=== PATIENT | male | born 1950 | race Caucasian/White ===

== ENCOUNTER 2022-12-05 09:43 | Outpatient (OUT) | payer OTHER, SELFPAY ==
--- NOTE | 2022-12-05 10:01 | US_ITS ---
The [address] [address] Patient Name: KELSEY HERNANDEZ MRN: [id number] date: 1950 Sex: M Assigned Patient Location: US Current Patient Location: US Accession/Order Number: [id number] Exam Date: 12/05/2022 10:00 Report Date: 12/06/2022 07:53 At the request of: NON-STAFF PHYSICIAN Procedure: US aorta EXAM: US aorta HISTORY: Abdominal Aortic Aneurysm I71.40. TECHNIQUE: Ultrasound was performed of the abdominal aorta. COMPARISON: CT abdomen pelvis 06/20/2019 FINDINGS: AORTA: Mild fusiform dilation of the distal aorta, 2.8 x 2.5 cm. Marked atherosclerotic plaque throughout the aorta and common iliac arteries. OTHER: Negative. IMPRESSION: 1. Marked atherosclerotic disease. 2. Mild fusiform aneurysmal dilation of distal abdominal aorta; not appreciably changed compared to 06/20/2019. Electronically authenticated by: BRENDA DAMIAN Date: 12/06/2022 07:53
== END 2022-12-05 09:44 ==
LOC: US 09:51
PROVIDERS: PCP Family Medicine
DX: I77.819 Aortic ectasia, unspecified site (principal); I70.90 Unspecified atherosclerosis
CPT/HCPCS: 76706

== ENCOUNTER 2023-04-26 00:35 | Emergency (ER) | payer MEDICARE, SELFPAY ==
[2023-04-26] VITALS (33 sets, daily range): BP systolic 112–141; BP diastolic 69–91; PULSE 74–106; RESP 10–27; TEMP 36.7; O2SAT 91–100; BMI 24.0
--- NOTE | 2023-04-26 00:49 | XR_ITS ---
The [address] [address] Patient Name: KELSEY HERNANDEZ MRN: [id number] date: 1950 Sex: M Assigned Patient Location: ER Current Patient Location: ED.MAIN Accession/Order Number: [id number] Exam Date: 04/26/2023 01:10 Report Date: 04/26/2023 01:26 At the request of: NAYA BAER Procedure: XR chest 1V EXAM: XR chest 1V HISTORY: SOB COMPARISON: Chest radiograph dated 10/11/2022. TECHNIQUE: One view of the chest was obtained. FINDINGS: The cardiac silhouette is stable in size. Aortic atherosclerotic disease is seen. A calcified granuloma is seen in the right upper lung. There are mild bibasilar opacities. There is no significant pneumothorax or left pleural effusion. There is a trace right pleural effusion. No acute osseous abnormality is seen. XR/XR chest 1V IMPRESSION: 1. Trace right pleural effusion with likely bibasilar atelectasis. Electronically authenticated by: Zenon RIZO Date: 04/26/2023 01:26
--- NOTE | 2023-04-26 00:49 | ECG_ITS ---
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
[2023-04-26] MEDS: METHYLPREDNISOLONE SOD SUCC PF 125 MG/2 ML VIAL IVP (01:05)
--- NOTE | 2023-04-26 01:09 | PC.NURSE ---
radiology called for breathing treatment
[2023-04-26] MEDS: IPRATROPIUM/ALBUTEROL SULFATE 3 ML AMPUL.NEB IH (01:13)
--- NOTE | 2023-04-26 04:41 | PC.NURSE ---
patientn 96% on room air while sitting up. when laying flat for sleep he is 92-94% comfortably
== END 2023-04-26 06:53 | disposition home or self-care (01) ==
PROVIDERS: Emergency Provider Emergency Medicine; PCP Family Medicine
DX: J44.1 Chronic obstructive pulmonary disease with (acute) exacerbation (principal); Z79.899 Other long term (current) drug therapy
CPT/HCPCS: 71045; 93005; 94640; 96374; 99284; J2930

== ENCOUNTER 2023-05-02 13:15 | Emergency (ER) | payer OTHER, SELFPAY ==
[2023-05-02] VITALS (12 sets, daily range): BP systolic 132–161; BP diastolic 78–94; PULSE 74–96; RESP 12–25; TEMP 36.8; O2SAT 85–96; BMI 24.0
--- NOTE | 2023-05-02 13:31 | ECG_ITS ---
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
--- NOTE | 2023-05-02 13:31 | XR_ITS ---
The [address] [address] Patient Name: KELSEY HERNANDEZ MRN: [id number] date: 1950 Sex: M Assigned Patient Location: ER Current Patient Location: ED.MAIN Accession/Order Number: [id number] Exam Date: 05/02/2023 13:40 Report Date: 05/02/2023 14:02 At the request of: MAGDI BAR Procedure: XR chest 1V EXAMINATION: XR chest 1V 05/02/2023 11:00 AM PST HISTORY: SOB, history of chronic obstructive pulmonary dise TECHNIQUE: Single frontal view of the chest acquired. COMPARISONS: Chest x-ray 04/26/2023. FINDINGS: Lines/tubes/other: None. Heart and mediastinum: Stable. Bones: No acute osseous abnormality. Lungs: Streaky left basilar opacification is mildly worse. Pleura: There is no significant pleural effusion or pneumothorax. Other: Flattening of the diaphragms in keeping with COPD. XR/XR chest 1V IMPRESSION: Mildly worsening left basilar opacification which could represent superimposed aspiration or pneumonia in an area of scarring. Alternatively, this could represent new mild atelectasis. Electronically authenticated by: KERVIN CHAN Date: 05/02/2023 14:02
--- NOTE | 2023-05-02 13:32 | ED.SOB1 ---
HPI - SOB/Dyspnea General Chief Complaint: Shortness of Breath/Dyspnea Stated Complaint: SHORTNESS OF BREATH Time Seen by Provider: 05/02/23 13:28 Source: patient Mode of arrival: Wheelchair Limitations: no limitations History of Present Illness HPI Narrative: 72-year-old male presents for difficulty breathing. He was at the grocery store and felt short of breath and got dizzy. He didn't pass out. He's had no fever or productive cough. He was in this emergency department for similar issues a week ago. he used his inhaler and it made him feel a little bit better. Related Data Home Medications Medication Instructions Recorded Confirmed albuterol sulfate 90 mcg/actuation inhalation 04/26/23 aerosol inhaler montelukast 10 mg tablet mg 04/26/23 Previous Rx's Medication Instructions Recorded prednisone 10 mg tablet See Rx Instructions .Route 05/02/23 .COMPLEX #30 tabs Allergies Allergy/AdvReac Type Severity Reaction Status Date / Time Penicillins Allergy Unknown Verified 04/26/23 00:46 Exam Narrative Exam Narrative: Nurses note and vital signs reviewed and patient is not hypoxic. General: The patient appears well and in no apparent distress. Patient is resting comfortably on cart. Skin: Warm, dry, no pallor noted. There is no rash noted. Head: Normocephalic, atraumatic Eye: Normal conjunctiva, no drainage Ears, Nose, Mouth, and Throat: oral mucosa is moist. Nares patent. Cardiovascular: Regular Rate and Rhythm Respiratory: bilateral rhonchi with diminished air movement Back: non-tender GI: soft and nontender Musculoskeletal: The patient has no evidence of calf tenderness, no pitting edema, symmetrical pulses noted bilaterally Neurological: A&O, normal speech Psychiatric: Cooperative Constitutional Vital Signs, click to edit/add: Last Vital Signs Temp 98.2 F 05/02/23 13:20 Pulse 78 05/02/23 14:40 Resp 16 05/02/23 14:40 BP 132/79 05/02/23 14:30 Pulse Ox 95 05/02/23 14:40 O2 Del Method Room Air 05/02/23 13:20 Course Vital Signs Vital signs: Vital Signs Temperature 98.2 F 05/02/23 13:20 Pulse Rate 88 05/02/23 13:20 Respiratory Rate 24 05/02/23 13:20 Blood Pressure 147/78 H 05/02/23 13:20 Pulse Oximetry 95 05/02/23 13:20 Oxygen Delivery Method Room Air 05/02/23 13:20 Temperature 98.2 F 05/02/23 13:20 Pulse Rate 78 05/02/23 14:40 Respiratory Rate 16 05/02/23 14:40 Blood Pressure 132/79 05/02/23 14:30 Pulse Oximetry 95 05/02/23 14:40 Oxygen Delivery Method Room Air 05/02/23 13:20 MDM - SOB/Dyspnea MDM Narrative Medical decision making narrative: the patient presents with chronic obstructive pulmonary disease exacerbation. He is feeling improved and air movement is much better now. He was given IV site Medrol and aerosol treatment and is able to be discharged home. I do not clinically suspect pneumonia. Differential Diagnosis Differential diagnosis: Likely acute exacerbation of chronic obstructive airways disease, congestive heart failure and community acquired pneumonia Lab Data Attestation: I reviewed the patient's lab results. Labs: Lab Results 05/02/23 Range/Units 13:35 WBC 8.2 (4.0-11.0) 10^3/uL RBC 4.51 L (4.70-6.10) 10^6/uL Hgb 14.3 (14.0-18.0) g/dL Hct 41.6 L (42.0-54.0) % MCV 92.2 (80.0-94.0) fL MCH 31.7 (25.9-34.0) pg MCHC 34.4 (29.9-35.2) g/dL RDW 12.0 (11.0-15.0) % Plt Count 276 (150-450) 10^3/uL MPV 9.2 L (9.5-13.5) fL Neut % (Auto) 59.1 (43.0-75.0) % Lymph % (Auto) 22.3 (20.5-60.0) % [place] % (Auto) 12.5 H (1.7-12.0) % Eos % (Auto) 5.1 (0.9-7.0) % Baso % (Auto) 0.6 (0.2-2.0) % Neut # (Auto) 4.9 (1.4-6.5) 10^3/uL Lymph # (Auto) 1.8 (1.2-3.8) 10^3/uL [place] # (Auto) 1.0 H (0.3-0.8) 10^3/uL Eos # (Auto) 0.4 (0.0-0.7) 10^3/uL Baso # (Auto) 0.1 (0.0-0.1) 10^3/uL Abs Immat Gran (auto) 0.03 (0.00-0.03) 10^3/uL Imm/Tot Granulo (auto) 0.4 (0.0-0.5) % Sodium 135 L (136-145) mmol/L Potassium 3.4 L (3.5-5.1) mmol/L Chloride 102 (98-107) mmol/L Carbon Dioxide 24.0 (21.0-32.0) mmol/L Anion Gap 12.4 BUN 13.0 (7.0-18.0) mg/dL Creatinine 0.73 (0.70-1.30) mg/dL Est GFR ( Amer) >60 (>=60) Est GFR (Non-Af Amer) >60 (>=60) BUN/Creatinine Ratio 17.8 Glucose 83 (74-106) mg/dL Calcium 9.0 (8.5-10.1) mg/dL Imaging Data Chest x-ray: Radiologist's impression: Procedure: XR chest 1V EXAMINATION: XR chest 1V 05/02/2023 11:00 AM PST HISTORY: SOB, history of chronic obstructive pulmonary dise TECHNIQUE: Single frontal view of the chest acquired. COMPARISONS: Chest x-ray 04/26/2023. FINDINGS: Lines/tubes/other: None. Heart and mediastinum: Stable. Bones: No acute osseous abnormality. Lungs: Streaky left basilar opacification is mildly worse. Pleura: There is no significant pleural effusion or pneumothorax. Other: Flattening of the diaphragms in keeping with COPD. IMPRESSION: Mildly worsening left basilar opacification which could represent superimposed aspiration or pneumonia in an area of scarring. Alternatively, this could represent new mild atelectasis. Electronically authenticated by: KERVIN CHAN Date: 05/02/2023 14:02 Critical Care Time Critical Care Time Critical Care Time: Yes Total Critical Care Time: 35 Attestation: Due to the high probability of sudden and clinically significant deterioration in the patient's condition he/she required the highest level of my preparedness to intervene urgently I provided critical care time including documentation time, medication orders and management, reevaluation, vital sign assessment, ordering and reviewing of lab tests, ordering and reviewing of x-ray studies, and admission orders. Aggregate critical care time is 35 minutes including only time during which I was engaged in work directly related to his/her care and did not include time spent treating other patients simultaneously. Discharge Plan Discharge Chief Complaint: Shortness of Breath/Dyspnea Clinical Impression: COPD exacerbation Patient Disposition: Home, Self-Care Time of Disposition Decision: 14:48 Condition: Good Mode of Transportation: Private Vehicle Prescriptions / Home Meds: New prednisone 10 mg tablet See Rx Instructions .ROUTE .COMPLEX Qty: 30 0RF Rx Instructions: 4 by mouth daily for three days then 3 by mouth daily for three days then 2 by mouth daily for three days then 1 by mouth daily for three days No Action montelukast 10 mg tablet albuterol sulfate 90 mcg/actuation HFA aerosol inhaler INHALATION Instructions: COPD (Chronic Obstructive Pulmonary Disease) (ED), How Your Lungs Work (ED) Stand Alone Forms: Portal Instructions Referrals: PAPO CASTRO [Primary Care Provider] - 1 week
[2023-05-02 13:42] LABS: Basophils Absolute Auto 0.1 10^3/uL (0.0-0.1); Basophils Percent Auto 0.6 % (0.2-2.0); Eosinophils Absolute Auto 0.4 10^3/uL (0.0-0.7); Eosinophils Percent Auto 5.1 % (0.9-7.0); Hematocrit 41.6 % (42.0-54.0); Hemoglobin 14.3 g/dL (14.0-18.0); Immature Granulocytes Abs Auto 0.03 10^3/uL (0.00-0.03); Immature Granulocytes Pct Auto 0.4 % (0.0-0.5); Lymphocytes Absolute Auto 1.8 10^3/uL (1.2-3.8); Lymphocytes Percent Auto 22.3 % (20.5-60.0); Mean Corpuscular HGB Conc 34.4 g/dL (29.9-35.2); Mean Corpuscular Hemoglobin 31.7 pg (25.9-34.0); Mean Corpuscular Volume 92.2 fL (80.0-94.0); Mean Platelet Volume 9.2 fL (9.5-13.5); Monocytes Percent Auto 12.5 % (1.7-12.0); Neutrophils Absolute Auto 4.9 10^3/uL (1.4-6.5); Neutrophils Percent Auto 59.1 % (43.0-75.0); Platelet Count 276 10^3/uL (150-450); Red Blood Count 4.51 10^6/uL (4.70-6.10); White Blood Count 8.2 10^3/uL (4.0-11.0)
[2023-05-02 13:49] LABS: Anion Gap 12.4; BUN Creatinine Ratio 17.8; Chloride 102 mmol/L (98-107); Estimated GFR (African America >60 (>=60); Estimated GFR (Non-African Ame >60 (>=60); Glucose 83 mg/dL (74-106); Potassium 3.4 mmol/L (3.5-5.1); Sodium 135 mmol/L (136-145)
[2023-05-02] MEDS: METHYLPREDNISOLONE SOD SUCC PF 125 MG/2 ML VIAL IVP (13:58)
== END 2023-05-02 15:08 | disposition home or self-care (01) ==
PROVIDERS: Emergency Provider Emergency Medicine; PCP Family Medicine
DX: J44.1 Chronic obstructive pulmonary disease with (acute) exacerbation (principal); Z79.899 Other long term (current) drug therapy
CPT/HCPCS: 36415; 71045; 80048; 85025; 93005; 96374; 99285; J2930

== ENCOUNTER 2023-07-19 19:15 | Observation (INO) | payer OTHER, SELFPAY ==
[2023-07-19] VITALS (25 sets, daily range): BP systolic 129–141; BP diastolic 70–98; PULSE 81–96; RESP 13–24; TEMP 36.9; O2SAT 94–98; BMI 22.5
--- OUTSIDE RECORDS SUMMARY | 2023-07-19 19:23 | XMS_ITS | CCD ---
Author Name Unknown Address [address] [place] [address] Organization [facility] Care Team Providers Care Data Security Analyst Name Role Phone NEGRITA LANDERS Attending Unavail able PAPO CASTRO Primary Care Unavailable CABRERA ., DR ANDREI Cloud Admitting Unavailable CABRERA ., DR ANDREI Cloud Attending Unavailable CABRERA ., DR ANDREI Cloud Consulting Unavailable PAY ., DR GANDARA Consulting Unavailable GRECHNY ., JOSIAH ACEVEDO Consulting Unavaildina e SAM ., SUSHANT Consulting Unavailable KENNY FERRIS Consulting Unavailable MARÍA, DR NARVAEZ Primary Care Unavailable CABRERA ., DR ANDREI Cloud Admitting Unavailable CABRERA ., DR ANDREI Cloud Attending Unavailable CABRERA ., DR ANDREI Cloud Consulting Unavailable GRECHNY ., JOSIAH ACEVEDO Consulting Unavaildina e SAMSA ., SUSHANT Consulting Unavailable THOMAS WILL Consulting Unavailable SISTER, TONI Consulting Unavailable DEGROH, DR BRIE Mitchell Consulting Unavailable MARÍA, DR NARVAEZ Primary Care Unavailable DALEECK, DR CORRINA Holman Consulting Unavaildina THRASHER, DR LISETTE Knight Admitting Unavailable NADERER, DR LISETTE Knight Attending Unavailable NADRAHUL, DR LISETTE Knight Consulting Unavailable STEFFANIE ., JOSIAH ACEVEDO Consulting UnavailBRIE Gomez Consulting Unavailable MARÍA, DR NARVAEZ Primary Care Unavailable CABRERA ., DR ANDREI Cloud Admitting Unavailable CABRERA ., DR ANDREI Cloud Attending Unavailable CABRERA ., DR ANDREI Cloud Consulting Unavailable PAY ., DR GANDARA Consulting Unavailable BHARGAVI ., JUAN Consulting Unavailable IQRA MYERS Consulting Unavailable Papo Castro Primary Care Physician MD Papo Castro Attending Unavailable Yo PONCE Admitting Unavailable Yo PONCE Attending Unavailable Yo PONCE Referring Unavailable MD Papo Castro Admitting Unavailable Lolis Jenkins Attending Unavailable MD Papo Castro Attending Unavailable MD Papo Castro Attending Unavailable MD Papo Castro Attending Unavailable MD Papo Castro Attending Unavailable MD Melody Huertas Emergency Provider [phone] DO Brie Negrete Primary Care Provider MD Christianne Bautista Admit Provider [phone] MD Christianne Bautista Attending Provider [phone] Brie Negrete Primary Care Unavailable Christianne Bautista Admitting Unavailable Amrit Ardon Attending Unavailable Allergies Allergy Classification Reported Allergen(s) Allergy Type Date of Onset Reaction(s) Facility (1 source) Penicillins Drug allergy (disorder) 5 [facility] Repository (2 sources) Penicillin; Translations: [penicillin] Drug Allergy Unknown (qualifier value) [facility] ([facility]) Penicillins Drug allergy (disorder) 3 [facility] Repository Medications Current Medications Medication Drug Class(es) Dates Sig (Normalized) Sig (Original) Albuterol (Eqv-ProAir HFA) 90 mcg/inh inhalation aerosol (1 source) Start: 10-09-2022 take 2 puff(s) by inhalation every four hours as needed for wheezing Albuterol (Eqv-ProAir HFA) 90 mcg/inh inhalation aerosol 2 puff(s), Inhalation, q4hr, Refill(s) 0, as needed for wheezing or shortness of breath Start Date: 10/09/22 Status: Ordered albuterol 0.833 mg/ml / ipratropium bromide 0.167 mg/ml inhalation solution (1 source) Anticholinergic, beta2-Adrenergic Agonist Start: 11-07-2022 take 3 mL by inhalation four times daily albuterol-ipratro pium Inh Ayesha 3 mL UD 3 mL, NEB, QID Shortness of breath or wheezing, Refill(s) 0 Start Date: 11/07/22 Status: Ordered budesonide 0.25 mg/ml inhalation suspension (1 source) Corticosteroid Start: 11-07-2022 budesonide 0.5 mg/2 mL Inh Susp Refills(s) 0, Inflammation Start Date: 11/07/22 Status: Ordered finasteride 5 mg oral tablet (1 source) 5-alpha Reductase Inhibitor Start: 10-09-2022 take 1 tablet by mouth once daily Proscar 5 mg Tab 5 mg = 1 tab(s), Oral, Daily, Refills(s) 0, High cholesterol Start Date: 10/09/22 Status: Ordered montelukast 10 mg oral tablet (1 source) Leukotriene Receptor Antagonist Start: 11-07-2022 take 1 tablet by mouth once daily montelukast 10 mg Tab 10 mg = 1 tab(s), Oral, Daily, Refills(s) 0, Allergy symptoms Start Date: 11/07/22 Status: Ordered nystatin [id number] unt/ml oral suspension (1 source) Polyene Antifungal Start: 11-07-2022 nystatin 100,000 units/mL Oral Susp Refills(s) 0 Start Date: 11/07/22 Status: Ordered simvastatin 5 mg oral tablet (1 source) HMG-CoA Reductase Inhibitor Start: 10-09-2022 take 1 tablet by mouth once daily at bedtime simvastatin 5 mg Tab 5 mg = 1 tab(s), Oral, Once a day (at bedtime), Refills(s) 0, High cholesterol Start Date: 10/09/22 Status: Ordered tamsulosin hydrochloride 0.4 mg oral capsule (1 source) alpha-Adrenergic Neno Start: 10-09-2022 take 2 capsules by mouth once daily tamsulosin 0.4 mg Cap 0.8 mg = 2 cap(s), Oral, Daily, Refills(s) 0, Bladder problems Start Date: 10/09/22 Status: Ordered Problems Active Problems Problem Classification Problem Date Documented Da te Episodic/Chronic Aortic; peripheral; and visceral artery aneurysms (1 source) Abdominal aortic aneurysm 12-06-2022 Chronic Asthma (1 source) Unspecified asthma with status asthmaticus; Translations: [UNS ASTHMA W/STATUS ASTHMATICUS] Onset: 3 Chronic Chronic obstructive pulmonary disease and bronchiectasis (9 sources) Chronic obstructive pulmonary disease with (acute) exacerbation; Translations: [Centrilobular emphysema] Onset: 2 Chronic Coronary atherosclerosis and other heart disease (1 source) Atherosclerotic heart disease of [place] coronary artery without angina pectoris; Translations: [ASHD [place] CA W/O ANGINA PECTORIS] Onset: 2 Chronic Disorders of lipid metabolism (3 sources) Pure hypercholesterolemia, unspecified; Translations: [Hyperlipidemia, unspecified] Onset: 2 10-09-2022 Chronic Gastrointestinal hemorrhage (1 source) Gastrointestinal hemorrhage 11-07-2022 Episodic Genitourinary symptoms and ill-defined conditions (2 sources) Retention of urine, unspecified; Translations: [Obstructive and reflux uropathy, unspecified] Onset: 2 Episodic Hyperplasia of prostate (2 sources) Benign prostatic hyperplasia without lower urinary tract symptoms; Translations: [Benign prostatic hyperplasia] Onset: 3 10-09-2022 Chronic Mycoses (1 source) Other sites of candidiasis; Translations: [OTHER SITES OF CANDIDIASIS] Onset: 3 Episodic Nonspecific chest pain (2 sources) Chest pain; Translations: [Chest pain, unspecified] 06-21-2023 Episodic Other aftercare (1 source) Other mcc (current) drug therapy; Translations: [OTH CUSTODIAL CURRENT DRUG THERAPY] Onset: 3 Episodic Other and unspecified benign neoplasm (1 source) Polyp of colon; Translations: [Polyp of colon] Onset: 3 Episodic Other and unspecified benign neoplasm (1 source) History of polyp of colon 11-07-2022 Episodic Other gastrointestinal disorders (1 source) Dysphagia, unspecified; Translations: [Dysphagia, unspecified] Onset: 3 Episodic Other lower respiratory disease (4 sources) Shortness of breath; Translations: [SHORTNESS OF BREATH] Onset: 3 Episodic Other nutritional; endocrine; and metabolic disorders (1 source) Adult failure to thrive syndrome 10-09-2022 Episodic Other upper respiratory infections (1 source) Acute pharyngitis, unspecified; Translations: [ACUTE PHARYNGITIS UNSPECIFIED] Onset: 3 Episodic Peripheral and visceral atherosclerosis (1 source) Atherosclerosis of aorta 12-06-2022 Chronic Substance-related disorders (1 source) Nicotine dependence, cigarettes, uncomplicated; Translations: [NICOTINE DEPEND CIGARETTES UNCOMP] Onset: 3 Chronic Unclassified (1 source) CONTACT W/AND (SUSP) EXPOS COVID-19; Translations: [CONTACT W/AND (SUSP) EXPOS COVID-19] Onset: 3 Urinary tract infections (3 sources) Acute urinary tract infection; Translations: [Urinary tract infection, site not specified] Onset: 3 06-21-2023 Episodic Past or Other Problems Problem Classification Problem Date Documented Da te Episodic/Chronic Malaise and fatigue (1 source) Other fatigue; Translations: [OTHER FATIGUE] Onset: 06-15-2022 Episodic Nutritional deficiencies (1 source) Cachexia; Translations: [CACHEXIA] Onset: 06-15-2022 Episodic Other lower respiratory disease (1 source) Dyspnea, unspecified; Translations: [DYSPNEA UNSPECIFIED] Onset: 06-15-2022 Episodic Other nutritional; endocrine; and metabolic disorders (1 source) Adult failure to thrive; Translations: [ADULT FAILURE TO THRIVE] Onset: 06-15-2022 Episodic Other nutritional; endocrine; and metabolic disorders (1 source) Body mass index (BMI) 28.0-28.9, adult; Translations: [BODY MASS INDEX BMI 28.0-28.9 ADULT] Onset: 06-12-2022 Episodic Residual codes; unclassified (1 source) Body mass index (BMI) 23.0-23.9, adult; Translations: [BODY MASS INDEX BMI 23.0-23.9 ADULT] Onset: 06-15-2022 Episodic Screening and history of mental health and substance abuse codes (1 source) Personal history of nicotine dependence; Translations: [PERSONAL HISTORY OF NICOTINE DEPEND] Onset: 06-15-2022 Episodic Results Test Name Value Interpretation Reference Range Facility Aerobic Cultureon 06-22-2023 Aerobic Culture Heavy Normal Respira tory Nola 2 Days Gram Stain Result 1+ Epithelial Cells 3+ White Blood Cells 1+ Gram Positive Cocci Rare Gram Positive Bacilli PERFORMED BY: [place] [address] PATHOLOGIST CANVASSING MANAGER ADELINA BRUCE M.D. [facility] Comment on above: Performed By: #### C EPHEID NEG, COVID19 FLU RSV #### [address] Blood Cultureon 06-22-2023 Bacteria identified Cx Nom (Bld) NO GROWTH 5 DAYS PERFORMED BY: [place] [address] PATHOLOGIST CANVASSING MANAGER ADELINA BRUCE M.D. [facility] Comment on above: Performed By: #### C UBLD, LACTIC #### [facility] [address] Gram Stainon 06-22-2023 Microscopic observation Gram stain Nom (Unsp spec) Gram Stain Result 1+ Epithelial Cells 3+ White Blood Cells 1+ Gram Positive Cocci Rare Gram Positive Bacilli PERFORMED BY: [place] [address] PATHOLOGIST CANVASSING MANAGER ADELINA BRUCE M.D. [facility] Comment on above: Performed By: #### C EPHEID NEG, COVID19 FLU RSV #### [address] Lactic Acidon 06-22-2023 Lactate [Moles/Vol] 0.7 mmol/L Normal 0.5-2.2 [facility] Comment on above: Result Comment: PERF ORMED BY: [place] [address] PATHOLOGIST CANVASSING MANAGER ADELINA BRUCE M.D. Performed By: #### C UBLD, LACTIC #### [address] Troponin I High Sensitivityo n 06-22-2023 Troponin I High Sensitivity 9.8 pg/mL Normal 0.0-20.0 [facility] Comment on above: Result Comment: PERF ORMED BY: [place] [address] PATHOLOGIST CANVASSING MANAGER ADELINA BRUCE M.D. Performed By: #### C EPHEID NEG, COVID19 FLU RSV #### [address] Activated partial thrombopla stin time (aPTT) in platelet poor plasma by coagulation aOrdered By: Glendy Mai on 06-21-2023 aPTT Coag (PPP) [Time] 32.9 s 25.1-36.5 [facility] Comment on above: A hematocrit value g reater than 55% may lead to inaccurate results in coagulation testing. Patients having hematocrit values >55% require a special collection tube for coagulation studies. Please contact the laboratory at [phone] for redraw instructions. Automated erythrocytes count in urine sediment (number/area)Ordered By: Melody Huertas on 06-21-2023 RBC Auto (Urine sed) [#/Area] 3-4 [HPF] 0-4 [facility] Automated leukocytes count i n urine sediment (number/area)Ordered By: Melody Huertas on 06-21-2023 WBC Auto (Urine sed) [#/Area] Innumerable [HPF] 0-4 [facility] B-Type Natriuretic Peptideon 06-21-2023 Natriuretic peptide B (Bld) [Mass/Vol] 75.0 pg/mL Normal 5-100 [facility] Comment on above: Result Comment: PERF ORMED BY: [place] [address] PATHOLOGIST CANVASSING MANAGER ADELINA BRUCE M.D. Performed By: #### C EPHEID NEG, COVID19 FLU RSV #### [address] Basic Metabolic Panelon 12-2 Anion gap [Moles/Vol] 12.8 mmol/L Normal 6.0-15.0 [facility] Comment on above: Performed By: #### C EPHEID NEG, COVID19 FLU RSV #### [place] [address] [place] Calcium [Mass/Vol] 9.3 mg/dL Normal 8.6-10.3 [facility] Comment on above: Performed By: #### C EPHEID NEG, COVID19 FLU RSV #### [place] [address] [place] Chloride [Moles/Vol] 104 mmol/L Normal 98-107 [facility] Comment on above: Performed By: #### C EPHEID NEG, COVID19 FLU RSV #### [place] [id number] [place] CO2 [Moles/Vol] 24.1 mmol/L Normal 21.0-31.0 [facility] Comment on above: Performed By: #### C EPHEID NEG, COVID19 FLU RSV #### [facility] [address] [place] [address] [place] Creatinine [Mass/Vol] 0.70 mg/dL Normal 0.70-1.30 [facility] Comment on above: Performed By: #### C EPHEID NEG, COVID19 FLU RSV #### [facility] [address] [place] [address] [place] Creatinine Clr Calc Pharmacy 70.92 [facility] Comment on above: Result Comment: PERF ORMED BY: [place] [address] PATHOLOGIST CANVASSING MANAGER ADELINA BRUCE M.D. Performed By: #### C EPHEID NEG, COVID19 FLU RSV #### [place] [address] [place] GFR/1.73 sq M.predicted MDRD (S/P/Bld) [Vol rate/Area] mL/min/{1.73_m2} [facility] Comment on above: Performed By: #### C EPHEID NEG, COVID19 FLU RSV #### [place] [address] [place] Glucose [Mass/Vol] 100 mg/dL Normal 70-100 [facility] Comment on above: Result Comment: [place] Glucose Reference Range is dependent on time and content of last meal. Glucose of more than 200 mg/dL in a nonstressed, ambulatory subject supports the diagnosis of Diabetes Mellitus. ADA recommended reference range Performed By: #### C EPHEID NEG, COVID19 FLU RSV #### [facility] [address] [place] [address] [place] Potassium [Moles/Vol] 3.9 mmol/L Normal 3.5-5.1 [facility] Comment on above: Performed By: #### C EPHEID NEG, COVID19 FLU RSV #### [facility] [address] [place] [address] [place] Sodium [Moles/Vol] 137 mmol/L Normal 136-145 [facility] Comment on above: Performed By: #### C EPHEID NEG, COVID19 FLU RSV #### [facility] [address] [place] [address] [place] Urea nitrogen [Mass/Vol] 10 mg/dL Normal 7- [facility] Comment on above: Performed By: #### C EPHEID NEG, COVID19 FLU RSV #### [facility] [address] Basophils Auto (Bld) [#/Vol] Ordered By: Glendy Mai on 06-21-2023 Basophils (Bld) [#/Vol] 0.1 10*3/uL 0.0-0.2 [facility] Basophils/100 WBC Auto (Bld) Ordered By: Glendy Mai on 06-21-2023 Basophils/100 WBC (Bld) 0.5 % . [facility] Bilirubin Test strip Ql (U)O rdered By: Melody Huertas on 06-21-2023 Bilirubin Ql (U) Negative Negative [facility] Blood Cultureon 06-21-2023 Bacteria identified Cx Nom (Bld) NO GROWTH 5 DAYS PERFORMED BY: [place] [address] PATHOLOGIST CANVASSING MANAGER ADELINA BRUCE M.D. Normal [facility] Comment on above: Performed By: #### C UBLD, LACTIC #### [facility] [address] [place] [address] COVID CepheidOrdered By: Adrian Mai on 06-21-2023 SARS-CoV-2 (COVID-19) Ab IA Ql Negative Negative [facility] Comment on above: This is a duplicate Cepheid Xpert Xpress CoV-2/Flu/RSV Plus RNA by RT-PCR result to be used for statistical tracking purpose only. SARS-CoV-2 (COVID-19) RNA BENSON+probe Ql (Unsp spec) [facility] COVID-19 / Flu A/B / RSV PCR on 06-21-2023 SARS-CoV-2 (COVID-19) RNA BENSON+probe Ql (Unsp spec) COVID-19 Cepheid Result Negative for SARS-CoV-2 RNA by RT-PCR Flu A Cepheid Result Negative for Flu A RNA by RT-PCR Flu B Cepheid Result Negative for Flu B RNA by RT-PCR RSV Cepheid Result Negative for RSV RNA by RT-PCR COVID19 Blank Space -- Reference: Negative COVID19 Blank Space -- Cepheid Disclaimer The Cepheid Xpert Xpress CoV-2/Flu/RSV Plus has Cepheid Disclaimer not been FDA cleared or approved; this test has Cepheid Disclaimer been authorized by FDA under an EUA for use by Cepheid Disclaimer authorized laboratories; this test has been Cepheid Disclaimer authorized only for the simultaneous qualitative Cepheid Disclaimer detection and differentiation of nucleic acids from Cepheid Disclaimer SARS-CoV-2, influenza A, influenza B, and Cepheid Disclaimer respiratory syncytial virus (RSV), and not for any Cepheid Disclaimer other viruses or pathogens; and this test is only Cepheid Disclaimer authorized for the duration of the declaration that Cepheid Disclaimer circumstances exist justifying the authorization of Cepheid Disclaimer emergency use of in vitro diagnostic tests for Cepheid Disclaimer detection and/or diagnosis of COVID-19 under Cepheid Disclaimer Section 564(b)(1) of the Act, 21 U.S.C. 360bbb- Cepheid Disclaimer 3(b)(1), unless the authorization is terminated or Cepheid Disclaimer revoked sooner. PERFORMED BY: [facility] [address] [place] [address] PATHOLOGIST CANVASSING MANAGER ADELINA BRUCE M.D. Normal [facility] Comment on above: Performed By: #### C EPHEID NEG, COVID19 FLU RSV #### [facility] [address] [place] [id number] [facility] CT angio chest PE protocolon 06-21-2023 CT angio chest PE protocol [facility] [address] [place] [address] [place] [address] CT Scan Report Signed Patient: Kelsey Hernandez MR#: [id number] : 1950 Acct:[id number] Age/Sex: 72 / M ADM Date: 06/21/23 Loc: ER Room: Type: [facility] ER Attending Dr: Copies to: Melody Huertas MD Ordering Provider: Melody Huertas MD Date of Service: 06/21/23 CT/CT angio chest PE protocol: r/o pe, tachy, sob, dimer elevated CT ANGIOGRAM OF THE CHEST, PULMONARY EMBOLISM PROTOCOL: CLINICAL INFORMATION: Shortness of breath and cough for 2 weeks tachycardia elevated d-dimer COMPARISON: Chest performed earlier today. TECHNIQUE: Following intravenous injection of contrast CT scans of the chest were obtained using pulmonary embolism protocol. Coronal and sagittal reconstructed images, as well as volume rendered CT pulmonary angiographic images were also submitted.The CT exam was performed using one or more of the following dose reduction techniques: Automated exposure control, adjustment of the MA and/or Kv according to patient size, or use of the iterative reconstruction technique. FINDINGS: Pulmonary Vasculature: Contrast bolus is adequate for evaluation of pulmonary embolism. Pulmonary trunk appears nondilated. No filling defects are identified to suggest pulmonary embolism. Mediastinum : Thoracic aorta is normal in caliber. No pericardial effusion. No lymphadenopathy. The esophagus is grossly unremarkable. Lungs: No focal consolidation, pneumothorax or pleural effusion. Diffuse bronchial wall thickening. Debris is seen within the trachea extending into the right breast. Upper abdomen: No acute findings Soft tissue/bones: Soft tissues surrounding the chest wall demonstrate no acute findings. Osseous structures demonstrate degenerative change. CT/CT angio chest PE protocol IMPRESSION: NO EVIDENCE OF ACUTE PULMONARY EMBOLISM OR PROCESS. Impression dictated by: Ernesto Beal Jr., D.O.06/21/2023 9:06 PM Dictation Location: [place] [address] Transcribed By: [place] 06/21/232105 Dictated By: Ernesto Beal Jr, DO 06/21/232057 Signed By: 06/21/232105 Normal [facility] Calcium [Mass/volume] in Ser um or PlasmaOrdered By: Glendy Mai on 06-21-2023 Calcium [Mass/Vol] 9.3 mg/dL 8.6-10.3 [facility] Carbon dioxide, total [Moles /volume] in Serum or PlasmaOrdered By: Glendy Mai on 06-21-2023 CO2 [Moles/Vol] 24.1 mmol/L 21.0-31.0 [facility] Cepheid COVID PCR Negativeon 06-21-2023 SARS-CoV-2 (COVID-19) RNA BENSON+probe Ql (Unsp spec) Negative Normal Negative [facility] Comment on above: Result Comment: This is a duplicate Cepheid Xpert Xpress CoV-2/Flu/RSV Plus RNA by RT-PCR result to be used for statistical tracking purpose only. PERFORMED BY: [place] [id number] PATHOLOGIST CANVASSING MANAGER ADELINA BRUCE M.D. Performed By: #### C EPHEID NEG, COVID19 FLU RSV #### [facility] [address] [place] [address] [place] Chloride [Moles/volume] in S eron or PlasmaOrdered By: Glendy Mai on 06-21-2023 Chloride [Moles/Vol] 104 mmol/L 98-107 [facility] Color Auto (U)Ordered By: Heather Huertas on 06-21-2023 Color (U) Yellow Yellow [facility] Complete Blood Count Auto Di ffon 06-21-2023 Basophils (Bld) [#/Vol] 0.1 10*3/uL Normal 0.0-0.2 [facility] Comment on above: Result Comment: PERF ORMED BY: [facility] [address] [place] [id number] PATHOLOGIST CANVASSING MANAGER ADELINA BRUCE M.D. Performed By: #### C EPHEID NEG, COVID19 FLU RSV #### [facility] [address] [place] [address] [place] Basophils/100 WBC (Bld) 0.5 % Normal . [facility] Comment on above: Performed By: #### C EPHEID NEG, COVID19 FLU RSV #### [address] Eosinophils (Bld) [#/Vol] 0.8 10*3/uL High 0.0-0.45 [facility] Comment on above: Performed By: #### C EPHEID NEG, COVID19 FLU RSV #### [address] Eosinophils/100 WBC (Bld) 6.6 % Normal . [facility] Comment on above: Performed By: #### C EPHEID NEG, COVID19 FLU RSV #### [address] Erythrocyte distribution width (RBC) [Ratio] 13.4 % Normal 12.0-14.8 [facility] Comment on above: Performed By: #### C EPHEID NEG, COVID19 FLU RSV #### [address] Hematocrit (Bld) [Volume fraction] 43.0 % Normal 38.8-50.0 [facility] Comment on above: Performed By: #### C EPHEID NEG, COVID19 FLU RSV #### [address] Hemoglobin (Bld) [Mass/Vol] 14.4 g/dL Normal 13.0-17.0 [facility] Comment on above: Performed By: #### C EPHEID NEG, COVID19 FLU RSV #### [address] Lymphocytes (Bld) [#/Vol] 1.8 10*3/uL Normal 1.00-4.8 [facility] Comment on above: Performed By: #### C EPHEID NEG, COVID19 FLU RSV #### [address] Lymphocytes/100 WBC (Bld) 16.0 % Normal . [facility] Comment on above: Performed By: #### C EPHEID NEG, COVID19 FLU RSV #### [address] MCH (RBC) [Entitic mass] 30.9 pg Normal 27.5-35.2 [facility] Comment on above: Performed By: #### C EPHEID NEG, COVID19 FLU RSV #### [address] MCV (RBC) [Entitic vol] 92.6 fL Normal 83.5-101 [facility] Comment on above: Performed By: #### C EPHEID NEG, COVID19 FLU RSV #### [address] Mean Corpuscular HGB Conc 33.4 g/dL Normal 32.5-35.6 [facility] Comment on above: Performed By: #### C EPHEID NEG, COVID19 FLU RSV #### [address] Monocytes (Bld) [#/Vol] 1.0 10*3/uL High 0.0-0.8 [facility] Comment on above: Performed By: #### C EPHEID NEG, COVID19 FLU RSV #### [address] Monocytes/100 WBC (Bld) 19.71 % Normal 0.00-20.00 [facility] Comment on above: Performed By: #### C EPHEID NEG, COVID19 FLU RSV #### [place] [address] [place] Monocytes/100 WBC (Bld) 9.0 % Normal . [facility] Comment on above: Performed By: #### C EPHEID NEG, COVID19 FLU RSV #### [place] [address] [place] Neutrophils (Bld) [#/Vol] 7.8 10*3/uL High 1.8-7.7 [facility] Comment on above: Performed By: #### C EPHEID NEG, COVID19 FLU RSV #### [address] Neutrophils/100 WBC (Bld) 67.9 % Normal . [facility] Comment on above: Performed By: #### C EPHEID NEG, COVID19 FLU RSV #### [facility] [address] NRBC% 0.1 /100{WBC} Normal 0-0.5 [facility] Comment on above: Performed By: #### C EPHEID NEG, COVID19 FLU RSV #### [facility] [address] Platelet mean volume (Bld) [Entitic vol] 6.8 fL Normal 6.6-10.1 [facility] Comment on above: Performed By: #### C EPHEID NEG, COVID19 FLU RSV #### [address] Platelets (Bld) [#/Vol] 372 10*3/uL Normal 150-450 [facility] Comment on above: Performed By: #### C EPHEID NEG, COVID19 FLU RSV #### [address] RBC (Bld) [#/Vol] 4.65 10*6/uL Normal 3.90-5.60 [facility] Comment on above: Performed By: #### C EPHEID NEG, COVID19 FLU RSV #### [address] WBC (Bld) [#/Vol] 11.5 10*3/uL High 4.1-10.5 [facility] Comment on above: Performed By: #### C EPHEID NEG, COVID19 FLU RSV #### [facility] [address] [place] [address] Creatinine [Mass/volume] in Serum or PlasmaOrdered By: Glendy Mai on 06-21-2023 Creatinine [Mass/Vol] 0.70 mg/dL 0.70-1.30 [facility] D-Dimer High Sensitivityon 1 08-22-2022 D-Dimer High Sensitivity 312 ng/mL High 0-243 [facility] Comment on above: Result Comment: The reference range for D-dimer is <243 ng/mL D-dimer units. D-dimer results must be used in conjunction with a clinical pretest probability (PTP) assessment model for deep vein thrombosis (DVT) and pulmonary embolism (PE). Results <230 ng/mL d-dimer units can be used as a negative predictor in patients with low or moderate probability for DVT/PE. Results above the exclusion threshold of 230 ng/ml D-dimer units for DVT/PE may indicate the need for further diagnostic testing. D-Dimer can be increased in hospitalized patients due to co-morbid conditions. A hematocrit value greater than 55% may lead to inaccurate results in coagulation testing. Patients having hematocrit values >55% require a special collection tube for coagulation studies. Please contact the laboratory at [phone] for redraw instructions. PERFORMED BY: [place] [address] PATHOLOGIST CANVASSING MANAGER ADELINA BRUCE M.D. Performed By: #### C EPHEID NEG, COVID19 FLU RSV #### [facility] [address] [place] [address] [place] Dipstick and Microscopicon 1 08-22-2022 Appearance (U) Turbid Critically abnormal Clear [facility] Comment on above: Order Comment: Name Collection Type:: Clean-Voided Midstream Performed By: #### A DDONUAPLUS, CUU #### [place] [address] [place] Bacteria,Urine 4+ High None Seen [facility] Comment on above: Order Comment: Name Collection Type:: Clean-Voided Midstream Performed By: #### A DDONUAPLUS, CUU #### [place] [id number] [place] Bilirubin,Urine Negative Normal Negative [facility] Comment on above: Order Comment: Name Collection Type:: Clean-Voided Midstream Performed By: #### A DDONUAPLUS, CUU #### [place] [id number] [place] Color (U) Yellow Normal Yellow [facility] Comment on above: Order Comment: Name Collection Type:: Clean-Voided Midstream Performed By: #### A DDONUAPLUS, CUU #### [address] Glucose Ql (U) Normal Normal Normal [facility] Comment on above: Order Comment: Name Collection Type:: Clean-Voided Midstream Performed By: #### A DDONUAPLUS, CUU #### [place] [address] [place] Hyaline Casts,Urine None Seen Normal 0-8 [facility] Comment on above: Order Comment: Name Collection Type:: Clean-Voided Midstream Performed By: #### A DDONUAPLUS, CUU #### [address] Ketones Ql (U) 2+ High Negative [facility] Comment on above: Order Comment: Name Collection Type:: Clean-Voided Midstream Performed By: #### A DDONUAPLUS, CUU #### [address] Leukocyte esterase Test strip Ql (U) 3+ High Negative [facility] Comment on above: Order Comment: Name Collection Type:: Clean-Voided Midstream Performed By: #### A DDONUAPLUS, CUU #### [place] [address] [place] Nitrite,Urine Negative Normal Negative [facility] Comment on above: Order Comment: Name Collection Type:: Clean-Voided Midstream Performed By: #### A DDONUAPLUS, CUU #### [place] [address] [place] Occult Blood,Urine Trace High Negative [facility] Comment on above: Order Comment: Name Collection Type:: Clean-Voided Midstream Result Comment: PERF ORMED BY: [place] [address] PATHOLOGIST CANVASSING MANAGER ADELINA BRUCE M.D. Performed By: #### A DDONUAPLUS, CUU #### [place] [address] [place] pH (U) 5.5 [pH] Normal 5.0-9.0 [facility] Comment on above: Order Comment: Name Collection Type:: Clean-Voided Midstream Performed By: #### A DDONUAPLUS, CUU #### [address] Protein,Urine Trace High Negative [facility] Comment on above: Order Comment: Name Collection Type:: Clean-Voided Midstream Performed By: #### A DDONUAPLUS, CUU #### [address] RBC,Urine 3-4 Normal 0-4 [facility] Comment on above: Order Comment: Name Collection Type:: Clean-Voided Midstream Performed By: #### A DDONUAPLUS, CUU #### [address] Specificy [place],Urine 1.022 Normal 1.001-1.030 [facility] Comment on above: Order Comment: Name Collection Type:: Clean-Voided Midstream Performed By: #### A DDONUAPLUS, CUU #### [address] Squamous Epithelial Cell,Urine None Seen Normal 0-2 [facility] Comment on above: Order Comment: Name Collection Type:: Clean-Voided Midstream Performed By: #### A DDONUAPLUS, CUU #### [address] Urobilinogen,Urine Normal Normal Normal [facility] Comment on above: Order Comment: Name Collection Type:: Clean-Voided Midstream Performed By: #### A DDONUAPLUS, CUU #### [facility] [address] [place] [address] [place] WBC,Urine Innumerable High 0-4 [facility] Comment on above: Order Comment: Name Collection Type:: Clean-Voided Midstream Performed By: #### A DDONUAPLUS, CUU #### [address] Yeast,Urine None Seen Normal None Seen [facility] Comment on above: Order Comment: Name Collection Type:: Clean-Voided Midstream Result Comment: PERF ORMED BY: [place] [address] PATHOLOGIST CANVASSING MANAGER ADELINA BRUCE M.D. Performed By: #### A FABIO CUU #### [address] ECG 12 lead ECGon 06-21-2023 ECG 12 lead ECG [facility] [place] [address] [place] [address] Electrocardiograph Report Signed Patient: Kelsey Hernandez MR#: [id number] : 1950 Acct:[id number] Age/Sex: 72 / M ADM Date: 06/21/23 Loc: Room: [address] [place] [address] Type: ADM IN Attending Dr: Christianne Bautista MD Ordering Provider: Glendy Mai APRN Date of Service: 06/21/23 ECG/ECG 12 lead ECG: Shortness of Breath/Dyspnea Copies to: Test Reason : Blood Pressure : 139/077 mmHG Vent. Rate : 094 BPM Atrial Rate : 094 BPM P-R Int : 172 ms QRS Dur : 076 ms QT Int : 370 ms P-R-T Axes : 091 058 084 degrees QTc Int : 462 ms Normal sinus rhythm Nonspecific ST and T wave abnormality Abnormal ECG No previous ECGs available Confirmed by RUPERTO LIU MD ([id number]) on 06/22/2023 6:19:35 AM Referred By: Electronically Signed By:RUPERTO LIU MD Transcribed By: MUS Signed By Ruperto Liu Jr, [place] [id number] Normal [facility] Eosinophils Auto (Bld) [#/Vo l]Ordered By: Glendy Mai on 06-21-2023 Eosinophils (Bld) [#/Vol] 0.8 10*3/uL 0.0-0.45 [facility] Eosinophils/100 WBC Auto (Bl d)Ordered By: Glendy Mai on 06-21-2023 Eosinophils/100 WBC (Bld) 6.6 % . [facility] Erythrocyte distribution wid th Auto (RBC) [Ratio]Ordered By: Glendy Mai on 06-21-2023 Erythrocyte distribution width (RBC) [Ratio] 13.4 % 12.0-14.8 [facility] Fibrin D-dimer [Presence] in Platelet poor plasma by Latex agglutinationOrdered By: Glendy Mai on 06-21-2023 Fibrin D-dimer LA Ql (PPP) 312 ng/mL 0-243 [facility] Comment on above: The reference range for D-dimer is <243 ng/mL D-dimer units.D-dimer results must be used in conjunction with a clinicalpretest probability (PTP) assessment model for deep veinthrombosis (DVT) and pulmonary embolism (PE). Results <230ng/mL d-dimer units can be used as a negative predictor inpatients with low or moderate probability for DVT/PE.Results above the exclusion threshold of 230 ng/ml D-dimerunits for DVT/PE may indicate the need for furtherdiagnostic testing.D-Dimer can be increased in hospitalized patients due toco-morbid conditions.A hematocrit value greater than 55% may lead to inaccurate results in coagulation testing. Patients having hematocrit values >55% require a special collection tube for coagulation studies. Please contact the laboratory at [phone] for redraw instructions. Glucose [Mass/volume] in Ser um or PlasmaOrdered By: Glendy Mai on 06-21-2023 Glucose [Mass/Vol] 100 mg/dL 70-100 [facility] Comment on above: ADA recommended refe rence rangeRandom Glucose Reference Range is dependent on time and content of last meal. Glucose of more than 200 mg/dL in a nonstressed, ambulatory subject supports the diagnosis of Diabetes Mellitus. Hematocrit Auto (Bld) [Volum e fraction]Ordered By: Glendy Mai on 06-21-2023 Hematocrit (Bld) [Volume fraction] 43.0 % 38.8-50.0 [facility] Hemoglobin [Mass/volume] in BloodOrdered By: Glendy Mai on 06-21-2023 Hemoglobin (Bld) [Mass/Vol] 14.4 g/dL 13.0-17.0 [facility] INR in Platelet poor plasma by Coagulation assayOrdered By: Glendy Mai on 06-21-2023 INR Coag (PPP) [Relative time] 1.1 {INR} [facility] Comment on above: INR Therapeutic Rang e A) Pre- and Peroperative OAT started two weeks before surgery. NOT HIP SURGERY: 1.5 - 2.5 HIP SURGERY: 2 - 3B) Primary and secondary prevention of venous THROMBOSIS: 2 - 3C) Active venous thrombosis, pulmonary embolismand prevention of recurrent venous thrombosis: 2 - 3D) Prevention of arterial thromboembolismincluding patients with mechanical heart valves: 3 - 4.5 Ketones Auto test strip (U) [Mass/Vol]Ordered By: Melody Huertas on 06-21-2023 Ketones (U) [Mass/Vol] 2+ Negative [facility] - UrinalysisOrder ed By: Melody Huertas on 06-21-2023 Hyaline casts LM Ql (Urine sed) None seen [LPF] 0-8 [facility] Lactate [Moles/volume] in Se rum or PlasmaOrdered By: Melody Huertas on 06-21-2023 Lactate [Moles/Vol] 0.7 mmol/L 0.5-2.2 [facility] Leukocytes [#/volume] correc patricio for nucleated erythrocytes in Blood by Automated counOrdered By: Glendy Mai on 06-21-2023 WBC corrected for nucl RBC Auto (Bld) [#/Vol] 11.5 10*3/uL 4.1-10.5 [facility] Lymphocytes Auto (Bld) [#/Vo l]Ordered By: Glendy Mai on 06-21-2023 Lymphocytes (Bld) [#/Vol] 1.8 10*3/uL 1.00-4.8 [facility] Lymphocytes/100 WBC Auto (Bl d)Ordered By: Glendy Mai on 06-21-2023 Lymphocytes/100 WBC (Bld) 16.0 % . [facility] MCH Auto (RBC) [Entitic mass ]Ordered By: Glendy Mai on 06-21-2023 MCH (RBC) [Entitic mass] 30.9 pg 27.5-35.2 [facility] MCHC Auto (RBC) [Mass/Vol]Or dered By: Glendy Mai on 06-21-2023 MCHC (RBC) [Mass/Vol] 33.4 g/dL 32.5-35.6 [facility] MCV Auto (RBC) [Entitic vol] Ordered By: Glendy Mai on 06-21-2023 MCV (RBC) [Entitic vol] 92.6 fL 83.5-101 [facility] Monocyte distribution width [Entitic volume] in Blood by AutomatedOrdered By: Glendy Mai on 06-21-2023 Monocyte distribution width Auto (Bld) [Entitic vol] 19.71 % 0.00-20.00 [facility] Monocytes Auto (Bld) [#/Vol] Ordered By: Glendy Mai on 06-21-2023 Monocytes (Bld) [#/Vol] 1.0 10*3/uL 0.0-0.8 [facility] Monocytes/100 WBC Auto (Bld) Ordered By: Glendy Mai on 06-21-2023 Monocytes/100 WBC (Bld) 9.0 % . [facility] Natriuretic peptide B [Mass/ Vol]Ordered By: Glendy Mai on 06-21-2023 Natriuretic peptide B (Bld) [Mass/Vol] 75.0 pg/mL 5-100 [facility] Neutrophils Auto (Bld) [#/Vo l]Ordered By: Glendy Mai on 06-21-2023 Neutrophils (Bld) [#/Vol] 7.8 10*3/uL 1.8-7.7 [facility] Neutrophils/100 WBC Auto (Bl d)Ordered By: Glendy Mai on 06-21-2023 Neutrophils/100 WBC (Bld) 67.9 % . [facility] Nitrite Test strip Ql (U)Ord ered By: Melody Huertas on 06-21-2023 Nitrite Ql (U) Negative Negative [facility] No Panel InformationOrdered By: Glendy Mai on 06-21-2023 Estimated GFR (CKD-EPI) > 60.0 mL/Min [facility] Creatinine Clearance (Chem 70.92 [facility] Nucleated erythrocytes [Pres ence] in Blood by Automated countOrdered By: Glendy Mai on 06-21-2023 Nucleated RBC Auto Ql (Bld) 0.1 /100{WBC} 0-0.5 [facility] Partial Thromboplastin Timeo n 06-21-2023 aPTT Coag (Bld) [Time] 32.9 s Normal 25.1-36.5 [facility] Comment on above: Result Comment: A he matocrit value greater than 55% may lead to inaccurate results in coagulation testing. Patients having hematocrit values >55% require a special collection tube for coagulation studies. Please contact the laboratory at [phone] for redraw instructions. Performed By: #### C EPHEID NEG, COVID19 FLU RSV #### [facility] [address] Platelet mean volume Auto (B ld) [Entitic vol]Ordered By: Glendy Mai on 06-21-2023 Platelet mean volume (Bld) [Entitic vol] 6.8 fL 6.6-10.1 [facility] Platelets Auto (Bld) [#/Vol] Ordered By: Glendy Mai on 06-21-2023 Platelets (Bld) [#/Vol] 372 10*3/uL 150-450 [facility] Potassium [Moles/volume] in Serum or PlasmaOrdered By: Glendy Mai on 06-21-2023 Potassium [Moles/Vol] 3.9 mmol/L 3.5-5.1 [facility] Protein Auto test strip (U) [Mass/Vol]Ordered By: Melody Huertas on 06-21-2023 Protein (U) [Mass/Vol] Trace mg/dL Negative [facility] Prothrombin Time INRon 06-21 INR Coag (PPP) [Relative time] 1.1 {INR} Normal [facility] Comment on above: Result Comment: INR Therapeutic Range A) Pre- and Peroperative OAT started two weeks before surgery. NOT HIP SURGERY: 1.5 - 2.5 HIP SURGERY: 2 - 3 B) Primary and secondary prevention of venous THROMBOSIS: 2 - 3 C) Active venous thrombosis, pulmonary embolism and prevention of recurrent venous thrombosis: 2 - 3 D) Prevention of arterial thromboembolism including patients with mechanical heart valves: 3 - 4.5 Performed By: #### C EPHEID NEG, COVID19 FLU RSV #### [facility] [address] [place] [address] [place] PT Coag (PPP) [Time] 12.0 s Normal 9.0-12.9 [facility] Comment on above: Result Comment: A he matocrit value greater than 55% may lead to inaccurate results in coagulation testing. Patients having hematocrit values >55% require a special collection tube for coagulation studies. Please contact the laboratory at [phone] for redraw instructions. Performed By: #### C EPHEID NEG, COVID19 FLU RSV #### [facility] [address] [place] [address] [facility] Prothrombin time (PT)Ordered By: Glendy Mai on 06-21-2023 PT Coag (PPP) [Time] 12.0 s 9.0-12.9 [facility] Comment on above: A hematocrit value g reater than 55% may lead to inaccurate results in coagulation testing. Patients having hematocrit values >55% require a special collection tube for coagulation studies. Please contact the laboratory at [phone] for redraw instructions. RBC Auto (Bld) [#/Vol]Ordere d By: Glendy Mai on 06-21-2023 RBC (Bld) [#/Vol] 4.65 10*6/uL 3.90-5.60 [facility] Serum or plasma anion gap de terminationOrdered By: Glendy Mai on 06-21-2023 Anion gap [Moles/Vol] 12.8 mmol/L 6.0-15.0 [facility] Sodium [Moles/volume] in Ser um or PlasmaOrdered By: Glendy Mai on 06-21-2023 Sodium [Moles/Vol] 137 mmol/L 136-145 [facility] Specific gravity Auto test s trip (U) [Rel density]Ordered By: Melody Huertas on 06-21-2023 Specific gravity (U) [Rel density] 1.022 1.001-1.030 [facility] Squamous epithelial cells de tection in urine sediment by light microscopyOrdered By: Melody Huertas on 06-21-2023 Epithelial cells.squamous LM Ql (Urine sed) None seen [HPF] 0-2 [facility] Troponin I High Sensitivityo n 06-21-2023 Troponin I High Sensitivity 8.1 pg/mL Normal 0.0-20.0 [facility] Comment on above: Result Comment: PERF ORMED BY: [place] [address] PATHOLOGIST CANVASSING MANAGER ADELINA BRUCE M.D. Performed By: #### C EPHEID NEG, COVID19 FLU RSV #### [facility] [address] [place] [address] Troponin I.cardiac [Mass/vol ume] in Serum or Plasma by Detection limit <= 0.01 ng/Ordered By: Melody Huertas on 06-21-2023 Troponin I.cardiac DL <= 0.01 ng/mL [Mass/Vol] 9.8 pg/mL 0.0-20.0 [facility] Urea nitrogen [Mass/volume] in Serum or PlasmaOrdered By: Glendy Mai on 06-21-2023 Urea nitrogen [Mass/Vol] 10 mg/dL - [facility] Urine Cultureon 06-21-2023 Bacteria identified Cx Nom (U) ORGANISM: Streptococcus mitis/oralis grp (O:STRMITORGR) Mobile Count >100,000 Organism Comments Organism not Routinely Tested for Susceptibilities PERFORMED BY: [place] [address] PATHOLOGIST CANVASSING MANAGER ADELINA BRUCE M.D. Normal [facility] Comment on above: Performed By: #### A DDONUAPLUS, CUU #### [facility] [address] [place] [address] [place] Urine bacteria detection by automated methodOrdered By: Melody Huertas on 06-21-2023 Bacteria Auto Ql (U) 4+ None Seen [facility] Urine clarity by refractomet ry automatedOrdered By: Melody Huertas on 06-21-2023 Clarity Refractometry automated (U) Turbid Clear [facility] Urine glucose measurement by automated test strip (mass/volume)Ordered By: Melody Huertas on 06-21-2023 Glucose Auto test strip (U) [Mass/Vol] Normal mg/dL Normal [facility] Urine hemoglobin detection b y automated test stripOrdered By: Melody Huertas on 06-21-2023 Hemoglobin Auto test strip Ql (U) Trace Negative [facility] Urine leukocyte esterase det ection by automated test stripOrdered By: Melody Huertas on 06-21-2023 Leukocyte esterase Auto test strip Ql (U) 3+ Negative [facility] Urobilinogen Auto test strip (U) [Mass/Vol]Ordered By: Melody Huertas on 06-21-2023 Urobilinogen (U) [Mass/Vol] Normal mg/dL Normal [facility] WBC Auto (Bld) [#/Vol]Ordere d By: Glendy Mai on 06-21-2023 WBC (Bld) [#/Vol] 11.5 10*3/uL 4.1-10.5 [facility] XR chest 2V*on 06-21-2023 XR chest 2V* [facility] [place] [address] XRay Report Signed Patient: Kelsey Hernandez MR#: [id number] : 1950 Acct:[id number] Age/Sex: 72 / M ADM Date: 06/21/23 Loc: ER Room: Type: PRE ER Attending Dr: Copies to: EMILY BANKS Ordering Provider: EMILY BANKS Date of Service: 06/21/23 XR/XR chest 2V*: Shortness of Breath/Dyspnea Chest 2 views CLINICAL HISTORY: Shortness of breath for 2 weeks. COMPARISON: None FINDINGS: Heart normal in size. COPD changes without consolidation pneumothorax pleural effusion or free air. XR/XR chest 2V* IMPRESSION: COPD CHANGES. NO ACUTE PROCESS. Impression dictated by: Ernesto Beal Jr., D.O.06/21/2023 3:42 PM Dictation Location: [place] [address] Transcribed By: [place] 06/21/23 1542 Dictated By: Ernesto Beal Jr, DO 06/21/23 1541 Signed By: 06/21/23 154 [facility] Yeast detection in urine sed iment by light microscopyOrdered By: Melody Huertas on 06-21-2023 Yeast LM Ql (Urine sed) None seen [HPF] None Seen [facility] pH Auto test strip (U)Ordere d By: Melody Huertas on 06-21-2023 pH (U) 5.5 [pH] 5.0-9.0 [facility] Formson 05-25-2023 Forms [id number]#[id number] Normal [facility] ECG 12-Leadon 05-10-2023 ECG 12-Lead [id number]#[id number] Normal [facility] Lab Reportson 05-10-2023 Lab Reports [id number]#[id number] Normal [facility] RAD - MISCon 05-08-2023 RAD - MISC [id number]#[id number] Normal [facility] Ambulatory Visit Summaryon 1 07-07-2022 Ambulatory Visit Summary KELSEY HERNANDEZ :1950 Visit Date:05/07/2023 Ambulatory Visit Instructions Your Diagnosis COPD exacerbation Chronic obstructive pulmonary disease, unspecified COPD type Your Care Team Attending Physician - Papo Castro MD Primary Care Physician - Papo Castro MD This Is Your Medications List Contact prescribing physician if questions or concerns albuterol (Albuterol (Eqv-ProAir HFA) 90 mcg/inh inhalation aerosol) albuterol-ipratropium (albuterol-ipratropium Inh Ayesha 3 mL UD) budesonide (budesonide 0.5 mg/2 mL Inh Susp) finasteride (Proscar 5 mg Tab) montelukast (montelukast 10 mg Tab) predniSONE (predniSONE 10 mg Tab) simvastatin (simvastatin 5 mg Tab) tamsulosin (tamsulosin 0.4 mg Cap) Procedures Performed Colonoscopy (01/08/2023), Colonoscopy (09/10/2018), Surgery. Discharge Vitals Heart Rate (Peripheral) 101 Respiratory Rate 18 Blood Pressure 148/76 Height 162.5 cm Height 64 in Weight 61.5 kg Weight 135.3 lb BMI 23.29 What to do next Scheduled Follow-Up Appointments October. 2023 1:15 PM EDT With: Chester PLATA, Papo Pryor Where: [facility] Normal [address] [id number] \.br \ Medications\ .br\ What How Much When Instructions \.br\ Unchanged albuterol (Albuterol (Eqv-ProAir HFA) 90 mcg/ inh inhalation aerosol) 2 Puffs Inhalation Every 4 hours as needed for wheezing or shortness of breath Contact prescribing physician if questions or concerns \.br\ Unchanged albuterol-ip ratropium (albuterol-i pratropium Inh Ayesha 3 mL UD) 3 Milliliter Nebulized inhalation (aerosol) 4 times a day as needed for Shortness of breath or wheezing Contact prescribing physician if questions or concerns \.br\ Unchanged budesonide (budesonide 0.5 mg/ 2 mL Inh Susp) Contact prescribing physician if questions or concerns \.br\ Unchanged finasteride (Proscar 5 mg Tab) 1 Tablets By Mouth Every day Contact prescribing physician if questions or concerns \.br\ Unchanged montelukast (montelukast 10 mg Tab) 1 Tablets By Mouth Every day Contact prescribing physician if questions or concerns \.br\ Unchanged predniSONE (predniSONE 10 mg Tab) 30 EA, 0 Refill(s), TAKE 4 TABS DAILY X3DAYS,3 TABS DAILY X3DAYS,2 TABS DAILY X3DAYS,1 TAB DAILY X3 DAYS Contact prescribing physician if questions or concerns \.br\ Unchanged simvastatin (simvastatin 5 mg Tab) 1 Tablets By Mouth Once a day (at bedtime) Contact prescribing physician if questions or concerns \.br\ Unchanged tamsulosin (tamsulosin 0.4 mg Cap) 2 Capsules By Mouth Every day Contact prescribing physician if questions or concerns \.br\ Allergies\.b r\ penicillin (Unknown)\.b r\ Problems\.br \ Ongoing - Any problem that you are currently receiving treatment for.\.br\ AAA (abdominal aortic aneurysm)\.b r\ Adult failure to thrive\.br\ Aortic atherosclero sis\.br\ BMI 23.0-23.9, adult\.br\ BPH (benign prostatic hyperplasia) \.br\ BRBPR (bright red blood per rectum)\.br\ Chronic obstructive pulmonary disease\.br\ COPD exacerbation \.br\ Former smoker\.br\ History of colon polyps\.br\ Hypercholest erolemia\.br \ Patient Survey\.br\ You may receive a survey via text or e-mail asking about your office visit. Please share your experience with us by completing your survey. We appreciate your feedback and thank you for choosing us for your care.\.br\ \.br \ Fran [facility] Office/Clini c Noteon 05-07-2023 Family Medicine Office/Clinic Note HPI Staff Pt is here for a recheck on his lungs, last visit 05/03/[address] Castro Onset: 05/02/23 - [facility] [employer] visit. Location: chest Duration: once in awhile, pt said he does not notice difference. Characteristics: Coughing, brings up phlegm - light yellow. Aggravated by: Pt says about the same Relieved by: none. Associated Symptoms: None History of Present Illness - Here for recheck. - States he is almost back to his baseline. - Still gets very SOB with activity - Has not followed up with Pulm. - States he is exercising using COPD work outs. Review of Systems PHQ Score Initial Depression Screen Score: 0 SCORE Physical Exam Vitals & Measurements HR: 101(Peripheral) RR: 18 BP: 148/76 SpO2: 95% HT: 64 in HT: 162.5 cm WT: 61.5 kg WT: 135.3 lb BMI: 23.29 General: alert, no acute distress ENMT: oral mucosa moist, Cardiovascular: regular rate and rhythm, normal peripheral perfusion Respiratory: Lungs CTA, respirations non labored, Very diminished Extremities: no deformity, no trauma Neurological: oriented x 4, LOC appropriate for age, CN II-XII intact, motor strength equal & normal bilaterally, speech normal Abdomen: Soft, Nontender, Non-distended, + BS Assessment/Plan 1. COPD exacerbation (J44.1: Chronic obstructive pulmonary disease with (acute) exacerbation) Improving. - Almost back to baseline. - Pt needs to follow up with pulm. - Precautions discussed in detail. 2. Chronic obstructive pulmonary disease, unspecified COPD type (J44.9: Chronic obstructive pulmonary disease, unspecified) - As above. Follow-up No qualifying data available Problem List/Past Medical History Ongoing AAA (abdominal aortic aneurysm) Adult failure to thrive Aortic atherosclerosis BMI 23.0-23.9, adult BPH (benign prostatic hyperplasia) BRBPR (bright red blood per rectum) Chronic obstructive pulmonary disease COPD exacerbation Former smoker History of colon polyps Hypercholesterolemia Historical No qualifying data Procedure/Surgical History Colonoscopy (01/08/2023), Colonoscopy (09/10/2018), Surgery. Medications Albuterol (Eqv-ProAir HFA) 90 mcg/inh inhalation aerosol, 180 mcg= 2 puff(s), Inhalation, q4hr, 3 refills albuterol-ipratropium Inh Ayesha 3 mL UD, 3 mL, NEB, QID, PRN budesonide 0.5 mg/2 mL Inh Susp montelukast 10 mg Tab, 10 mg= 1 tab(s), Oral, Daily predniSONE 10 mg Tab Proscar 5 mg Tab, 5 mg= 1 tab(s), Oral, Daily simvastatin 5 mg Tab, 5 mg= 1 tab(s), Oral, Once a day (at bedtime) tamsulosin 0.4 mg Cap, 0.8 mg= 2 cap(s), Oral, Daily Allergies penicillin (Unknown) Social History Tobacco Former smoker, quit more than 30 days ago Tobacco Use:. Never Smokeless Tobacco Use:. Cigarettes, 05/07/2023 Family History Dementia: Mother. Primary malignant neoplasm of brain: Father. Primary malignant neoplasm of female genital organ: Mother. Immunizations Vaccine Date Status Comments SARS-CoV-2 mRNA (tothiagon 5y-11y) vac - Not Given Postpone due to refusal pneumococcal 13-valent vaccine 06/02/2022 Recorded influenza virus vaccine, inactivated 06/02/2022 Recorded Normal [facility] Comment on above: Result Comment: Elec tronically Signed By: Chester PLATA, Papo Avila.rah\Date and Time Signed: 05/07/23 14:24 EST Ambulatory Visit Summaryon 1 07-03-2022 Ambulatory Visit Summary KELSEY HERNANDEZ :1950 Visit Date:05/03/2023 Ambulatory Visit Instructions Your Diagnosis COPD (chronic obstructive pulmonary disease) COPD exacerbation BMI 22.0-22.9, adult Former smoker Your Care Team Attending Physician - Papo Castro MD Primary Care Physician - Papo Castro MD This Is Your Medications List albuterol (Albuterol (Eqv-ProAir HFA) 90 mcg/inh inhalation aerosol) albuterol-ipratropium (albuterol-ipratropium Inh Ayesha 3 mL UD) budesonide (budesonide 0.5 mg/2 mL Inh Susp) finasteride (Proscar 5 mg Tab) montelukast (montelukast 10 mg Tab) simvastatin (simvastatin 5 mg Tab) tamsulosin (tamsulosin 0.4 mg Cap) Procedures Performed Colonoscopy (01/08/2023), Colonoscopy (09/10/2018), Surgery. Discharge Vitals Temperature (Temporal Artery) 37.1 ?C Heart Rate (Peripheral) 102 Respiratory Rate 20 Blood Pressure 140/62 Height 162.5 cm Height 64 in Weight 60.3 kg Weight 132.66 lb BMI 22.84 What to do next Scheduled Follow-Up Appointments Sunday 2:00 PM EST With: Papo Castro MD Where: [place] [id number] \.br \ Medications\ .br\ What How Much When Instructions \.br\ Unchanged albuterol (Albuterol (Eqv-ProAir HFA) 90 mcg/ inh inhalation aerosol) 2 Puffs Inhalation Every 4 hours as needed for wheezing or shortness of breath \.br\ Unchanged albuterol-ip ratropium (albuterol-i pratropium Inh Ayesha 3 mL UD) 3 Milliliter Nebulized inhalation (aerosol) 4 times a day as needed for Shortness of breath or wheezing\.br \ Unchanged budesonide (budesonide 0.5 mg/ 2 mL Inh Susp)\.br\ Unchanged finasteride (Proscar 5 mg Tab) 1 Tablets By Mouth Every day\.br\ Unchanged montelukast (montelukast 10 mg Tab) 1 Tablets By Mouth Every day\.br\ Unchanged simvastatin (simvastatin 5 mg Tab) 1 Tablets By Mouth Once a day (at bedtime)\.br \ Unchanged tamsulosin (tamsulosin 0.4 mg Cap) 2 Capsules By Mouth Every day\.br\ Allergies\.b r\ penicillin (Unknown)\.b r\ Problems\.br \ Ongoing - Any problem that you are currently receiving treatment for.\.br\ AAA (abdominal aortic aneurysm)\.b r\ Adult failure to thrive\.br\ Aortic atherosclero sis\.br\ BPH (benign prostatic hyperplasia) \.br\ BRBPR (bright red blood per rectum)\.br\ COPD (chronic obstructive pulmonary disease)\.br \ COPD exacerbation \.br\ History of colon polyps\.br\ Hypercholest erolemia\.br \ Patient Survey\.br\ You may receive a survey via text or e-mail asking about your office visit. Please share your experience with us by completing your survey. We appreciate your feedback and thank you for choosing us for your care.\.br\ \.br \ [facility] ED Note-Physicianon 05-03-20 ED Note-Physician [id number] Normal [facility] Family Medicine Office/Clini c Noteon 05-03-2023 Family Medicine Office/Clinic Note HPI Staff Kelsey is a 72 year old male presenting for hospital follow up copd Hospital: [facility] not an admission in the ER Admission date: 05/02/23 Discharge date: n/a Symptoms the patient presented with: difficulty breathing and got dizzy while at the store Current concerns: just concerned that he's not doing better, does exercises online for COPD Did get steroids at the ER which have helped some History of Present Illness - Pt here for ER follow up. - SOB. - Got steroids and is doing better. - Using albuterol q2 at this time. Physical Exam Vitals & Measurements T: 37.1 ?C(Temporal Artery) HR: 102(Peripheral) RR: 20 BP: 140/62 SpO2: 96% HT: 64 in HT: 162.5 cm WT: 60.3 kg WT: 132.66 lb BMI: 22.84 General: alert, no acute distress ENMT: oral mucosa moist, Cardiovascular: normal peripheral perfusion Respiratory: respirations non labored, Diminished breath sounds. Extremities: no deformity, no trauma Neurological: oriented x 4, LOC appropriate for age, CN II-XII intact, motor strength equal & normal bilaterally, speech normal Abdomen: Soft, Nontender, Non-distended, + BS Assessment/Plan 1. COPD exacerbation (J44.1: Chronic obstructive pulmonary disease with (acute) exacerbation) - Continue on steroids - Use albuterol PRN - Follow up in 3 days 2. 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 - Will try and get him in chad Ordered: Body Mass Index (BMI) documented 3008F Current tobacco non-user 1036F Depression Screening Negative 3352F Influenza immunization status assessed 1030F Most recent diastolic blood pressure <80 mm Hg 3078F Most recent systolic blood pressure >= 140 mm Hg 3077F Patient screen for fall risk: no falls in last year or 1 fall with no injury in last year 1101F 3. BMI 22.0-22.9, adult (Z68.22: Body mass index [BMI] 22.0-22.9, adult) - BMI education given Ordered: Body Mass Index (BMI) documented 3008F Current tobacco non-user 1036F Depression Screening Negative 3352F Influenza immunization status assessed 1030F Most recent diastolic blood pressure <80 mm Hg 3078F Most recent systolic blood pressure >= 140 mm Hg 3077F Patient screen for fall risk: no falls in last year or 1 fall with no injury in last year 1101F 4. Former smoker (Z87.891: Personal history of nicotine dependence) - Please continue not to smoke Ordered: Body Mass Index (BMI) documented 3008F Current tobacco non-user 1036F Depression Screening Negative 3352F Influenza immunization status assessed 1030F Most recent diastolic blood pressure <80 mm Hg 3078F Most recent systolic blood pressure >= 140 mm Hg 3077F Patient screen for fall risk: no falls in last year or 1 fall with no injury in last year 1101F Orders: albuterol-ipratropium, 3 mL, NEB, QID Shortness of breath or wheezing, 180 mL, Refill(s) 0, [id number], 162.5, cm, 05/03/23 15:47:00 EST, Height/Length Dosing, 60.3, kg, 05/03/23 15:47:00 EST, Weight Dosing - Precautions discussed in detail. When to return discussed along with when to go to the ER. Pt verbalized understanding. Follow-up No qualifying data available Problem List/Past Medical History Ongoing AAA (abdominal aortic aneurysm) Adult failure to thrive Aortic atherosclerosis BPH (benign prostatic hyperplasia) BRBPR (bright red blood per rectum) COPD (chronic obstructive pulmonary disease) COPD exacerbation History of colon polyps Hypercholesterolemia Historical No qualifying data Procedure/Surgical History Colonoscopy (01/08/2023), Colonoscopy (09/10/2018), Surgery. Medications Albuterol (Eqv-ProAir HFA) 90 mcg/inh inhalation aerosol, 180 mcg= 2 puff(s), Inhalation, q4hr, 3 refills albuterol-ipratropium Inh Ayesha 3 mL UD, 3 mL, NEB, QID, PRN budesonide 0.5 mg/2 mL Inh Susp montelukast 10 mg Tab, 10 mg= 1 tab(s), Oral, Daily Proscar 5 mg Tab, 5 mg= 1 tab(s), Oral, Daily simvastatin 5 mg Tab, 5 mg= 1 tab(s), Oral, Once a day (at bedtime) tamsulosin 0.4 mg Cap, 0.8 mg= 2 cap(s), Oral, Daily Allergies penicillin (Unknown) Social History Tobacco Former smoker, quit more than 30 days ago Tobacco Use:. Never Smokeless Tobacco Use:. Cigarettes, 05/03/2023 Family History Dementia: Mother. Primary malignant neoplasm of brain: Father. Primary malignant neoplasm of female genital organ: Mother. Immunizations Vaccine Date Status Comments SARS-CoV-2 mRNA (tojmnameran 5y-11y) vac - Not Given Postpone due to refusal pneumococcal 13-valent vaccine 06/02/2022 Recorded influenza virus vaccine, inactivated 06/02/2022 Recorded Normal [facility] Comment on above: Result Comment: Elec tronically Signed By: Chester PLATA, Papo Avila.br\Date and Time Signed: 05/03/23 16:10 EST RAD - MISCon 05-03-2023 RAD - MISC [id number]#1.00TIFF Normal [facility] RAD - MISCon 05-01-2023 RAD - MISC [id number]#1.00TIFF [facility] Provider Letteron 01-29-2023 Provider Letter (Inserted Image. Soila ble to display) January 29, 2023 [place] [address] : 1950 Dear Kelsey, We have been trying to reach you with no success. It is important that you return our call regarding your follow up from your procedure on January [address] Ponce upon receiving this letter. Also, at the time of your call, please provide us with your current information. Thank you for your prompt attention to this matter. Sincerely, [facility] Postoperative Documentson Postoperative Documents [id number]:12 7 [facility] IntraOperative Documentson 0 01-11-2023 IntraOperative Documents [id number]#1.00CD:127 [facility] Consenton 01-10-2023 Consent [id number]#1.00CD:127 [facility] Discharge Instructionson Discharge Instructions [id number]#1.00CD:127 [facility] Main OR Intraoperative Recor don 01-09-2023 Main OR Intraoperative Record IntraOp Document Type FT Summary Primary Physician: Yo PONCE MD Finalized Date/Time: 01/09/23 07:20:56 Pt. Name: KELSEY HERNANDEZ/Sex: 1950 Male Med Rec #: [id number] Physician: Yo PONCE MD Financial #: [id number] Pt. Type: O Room/Bed: [facility] 10/23 Admit/Disch: 01/08/23 12:40:27 - 01/08/23 23:59:59 Institution: Case Times FT Entry 1 Patient Times In Room 01/08/23 14:21:00 Out Room 01/08/23 14:55:00 Procedure Times Start 01/08/23 14:29:00 Stop 01/08/23 14:50:00 Anesthesia Times Start 01/08/23 14:21:00 Stop 01/08/23 14:55:00 Time at [facility] 01/08/23 14:32:00 Last Modified By: Rere VILLEGAS, German Cloud 01/08/23 15:00:30 General Comments: 01/09/23 Chart opened to review and send charges [facility]oth CSFA Case Attendance FT Entry 1 Entry 2 Entry 3 Case Attendee Joanne DNP, ENDOSCOPY SUPPORT SPECIALIST, Queen Rere VILLEGAS, German Baldwin, Ciera Gan Role Performed ENDOSCOPY SUPPORT SPECIALIST Rn Relief Charge - Primary Staff - Other Time In 01/08/23 14:21:00 01/08/23 14:21:00 01/08/23 14:29:00 Time Out 01/08/23 14:55:00 01/08/23 14:55:00 01/08/23 14:55:00 Procedure COLONOSCOPY(.) COLONOSCOPY(.) COLONOSCOPY(.) Comments Dr. Nj supervising case Last Modified By: Rere RN, German Jernigan RN, German Jernigan RN, German Cloud 01/08/23 15:09:59 01/08/23 15:09:59 01/08/23 15:09:59 Entry 4 Entry 5 Case Attendee Selena PARRA, Geovanna PONCE MD, Ram Role Performed Scrub - Primary Surgeon - Primary Time In 01/08/23 14:21:00 01/08/23 14:21:00 Time Out 01/08/23 14:55:00 01/08/23 14:55:00 Procedure COLONOSCOPY(.) COLONOSCOPY(.) Comments Last Modified By: Rere RN, German Jernigan RN, German Cloud 01/08/23 15:09:59 01/08/23 15:09:59 Perioperative Protocols FT Pre-Care Text: Implements protective measures prior to operative or invasive procedure, confirms identity before the operative or invasive procedure, verifies operative procedure, surgical site, and laterality Entry 1 Procedure(s) COLONOSCOPY(.) Patient Identity Birthday, ID Band Verified (select at Check, Patient least 2): Participation Consents / H and P Anesthesia Consent, Operative Site N/A Verified HandP, Surgery/Procedure Marking Verified Consent Surgical Site No Laterality Verified n/a Verified Procedure Verified Yes Correct Patient Yes Position Verified Availability Equipment, Medication Prep Dry n/a Verified (If Applicable) PreOp Antibiotic No Time Out Joanne ROJAS, MAE, Queen Alix Gan, German Jernigan RN, Selena LOUVER MORTISER OPERATOR, ROSARIO Lake MD, Maher Time Out Complete 01/08/23 14:27:00 Outcomes Met? Yes Last Modified By: German Jernigan RN 01/08/23 14:28:25 Post-Care Text: The patient is free from signs and symptoms of injury caused by extraneous objects Allergy Information FT Pre-Care Text: Verifies allergies Entry 1 Allergies Reviewed? Yes Allergies Reviewed Self/Patient With Outcomes Met? Yes Last Modified By: German Jernigan RN 01/08/23 14:24:29 Post-Care Text: The patient received appropriate medication(s) safely administered during the perioperative period Surgical Procedures FT Entry 1 Procedure Description Procedure COLONOSCOPY Modifiers . Surgeon Description Colonoscopy with ascending colon polypectomy, sigmoid colon polypectomy using lifting (everlift) mixed with 1mL (0.1mg/mL) of epinephrine, hemoclip x1 applied to polyp site, polyp was then removed using hot snare and additional hemoclip x1 was applied to Primary Procedure Yes Primary Surgeon ROSARIO PLATA, Yo Start 01/08/23 14:29:00 Stop 01/08/23 14:50:00 Anesthesia Type General Surgical Service Gastroenterology Wound Class 2 - Clean-Contaminated Last Modified By: German Jernigan RN 01/08/23 15:09:54 General Comments: Colonoscopy with ascending colon polypectomy, sigmoid colon polypectomy using lifting (everlift) mixed with 1mL (0.1mg/mL) of epinephrine, hemoclip x1 applied to polyp site, polyp was then removed using hot snare and additional hemoclip x1 was applied to polypectomy site, removal of polypoid in the sigmoid colon using hot snare General Case Data FT Pre-Care Text: Classifies surgical wound, implements aseptic technique, initiates traffic control Entry 1 Case Information OR ENDO 1 FT Case Level Level 2 Wound Class 2 - Clean-Contaminated Specialty Gastroenterology ASA Class 3 Preop Diagnosis History of colon Postop Same As Preop No polyps, Rectal bleeding Postop Diagnosis Ascending colon polyp, Outcomes Met? Yes Sigmoid colon polyp, Polypoid in the sigmoid colon, Diverticulosis, Internal hemorrhoids Last Modified By: Rere VILLEGAS, German Cloud 01/08/23 15:06:27 Post-Care Text: The patient is free from signs and symptoms of infection Skin Assessment (Pre Procedure) FT Pre-Care Text: Implements protective measures to prevent skin/ tissue injury due to thermal or mechanical sources Evaluates for signs and symptoms of physical injury to skin and t (more content not included)... Normal [facility] Consent for Treatmenton 12-23 Consent for Treatment [id number]:127 Normal [facility] Discharge Instructionson Discharge Instructions KELSEY HERNANDEZ :1950 Visit Date:01/08/2023 Inpatient Discharge Instructions Your Care Team Admitting Physician - Yo PONCE MD Referring Physician - Yo PONCE MD Reason for Your Visit HX OF COLON POLYPS, BRBPR Your Diagnosis Colon polyp Tests Performed Pathology Tissue Exam -- Results Pending -- Please visit your patient portal for your results or contact your primary care physician. This Is Your Medications List albuterol (Albuterol (Eqv-ProAir HFA) 90 mcg/inh inhalation aerosol) albuterol-ipratropium (albuterol-ipratropium Inh Ayesha 3 mL UD) budesonide (budesonide 0.5 mg/2 mL Inh Susp) finasteride (Proscar 5 mg Tab) montelukast (montelukast 10 mg Tab) nystatin (nystatin 100,000 units/mL Oral Susp) simvastatin (simvastatin 5 mg Tab) tamsulosin (tamsulosin 0.4 mg Cap) Procedure History Colonoscopy (09/10/2018), Surgery. Discharge Vitals Temperature (Temporal Artery) 36.0 ?C Heart Rate (Monitored) 80 Respiratory Rate 12 Blood Pressure 133/84 Height 162.5 cm Weight 63.2 kg BMI 23.93 What to do next Instructions From Your Doctor Event Name Event Result Discharge Activity Resume normal activities in 24 hours Discharge Restrictions No driving for 24 hrs, Do not operate machinery or tools, Do not make important decisions for 24 hours Discharge Diet(s) Regular Pharmacy Information Other: [place] [facility] Discharge Instructions Discharge Instructions New Follow Up Appointments after Discharge Follow Up with Yo PONCE When: Comments: office will call for follow up Where: [address] [place] [address] Business (1) Medications What How Much When Instructions Next Dose Unchanged albuterol (Albuterol (Eqv-ProAir HFA) 90 mcg/ inh inhalation aerosol) 2 Puffs Inhalation Every 4 hours as needed for wheezing or shortness of breath Unchanged albuterol-ipratropium (albuterol-ipratropium Inh Ayesha 3 mL UD) 3 Milliliter Nebulized inhalation (aerosol) 4 times a day as needed for Shortness of breath or wheezing Unchanged budesonide (budesonide 0.5 mg/ 2 mL Inh Susp) Unchanged finasteride (Proscar 5 mg Tab) 1 Tablets By Mouth Every day Unchanged montelukast (montelukast 10 mg Tab) 1 Tablets By Mouth Every day Unchanged nystatin (nystatin 100,000 units/ mL Oral Susp) Unchanged simvastatin (simvastatin 5 mg Tab) 1 Tablets By Mouth Once a day (at bedtime) Unchanged tamsulosin (tamsulosin 0.4 mg Cap) 2 Capsules By Mouth Every day Test Results No qualifying data available. Allergies penicillin (Unknown) Problems Ongoing - Any problem that you are currently receiving treatment for. AAA (abdominal aortic aneurysm) Adult failure to thrive Aortic atherosclerosis BPH (benign prostatic hyperplasia) BRBPR (bright red blood per rectum) COPD (chronic obstructive pulmonary disease) History of colon polyps Hypercholesterolemia Education Materials Colonoscopy Care After Surgery Please read the instructions outlined below and refer to this sheet in the next few weeks. These discharge instructions provide you with general information on caring for yourself after you leave the hospital. Your doctor may also give you specific instructions. While your treatment has been planned according to the most current medical practices available, unavoidable complications occasionally occur. If you have any problems or questions after discharge, please call your doctor. ACTIVITY You may resume your regular activity, but move at a slower pace for the next 24 hours. Take frequent rest periods for the next 24 hours. Walking will help get rid of the air and reduce the bloated feeling in your abdomen (belly). No driving for 24 hours (because of the anesthesia (medicine) used during the test). You may shower. Do not sign any important legal documents or operate any machinery for 24 hours (because of the anesthesia used during the test). NUTRITION Drink plenty of fluids. You may resume your normal diet as instructed by your doctor. Begin with a light meal and progress to your normal diet. Heavy or fried foods are harder to digest and may make you feel nauseated (sick to your stomach). Avoid alcoholic beverages for 24 hours or as instructed. MEDICATIONS You may resume your normal medications unless your doctor tells you otherwise. WHAT YOU CAN EXPECT TODAY Some feelings of bloating in the abdomen. Passage of more gas than usual. Spotting of blood in your stool or on the toilet paper. FOLLOW-UP Your doctor will discuss the results of your test with you. SEEK IMMEDIATE MEDICAL ATTENTION IF: There is more than a spotting of blood in your stool. There is abdominal distention (your abdomen is swollen). There is vomiting. You have a temperature over 101.5 F. There is abdominal pain or discomfort that is severe or gets worse throughout the day. Colon (more content not included)... Normal [facility] Comment on above: Result Comment: Elec tronically Signed By: Jennifer VILLEGAS, Sharon\.br\Date and Time Signed: 01/08/23 15:05 EDT Endoscopic Procedure Report - Otheron 01-08-2023 Endoscopic Procedure Report - Other Patient: KELSEY HERNANDEZ Age: 72 years Sex: Male : 1950 Associated Diagnoses: None Author: Yo PONCE MD Pre-Procedure Procedure Date 01/08/2023 14:51:00 . Procedure Type: Colonoscopy with removal of tumor(s), polyp(s), or other lesion(s) by cold snare technique. Procedure provider Performed by Yo Ponce MD. Current history and physical Documented on chart. Colorectal neoplasm risk assessment Average risk. Informed Consent After discussing the rationale, risks and benefits, and alternatives to this procedure, the patient provided signed consent for the procedure. Pre-procedure diagnosis: History of colon polyps. ASA Classification: Class III. . Procedure The procedure was performed in the hospital. Rectal exam was performed and was normal with no masses palpated. The patient was positioned in the left lateral decubitus position and a digital rectal exam was performed.. Endoscope type used was an adult-size. The endoscope was lubricated then introduced through the anus. The scope was advanced to the cecum verified by photographing the appendiceal orifice, verified by photographing the ileocecal valve, verified by transillumination, The time to the cecum was 3 minutes, The withdrawal time was 14 minutes. No difficulties encountered during the procedure. The bowel preparation quality was adequate (see polyps greater than or equal to 6 millimeters). The patient tolerated the procedure well. Findings 1. Sessile polyp, 5 mm, in the ascending, removed completely with cold snare 2. Sessile polyp, 10 mm, in the sigmoid, removed completely with hot snare 3. Pedunculated polyp, 20 mm, in the sigmoid, with long stalk, removed completely with hot snare after epinephrine injection and after placement of prophylactic metal scope at the stalk, a second clip was placed at the polypectomy site 4. Moderate diverticulosis in the sigmoid and descending colon 5. Moderate nonbleeding internal hemorrhoids Images Procedure images: [id number] . Post-Procedure Complications: none. Estimated blood loss: none. Specimens: sent to pathology. Devices/ implants: none left in place. Impression and Plan 1. Sessile polyp, 5 mm, in the ascending, removed completely with cold snare 2. Sessile polyp, 10 mm, in the sigmoid, removed completely with hot snare 3. Pedunculated polyp, 20 mm, in the sigmoid, with long stalk, removed completely with hot snare after epinephrine injection and after placement of prophylactic metal scope at the stalk, a second clip was placed at the polypectomy site 4. Moderate diverticulosis in the sigmoid and descending colon 5. Moderate nonbleeding internal hemorrhoids Recommendations: Repeat colonoscopy:: In 3 years, Pending pathology results. Follow-up:: Clinic follow-up in 1-2 weeks. Diet:: Resume previous diet. Medication resumption:: Continue current medications. Return to activities:: After 24 hours. Normal [facility] Comment on above: Result Comment: Elec tronically Signed By: ROSARIO PLATA, Yo\.br\Date and Time Signed: 01/08/23 14:54 EDT Other Comment: Ladi ramirez Attachment - attachment storage system not supported [id number] Can be viewed in source systemMissing Attachment - attachment storage system not supported [id number] Can be viewed in source system Inpatient Patient Summaryon 01-08-2023 Inpatient Patient Summary [address] [address] [facility] Clinical Discharge Instructions PERSON INFORMATION Name: KELSEY HERNANDEZ PHYSICIANS Admitting Physician: Yo PONCE MD Attending Physician: Yo PONCE MD PCP: Papo Castro MD Discharge Diagnosis: Colon polyp Comment: PATIENT EDUCATION INFORMATION Instructions: Colonoscopy, Care After Surgery Rosario (CUSTOM); Colon Polyps; Diverticulosis MAGR (CUSTOM) Medication Leaflets: Follow up: With: Address: When: Yo PONCE [address] [place] [address] [address] [place], [place] [id number] [facility] (1) Comments: office will call for follow up MEDICATION LIST Medications to Continue with No Changes Other Medications albuterol (Albuterol (Eqv-ProAir HFA) 90 mcg/inh inhalation aerosol) 2 Puffs Inhalation every 4 hours. as needed for wheezing or shortness of breath. albuterol-ipratropium (albuterol-ipratropium Inh Ayesha 3 mL UD) 3 Milliliter Nebulized inhalation (aerosol) 4 times a day as needed Shortness of breath or wheezing. budesonide (budesonide 0.5 mg/2 mL Inh Susp) finasteride (Proscar 5 mg Tab) 1 Tablets By Mouth every day. montelukast (montelukast 10 mg Tab) 1 Tablets By Mouth every day. nystatin (nystatin 100,000 units/mL Oral Susp) simvastatin (simvastatin 5 mg Tab) 1 Tablets By Mouth once a day (at bedtime). tamsulosin (tamsulosin 0.4 mg Cap) 2 Capsules By Mouth every day. Comment: Normal [facility] Main OR PACU I Recordon 12-23 Main OR PACU I Record PACU Phase I Docum ent Type FT Summary Primary Physician: Yo PONCE MD Finalized Date/Time: 01/08/23 16:01:54 Pt. Name: KELSEY HERNANDEZ Marlen/Sex: 1950 Male Med Rec #: [id number] Physician: Yo PONCE MD Financial #: [id number] Pt. Type: O Room/Bed: [facility] 10/23 Admit/Disch: 01/08/23 12:40:27 - Institution: Case Times PACU I FT Pre-Care Text: Identifies barriers to communication and implements measures to provide psychological support Develops individualized plan of care, and ensures continuity of care Maintains patient's dignity and privacy, and maintains patient confidentiality Identifies and reports philosophical, cultural, and spiritual beliefs and values Identifies individual values and wishes concerning care Implements aseptic technique, and administers prescribed antibiotic therapy and immunizing agents as ordered Evaluates postoperative tissue perfusion Implements thermoregulation measures, and monitors body temperature Evaluates postoperative respiratory status Evaluates postoperative cardiac status Evaluates postoperative neurological status Assesses pain control, collaborated in initiating patient-controlled analgesia and implements alternative methods of pain control Verifies allergies, administers prescribed medications and solutions, evaluates response to medications Entry 1 In PACU I 01/08/23 14:56:00 Discharge from PACU 01/08/23 15:26:00 I Outcomes Met? Yes Last Modified By: Sharon Rodriguez RN 01/08/23 16:01:34 Post-Care Text: The patient demonstrates knowledge of the expected response to the operative or invasive procedure The patient's care is consistent with the individualized perioperative plan of care The patient's right to privacy is maintained The patient's value system, lifestyle, ethnicity, and culture are considered, respected, and incorporated into the perioperative plan of care The patient participates in decisions affecting his or her perioperative plan of care The patient is free from signs and symptoms of infection The patient has wound/tissue perfusion consistent with or improved from baseline levels established preoperatively The patient is at or returning to normothermia at the conclusion of the immediate postoperative period The patient's respiratory function is consistent with or improved from baseline levels established preoperatively The patient's cardiovascular status is consistent with or improved from baseline levels established preoperatively The patient's cardiovascular status is consistent with or improved from baseline levels established preoperatively The patient demonstrates and/or reports adequate pain control throughout the perioperative period The patient received appropriate medication(s), safely administered during the perioperative period Acuity Level PACU I FT Entry 1 Start Time 01/08/23 14:56:00 Stop Time 01/08/23 15:26:00 Acuity Level Acuity Level I Last Modified By: Sharon Rodriguez RN 01/08/23 16:01:49 Finalized By: Sharon Rodriguez RN Document Signatures Signed By: Sharon Rodriguez RN 01/08/23 16:01 Normal [facility] Main OR Preoperative Recordo n 01-08-2023 Main OR Preoperative Record Holding Area Document Type FT Summary Primary Physician: Yo PONCE MD Finalized Date/Time: 01/08/23 12:49:38 Pt. Name: KELSEY HERNANDEZ/Sex: 1950 Male Med Rec #: [id number] Physician: Yo PONCE MD Financial #: [id number] Pt. Type: O Room/Bed: [facility] 10/23 Admit/Disch: 01/08/23 12:40:27 - Institution: Case Times Holding FT Pre-Care Text: Verifies consent for planned procedure, identifies individual values and wishes concerning care, includes family members in perioperative teaching Secures patient's records' belongings, and valuables, maintains patient's dignity and privacy, and maintains patient confidentiality Entry 1 In Holding 01/08/23 12:47:00 Outcomes Met? Yes Last Modified By: Jerson VILLEGAS, Tomasa Flores 01/08/23 12:47:23 Post-Care Text: The patient participates in decisions affecting his or her perioperative plan of care The patient's right to privacy is maintained Surgery Checklist FT Entry 1 Patient Birthday, ID Band Procedure History and Physical, Identification: Check, Patient Verification: Surgical Consent, With Participation Patient NPO after Midnight: Yes Date/Time: 01/08/23 08:15:00 Personal Items clothes, shoes, left Limitations: n/a Comment: wrist metal implants Complaints of Pain: No Pain Comment: denies Operative Site n/a Marked By: n/a Marking: Availability Equipment Verified: Does Patient Smoke No Patient states Yes Comment - Adult Tej- friend postop adult Supervision supervision available Case Cancelled in No Holding Area see comments below for reason Last Modified By: Tomasa Arthur RN 01/08/23 12:49:36 General Comments: pt finished colon prep at 0815, states stool is clear liquid yellow /,RN Finalized By: Tomasa Arthur RN Document Signatures Signed By: Tomasa Arthur RN 01/08/23 12:49 Normal [facility] Outpatient Surgery Discharge Instructionon 01-08-2023 Outpatient Surgery Discharge Instruction [address] [address] Patient Discharge Instructions PERSON INFORMATION Name: KELSEY HERNANDEZ Date of : 1950 Current Date: 01/08/2023 15:04:32 PHYSICIANS Admitting Physician: Yo PONCE MD Discharge Diagnosis: Colon polyp KELSEY HERNANDEZ has been given the following list of follow-up instructions, prescriptions, and patient education materials: PATIENT FOLLOW-UP INFORMATION Diet: Regular Discharge Activity: Resume normal activities in 24 hours Discharge Restrictions: No driving for 24 hrs, Do not operate machinery or tools, Do not make important decisions for 24 hours IF UNABLE TO CONTACT YOUR PHYSICIAN AND YOU FEEL IT IS AN EMERGENCY, GO TO THE NEAREST EMERGENCY ROOM OR CALL 911 I, KELSEY HERNANDEZ, have received the attached patient education materials/instructions and have verbalized understanding: May we do a follow up call? Yes No I was present when discharge instructions were given ____ Patient Signature _ Date Clinican/Nurse Signature Date Follow up: With: Address: When: Yo PONCE [address] [place] [address] [place] [phone] [facility] (1) Comments: office will call for follow up Pharmacy Information: Other: [place] You may receive a survey from Yvonne Ulloa asking you to rate your care experience. Your feedback is important and will help us understand what we do well and how we can improve the quality of care we provide to you, your loved ones and our community. It?s an honor to serve you. Thank you for choosing [facility] HERE ARE THE MEDICATION CHANGES THAT OCCURRED DURING YOUR HOSPITAL STAY Medications to Continue with No Changes Other Medications albuterol (Albuterol (Eqv-ProAir HFA) 90 mcg/inh inhalation aerosol) 2 Puffs Inhalation every 4 hours. as needed for wheezing or shortness of breath. albuterol-ipratropium (albuterol-ipratropium Inh Ayesha 3 mL UD) 3 Milliliter Nebulized inhalation (aerosol) 4 times a day as needed Shortness of breath or wheezing. budesonide (budesonide 0.5 mg/2 mL Inh Susp) finasteride (Proscar 5 mg Tab) 1 Tablets By Mouth every day. montelukast (montelukast 10 mg Tab) 1 Tablets By Mouth every day. nystatin (nystatin 100,000 units/mL Oral Susp) simvastatin (simvastatin 5 mg Tab) 1 Tablets By Mouth once a day (at bedtime). tamsulosin (tamsulosin 0.4 mg Cap) 2 Capsules By Mouth every day. PATIENT EDUCATION INFORMATION Instructions: Colonoscopy Care After Surgery Please read the instructions outlined below and refer to this sheet in the next few weeks. These discharge instructions provide you with general information on caring for yourself after you leave the hospital. Your doctor may also give you specific instructions. While your treatment has been planned according to the most current medical practices available, unavoidable complications occasionally occur. If you have any problems or questions after discharge, please call your doctor. ACTIVITY You may resume your regular activity, but move at a slower pace for the next 24 hours. Take frequent rest periods for the next 24 hours. Walking will help get rid of the air and reduce the bloated feeling in your abdomen (belly). No driving for 24 hours (because of the anesthesia (medicine) used during the test). You may shower. Do not sign any important legal documents or operate any machinery for 24 hours (because of the anesthesia used during the test). NUTRITION Drink plenty of fluids. You may resume your normal diet as instructed by your doctor. Begin with a light meal and progress to your normal diet. Heavy or fried foods are harder to digest and may make you feel nauseated (sick to your stomach). Avoid alcoholic beverages for 24 hours or as instructed. MEDICATIONS You may resume your normal medications unless your doctor tells you otherwise. WHAT YOU CAN EXPECT TODAY Some feelings of bloating in the abdomen. Passage of more gas than usual. Spotting of blood in your stool or on the toilet paper. FOLLOW-UP Your doctor will discuss the results of your test with you. SEEK IMMEDIATE MEDICAL ATTENTION IF: There is more than a spotting of blood in your stool. There is abdominal distention (your abdomen is swollen). There is vomiting. You have a temperature over 101.5 F. There is abdominal pain or discomfort that is severe or gets worse throughout the day. Colon Polyps Colon polyps are tissue growths inside the colon, which is part of the large intestine. They are one of the types of polyps that can grow in (more content not included)... Normal [facility] Patient Education - Texton 0 01-08-2023 Patient Education - Text Colonoscopy Care After Surgery Please read the instructions outlined below and refer to this sheet in the next few weeks. These discharge instructions provide you with general information on caring for yourself after you leave the hospital. Your doctor may also give you specific instructions. While your treatment has been planned according to the most current medical practices available, unavoidable complications occasionally occur. If you have any problems or questions after discharge, please call your doctor. ACTIVITY You may resume your regular activity, but move at a slower pace for the next 24 hours. Take frequent rest periods for the next 24 hours. Walking will help get rid of the air and reduce the bloated feeling in your abdomen (belly). No driving for 24 hours (because of the anesthesia (medicine) used during the test). You may shower. Do not sign any important legal documents or operate any machinery for 24 hours (because of the anesthesia used during the test). NUTRITION Drink plenty of fluids. You may resume your normal diet as instructed by your doctor. Begin with a light meal and progress to your normal diet. Heavy or fried foods are harder to digest and may make you feel nauseated (sick to your stomach). Avoid alcoholic beverages for 24 hours or as instructed. MEDICATIONS You may resume your normal medications unless your doctor tells you otherwise. WHAT YOU CAN EXPECT TODAY Some feelings of bloating in the abdomen. Passage of more gas than usual. Spotting of blood in your stool or on the toilet paper. FOLLOW-UP Your doctor will discuss the results of your test with you. SEEK IMMEDIATE MEDICAL ATTENTION IF: There is more than a spotting of blood in your stool. There is abdominal distention (your abdomen is swollen). There is vomiting. You have a temperature over 101.5 F. There is abdominal pain or discomfort that is severe or gets worse throughout the day. Diverticulosis Many people have small pouches in their colon called diverticulum. The diverticulum bulge outward through weak spots in the colon. You could have one or more of these pouches in the colon. The condition of having these pouches in the colon is called diverticulosis or diverticular disease. Diverticulosis is usually diagnosed by tests to evaluate something else. For example, you may have had a colonoscopy to screen for colon cancer when the diverticulosis was found. Most people with diverticulosis do not have any discomfort or problems. If symptoms develop, they may include mild cramps, bloating, and constipation. A complication of this condition is called diverticulitis. This is when the diverticulum become inflamed and infected. How to treat diverticulosis: Increasing the amount of fiber in the diet may reduce symptoms of diverticulosis and prevent complications such as diverticulitis (infected diverticuli). Fiber keeps stool soft and lowers pressure inside the colon so that bowel contents can move through easily. You should eat 20 to 35 grams of fiber each day. The table below shows the amount of fiber in some foods that you can easily add to your diet. Adding fiber slowly may decrease the bloating and fullness sometimes felt with an immediate high fiber diet. The doctor may also recommend taking a fiber product such as Citrucel or Metamucil once a day. In the past people with diverticulosis were to avoid nuts, corn, and seeds. This has not been found to be true. If you find that certain foods create cramping or bloating, avoid that food. Foods high in fiber include: Fresh fruits, fresh vegetables, legumes (beans), whole wheat bread, bran muffins or cereal, and nuts. See the table below for examples of high fiber foods. Remember, your goal is 20-35 grams per day. Amount of fiber in different foods Food Serving Grams of fiber Fruits Apple (with skin) 1 medium apple 4.4 Banana 1 medium banana 3.1 Oranges 1 orange 3.1 Prunes 1 cup, pitted 12.4 Juices Apple, unsweetened, w/added ascorbic acid 1 cup 0.5 Grapefruit, white, canned, sweetened 1 cup 0.2 Grape, unsweetened, w/added ascorbic acid 1 cup 0.5 [place] 1 cup 0.7 Vegetables Cooked Green beans 1 cup 4.0 Carrots 1/2 cup sliced 2.3 Peas 1 cup 8.8 Potato (baked, with skin) 1 medium potato 3.8 Raw [place] (with peel) 1 cucumber 1.5 Lettuce 1 cup shredded 0.5 Tomato 1 medium tomato 1.5 Spinach 1 cup 0.7 Legumes Baked beans, canned, no salt added 1 cup 13.9 Kidney beans, canned 1 cup 13.6 [place]oz[place] beans, canned 1 cup 11.6 Lentils, boiled 1 cup 15.6 Breads, pastas, flours Bran muffins 1 medium muffin 5.2 Oatmeal, cooked 1 cup 4.0 White bread 1 slice 0.6 Whole-wheat bread 1 slice 1.9 Pasta and rice, cooked Macaroni 1 cup 2.5 Rice, brown 1 cup 3.5 Rice, white 1 cup 0.6 Spaghetti (regular) 1 cup 2.5 Nuts Almonds 1/2 cup 8.7 Peanuts 1/2 cup 7.9 Chart from UpToDate 2013. SEEK IMMEDIATE MEDIC (more content not included)... Normal [facility] Progress Note-Physicianon Progress Note-Physician Patient: KELSEY HERNANDEZ Age: 72 years Sex: Male : 1950 Associated Diagnoses: None Author: Minor Nj MD Postoperative Information Postoperative disposition: Postoperative disposition: To PACU. Optimetrix number: Optimetrix number [id number]. Anesthetic utilized: General. Physical Examination Vital Signs 01/08/2023 15:25 EDT Heart Rate Monitored 68 bpm Respiratory Rate Monitored 23 br/min Systolic Blood Pressure 144 mmHg HI Diastolic Blood Pressure 76 mmHg SpO2 99 % 01/08/2023 15:10 EDT Heart Rate Monitored 76 bpm Respiratory Rate Monitored 18 br/min Systolic Blood Pressure 148 mmHg HI Diastolic Blood Pressure 65 mmHg SpO2 92 % 01/08/2023 15:05 EDT Heart Rate Monitored 76 bpm Respiratory Rate Monitored 24 br/min Systolic Blood Pressure 147 mmHg HI Diastolic Blood Pressure 72 mmHg SpO2 97 % 01/08/2023 15:00 EDT Heart Rate Monitored 80 bpm Respiratory Rate Monitored 12 br/min Systolic Blood Pressure 133 mmHg Diastolic Blood Pressure 84 mmHg SpO2 97 % 01/08/2023 14:56 EDT Temperature Temporal Artery 36.0 DegC LOW Heart Rate Monitored 84 bpm Respiratory Rate Monitored 16 br/min Systolic Blood Pressure 156 mmHg HI Diastolic Blood Pressure 100 mmHg HI SpO2 98 % Pain Assessment: Pain Assessment 01/08/2023 15:25 EDT Pain Symptoms Self Report No, able to self report . General: Awake, Alert, Appropriate. Respiratory: Adequate air exchange, Equal bilateral chest wall expansion. Cardiovascular: Stable. Neurological: At Baseline. Assessment Anesthetic outcome No anesthetic complications noted. Review / Management Condition: Stable. Plan Transfer/Discharge: Transfer/Discharge Discharge when meets criteria ( To home ). [facility] Comment on above: Result Comment: Elec tronically Signed By: Clem PLATA, Minor Lara\.br\Date and Time Signed: 01/08/23 16:38 EDT Progress Note-Physician Patient: KELSEY HERNANDEZ Age: 72 years Sex: Male : 1950 Associated Diagnoses: None Author: Minor Nj MD Preoperative Information Anesthesia Preop Info: Time patient last ate or drank 01/08/2023 08:15:00. Anesthesia history: Patient history: None. Family history+: None. Informed consent: Signed by patient. Including risks, benefits, and alternatives related to the: Anesthetic plan. Re-evaluation prior to induction: Minor Nj MD. Initial evaluation reviewed: No significant change. Review of Systems Eye: Negative. Ear/Nose/Mouth/Throat: Negative. Respiratory: Negative. Cardiovascular: Negative. Gastrointestinal: Negative. Genitourinary: Negative. Hematology/Lymphatics: Negative. Endocrine: Negative. Musculoskeletal: Negative. Neurologic: Negative. Health Status Allergies: Allergies (1) Active Reaction penicillin Unknown Current medications: Home Medications (8) Active Albuterol (Eqv-ProAir HFA) 90 mcg/inh inhalation aerosol 2 puff(s), Inhalation, q4hr albuterol-ipratropium Inh Ayesha 3 mL UD 3 mL, PRN, NEB, QID budesonide 0.5 mg/2 mL Inh Susp montelukast 10 mg Tab 10 mg = 1 tab(s), Oral, Daily nystatin 100,000 units/mL Oral Susp Proscar 5 mg Tab 5 mg = 1 tab(s), Oral, Daily simvastatin 5 mg Tab 5 mg = 1 tab(s), Oral, Once a day (at bedtime) tamsulosin 0.4 mg Cap 0.8 mg = 2 cap(s), Oral, Daily , Medications (1) Active Scheduled: (0) Continuous: (1) Sodium Chloride 0.9% 1,000 mL 1,000 mL, IV, 20 mL/hr PRN: (0) Problem list: All Problems AAA (abdominal aortic aneurysm) / SNOMED CT 539941231 / Confirmed Adult failure to thrive / SNOMED CT 817285542 / Confirmed Aortic atherosclerosis / SNOMED CT 599532259 / Confirmed BPH (benign prostatic hyperplasia) / SNOMED CT 403406544 / Confirmed BRBPR (bright red blood per rectum) / SNOMED CT 020269012 / Confirmed COPD (chronic obstructive pulmonary disease) / SNOMED CT 84799064 / Confirmed History of colon polyps / SNOMED CT 0691857795 / Confirmed Hypercholesterolemia / SNOMED CT 89005228 / Confirmed, Active Problems (8) AAA (abdominal aortic aneurysm) Adult failure to thrive Aortic atherosclerosis BPH (benign prostatic hyperplasia) BRBPR (bright red blood per rectum) COPD (chronic obstructive pulmonary disease) History of colon polyps Hypercholesterolemia Histories Social History Social & Psychosocial Habits Tobacco 11/07/2022 Tobacco Use: Former smoker, quit more Smokeless tobacco use: Never Type: Cigarettes . Physical Examination Vital Signs 01/08/2023 12:57 EDT Temperature Temporal Artery 36.2 DegC LOW Heart Rate Monitored 81 bpm Respiratory Rate Monitored 16 br/min Systolic Blood Pressure 168 mmHg HI Diastolic Blood Pressure 81 mmHg Blood Pressure Location Left arm SpO2 97 % Measurements from flowsheet : Measurements 01/08/2023 12:49 EDT Height/Length Measured 162.5 cm Height/Length Dosing 162.5 cm Weight Dosing 63.2 kg BSA Measured 1.69 m2 Body Mass Index Measured 23.93 kg/m2 Weight Measured 63.2 kg Airway: Mallampati classification: II (soft palate, fauces, uvula visible). Distance: Thyromental, Adequate. Respiratory: Lungs are clear to auscultation, Symmetrical chest wall expansion. Cardiovascular: Regular rhythm, Good pulses equal in all extremities. Gastrointestinal: Soft, Non-tender. Plan [place] [employer] Anesthesiologists (ASA) physical status classification: Class III. Anesthetic Preoperative Plan: Anesthesia General. [facility] Comment on above: Result Comment: Elec tronically Signed By: Clem PLATA, Minor Lara\.br\Date and Time Signed: 01/08/23 13:37 EDT RAD - Ultrasound Reporton RAD - Ultrasound Report [id number]:127 [facility] Pre-Certification Formon Pre-Certification Form [id number]:127 [facility] Consent for Procedure/Surger yon 11-08-2022 Consent for Procedure/Surgery [id number]#[id number]:127 [facility] Ambulatory Visit Summaryon 0 11-07-2022 Ambulatory Visit Summary KELSEY HERNANDEZ :1950 Visit Date:11/07/2022 Ambulatory Visit Instructions Your Diagnosis History of colon polyps BRBPR (bright red blood per rectum) Your Care Team Attending Physician - Lolis Jenkins CNP Primary Care Physician - Papo Castro MD This Is Your Medications List Contact prescribing physician if questions or concerns albuterol (Albuterol (Eqv-ProAir HFA) 90 mcg/inh inhalation aerosol) albuterol-ipratropium (albuterol-ipratropium Inh Ayesha 3 mL UD) budesonide (budesonide 0.5 mg/2 mL Inh Susp) finasteride (Proscar 5 mg Tab) montelukast (montelukast 10 mg Tab) nystatin (nystatin 100,000 units/mL Oral Susp) simvastatin (simvastatin 5 mg Tab) tamsulosin (tamsulosin 0.4 mg Cap) Procedures Performed Colonoscopy (09/10/2018), Surgery. Discharge Vitals Temperature (Temporal Artery) 36.6 ?C Heart Rate (Peripheral) 100 Blood Pressure 120/72 Height 162.5 cm Height 64 in Weight 63.2 kg Weight 139.04 lb BMI 23.93 What to do next You Need to Schedule the Following Appointments Follow Up with Lolis Jenkins CNP When: Within 1 to 2 weeks Comments: Following colonoscopy. Where: Medications What How Much When Instructions Unchanged albuterol (Albuterol (Eqv-ProAir HFA) 90 mcg/ inh inhalation aerosol) 2 Puffs Inhalation Every 4 hours as needed for wheezing or shortness of breath Contact prescribing physician if questions or concerns Unchanged albuterol-ipratropium (albuterol-ipratropium Inh Ayesha 3 mL UD) Contact prescribing physician if questions or concerns Unchanged budesonide (budesonide 0.5 mg/ 2 mL Inh Susp) Contact prescribing physician if questions or concerns Unchanged finasteride (Proscar 5 mg Tab) 1 Tablets By Mouth Every day Contact prescribing physician if questions or concerns Unchanged montelukast (montelukast 10 mg Tab) Contact prescribing physician if questions or concerns Unchanged nystatin (nystatin 100,000 units/ mL Oral Susp) Contact prescribing physician if questions or concerns Unchanged simvastatin (simvastatin 5 mg Tab) 1 Tablets By Mouth Once a day (at bedtime) Contact prescribing physician if questions or concerns Unchanged tamsulosin (tamsulosin 0.4 mg Cap) 2 Capsules By Mouth Every day Contact prescribing physician if questions or concerns Allergies penicillin (Unknown) Problems Ongoing - Any problem that you are currently receiving treatment for. Adult failure to thrive BPH (benign prostatic hyperplasia) BRBPR (bright red blood per rectum) COPD (chronic obstructive pulmonary disease) History of colon polyps Hypercholesterolemia Education Materials Colonoscopy, Adult A colonoscopy is a procedure to look at the entire large intestine. This procedure is done using a long, thin, flexible tube that has a camera on the end. You may have a colonoscopy: ? As a part of normal colorectal screening. ? If you have certain symptoms, such as: ? A low number of red blood cells in your blood (anemia). ? Diarrhea that does not go away. ? Pain in your abdomen. ? Blood in your stool. A colonoscopy can help screen for and diagnose medical problems, including: ? An abnormal growth of cells or tissue (tumor). ? Abnormal growths within the lining of your intestine (polyps). ? Inflammation. ? Areas of bleeding. Tell your health care provider about: ? Any allergies you have. ? All medicines you are taking, including vitamins, herbs, eye drops, creams, and dmpt-tpt-febhrqs medicines. ? Any problems you or family members have had with anesthetic medicines. ? Any bleeding problems you have. ? Any surgeries you have had. ? Any medical conditions you have. ? Any problems you have had with having bowel movements. ? Whether you are or may be . What are the risks? Generally, this is a safe procedure. However, problems may occur, including: ? Bleeding. ? Damage to your intestine. ? Allergic reactions to medicines given during the procedure. ? Infection. This is rare. What happens before the procedure? Eating and drinking restrictions Follow instructions from your health care provider about eating or drinking restrictions, which may include: ? A few days before the procedure: ? Follow a low-fiber diet. ? Avoid nuts, seeds, dried fruit, raw fruits, and vegetables. ? 1?3 days before the procedure: ? Eat only gelatin dessert or ice pops. ? Drink only clear liquids, such as water, clear juice, clear broth or bouillon, black coffee or tea, or clear soft drinks or sports drinks. ? Avoid liquids that contain red or purple dye. ? The day of the procedure: ? Do not eat solid foods. You may continue to drink clear liquids until up to 2 hours before the procedure. ? Do not eat or drink anything starting 2 hours before the procedure, or within the time period that your health care provider rec (more content not included)... Normal [facility] Gastroenterology Office/Clin ic Noteon 11-07-2022 Gastroenterology Office/Clinic Note Chief Complaint Colonoscopy recheck. HPI Staff This is a 72 year old male who presents today to schedule a colonoscopy. Patient was referred by [facility] for a diagnostic colonoscopy. Per referral patient answered yes to [facility] and last colonoscopy was 09/10/2018 History of Present Illness Patient is a 72-year-old male who presents for colonoscopy. Patient had previous colonoscopy 08/2018 at [facility] that revealed 3 polyps removed from ascending colon, polyp removed from transverse colon, descending colon polyp removed from rectum, diverticulosis, hemorrhoids?patient was recommended to have repeat colonoscopy in 3 years. No pathology results available to review during today's encounter. Family history of colon cancer: Denies. Family history of colon polyps: Denies. Personal history of colon cancer: Denies. Personal history of colon polyps: Yes, see above. Anticoagulation therapy: Denies. Antiplatelet therapy: Denies. During today's visit, patient reports he is doing well. Patient reports having off/on BRBPR for years with wiping on toilet paper, last occurred 2 weeks ago. Is having 1 formed BM daily. Denies abdominal pain, black/bloody stools, rectal pain, fevers/chills, nausea/vomiting, change in bowel habits, and denies unintentional weight loss. Review of Systems PHQ Score Initial Depression Screen Score: 0 ROS - Provider Constitutional: no fever, no chills. Skin: no Jaundice. ENMT: Denies dysphagia and heartburn. Respiratory: no shortness of breath. Cardiovascular: no chest pain. Gastrointestinal: no nausea, no vomiting, no diarrhea, no GI bleeding. Physical Exam Vitals & Measurements T: 36.6 ?C(Temporal Artery) HR: 100(Peripheral) BP: 120/72 HT: 64 in HT: 162.5 cm WT: 63.2 kg WT: 139.04 lb BMI: 23.93 General: Well developed, well nourished, in no acute distress Head: Normocephalic/atraumatic Lungs: Normal respiratory effort and clear to auscultation Cardio: Regular rate and rhythm, normal S1 and S2, no murmur, no rub Abdomen: Soft, non-distended, non-tender. Normoactive bowel sounds present in all 4 abdominal quadrants, bilaterally. Mental Status: Alert and oriented x3. Normal mood and affect Assessment/Plan 1. History of colon polyps (Z86.010: Personal history of colonic polyps) Previous colonoscopy 08/2018 at [facility] revealed 3 polyps removed from ascending colon, polyp removed from transverse colon, descending colon polyp removed from rectum, diverticulosis, hemorrhoids?patient was recommended to have repeat colonoscopy in 3 years- 08/2021- not done. No pathology results available to review during today's encounter. Ordered Colonoscopy. Denies anticoagulation therapy. Ordered: Colonoscopy (Hospital Procedure) 2. BRBPR (bright red blood per rectum) (K62.5: Hemorrhage of anus and rectum) Off/on BRBPR for years with wiping on toilet paper, last occurred 2 weeks ago. Previous colonoscopy 08/2018 at [facility] revealed 3 polyps removed from ascending colon, polyp removed from transverse colon, descending colon polyp removed from rectum, diverticulosis, hemorrhoids?patient was recommended to have repeat colonoscopy in 3 years- 08/2021- not done. No pathology results available to review during today's encounter. Ordered Colonoscopy. Denies anticoagulation therapy. Ordered: Colonoscopy (Hospital Procedure) Has prep from [facility] for colonoscopy. Follow-up With When Contact Information Lolis Jenkins CNP Within 1 to 2 weeks Additional Instructions: Following colonoscopy. Patient Education Colonoscopy, Adult Problem List/Past Medical History Ongoing Adult failure to thrive BPH (benign prostatic hyperplasia) BRBPR (bright red blood per rectum) COPD (chronic obstructive pulmonary disease) History of colon polyps Hypercholesterolemia Historical No qualifying data Procedure/Surgical History Colonoscopy (09/10/2018), Surgery. Medications Albuterol (Eqv-ProAir HFA) 90 mcg/inh inhalation aerosol, 2 puff(s), Inhalation, q4hr albuterol-ipratropium Inh Ayesha 3 mL UD budesonide 0.5 mg/2 mL Inh Susp montelukast 10 mg Tab nystatin 100,000 units/mL Oral Susp Proscar 5 mg Tab, 5 mg= 1 tab(s), Oral, Daily simvastatin 5 mg Tab, 5 mg= 1 tab(s), Oral, Once a day (at bedtime) tamsulosin 0.4 mg Cap, 0.8 mg= 2 cap(s), Oral, Daily Allergies penicillin (Unknown) Social History Tobacco Former smoker, quit more than 30 days ago Tobacco Use:. Never Smokeless Tobacco Use:. Cigarettes, 11/07/2022 Family History Dementia: Mother. Primary malignant neoplasm of brain: Father. Primary malignant neoplasm of female genital organ: Mother. Immunizations Vaccine Date Status Comments SARS-CoV-2 mRNA (tojmnameran 5y-11y) vac - Not Given Postpone due to refusal pneumococcal 13-valent vaccine 06/02/2022 Recorded influenza virus vaccine, inactivated 06/02/2022 Recorded Normal [facility] Comment on above: Result Comment: Elec tronically Signed By: Lolis Jenkins CNP\.br\Date and Time Signed: 11/07/22 14:52 EDT Physician Referralon 023 Physician Referral [id number]:127 Normal [facility] ED Note-Physicianon 10-20-19 23 ED Note-Physician [id number]:127 Normal [facility] CBC W MANUAL DIFFon 10-14-19 23 ATYPICAL LYMPH # Normal [facility] Comment on above: Performed By: #### C BCMAN #### [facility] [address] [place] [address] Dr. Caitlin Sales ATYPICAL LYMPH % Normal [facility] Comment on above: Performed By: #### C BCMAN #### [facility] [address] [address] [address] Caitlin Sales BAND # 0.0 103/ul Normal 0.0-0.3 [facility] Comment on above: Performed By: #### C BCMAN #### [facility] [address] [address] [address] Caitlin Sales BAND % 0 % Normal 0-5 [facility] Comment on above: Performed By: #### C BCMAN #### [facility] [address] [address] [address] Caitlin Sales BASOM # 0.00 103/ul Normal 0.00-0.10 [facility] Comment on above: Performed By: #### C BCMAN #### [facility] [address] [place] [address] Dr. Caitlin Sales BASOM % 0.0 % Critically low 0.2-2.0 [facility] Comment on above: Performed By: #### C BCMAN #### [facility] [address] [place] [address] Dr. Caitlin Sales BLAST # Normal [facility] Comment on above: Performed By: #### C BCKINGSLEY #### [facility] [address] [place] [address] Dr. Caitlin Sales BLAST % Normal [facility] Comment on above: Performed By: #### C LUBNA #### [facility] [address] [place] [address] Dr. Caitlin Sales CORRECTED WBC Normal 4.0-11.0 [facility] Comment on above: Performed By: #### C LUBNA #### [facility] [address] [place] [address] Dr. Caitlin Sales EOS # 0.00 103/ul Normal 0.00-0.70 [facility] Comment on above: Performed By: #### C LUBNA #### [facility] [address] [place] [address] Dr. Caitlin Sales EOS% 0.0 % Critically low 0.9-7.0 [facility] Comment on above: Performed By: #### C BCKINGSLEY #### [facility] [address] [place] [address] Dr. Caitlin Sales HCT 39.8 % Critically low 42.0-54.0 [facility] Comment on above: Performed By: #### C BCKINGSLEY #### [facility] [address] [place] [address] Dr. Caitlin Sales HGB 13.1 g/dl Critically low 14.0-18.0 [facility] Comment on above: Performed By: #### C LUBNA #### [facility] [address] [address] [address] Caitlin Sales LYMPHM # 0.46 103/ul Critically low 1.20-3.80 [facility] Comment on above: Performed By: #### C LUBNA #### [facility] [address] [address] [address] Caitlin Sales LYMPHM% 2.0 % Critically low 20.5-60.0 [facility] Comment on above: Performed By: #### C LUBNA #### [facility] [address] [place] [address] Dr. Caitlin Sales MCH 31.3 pg Normal 25.9-34.0 [facility] Comment on above: Performed By: #### C LUBNA #### [facility] [address] [place] [address] Dr. Caitlin Sales MCHC 32.9 g/dl Normal 29.9-35.2 [facility] Comment on above: Performed By: #### C LUBNA #### [facility] [address] [place] [address] Dr. Caitlin Sales MCV 95.0 fL Critically high 80.0-94.0 [facility] Comment on above: Performed By: #### C LUBNA #### [facility] [address] [place] [address] Dr. Caitlin Sales METAMYELOCYTE # Normal [facility] Comment on above: Performed By: #### Emmy CALVO #### [facility] [address] [place] [address] Dr. Caitlin Sales METAMYELOCYTE % Normal [facility] Comment on above: Performed By: #### Emmy CALVO #### [facility] [address] [place] [address] Dr. Caitlin Sales MONOM# 0.69 103/ul Normal 0.30-0.80 [facility] Comment on above: Performed By: #### C LUBNA #### [facility] [address] [place] [address] Dr. Caitlin Sales MONOM% 3.0 % Normal 1.7-12.0 [facility] Comment on above: Performed By: #### C LUBNA #### [facility] [address] [address] [address] Caitlin Sales MPV 9.9 fL Normal 9.5-13.5 [facility] Comment on above: Performed By: #### C LUBNA #### [facility] [address] [address] [address] Caitlin Sales MYELOCYTE # Normal [facility] Comment on above: Performed By: #### C LUBNA #### [facility] [address] [address] [address] Caitlin Sales MYELOCYTE % Normal [facility] Comment on above: Performed By: #### C LUBNA #### [facility] [address] [place] [address] Dr. Caitlin Sales NRBC Normal [facility] Comment on above: Performed By: #### C LUBNA #### [facility] [address] [place] [address] Dr. Caitlin Sales PLT 327 103/ul Normal 150-450 [facility] Comment on above: Performed By: #### C LUBNA #### [facility] [address] [place] [address] Dr. Caitlin Sales RBC 4.19 106/ul Critically low 4.70-6.10 [facility] Comment on above: Performed By: #### C LUBNA #### [facility] [address] [place] [address] Dr. Caitlin Sales RDW 12.1 % Normal 11.0-15.0 [facility] Comment on above: Performed By: #### C LUBNA #### [facility] [address] [place] [address] Dr. Caitlin Sales SEG # 21.75 103/ul Critically high 1.40-6.50 [facility] Comment on above: Performed By: #### C LUBNA #### [facility] [address] [place] [address] Dr. Caitlin Sales SEG % 95.0 % Critically high 43.0-75.0 [facility] Comment on above: Performed By: #### C LUBNA #### [facility] [address] [address] [address] Caitlin Sales WBC 22.9 103/ul Critically high 4.0-11.0 [facility] Comment on above: Performed By: #### C LUBNA #### [facility] [address] [place] [address] Dr. Caitlin Sales PROF 14(COMP METB)on 023 Albumin [Mass/Vol] 3.1 g/dL Critically low 3.4-5.0 [facility] Comment on above: Performed By: #### L ACT #### [facility] [address] [place] [address] Dr. Caitlin Sales Albumin/Globulin [Mass ratio] 1.2 {ratio} Normal [facility] Comment on above: Performed By: #### L ACT #### [facility] [address] [place] [address] Dr. Caitlin Sales ALP [Catalytic activity/Vol] 45 U/L Critically low 46-116 [facility] Comment on above: Performed By: #### L ACT #### [facility] [address] [place] [address] Dr. Caitlin Sales ALT [Catalytic activity/Vol] 26 U/L Normal 16-63 [facility] Comment on above: Performed By: #### L ACT #### [facility] [address] [place] [address] Dr. Caitlin Sales Anion gap [Moles/Vol] 11.7 mmol/L Normal [facility] Comment on above: Performed By: #### L ACT #### [facility] [address] [place] [address] Dr. Caitlin Sales AST [Catalytic activity/Vol] 11 U/L Critically low 15-37 [facility] Comment on above: Performed By: #### L ACT #### [facility] [address] [place] [address] Dr. Caitlin Sales Bilirubin [Mass/Vol] 0.2 mg/dL Normal 0.2-1.0 [facility] Comment on above: Performed By: #### L ACT #### [facility] [address] [address] [address] Caitlin Sales Calcium [Mass/Vol] 8.7 mg/dL Normal 8.5-10.1 [facility] Comment on above: Performed By: #### L ACT #### [facility] [address] [address] [address] Caitlin Sales Chloride [Moles/Vol] 104 mmol/L Normal 98-107 [facility] Comment on above: Performed By: #### L ACT #### [facility] [address] [address] [address] Caitlin Sales CO2 [Moles/Vol] 29.3 mmol/L Normal 21.0-32.0 [facility] Comment on above: Performed By: #### L ACT #### [facility] [address] [place] [address] Dr. Caitlin Sales Creatinine [Mass/Vol] 0.73 mg/dL Normal 0.70-1.30 [facility] Comment on above: Performed By: #### L ACT #### [facility] [address] [place] [address] Dr. Caitlin Sales EGFR-AF UKRAINIAN >60 Normal >=60 [facility] Comment on above: Performed By: #### L ACT #### [facility] [address] [place] [address] Dr. Caitlin Sales EGFR-NON AF UKRAINIAN >60 Normal >=60 [facility] Comment on above: Performed By: #### L ACT #### [facility] [address] [place] [address] Dr. Caitlin Sales Globulin (S) [Mass/Vol] 2.6 g/dL Normal [facility] Comment on above: Performed By: #### L ACT #### [facility] [address] [place] [address] Dr. Caitlin Sales Glucose [Mass/Vol] 125 mg/dL Critically high 74-106 [facility] Comment on above: Performed By: #### L ACT #### [facility] [address] [place] [address] Dr. Caitlin Sales Potassium [Moles/Vol] 4.0 mmol/L Normal 3.5-5.1 [facility] Comment on above: Performed By: #### L ACT #### [facility] [address] [place] [address] Dr. Caitlin Sales Protein [Mass/Vol] 5.7 g/dL Critically low 6.4-8.2 [facility] Comment on above: Performed By: #### L ACT #### [facility] [address] [address] [address] Caitlin Sales Sodium [Moles/Vol] 141 mmol/L Normal 136-145 [facility] Comment on above: Performed By: #### L ACT #### [facility] [address] [place] [address] Dr. Caitlin Sales Urea nitrogen [Mass/Vol] 20.0 mg/dL Critically high 7.0-18.0 [facility] Comment on above: Performed By: #### L ACT #### [facility] [address] [place] [address] Dr. Caitlin Sales Urea nitrogen/Creatinine [Mass ratio] 27.4 mg/mg Normal [facility] Comment on above: Performed By: #### L ACT #### [facility] [address] [place] [address] Dr. Caitlin Sales CBC AUTO DIFFon 10-12-2022 BASO # 0.0 103/ul Normal 0.0-0.1 [facility] Comment on above: Performed By: #### L ACT #### [facility] [address] [place] [address] Dr. Caitlin Sales Basophils/100 WBC (Bld) 0.1 % Critically low 0.2-2.0 [facility] Comment on above: Performed By: #### L ACT #### [facility] [address] [place] [address] Dr. Caitlin Sales EO # 0.0 103/ul Normal 0.0-0.7 [facility] Comment on above: Performed By: #### L ACT #### [facility] [address] [place] [address] Dr. Caitlin Sales Eosinophils/100 WBC (Bld) 0.0 % Critically low 0.9-7.0 [facility] Comment on above: Performed By: #### L ACT #### [facility] [address] [place] [address] Dr. Caitlin Sales Erythrocyte distribution width (RBC) [Ratio] 12.2 % Normal 11.0-15.0 [facility] Comment on above: Performed By: #### L ACT #### [facility] [address] [place] [address] Dr. Caitlin Sales Hematocrit (Bld) [Volume fraction] 38.5 % Critically low 42.0-54.0 [facility] Comment on above: Performed By: #### L ACT #### [facility] [address] [place] [address] Dr. Caitlin Sales Hemoglobin (Bld) [Mass/Vol] 12.8 g/dL Critically low 14.0-18.0 [facility] Comment on above: Performed By: #### L ACT #### [facility] [address] [place] [address] Dr. Caitlin Sales IG # 0.04 10e3/ul Critically high 0.00-0.03 [facility] Comment on above: Performed By: #### L ACT #### [facility] [address] [place] [address] Dr. Caitlin Sales IG % 0.5 % Normal 0.0-0.5 [facility] Comment on above: Performed By: #### L ACT #### [facility] [address] [place] [address] Dr. Caitlin Sales LYMPH # 0.5 103/ul Critically low 1.2-3.8 [facility] Comment on above: Performed By: #### L ACT #### [facility] [address] [place] [address] Dr. Caitlin Sales Lymphocytes/100 WBC (Bld) 6.1 % Critically low 20.5-60.0 [facility] Comment on above: Performed By: #### L ACT #### [facility] [address] [place] [address] Dr. Caitlin Sales MANUAL DIFF REQ NO Normal [facility] Comment on above: Performed By: #### L ACT #### [facility] [address] [place] [address] Dr. Caitlin Sales MCH (RBC) [Entitic mass] 31.3 pg Normal 25.9-34.0 [facility] Comment on above: Performed By: #### L ACT #### [facility] [address] [place] [address] Dr. Caitlin Sales MCHC (RBC) [Mass/Vol] 33.2 g/dL Normal 29.9-35.2 [facility] Comment on above: Performed By: #### L ACT #### [facility] [address] [place] [address] Dr. Caitlin Sales MCV (RBC) [Entitic vol] 94.1 fL Critically high 80.0-94.0 [facility] Comment on above: Performed By: #### L ACT #### [facility] [address] [place] [address] Dr. Caitlin Sales MONO # 0.2 103/ul Critically low 0.3-0.8 [facility] Comment on above: Performed By: #### L ACT #### [facility] [address] [place] [address] Dr. Caitlin Sales Monocytes/100 WBC (Bld) 2.2 % Normal 1.7-12.0 [facility] Comment on above: Performed By: #### L ACT #### [facility] [address] [place] [address] Dr. Caitlin Sales NEUT # 7.8 103/ul Critically high 1.4-6.5 [facility] Comment on above: Performed By: #### L ACT #### [facility] [address] [place] [address] Dr. Caitlin Sales Neutrophils/100 WBC (Bld) 91.1 % Critically high 43.0-75.0 [facility] Comment on above: Performed By: #### L ACT #### [facility] [address] [place] [address] Dr. Caitlin Sales Platelet mean volume (Bld) [Entitic vol] 9.7 fL Normal 9.5-13.5 [facility] Comment on above: Performed By: #### L ACT #### [facility] [address] [address] [address] Caitlin Sales PLT 287 103/ul Normal 150-450 [facility] Comment on above: Performed By: #### L ACT #### [facility] [address] [address] [address] Caitlin Sales RBC 4.09 106/ul Critically low 4.70-6.10 [facility] Comment on above: Performed By: #### L ACT #### [facility] [address] [address] [address] Caitlin Sales WBC 8.6 103/ul Normal 4.0-11.0 [facility] Comment on above: Performed By: #### L ACT #### [facility] [address] [address] [address] Caitlin Sales Family Medicine Office/Clini c Noteon 10-12-2022 Family Medicine Office/Clinic Note Chief Complaint follow up hospital for copd not doing well with it HPI Staff new patient recent hospital discharge COPD Establish Care: History: copd, prostate Last provider: ELIDIA tran Any recent labs: in hospital recently Patient is here for follow up on COPD: Feeling controlled on medication: no Need medication refilled: no Do you use O2? no Health Maintenance UTD: Colonoscopy: was due may 2022 but was in hospital not rescheduled yet PSA: unsure Acute: Current issues/complaints: COPD is bad yesterday was a bad day. He's feeling dizzy today History of Present Illness Kelsey Hernandez presents today for a hospital discharge follow-up. The patient was admitted to [facility] on 10/05/2022 with dyspnea. He was discharged on 10/06/2022. He was not seen by pulmonology while he was in the hospital. He was prescribed an antibiotic and prednisone in the hospital. The patient states that he feels great today; however, he states that he was not doing well yesterday, 2022. He states that he woke up yesterday, with his chest feeling heavy. He used his nebulizer, but it did not seem to be helping. He thought about returning to the ER, but he cannot drive, and an ambulance is too expensive. He states that he will be sitting and not doing anything, and he suddenly starts to hyperventilate and feel dizzy. He does not want to take the antibiotic that was prescribed in the hospital because he is concerned about the listed side effects. He states that the instructions say not to take the antibiotic with steroids, and he was prescribed prednisone, which he is taking. He explains that the antibiotic pills are so large that he has a hard time swallowing them. The patient is currently following with pulmonology, Dr. Rodríguez. He last saw Dr. Rodríguez about 3 weeks ago. He states that Dr. Rodríguez mentioned trying him on a different medication. The patient lives alone. Review of Systems PHQ Score Initial Depression Screen Score: 1 Physical Exam Vitals & Measurements HR: 90(Peripheral) RR: 24 BP: 170/86 SpO2: 91% HT: 64 in HT: 162.56 cm WT: 63.04 kg WT: 138.688 lb BMI: 23.86 General: alert, no acute distress ENMT: oral mucosa moist, no pharyngeal erythema or exudate Cardiovascular: regular rate and rhythm, normal peripheral perfusion Respiratory: Patient is using accessory muscles to breathe. He has very diminished breath sounds with very little air movement. Extremities: no deformity, no trauma Neurological: oriented x 4, LOC appropriate for age, CN II-XII intact, motor strength equal & normal bilaterally, speech normal Assessment/Plan Spoke with Dr. Rodríguez and with the Er doctor. Given his picture we are concerned that something else maybe going on. With the panting and CP, we will send him in for further evaluation. Total time spent preparing for the encounter, evaluating and assessing the patient, documenting the visit, and ordering appropriate follow-up work was 50 minutes. 1. Hospital discharge follow-up (Z09: Encounter for follow-up examination after completed treatment for conditions other than malignant neoplasm) At this time, the patient will be sent back to the hospital as he is hypoxic here with a respiration rate of 25. 2. Chronic obstructive pulmonary disease with acute exacerbation (J44.1: Chronic obstructive pulmonary disease with (acute) exacerbation) Again, we will send the patient back to the ER for further work-up on this. 3. Elevated BP without diagnosis of hypertension (R03.0: Elevated blood-pressure reading, without diagnosis of hypertension) 4. BMI 23.0-23.9, adult (Z68.23: Body mass index [BMI] 23.0-23.9, adult) Total time spent preparing the chart, conducting of the encounter with the patient and family and time spent documenting, reviewing, and ordering tests was greater than 50 minutes. ATTESTATION: Documentation services were performed after patient or guardian consented to allow [employer] to record this visit. JUAN PABLO teacher selection specialist and provider reviewed before signing. JUAN PABLO: Va Musa. Follow-up No qualifying data available Patient Education BMI for Adults Problem List/Past Medical History Ongoing Adult failure to thrive BPH (benign prostatic hyperplasia) COPD (chronic obstructive pulmonary disease) Hypercholesterolemia Historical No qualifying data Procedure/Surgical History Surgery. Medications Albuterol (Eqv-ProAir HFA) 90 mcg/inh inhalation aerosol, 2 puff(s), Inhalation, q4hr Proscar 5 mg Tab, 5 mg= 1 tab(s), Oral, Daily simvastatin 5 mg Tab, 5 mg= 1 tab(s), Oral, Once a day (at bedtime) tamsulosin 0.4 mg Cap, 0.8 mg= 2 cap(s), Oral, Daily Allergies penicillin (Unknown) Social History Tobacco Former smoker, quit more than 30 days ago Tobacco Use:. Cigarettes, 10/11/2022 Family History Dementia: Mother. Primary malignant neoplasm of brain: Father. Primary malignant neoplasm of female genital organ: Mother. Immun (more content not included)... Normal [facility] Comment on above: Result Comment: Elec tronically Signed By: Papo Castro MD\.br\Date and Time Signed: 10/12/22 07:31 EDT\.br\Electronically Co-Signed By: Va Musa.br\Date and Time Co-Signed: 10/11/22 14:51 EDT PROF 14(COMP METB)on 023 Albumin [Mass/Vol] 3.1 g/dL Critically low 3.4-5.0 Th [facility] Comment on above: Performed By: #### L ACT #### [facility] [address] [place] [address] Dr. Caitlin Sales Albumin/Globulin [Mass ratio] 1.1 {ratio} Normal [facility] Comment on above: Performed By: #### L ACT #### [facility] [address] [place] [address] Dr. Caitlin Sales ALP [Catalytic activity/Vol] 47 U/L Normal 46-116 [facility] Comment on above: Performed By: #### L ACT #### [facility] [address] [address] [address] Caitlin Sales ALT [Catalytic activity/Vol] 25 U/L Normal 16-63 [facility] Comment on above: Performed By: #### L ACT #### [facility] [address] [address] [address] Caitlin Sales Anion gap [Moles/Vol] 12.1 mmol/L Normal [facility] Comment on above: Performed By: #### L ACT #### [facility] [address] [place] [address] Dr. Caitlin Sales AST [Catalytic activity/Vol] 12 U/L Critically low 15-37 [facility] Comment on above: Performed By: #### L ACT #### [facility] [address] [address] [address] Caitlin Sales Bilirubin [Mass/Vol] 0.3 mg/dL Normal 0.2-1.0 [facility] Comment on above: Performed By: #### L ACT #### [facility] [address] [address] [address] Caitlin Sales Calcium [Mass/Vol] 8.6 mg/dL Normal 8.5-10.1 [facility] Comment on above: Performed By: #### L ACT #### [facility] [address] [address] [address] Caitlin Sales Chloride [Moles/Vol] 107 mmol/L Normal 98-107 [facility] Comment on above: Performed By: #### L ACT #### [facility] [address] [address] [address] Caitlin Sales CO2 [Moles/Vol] 27.8 mmol/L Normal 21.0-32.0 [facility] Comment on above: Performed By: #### L ACT #### [facility] [address] [address] [address] Caitlin Sales Creatinine [Mass/Vol] 0.68 mg/dL Critically low 0.70-1.30 [facility] Comment on above: Performed By: #### L ACT #### [facility] [address] [address] [address] Caitlin Sales EGFR-AF UKRAINIAN >60 Normal >=60 [facility] Comment on above: Performed By: #### L ACT #### [facility] [address] [address] [address] Caitlin Sales EGFR-NON AF UKRAINIAN >60 Normal >=60 [facility] Comment on above: Performed By: #### L ACT #### [facility] [address] [place] [address] Dr. Caitlin Sales Globulin (S) [Mass/Vol] 2.8 g/dL Normal [facility] Comment on above: Performed By: #### L ACT #### [facility] [address] [place] [address] Dr. Caitlin Sales Glucose [Mass/Vol] 132 mg/dL Critically high 74-106 [facility] Comment on above: Performed By: #### L ACT #### [facility] [address] [place] [address] Dr. Caitlin Sales Potassium [Moles/Vol] 3.9 mmol/L Normal 3.5-5.1 [facility] Comment on above: Performed By: #### L ACT #### [facility] [address] [place] [address] Dr. Caitlin Sales Protein [Mass/Vol] 5.9 g/dL Critically low 6.4-8.2 Th [facility] Comment on above: Performed By: #### L ACT #### [facility] [address] [place] [address] Dr. Caitlin Sales Sodium [Moles/Vol] 143 mmol/L Normal 136-145 [facility] Comment on above: Performed By: #### L ACT #### [facility] [address] [address] [address] Caitlin Sales Urea nitrogen [Mass/Vol] 17.0 mg/dL Normal 7.0-18.0 [facility] Comment on above: Performed By: #### L ACT #### [facility] [address] [address] [address] Caitlin Sales Urea nitrogen/Creatinine [Mass ratio] 25.0 mg/mg Normal [facility] Comment on above: Performed By: #### L ACT #### [facility] [address] [address] [address] Caitlin Sales Ambulatory Visit Summaryon 0 10-11-2022 Ambulatory Visit Summary KELSEY HERNANDEZ :1950 Visit Date:10/11/2022 Ambulatory Visit Instructions Your Diagnosis Hospital discharge follow-up Chronic obstructive pulmonary disease with acute exacerbation Elevated BP without diagnosis of hypertension BMI 23.0-23.9, adult Your Care Team Attending Physician - Papo Castro MD Primary Care Physician - Papo Castro MD This Is Your Medications List albuterol (Albuterol (Eqv-ProAir HFA) 90 mcg/inh inhalation aerosol) finasteride (Proscar 5 mg Tab) simvastatin (simvastatin 5 mg Tab) tamsulosin (tamsulosin 0.4 mg Cap) Procedures Performed Surgery. Discharge Vitals Heart Rate (Peripheral) 90 Respiratory Rate 24 Blood Pressure 170/86 Height 162.56 cm Height 64 in Weight 63.04 kg Weight 138.688 lb BMI 23.86 Medications What How Much When Instructions Unchanged albuterol (Albuterol (Eqv-ProAir HFA) 90 mcg/ inh inhalation aerosol) 2 Puffs Inhalation Every 4 hours as needed for wheezing or shortness of breath Unchanged finasteride (Proscar 5 mg Tab) 1 Tablets By Mouth Every day Unchanged simvastatin (simvastatin 5 mg Tab) 1 Tablets By Mouth Once a day (at bedtime) Unchanged tamsulosin (tamsulosin 0.4 mg Cap) 2 Capsules By Mouth Every day Medications and Immunizations Administered Not Given SARS-CoV-2 mRNA (tozinameran 5y-11y) vac, Postpone due to refusal Allergies penicillin (Unknown) Problems Ongoing - Any problem that you are currently receiving treatment for. Adult failure to thrive BPH (benign prostatic hyperplasia) COPD (chronic obstructive pulmonary disease) Hypercholesterolemia Education Materials BMI for Adults What is BMI? Body mass index (BMI) is a number that is calculated from a person's weight and height. BMI can help estimate how much of a person's weight is composed of fat. BMI does not measure body fat directly. Rather, it is an alternative to procedures that directly measure body fat, which can be difficult and expensive. BMI can help identify people who may be at higher risk for certain medical problems. What are BMI measurements used for? BMI is used as a screening tool to identify possible weight problems. It helps determine whether a person is obese, overweight, a healthy weight, or underweight. BMI is useful for: ? Identifying a weight problem that may be related to a medical condition or may increase the risk for medical problems. ? Promoting changes, such as changes in diet and exercise, to help reach a healthy weight. BMI screening can be repeated to see if these changes are working. How is BMI calculated? BMI involves measuring your weight in relation to your height. Both height and weight are measured, and the BMI is calculated from those numbers. This can be done either in [place] or metric measurements. Note that charts and online BMI calculators are available to help you find your BMI quickly and easily without having to do these calculations yourself. To calculate your BMI in [place] measurements: 1. Measure your weight in pounds (lb). 2. Multiply the number of pounds by 703. ? For example, for a person who weighs 180 lb, multiply that number by 703, which equals 126,540. 3. Measure your height in inches. Then multiply that number by itself to get a measurement called inches squared. ? For example, for a person who is 70 inches tall, the inches squared measurement is 70 inches x 70 inches, which equals 4,900 inches squared. 4. Divide the total from step 2 (number of lb x 703) by the total from step 3 (inches squared): 126,540 ? 4,900 = 25.8. This is your BMI. To calculate your BMI in metric measurements: 1. Measure your weight in kilograms (kg). 2. Measure your height in meters (m). Then multiply that number by itself to get a measurement called meters squared. ? For example, for a person who is 1.75 m tall, the meters squared measurement is 1.75 m x 1.75 m, which is equal to 3.1 meters squared. 3. Divide the number of kilograms (your weight) by the meters squared number. In this example: 70 ? 3.1 = 22.6. This is your BMI. What do the results mean? BMI charts are used to identify whether you are underweight, normal weight, overweight, or obese. The following guidelines will be used: ? Underweight: BMI less than 18.5. ? Normal weight: BMI between 18.5 and 24.9. ? Overweight: BMI between 25 and 29.9. ? Obese: BMI of 30 or above. Keep these notes in mind: ? Weight includes both fat and muscle, so someone with a muscular build, such as an athlete, may have a BMI that is higher than 24.9. In cases like these, BMI is not an accurate measure of body fat. ? To determine if excess body fat is the cause of a BMI of 25 or higher, further assessments may need to be done by a health care provider. ? BMI is usually interpreted in the same way for men and women. Where to find more in (more content not included)... Normal [facility] BNPon 10-11-2022 Natriuretic peptide B (Bld) [Mass/Vol] 640.0 pg/mL Normal <=900.0 [facility] Comment on above: Performed By: #### L ACT #### [facility] [address] [address] [address] Caitlin Sales CBC AUTO DIFFon 10-11-2022 BASO # 0.0 103/ul Normal 0.0-0.1 [facility] Comment on above: Performed By: #### L ACT #### [facility] [address] [address] [address] Caitlin Sales Basophils/100 WBC (Bld) 0.1 % Critically low 0.2-2.0 [facility] Comment on above: Performed By: #### L ACT #### [facility] [address] [place], [place] [address] Dr. Caitlin Sales EO # 0.0 103/ul Normal 0.0-0.7 [facility] Comment on above: Performed By: #### L ACT #### [facility] [address] [place] [address] Dr. Caitlin Sales Eosinophils/100 WBC (Bld) 0.1 % Critically low 0.9-7.0 [facility] Comment on above: Performed By: #### L ACT #### [facility] [address] [place] [address] Dr. Caitlin Sales Erythrocyte distribution width (RBC) [Ratio] 12.2 % Normal 11.0-15.0 [facility] Comment on above: Performed By: #### L ACT #### [facility] [address] [place] [address] Dr. Caitlin Sales Hematocrit (Bld) [Volume fraction] 42.4 % Normal 42.0-54.0 [facility] Comment on above: Performed By: #### L ACT #### [facility] [address] [place] [address] Dr. Caitlin Sales Hemoglobin (Bld) [Mass/Vol] 14.4 g/dL Normal 14.0-18.0 [facility] Comment on above: Performed By: #### L ACT #### [facility] [address] [place] [address] Dr. Caitlin Sales IG # 0.08 10e3/ul Critically high 0.00-0.03 [facility] Comment on above: Performed By: #### L ACT #### [facility] [address] [place] [address] Dr. Caitlin Sales IG % 0.6 % Critically high 0.0-0.5 [facility] Comment on above: Performed By: #### L ACT #### [facility] [address] [place] [address] Dr. Caitlin Sales LYMPH # 1.2 103/ul Normal 1.2-3.8 [facility] Comment on above: Performed By: #### L ACT #### [facility] [address] [place] [address] Dr. Caitlin Sales Lymphocytes/100 WBC (Bld) 9.1 % Critically low 20.5-60.0 [facility] Comment on above: Performed By: #### L ACT #### [facility] [address] [place] [address] Dr. Caitlin Sales MANUAL DIFF REQ NO Normal [facility] Comment on above: Performed By: #### L ACT #### [facility] [address] [place] [address] Dr. Caitlin Sales MCH (RBC) [Entitic mass] 31.6 pg Normal 25.9-34.0 [facility] Comment on above: Performed By: #### L ACT #### [facility] [address] [place] [address] Dr. Caitlin Sales MCHC (RBC) [Mass/Vol] 34.0 g/dL Normal 29.9-35.2 [facility] Comment on above: Performed By: #### L ACT #### [facility] [address] [place] [address] Dr. Caitlin Sales MCV (RBC) [Entitic vol] 93.2 fL Normal 80.0-94.0 [facility] Comment on above: Performed By: #### L ACT #### [facility] [address] [place] [address] Dr. Caitlin Sales MONO # 1.0 103/ul Critically high 0.3-0.8 [facility] Comment on above: Performed By: #### L ACT #### [facility] [address] [place] [address] Dr. Caitlin Sales Monocytes/100 WBC (Bld) 7.0 % Normal 1.7-12.0 [facility] Comment on above: Performed By: #### L ACT #### [facility] [address] [place] [address] Dr. Caitlin Sales NEUT # 11.3 103/ul Critically high 1.4-6.5 [facility] Comment on above: Performed By: #### L ACT #### [facility] [address] [place] [address] Dr. Caitlin Sales Neutrophils/100 WBC (Bld) 83.1 % Critically high 43.0-75.0 [facility] Comment on above: Performed By: #### L ACT #### [facility] [address] [address] [address] Caitlin Sales Platelet mean volume (Bld) [Entitic vol] 8.9 fL Critically low 9.5-13.5 [facility] Comment on above: Performed By: #### L ACT #### [facility] [address] [address] [address] Caitlin Sales PLT 337 103/ul Normal 150-450 [facility] Comment on above: Performed By: #### L ACT #### [facility] [address] [address] [address] Caitlin Sales RBC 4.55 106/ul Critically low 4.70-6.10 [facility] Comment on above: Performed By: #### L ACT #### [facility] [address] [place] [address] Dr. Caitlin Sales WBC 13.6 103/ul Critically high 4.0-11.0 [facility] Comment on above: Performed By: #### L ACT #### [facility] [address] [address] [address] Caitlin Sales Covid-19 PCR ([facility])on 09-23 SARS-CoV-2 (COVID-19) RNA BENSON+probe Ql (Unsp spec) Not detected Normal NOT DETECTED [facility] Comment on above: Result Comment: When diagnostic testing is negative, the possibility of a false negative should be considered in the context of a patient's recent exposures and the presence of clinical signs and symptoms consistent with SARS-CoV-2. This test is not yet approved or cleared by the [place] FDA. When there are no FDA-approved or cleared tests available, and other criteria are met, FDA can make tests available under an emergency access mechanism called an Emergency Use Authorization (EUA). The EUA for this test is supported by the Judge of Health and Human Service's declaration that circumstances exist to justify the emergency use of in vitro diagnostics for the detection and/or diagnosis of the virus that causes COVID-19. This EUA will remain in effect for the duration of the COVID-19 declaration justifying emergency of IVDs, unless it is terminated or revoked by the FDA (after which the test may no longer be used). Performed By: #### L ACT #### [facility] [address] [place] [address] Dr. Caitlin Sales PH VENOUS BLOODon 10-11-2022 PCO2 VENOUS 37.3 mmHg Critically low 40.0-52.0 [facility] Comment on above: Performed By: #### L ACT #### [facility] [address] [place], [place] [id number] Dr. Caitlin Sales pH VENOUS 7.456 Critically high 7.330-7.430 [facility] Comment on above: Performed By: #### L ACT #### [facility] [address] [place] [address] Dr. Caitlin Sales PROF 14(COMP METB)on 023 Albumin [Mass/Vol] 3.8 g/dL Normal 3.4-5.0 [facility] Comment on above: Performed By: #### L ACT #### [facility] [address] [place] [address] Dr. Caitlin Sales Albumin/Globulin [Mass ratio] 1.2 {ratio} Normal [facility] Comment on above: Performed By: #### L ACT #### [facility] [address] [place] [address] Dr. Caitlin Sales ALP [Catalytic activity/Vol] 55 U/L Normal 46-116 [facility] Comment on above: Performed By: #### L ACT #### [facility] [address] [place] [address] Dr. Caitlin Sales ALT [Catalytic activity/Vol] 32 U/L Normal 16-63 [facility] Comment on above: Performed By: #### L ACT #### [facility] [address] [place], [place] [id number] Dr. Caitlin Sales Anion gap [Moles/Vol] 11.8 mmol/L Normal [facility] Comment on above: Performed By: #### L ACT #### [facility] [address] [place], [place] [id number] Dr. Caitlin Sales AST [Catalytic activity/Vol] 17 U/L Normal 15-37 [facility] Comment on above: Performed By: #### L ACT #### [facility] [address] [address] [address] Caitlin Sales Bilirubin [Mass/Vol] 0.5 mg/dL Normal 0.2-1.0 [facility] Comment on above: Performed By: #### L ACT #### [facility] [address] [address] [address] Caitlin Sales Calcium [Mass/Vol] 8.8 mg/dL Normal 8.5-10.1 [facility] Comment on above: Performed By: #### L ACT #### [facility] [address] [address] [address] Caitlin Sales Chloride [Moles/Vol] 103 mmol/L Normal 98-107 [facility] Comment on above: Performed By: #### L ACT #### [facility] [address] [place] [address] Dr. Caitlin Sales CO2 [Moles/Vol] 26.9 mmol/L Normal 21.0-32.0 [facility] Comment on above: Performed By: #### L ACT #### [facility] [address] [place] [address] Dr. Caitlin Sales Creatinine [Mass/Vol] 0.75 mg/dL Normal 0.70-1.30 [facility] Comment on above: Performed By: #### L ACT #### [facility] [address] [place] [address] Dr. Caitlin Sales EGFR-AF UKRAINIAN >60 Normal >=60 [facility] Comment on above: Performed By: #### L ACT #### [facility] [address] [address] [address] Caitlin Sales EGFR-NON AF UKRAINIAN >60 Normal >=60 [facility] Comment on above: Performed By: #### L ACT #### [facility] [address] [place] [address] Dr. Caitlin Sales Globulin (S) [Mass/Vol] 3.1 g/dL Normal [facility] Comment on above: Performed By: #### L ACT #### [facility] [address] [address] [address] Caitlin Sales Glucose [Mass/Vol] 114 mg/dL Critically high 74-106 [facility] Comment on above: Performed By: #### L ACT #### [facility] [address] [address] [address] Caitlin Sales Potassium [Moles/Vol] 3.7 mmol/L Normal 3.5-5.1 [facility] [facility] Comment on above: Performed By: #### L ACT #### [facility] [address] [address] [address] Caitlin Sales Protein [Mass/Vol] 6.9 g/dL Normal 6.4-8.2 [facility] Comment on above: Performed By: #### L ACT #### [facility] [address] [address] [address] Caitlin Sales Sodium [Moles/Vol] 138 mmol/L Normal 136-145 [facility] Comment on above: Performed By: #### L ACT #### [facility] [address] [address] [address] Caitlin Sales Urea nitrogen [Mass/Vol] 12.0 mg/dL Normal 7.0-18.0 [facility] Comment on above: Performed By: #### L ACT #### [facility] [address] [address] [address] Caitlin Sales Urea nitrogen/Creatinine [Mass ratio] 16.0 mg/mg Normal [facility] Comment on above: Performed By: #### L ACT #### [facility] [address] [address] [address] Caitlin Sales PROTIMEon 10-11-2022 INR Coag (PPP) [Relative time] 0.99 {INR} Normal [facility] Comment on above: Performed By: #### C MP, BNP, CMADM #### [facility] [address] [address] [address] Caitlin Sales INR GUIDELINES SEE BELOW Normal [facility] Comment on above: Result Comment: SERENITY RED INR: 2.0 - 3.0 CONDITIONS NOT LISTED BELOW 2.5 - 3.5 FOR PROSTHETIC HEART VALVE REPLACEMENT 2.5 - 3.5 RECURRENT THROMBOSIS Performed By: #### C MP, BNP, CMADM #### [facility] [address] [place], [place] [address] Dr. Caitlin Sales PT Coag (PPP) [Time] 10.5 s Normal 9.0-11.6 [facility] Comment on above: Performed By: #### C MP, BNP, CMADM #### [facility] [address] [place], [place] [address] Dr. Caitlin Sales PTTon 10-11-2022 aPTT Coag (Bld) [Time] 25.6 s Normal 22.3-36.2 [facility] Comment on above: Performed By: #### C MP, BNP, CMADM #### [facility] [address] [place], [place] [address] Dr. Caitlin Sales Patient Educationon 10-12-19 Patient Education Nutrition BMI for Adults What is BMI? Body mass index (BMI) is a number that is calculated from a person's weight and height. BMI can help estimate how much of a person's weight is composed of fat. BMI does not measure body fat directly. Rather, it is an alternative to procedures that directly measure body fat, which can be difficult and expensive. BMI can help identify people who may be at higher risk for certain medical problems. What are BMI measurements used for? BMI is used as a screening tool to identify possible weight problems. It helps determine whether a person is obese, overweight, a healthy weight, or underweight. BMI is useful for: ? Identifying a weight problem that may be related to a medical condition or may increase the risk for medical problems. ? Promoting changes, such as changes in diet and exercise, to help reach a healthy weight. BMI screening can be repeated to see if these changes are working. How is BMI calculated? BMI involves measuring your weight in relation to your height. Both height and weight are measured, and the BMI is calculated from those numbers. This can be done either in [place] or metric measurements. Note that charts and online BMI calculators are available to help you find your BMI quickly and easily without having to do these calculations yourself. To calculate your BMI in [place] measurements: 1. Measure your weight in pounds (lb). 2. Multiply the number of pounds by 703. ? For example, for a person who weighs 180 lb, multiply that number by 703, which equals 126,540. 3. Measure your height in inches. Then multiply that number by itself to get a measurement called inches squared. ? For example, for a person who is 70 inches tall, the inches squared measurement is 70 inches x 70 inches, which equals 4,900 inches squared. 4. Divide the total from step 2 (number of lb x 703) by the total from step 3 (inches squared): 126,540 ? 4,900 = 25.8. This is your BMI. To calculate your BMI in metric measurements: 1. Measure your weight in kilograms (kg). 2. Measure your height in meters (m). Then multiply that number by itself to get a measurement called meters squared. ? For example, for a person who is 1.75 m tall, the meters squared measurement is 1.75 m x 1.75 m, which is equal to 3.1 meters squared. 3. Divide the number of kilograms (your weight) by the meters squared number. In this example: 70 ? 3.1 = 22.6. This is your BMI. What do the results mean? BMI charts are used to identify whether you are underweight, normal weight, overweight, or obese. The following guidelines will be used: ? Underweight: BMI less than 18.5. ? Normal weight: BMI between 18.5 and 24.9. ? Overweight: BMI between 25 and 29.9. ? Obese: BMI of 30 or above. Keep these notes in mind: ? Weight includes both fat and muscle, so someone with a muscular build, such as an athlete, may have a BMI that is higher than 24.9. In cases like these, BMI is not an accurate measure of body fat. ? To determine if excess body fat is the cause of a BMI of 25 or higher, further assessments may need to be done by a health care provider. ? BMI is usually interpreted in the same way for men and women. Where to find more information For more information about BMI, including tools to quickly calculate your BMI, go to these websites: ? Centers for Disease Control and Prevention: www.cdc.gov ? [place] [employer]: www.heart.org ? National Heart, Lung, and Blood [place]: www.nhlbi.nih.gov Summary ? Body mass index (BMI) is a number that is calculated from a person's weight and height. ? BMI may help estimate how much of a person's weight is composed of fat. BMI can help identify those who may be at higher risk for certain medical problems. ? BMI can be measured using [place] measurements or metric measurements. ? BMI charts are used to identify whether you are underweight, normal weight, overweight, or obese. This information is not intended to replace advice given to you by your health care provider. Make sure you discuss any questions you have with your health care provider. Document Revised: 03/03/2020 Document Reviewed: 01/09/2020 [employer] Patient Education ? 2022 [employer] Normal [facility] TROPONIN, HIGH SENSITIVITYon 10-11-2022 HSTROP 13.6 pg/mL Normal 4.0-76.1 [facility] Comment on above: Result Comment: CUT- OFF POINTS HAVE BEEN ESTABLISHED BASED ON THE FOURTH UNIVERSAL DEFINITIONS OF MYOCARDIAL INFARCTION. THE UPPER REFERENCE LIMIT (URL) OF TROPONIN, DEFINED THE 99TH PERCENTILE OF cTnI DISTRIBUTION IN A REFERENCE POPULATION, HAS BEEN CONFIRMED THE DECISION THRESHOLD FOR CO DIAGNOSIS. Performed By: #### L ACT #### [facility] [address] [address] [address] Caitlin Sales VITAMIN D 25 OHon 10-11-2022 VIT D 25-OH 70.9 ng/mL Normal [facility] Comment on above: Performed By: #### C MP, BNP, CMADM #### [facility] [address] [address] [address] Caitlin Sales VIT D RANGES SEE BELOW Normal [facility] Comment on above: Result Comment: <20 ng/mL Vit D deficient 20 - <30 ng/mL Vit D insufficient 30 - 100 ng/mL Vit D sufficient >100 ng/mL Potential Toxicity Performed By: #### C MP, BNP, CMADM #### [facility] [address] [place] [address] Dr. Caitlin Sales XR CHEST 1 Von 10-11-2022 XR CHEST 1 V EXAM: XR CHEST 1 V HISTORY: Shortness of breath. COMPARISON: 10/05/2022. TECHNIQUE: AP erect portable chest radiograph performed. FINDINGS: The trachea is normal. The heart size is normal. There is stable atheromatous calcification at the aortic arch. The hilar shadows are normal. The lung volumes are normal. The lung lobo are emphysematous. There is no consolidation or infiltrate. There is no pleural effusion or pulmonary vascular congestion. There is a stable small calcified granuloma at the right lung apex. There is no pneumothorax. There is no osseous abnormality. IMPRESSION: There is no acute cardiopulmonary process. Emphysema. Electronically authenticated by: KENNY FERRIS Date: 2022-10-11 15:44 Normal [facility] Correspo ndenceon 10-09-2022 Outside [facility] Correspondence [id number]:127 Normal [facility] Correspondence [id number]:127 Normal [facility] CBC W MANUAL DIFFon 10-07-19 23 ATYPICAL LYMPH # Normal [facility] Comment on above: Performed By: #### P T, PTT #### [facility] [address] [place] [address] Dr. Caitlin Sales ATYPICAL LYMPH % Normal [facility] Comment on above: Performed By: #### P T, PTT #### [facility] [address] [place] [address] Dr. Caitlin Sales BAND # 0.0 103/ul Normal 0.0-0.3 [facility] Comment on above: Performed By: #### P T, PTT #### [facility] [address] [place] [address] Dr. Caitlin Sales BAND % 0 % Normal 0-5 [facility] Comment on above: Performed By: #### P T, PTT #### [facility] [address] [place] [address] Dr. Caitlin Sales BASOM # 0.00 103/ul Normal 0.00-0.10 [facility] Comment on above: Performed By: #### P T, PTT #### [facility] [address] [place] [address] Dr. Caitlin Sales BASOM % 0.0 % Critically low 0.2-2.0 [facility] Comment on above: Performed By: #### P T, PTT #### [facility] [address] [place] [address] Dr. Caitlin Sales BLAST # Normal [facility] Comment on above: Performed By: #### P T, PTT #### [facility] [address] [place] [address] Dr. Caitlin Sales BLAST % Normal [facility] Comment on above: Performed By: #### P T, PTT #### [facility] [address] [place] [address] Dr. Caitlin Sales CORRECTED WBC Normal 4.0-11.0 [facility] Comment on above: Performed By: #### P T, PTT #### [facility] [address] [place] [address] Dr. Caitlin Sales EOS # 0.00 103/ul Normal 0.00-0.70 [facility] Comment on above: Performed By: #### P T, PTT #### [facility] [address] [place] [address] Dr. Caitlin Sales EOS% 0.0 % Critically low 0.9-7.0 [facility] Comment on above: Performed By: #### P T, PTT #### [facility] [address] [place] [address] Dr. Caitlin Sales HCT 39.8 % Critically low 42.0-54.0 [facility] Comment on above: Performed By: #### P T, PTT #### [facility] [address] [place] [address] Dr. Caitlin Sales HGB 13.4 g/dl Critically low 14.0-18.0 [facility] Comment on above: Performed By: #### P T, PTT #### [facility] [address] [place] [address] Dr. Caitlin Sales LYMPHM # 0.26 103/ul Critically low 1.20-3.80 [facility] Comment on above: Performed By: #### P T, PTT #### [facility] [address] [place] [address] Dr. Caitlin Sales LYMPHM% 3.0 % Critically low 20.5-60.0 [facility] Comment on above: Performed By: #### P T, PTT #### [facility] [address] [place] [address] Dr. Caitlin Sales MCH 31.3 pg Normal 25.9-34.0 [facility] Comment on above: Performed By: #### P T, PTT #### [facility] [address] [place] [address] Dr. Caitlin Sales MCHC 33.7 g/dl Normal 29.9-35.2 [facility] Comment on above: Performed By: #### P T, PTT #### [facility] [address] [place] [address] Dr. Caitlin Sales MCV 93.0 fL Normal 80.0-94.0 [facility] Comment on above: Performed By: #### P T, PTT #### [facility] [address] [place] [address] Dr. Caitlin Sales METAMYELOCYTE # Normal [facility] Comment on above: Performed By: #### P T, PTT #### [facility] [address] [place] [address] Dr. Caitlin Sales METAMYELOCYTE % Normal [facility] Comment on above: Performed By: #### P T, PTT #### [facility] [address] [place] [address] Dr. Caitlin Sales MONOM# 0.00 103/ul Critically low 0.30-0.80 [facility] Comment on above: Performed By: #### P T, PTT #### [facility] [address] [place] [address] Dr. Caitlin Sales MONOM% 0.0 % Critically low 1.7-12.0 [facility] Comment on above: Performed By: #### P T, PTT #### [facility] [address] [place] [address] Dr. Caitlin Sales MPV 8.9 fL Critically low 9.5-13.5 [facility] Comment on above: Performed By: #### P T, PTT #### [facility] [address] [place] [address] Dr. Caitlin Sales MYELOCYTE # Normal [facility] Comment on above: Performed By: #### P T, PTT #### [facility] [address] [place] [address] Dr. Caitlin Sales MYELOCYTE % Normal [facility] Comment on above: Performed By: #### P T, PTT #### [facility] [address] [place] [address] Dr. Caitlin Sales NRBC Normal [facility] Comment on above: Performed By: #### P T, PTT #### [facility] [address] [place] [address] Dr. Caitlin Sales PLT 280 103/ul Normal 150-450 [facility] Comment on above: Performed By: #### P T, PTT #### [facility] [address] [place] [address] Dr. Caitlin Sales RBC 4.28 106/ul Critically low 4.70-6.10 [facility] Comment on above: Performed By: #### P T, PTT #### [facility] [address] [place] [address] Dr. Caitlin Sales RDW 12.0 % Normal 11.0-15.0 [facility] Comment on above: Performed By: #### P T, PTT #### [facility] [address] [place] [address] Dr. Caitlin Sales SEG # 8.54 103/ul Critically high 1.40-6.50 [facility] Comment on above: Performed By: #### P T, PTT #### [facility] [address] [place] [address] Dr. Caitlin Sales SEG % 97.0 % Critically high 43.0-75.0 [facility] Comment on above: Performed By: #### P T, PTT #### [facility] [address] [place] [address] Dr. Caitlin Sales WBC 8.8 103/ul Normal 4.0-11.0 [facility] Comment on above: Performed By: #### P T, PTT #### [facility] [address] [address] [address] Caitlin Sales PROF CHEM 8 (BAS METB)on Anion gap [Moles/Vol] 14.0 mmol/L Normal Th e [facility] Comment on above: Performed By: #### C MP, BNP, CMADM #### [facility] [address] [address] [address] Caitlin Sales Calcium [Mass/Vol] 8.7 mg/dL Normal 8.5-10.1 [facility] Comment on above: Performed By: #### C MP, BNP, CMADM #### [facility] [address] [place] [address] Dr. Caitlin Sales Chloride [Moles/Vol] 105 mmol/L Normal 98-107 [facility] Comment on above: Performed By: #### C MP, BNP, CMADM #### [facility] [address] [place] [address] Dr. Caitlin Sales CO2 [Moles/Vol] 25.0 mmol/L Normal 21.0-32.0 [facility] Comment on above: Performed By: #### C MP, BNP, CMADM #### [facility] [address] [place] [address] Dr. Caitlin Sales Creatinine [Mass/Vol] 0.85 mg/dL Normal 0.70-1.30 [facility] Comment on above: Performed By: #### C MP, BNP, CMADM #### [facility] [address] [place] [address] Dr. Caitlin Sales EGFR-AF UKRAINIAN >60 Normal >=60 [facility] Comment on above: Performed By: #### C MP, BNP, CMADM #### [facility] [address] [place] [address] Dr. Caitlin Sales EGFR-NON AF UKRAINIAN >60 Normal >=60 [facility] Comment on above: Performed By: #### C MP, BNP, CMADM #### [facility] [address] [address] [address] Caitlin Sales Glucose [Mass/Vol] 179 mg/dL Critically high 74-106 [facility] Comment on above: Performed By: #### C MP, BNP, CMADM #### [facility] [address] [place] [address] Dr. Caitlin Sales Potassium [Moles/Vol] 4.0 mmol/L Normal 3.5-5.1 [facility] Comment on above: Performed By: #### C MP, BNP, CMADM #### [facility] [address] [place] [address] Dr. Caitlin Sales Sodium [Moles/Vol] 140 mmol/L Normal 136-145 [facility] Comment on above: Performed By: #### C MP, BNP, CMADM #### [facility] [address] [place] [address] Dr. Caitlin Sales Urea nitrogen [Mass/Vol] 12.0 mg/dL Normal 7.0-18.0 [facility] Comment on above: Performed By: #### C MP, BNP, CMADM #### [facility] [address] [place] [address] Dr. Caitlin Sales Urea nitrogen/Creatinine [Mass ratio] 14.1 mg/mg Normal [facility] Comment on above: Performed By: #### C MP, BNP, CMADM #### [facility] [address] [place] [address] Dr. Caitlin Sales ACETONE SERUMon 10-05-2022 ACETONE Negative Normal NEGATIVE [facility] Comment on above: Performed By: #### L ACT #### [facility] [address] [place] [address] Dr. Caitlin Sales BNPon 10-05-2022 Natriuretic peptide B (Bld) [Mass/Vol] 161.0 pg/mL Normal <=900.0 [facility] Comment on above: Performed By: #### L ACT #### [facility] [address] [place] [address] Dr. Caitlin Sales CBC AUTO DIFFon 10-05-2022 BASO # 0.1 103/ul Normal 0.0-0.1 [facility] Comment on above: Performed By: #### P T, PTT #### [facility] [address] [place] [address] Dr. Caitlin Sales Basophils/100 WBC (Bld) 0.5 % Normal 0.2-2.0 [facility] Comment on above: Performed By: #### P T, PTT #### [facility] [address] [place] [address] Dr. Caitlin Sales EO # 0.4 103/ul Normal 0.0-0.7 [facility] Comment on above: Performed By: #### P T, PTT #### [facility] [address] [place] [address] Dr. Caitlin Sales Eosinophils/100 WBC (Bld) 4.0 % Normal 0.9-7.0 [facility] Comment on above: Performed By: #### P T, PTT #### [facility] [address] [place] [address] Dr. Caitlin Sales Erythrocyte distribution width (RBC) [Ratio] 12.1 % Normal 11.0-15.0 [facility] Comment on above: Performed By: #### P T, PTT #### [facility] [address] [place] [address] Dr. Caitlin Sales Hematocrit (Bld) [Volume fraction] 45.3 % Normal 42.0-54.0 [facility] Comment on above: Performed By: #### P T, PTT #### [facility] [address] [place] [address] Dr. Caitlin Sales Hemoglobin (Bld) [Mass/Vol] 15.6 g/dL Normal 14.0-18.0 [facility] Comment on above: Performed By: #### P T, PTT #### [facility] [address] [place] [address] Dr. Caitlin Sales IG # 0.05 10e3/ul Critically high 0.00-0.03 [facility] Comment on above: Performed By: #### P T, PTT #### [facility] [address] [place] [address] Dr. Caitlin Sales IG % 0.5 % Normal 0.0-0.5 [facility] Comment on above: Performed By: #### P T, PTT #### [facility] [address] [place] [address] Dr. Caitlin Sales LYMPH # 2.0 103/ul Normal 1.2-3.8 [facility] Comment on above: Performed By: #### P T, PTT #### [facility] [address] [place] [address] Dr. Caitlin Sales Lymphocytes/100 WBC (Bld) 21.0 % Normal 20.5-60.0 [facility] Comment on above: Performed By: #### P T, PTT #### [facility] [address] [place] [address] Dr. Caitlin Sales MANUAL DIFF REQ NO Normal [facility] Comment on above: Performed By: #### P T, PTT #### [facility] [address] [place] [address] Dr. Caitlin Sales MCH (RBC) [Entitic mass] 31.6 pg Normal 25.9-34.0 [facility] Comment on above: Performed By: #### P T, PTT #### [facility] [address] [place] [address] Dr. Caitlin Sales MCHC (RBC) [Mass/Vol] 34.4 g/dL Normal 29.9-35.2 [facility] Comment on above: Performed By: #### P T, PTT #### [facility] [address] [place] [address] Dr. Caitlin Sales MCV (RBC) [Entitic vol] 91.7 fL Normal 80.0-94.0 [facility] Comment on above: Performed By: #### P T, PTT #### [facility] [address] [place] [address] Dr. Caitlin Sales MONO # 0.8 103/ul Normal 0.3-0.8 [facility] Comment on above: Performed By: #### P T, PTT #### [facility] [address] [place] [address] Dr. Caitlin Sales Monocytes/100 WBC (Bld) 8.3 % Normal 1.7-12.0 [facility] Comment on above: Performed By: #### P T, PTT #### [facility] [address] [place] [address] Dr. Caitlin Sales NEUT # 6.3 103/ul Normal 1.4-6.5 [facility] Comment on above: Performed By: #### P T, PTT #### [facility] [address] [place] [address] Dr. Caitlin Sales Neutrophils/100 WBC (Bld) 65.7 % Normal 43.0-75.0 [facility] Comment on above: Performed By: #### P T, PTT #### [facility] [address] [place] [address] Dr. Caitlin Sales Platelet mean volume (Bld) [Entitic vol] 8.7 fL Critically low 9.5-13.5 [facility] Comment on above: Performed By: #### P T, PTT #### [facility] [address] [place] [address] Dr. Caitlin Sales PLT 340 103/ul Normal 150-450 [facility] Comment on above: Performed By: #### P T, PTT #### [facility] [address] [place] [address] Dr. Caitlin Sales RBC 4.94 106/ul Normal 4.70-6.10 [facility] Comment on above: Performed By: #### P T, PTT #### [facility] [address] [place] [address] Dr. Caitlin Sales WBC 9.5 103/ul Normal 4.0-11.0 [facility] Comment on above: Performed By: #### P T, PTT #### [facility] [address] [place] [address] Dr. Caitlin Sales CULTURE BLOODon 10-05-2022 Microscopic examination of blood, culture Culture Observations: NO GROWTH AT 5 DAYS. Normal [facility] Comment on above: Performed By: #### C MP, BNP, CMADM #### [facility] [address] [place] [address] Dr. Caitlin Sales Microscopic examination of blood, culture Culture Observations: NO GROWTH AT 5 DAYS. Normal [facility] Comment on above: Performed By: #### C MP, BNP, CMADM #### [facility] [address] [address] [address] Caitlin Sales [facility] SARS-CoV-2 (COVID-19) RNA BENSON+probe Ql (Unsp spec) Not detected Normal NOT DETECTED [facility] Comment on above: Result Comment: When diagnostic testing is negative, the possibility of a false negative should be considered in the context of a patient's recent exposures and the presence of clinical signs and symptoms consistent with SARS-CoV-2. This test is not yet approved or cleared by the [place] FDA. When there are no FDA-approved or cleared tests available, and other criteria are met, FDA can make tests available under an emergency access mechanism called an Emergency Use Authorization (EUA). The EUA for this test is supported by the Judge of Health and Human Service's declaration that circumstances exist to justify the emergency use of in vitro diagnostics for the detection and/or diagnosis of the virus that causes COVID-19. This EUA will remain in effect for the duration of the COVID-19 declaration justifying emergency of IVDs, unless it is terminated or revoked by the FDA (after which the test may no longer be used). Performed By: #### L ACT #### [facility] [address] [place] [address] Dr. Caitlin Sales LACTATE/LACTIC ACIDon 2022 Lactate [Moles/Vol] 1.9 mmol/L Normal 0.4-2.0 [facility] Comment on above: Performed By: #### L ACT #### [facility] [address] [address] [address] Caitlin Sales Lactate [Moles/Vol] 2.0 mmol/L Normal 0.4-2.0 [facility] Comment on above: Performed By: #### L ACT #### [facility] [address] [place] [address] Dr. Caitlin Sales PH VENOUS BLOODon 04-13-2023 PCO2 VENOUS 46.9 mmHg Normal 40.0-52.0 [facility] Comment on above: Performed By: #### L ACT #### [facility] [address] [place] [address] Dr. Caitlin Sales pH VENOUS 7.355 Normal 7.330-7.430 [facility] Comment on above: Performed By: #### L ACT #### [facility] [address] [place] [address] Dr. Caitlin Sales PROF 14(COMP METB)on 023 Albumin [Mass/Vol] 4.4 g/dL Normal 3.4-5.0 [facility] Comment on above: Performed By: #### L ACT #### [facility] [address] [place] [address] Dr. Caitlin Sales Albumin/Globulin [Mass ratio] 1.2 {ratio} Normal [facility] Comment on above: Performed By: #### L ACT #### [facility] [address] [place] [address] Dr. Caitlin Sales ALP [Catalytic activity/Vol] 72 U/L Normal 46-116 [facility] Comment on above: Performed By: #### L ACT #### [facility] [address] [place] [address] Dr. Caitlin Sales ALT [Catalytic activity/Vol] 25 U/L Normal 16-63 [facility] Comment on above: Performed By: #### L ACT #### [facility] [address] [place] [address] Dr. Caitlin Sales Anion gap [Moles/Vol] 12.8 mmol/L Normal [facility] Comment on above: Performed By: #### L ACT #### [facility] [address] [place] [address] Dr. Caitlin Sales AST [Catalytic activity/Vol] 18 U/L Normal 15-37 [facility] Comment on above: Performed By: #### L ACT #### [facility] [address] [place] [address] Dr. Caitlin Sales Bilirubin [Mass/Vol] 0.5 mg/dL Normal 0.2-1.0 [facility] Comment on above: Performed By: #### L ACT #### [facility] [address] [address] [address] Caitlin Sales Calcium [Mass/Vol] 9.5 mg/dL Normal 8.5-10.1 [facility] Comment on above: Performed By: #### L ACT #### [facility] [address] [address] [address] Caitlin Sales Chloride [Moles/Vol] 103 mmol/L Normal 98-107 [facility] Comment on above: Performed By: #### L ACT #### [facility] [address] [address] [address] Caitlin Sales CO2 [Moles/Vol] 27.2 mmol/L Normal 21.0-32.0 [facility] Comment on above: Performed By: #### L ACT #### [facility] [address] [place] [address] Dr. Caitlin Sales Creatinine [Mass/Vol] 0.78 mg/dL Normal 0.70-1.30 [facility] Comment on above: Performed By: #### L ACT #### [facility] [address] [address] [address] Caitlin Sales EGFR-AF UKRAINIAN >60 Normal >=60 [facility] Comment on above: Performed By: #### L ACT #### [facility] [address] [place] [address] Dr. Caitlin Sales EGFR-NON AF UKRAINIAN >60 Normal >=60 [facility] Comment on above: Performed By: #### L ACT #### [facility] [address] [address] [address] Caitlin Sales Globulin (S) [Mass/Vol] 3.8 g/dL Normal [facility] Comment on above: Performed By: #### L ACT #### [facility] [address] [place] [address] Dr. Caitlin Sales Glucose [Mass/Vol] 102 mg/dL Normal 74-106 [facility] Comment on above: Performed By: #### L ACT #### [facility] [address] [address] [address] Caitlin Sales Potassium [Moles/Vol] 4.0 mmol/L Normal 3.5-5.1 [facility] Comment on above: Performed By: #### L ACT #### [facility] [address] [address] [address] Caitlin Sales Protein [Mass/Vol] 8.2 g/dL Normal 6.4-8.2 [facility] Comment on above: Performed By: #### L ACT #### [facility] [address] [address] [address] Caitlin Sales Sodium [Moles/Vol] 139 mmol/L Normal 136-145 [facility] Comment on above: Performed By: #### L ACT #### [facility] [address] [address] [address] Caitlin Sales Urea nitrogen [Mass/Vol] 8.0 mg/dL Normal 7.0-18.0 [facility] Comment on above: Performed By: #### L ACT #### [facility] [address] [place] [address] Dr. Caitlin Sales Urea nitrogen/Creatinine [Mass ratio] 10.3 mg/mg Normal [facility] Comment on above: Performed By: #### L ACT #### [facility] [address] [address] [address] Caitlin Sales PROTIMEon 10-05-2022 INR Coag (PPP) [Relative time] 0.98 {INR} Normal [facility] Comment on above: Performed By: #### C MP, BNP, CMADM #### [facility] [address] [place] [address] Dr. Caitlin Sales INR GUIDELINES SEE BELOW Normal [facility] Comment on above: Result Comment: SERENITY RED INR: 2.0 - 3.0 CONDITIONS NOT LISTED BELOW 2.5 - 3.5 FOR PROSTHETIC HEART VALVE REPLACEMENT 2.5 - 3.5 RECURRENT THROMBOSIS Performed By: #### C MP, BNP, CMADM #### [facility] [address] [place] [address] Dr. Caitlin Sales PT Coag (PPP) [Time] 10.4 s Normal 9.0-11.6 [facility] Comment on above: Performed By: #### C MP, BNP, CMADM #### [facility] [address] [place] [address] Dr. Caitlin Sales PTTon 10-05-2022 aPTT Coag (Bld) [Time] 31.0 s Normal 22.3-36.2 [facility] Comment on above: Performed By: #### C MP, BNP, CMADM #### [facility] [address] [address] [address] Caitlin Sales TROPONIN, HIGH SENSITIVITYon 10-05-2022 HSTROP 9.6 pg/mL Normal 4.0-76.1 [facility] Comment on above: Result Comment: CUT- OFF POINTS HAVE BEEN ESTABLISHED BASED ON THE FOURTH UNIVERSAL DEFINITIONS OF MYOCARDIAL INFARCTION. THE UPPER REFERENCE LIMIT (URL) OF TROPONIN, DEFINED THE 99TH PERCENTILE OF cTnI DISTRIBUTION IN A REFERENCE POPULATION, HAS BEEN CONFIRMED THE DECISION THRESHOLD FOR CO DIAGNOSIS. Performed By: #### L ACT #### [facility] [address] [place] [address] Dr. Caitlin Sales XR CHEST 1 Von 10-05-2022 XR CHEST 1 V EXAM: XR CHEST 1 V HISTORY: . SHORTNESS OF BREATH . COMPARISON: 06/02/2022 TECHNIQUE: Single view of the chest FINDINGS: Heart is normal in size. There is hyperexpansion of lungs and flattening of the hemidiaphragms indicating COPD. Early atherosclerotic changes of the thoracic aorta are noted. IMPRESSION: 1. Findings suggestive of COPD. 2. No acute heart or lung disease identified. Electronically authenticated by: BRIE PHAN Date: 2022-10-05 14:34 Normal [facility] CBC AUTO DIFFon 06-08-2022 BASO # 0.0 103/ul Normal 0.0-0.1 [facility] Comment on above: Performed By: #### P T, PTT #### [facility] [address] [place] [address] Dr. Caitlin Sales Basophils/100 WBC (Bld) 0.1 % Critically low 0.2-2.0 [facility] Comment on above: Performed By: #### P T, PTT #### [facility] [address] [place] [address] Dr. Caitlin Sales EO # 0.0 103/ul Normal 0.0-0.7 [facility] Comment on above: Performed By: #### P T, PTT #### [facility] [address] [place] [address] Dr. Caitlin Sales Eosinophils/100 WBC (Bld) 0.3 % Critically low 0.9-7.0 [facility] Comment on above: Performed By: #### P T, PTT #### [facility] [address] [place] [address] Dr. Caitlin Sales Erythrocyte distribution width (RBC) [Ratio] 11.9 % Normal 11.0-15.0 [facility] Comment on above: Performed By: #### P T, PTT #### [facility] [address] [place] [address] Dr. Caitlin Sales Hematocrit (Bld) [Volume fraction] 39.7 % Critically low 42.0-54.0 [facility] Comment on above: Performed By: #### P T, PTT #### [facility] [address] [place] [address] Dr. Caitlin Sales Hemoglobin (Bld) [Mass/Vol] 13.4 g/dL Critically low 14.0-18.0 [facility] Comment on above: Performed By: #### P T, PTT #### [facility] [address] [place] [address] Dr. Caitlin Sales IG # 0.07 10e3/ul Critically high 0.00-0.03 [facility] Comment on above: Performed By: #### P T, PTT #### [facility] [address] [place] [address] Dr. Caitlin Sales IG % 0.8 % Critically high 0.0-0.5 [facility] Comment on above: Performed By: #### P T, PTT #### [facility] [address] [place] [address] Dr. Caitlin Sales LYMPH # 1.7 103/ul Normal 1.2-3.8 [facility] Comment on above: Performed By: #### P T, PTT #### [facility] [address] [place] [address] Dr. Caitlin Sales Lymphocytes/100 WBC (Bld) 18.2 % Critically low 20.5-60.0 [facility] Comment on above: Performed By: #### P T, PTT #### [facility] [address] [place] [address] Dr. Caitlin Sales MANUAL DIFF REQ NO Normal [facility] Comment on above: Performed By: #### P T, PTT #### [facility] [address] [place] [address] Dr. Caitlin Sales MCH (RBC) [Entitic mass] 31.4 pg Normal 25.9-34.0 [facility] Comment on above: Performed By: #### P T, PTT #### [facility] [address] [place] [address] Dr. Caitlin Sales MCHC (RBC) [Mass/Vol] 33.8 g/dL Normal 29.9-35.2 [facility] Comment on above: Performed By: #### P T, PTT #### [facility] [address] [place] [address] Dr. Caitlin Sales MCV (RBC) [Entitic vol] 93.0 fL Normal 80.0-94.0 [facility] Comment on above: Performed By: #### P T, PTT #### [facility] [address] [place] [address] Dr. Caitlin Sales MONO # 0.8 103/ul Normal 0.3-0.8 [facility] Comment on above: Performed By: #### P T, PTT #### [facility] [address] [place] [address] Dr. Caitlin Sales Monocytes/100 WBC (Bld) 9.1 % Normal 1.7-12.0 [facility] Comment on above: Performed By: #### P T, PTT #### [facility] [address] [place] [address] Dr. Caitlin Sales NEUT # 6.6 103/ul Critically high 1.4-6.5 [facility] Comment on above: Performed By: #### P T, PTT #### [facility] [address] [address] [address] Caitlin Sales Neutrophils/100 WBC (Bld) 71.5 % Normal 43.0-75.0 [facility] Comment on above: Performed By: #### P T, PTT #### [facility] [address] [place] [address] Dr. Caitlin Sales Platelet mean volume (Bld) [Entitic vol] 9.4 fL Critically low 9.5-13.5 [facility] Comment on above: Performed By: #### P T, PTT #### [facility] [address] [place] [address] Dr. Caitlin Sales PLT 257 103/ul Normal 150-450 [facility] Comment on above: Performed By: #### P T, PTT #### [facility] [address] [place] [address] Dr. Caitlin Sales RBC 4.27 106/ul Critically low 4.70-6.10 [facility] Comment on above: Performed By: #### P T, PTT #### [facility] [address] [place] [address] Dr. Caitlin Sales WBC 9.2 103/ul Normal 4.0-11.0 [facility] Comment on above: Performed By: #### P T, PTT #### [facility] [address] [place] [address] Dr. Caitlin Sales PROF CHEM 8 (BAS METB)on Anion gap [Moles/Vol] 10.5 mmol/L Normal [facility] Comment on above: Performed By: #### P T, PTT #### [facility] [address] [place] [address] Dr. Caitlin Sales Calcium [Mass/Vol] 8.6 mg/dL Normal 8.5-10.1 [facility] Comment on above: Performed By: #### P T, PTT #### [facility] [address] [place] [address] Dr. Caitlin Sales Chloride [Moles/Vol] 105 mmol/L Normal 98-107 [facility] Comment on above: Performed By: #### P T, PTT #### [facility] [address] [place] [address] Dr. Caitlin Sales CO2 [Moles/Vol] 25.6 mmol/L Normal 21.0-32.0 [facility] Comment on above: Performed By: #### P T, PTT #### [facility] [address] [place] [address] Dr. Caitlin Sales Creatinine [Mass/Vol] 0.60 mg/dL Critically low 0.70-1.30 [facility] Comment on above: Performed By: #### P T, PTT #### [facility] [address] [place] [address] Dr. Caitlin Sales EGFR-AF UKRAINIAN >60 Normal >=60 [facility] Comment on above: Performed By: #### P T, PTT #### [facility] [address] [place] [address] Dr. Caitlin Sales EGFR-NON AF UKRAINIAN >60 Normal >=60 [facility] Comment on above: Performed By: #### P T, PTT #### [facility] [address] [place] [address] Dr. Caitlin Sales Glucose [Mass/Vol] 99 mg/dL Normal 74-106 [facility] Comment on above: Performed By: #### P T, PTT #### [facility] [address] [place] [address] Dr. Caitlin Sales Potassium [Moles/Vol] 3.1 mmol/L Critically low 3.5-5.1 [facility] Comment on above: Performed By: #### P T, PTT #### [facility] [address] [address] [address] Caitlin Sales Sodium [Moles/Vol] 138 mmol/L Normal 136-145 [facility] Comment on above: Performed By: #### P T, PTT #### [facility] [address] [place] [address] Dr. Caitlin Sales Urea nitrogen [Mass/Vol] 18.0 mg/dL Normal 7.0-18.0 [facility] Comment on above: Performed By: #### P T, PTT #### [facility] [address] [place] [address] Dr. Caitlin Sales Urea nitrogen/Creatinine [Mass ratio] 30.0 mg/mg Normal [facility] Comment on above: Performed By: #### P T, PTT #### [facility] [address] [place] [address] Dr. Caitlin Sales CBC AUTO DIFFon 06-07-2022 BASO # 0.0 103/ul Normal 0.0-0.1 [facility] Comment on above: Performed By: #### C MP, BNP, CMADM #### [facility] [address] [place] [address] Dr. Caitlin Sales Basophils/100 WBC (Bld) 0.1 % Critically low 0.2-2.0 [facility] Comment on above: Performed By: #### C MP, BNP, CMADM #### [facility] [address] [place] [address] Dr. Caitlin Sales EO # 0.0 103/ul Normal 0.0-0.7 [facility] Comment on above: Performed By: #### C MP, BNP, CMADM #### [facility] [address] [place] [address] Dr. Caitlin Sales Eosinophils/100 WBC (Bld) 0.0 % Critically low 0.9-7.0 [facility] Comment on above: Performed By: #### C MP, BNP, CMADM #### [facility] [address] [place] [address] Dr. Caitlin Sales Erythrocyte distribution width (RBC) [Ratio] 12.1 % Normal 11.0-15.0 [facility] Comment on above: Performed By: #### C MP, BNP, CMADM #### [facility] [address] [place] [address] Dr. Caitlin Sales Hematocrit (Bld) [Volume fraction] 38.8 % Critically low 42.0-54.0 [facility] Comment on above: Performed By: #### C MP, BNP, CMADM #### [facility] [address] [address] [address] Caitlin Sales Hemoglobin (Bld) [Mass/Vol] 13.5 g/dL Critically low 14.0-18.0 [facility] Comment on above: Performed By: #### C MP, BNP, CMADM #### [facility] [address] [place] [address] Dr. Caitlin Sales IG # 0.07 10e3/ul Critically high 0.00-0.03 [facility] Comment on above: Performed By: #### C MP, BNP, CMADM #### [facility] [address] [place] [address] Dr. Caitlin Sales IG % 0.5 % Normal 0.0-0.5 [facility] Comment on above: Performed By: #### C MP, BNP, CMADM #### [facility] [address] [place] [address] Dr. Caitlin Sales LYMPH # 1.2 103/ul Normal 1.2-3.8 [facility] Comment on above: Performed By: #### C MP, BNP, CMADM #### [facility] [address] [place] [address] Dr. Caitlin Sales Lymphocytes/100 WBC (Bld) 9.0 % Critically low 20.5-60.0 [facility] Comment on above: Performed By: #### C MP, BNP, CMADM #### [facility] [address] [address] [address] Caitlin Sales MANUAL DIFF REQ NO Normal [facility] Comment on above: Performed By: #### C MP, BNP, CMADM #### [facility] [address] [address] [address] Caitlin Sales MCH (RBC) [Entitic mass] 31.8 pg Normal 25.9-34.0 [facility] Comment on above: Performed By: #### C MP, BNP, CMADM #### [facility] [address] [place] [address] Dr. Caitlin Sales MCHC (RBC) [Mass/Vol] 34.8 g/dL Normal 29.9-35.2 [facility] Comment on above: Performed By: #### C MP, BNP, CMADM #### [facility] [address] [place] [address] Dr. Caitlin Sales MCV (RBC) [Entitic vol] 91.5 fL Normal 80.0-94.0 [facility] Comment on above: Performed By: #### C MP, BNP, CMADM #### [facility] [address] [place] [address] Dr. Caitlin Sales MONO # 1.1 103/ul Critically high 0.3-0.8 [facility] Comment on above: Performed By: #### C MP, BNP, CMADM #### [facility] [address] [place] [address] Dr. Caitlin Sales Monocytes/100 WBC (Bld) 8.5 % Normal 1.7-12.0 [facility] Comment on above: Performed By: #### C MP, BNP, CMADM #### [facility] [address] [place] [address] Dr. Caitlin Sales NEUT # 10.5 103/ul Critically high 1.4-6.5 [facility] Comment on above: Performed By: #### C MP, BNP, CMADM #### [facility] [address] [place] [address] Dr. Caitlin Sales Neutrophils/100 WBC (Bld) 81.9 % Critically high 43.0-75.0 [facility] Comment on above: Performed By: #### C MP, BNP, CMADM #### [facility] [address] [place] [address] Dr. Caitlin Sales Platelet mean volume (Bld) [Entitic vol] 9.9 fL Normal 9.5-13.5 [facility] Comment on above: Performed By: #### C MP, BNP, CMADM #### [facility] [address] [place] [address] Dr. Caitlin Sales PLT 268 103/ul Normal 150-450 [facility] Comment on above: Performed By: #### C MP, BNP, CMADM #### [facility] [address] [place], [place] [address] Dr. Caitlin Sales RBC 4.24 106/ul Critically low 4.70-6.10 [facility] Comment on above: Performed By: #### C MP, BNP, CMADM #### [facility] [address] [place], [place] [address] Dr. Caitlin Sales WBC 12.9 103/ul Critically high 4.0-11.0 [facility] Comment on above: Performed By: #### C MP, BNP, CMADM #### [facility] [address] [place], [place] [address] Dr. Caitlin Sales ECHOCARDIO M/2D COMPLETEon 1 08-08-2021 ECHOCARDIO M/2D COMPLETE Patient: KELSEY HERNANDEZ Exam Date: 06/07/2022 : 1950 Gender:M Ordering : DR ANDREI CABRERA . Admission #: [id number] Family : Order #: [id number] CLICK HERE TO VIEW EXAM ECHOCARDIOGRAM REPORT PROCEDURE: CARDIO PULMONARY ECHOCARDIO M/2D COMP INDICATIONS: Shortness of breath COMPARISON: None. DESCRIPTION: COMPLETE ECHOCARDIOGRAM Real-time transthoracic echocardiography with 2D, M-mode, spectral and color flow Doppler performed. QUALITY: Technical quality was good. LEFT VENTRICLE: Normal chamber size. Normal left ventricular wall thickness. LV EF: Global left ventricular systolic function is normal. Visual estimation of left ventricular ejection fraction is 55% DIASTOLIC: Normal diastolic function. ATRIAL SEPTUM: Inadequately seen. LEFT ATRIUM: Normal chamber size. RIGHT ATRIUM: Normal chamber size. RIGHT VENTRICLE: Normal chamber size. Normal right ventricular systolic function. TRICUSPID VALVE: Normal mobility and thickness. No stenosis with trivial regurgitation. No evidence of pulmonary hypertension. RVSP 32mmHg MITRAL VALVE: Normal mobility and thickness. No mitral valve prolapse. No evidence of mitral valve stenosis. Mild mitral annular calcification. Trivial mitral regurgitation. AORTIC VALVE: Normal trileaflet appearance. No visible sclerosis. Normal leaflet mobility. No evidence of aortic valve stenosis. DVI 0.9No aortic regurgitation. AORTIC ROOT: Normal diameter and appearance. PULMONIC VALVE: Normal thickness and mobility. No stenosis. No regurgitation. PERICARDIUM: No evidence of pericardial effusion. IVC: Collapses with inspirations. Normal size. CONCLUSION: Global left ventricular systolic function is normal; visually estimated ejection fraction is 55 to 60%. No significant wall motion abnormalities. Normal diastolic function. The right ventricle is normal in size and systolic function. No significant valvular abnormalities. Adult Echocardiography Procedure Report Left Ventricle Left Atrium Mitral Valve Right Ventricle Aorta Aortic Valve Tricuspid Valve Pulmonic Valve Right Atrium Dictated by: Katty Sampson M.D. on 06/08/2022 at 11:18 Approved by: Katty Sampson M.D. on 06/08/2022 at 11:23 Normal [facility] PROF CHEM 8 (BAS METB)on Anion gap [Moles/Vol] 10.8 mmol/L Normal e [facility] Comment on above: Performed By: #### P T, PTT #### [facility] [address] [place] [address] Dr. Caitlin Sales Calcium [Mass/Vol] 8.8 mg/dL Normal 8.5-10.1 [facility] Comment on above: Performed By: #### P T, PTT #### [facility] [address] [place] [address] Dr. Caitlin Sales Chloride [Moles/Vol] 104 mmol/L Normal 98-107 [facility] Comment on above: Performed By: #### P T, PTT #### [facility] [address] [place] [address] Dr. Caitlin Sales CO2 [Moles/Vol] 26.3 mmol/L Normal 21.0-32.0 [facility] Comment on above: Performed By: #### P T, PTT #### [facility] [address] [place] [address] Dr. Caitlin Sales Creatinine [Mass/Vol] 0.64 mg/dL Critically low 0.70-1.30 [facility] Comment on above: Performed By: #### P T, PTT #### [facility] [address] [place] [address] Dr. Caitlin Sales EGFR-AF UKRAINIAN >60 Normal >=60 [facility] Comment on above: Performed By: #### P T, PTT #### [facility] [address] [place] [address] Dr. Caitlin Sales EGFR-NON AF UKRAINIAN >60 Normal >=60 [facility] Comment on above: Performed By: #### P T, PTT #### [facility] [address] [place] [address] Dr. Caitlin Sales Glucose [Mass/Vol] 112 mg/dL Critically high 74-106 [facility] Comment on above: Performed By: #### P T, PTT #### [facility] [address] [place] [address] Dr. Caitlin Sales Potassium [Moles/Vol] 3.1 mmol/L Critically low 3.5-5.1 [facility] Comment on above: Performed By: #### P T, PTT #### [facility] [address] [place] [address] Dr. Caitlin Sales Sodium [Moles/Vol] 138 mmol/L Normal 136-145 [facility] Comment on above: Performed By: #### P T, PTT #### [facility] [address] [place] [address] Dr. Caitlin Sales Urea nitrogen [Mass/Vol] 22.0 mg/dL Critically high 7.0-18.0 [facility] Comment on above: Performed By: #### P T, PTT #### [facility] [address] [place] [address] Dr. Caitlin Sales Urea nitrogen/Creatinine [Mass ratio] 34.4 mg/mg Normal [facility] Comment on above: Performed By: #### P T, PTT #### [facility] [address] [place] [address] Dr. Caitlin Sales CBC AUTO DIFFon 06-06-2022 BASO # 0.0 103/ul Normal 0.0-0.1 [facility] Comment on above: Performed By: #### C MP, BNP, CMADM #### [facility] [address] [place] [address] Dr. Caitlin Sales Basophils/100 WBC (Bld) 0.0 % Critically low 0.2-2.0 [facility] Comment on above: Performed By: #### C MP, BNP, CMADM #### [facility] [address] [place] [address] Dr. Caitlin Sales EO # 0.0 103/ul Normal 0.0-0.7 [facility] Comment on above: Performed By: #### C MP, BNP, CMADM #### [facility] [address] [place] [address] Dr. Caitlin Slaes Eosinophils/100 WBC (Bld) 0.0 % Critically low 0.9-7.0 [facility] Comment on above: Performed By: #### C MP, BNP, CMADM #### [facility] [address] [place] [address] Dr. Caitlin Sales Erythrocyte distribution width (RBC) [Ratio] 12.0 % Normal 11.0-15.0 [facility] Comment on above: Performed By: #### C MP, BNP, CMADM #### [facility] [address] [place] [address] Dr. Caitlin Sales Hematocrit (Bld) [Volume fraction] 42.3 % Normal 42.0-54.0 [facility] Comment on above: Performed By: #### C MP, BNP, CMADM #### [facility] [address] [place] [address] Dr. Caitlin Sales Hemoglobin (Bld) [Mass/Vol] 14.5 g/dL Normal 14.0-18.0 [facility] Comment on above: Performed By: #### C MP, BNP, CMADM #### [facility] [address] [place] [address] Dr. Caitlin Sales IG # 0.03 10e3/ul Normal 0.00-0.03 [facility] Comment on above: Performed By: #### C MP, BNP, CMADM #### [facility] [address] [place] [address] Dr. Caitlni Sales IG % 0.4 % Normal 0.0-0.5 [facility] Comment on above: Performed By: #### C MP, BNP, CMADM #### [facility] [address] [place] [address] Dr. Caitlin Sales LYMPH # 0.7 103/ul Critically low 1.2-3.8 [facility] Comment on above: Performed By: #### C MP, BNP, CMADM #### [facility] [address] [place] [address] Dr. Caitlin Sales Lymphocytes/100 WBC (Bld) 8.6 % Critically low 20.5-60.0 [facility] Comment on above: Performed By: #### C MP, BNP, CMADM #### [facility] [address] [place] [address] Dr. Caitlin Sales MANUAL DIFF REQ NO Normal [facility] Comment on above: Performed By: #### C MP, BNP, CMADM #### [facility] [address] [place] [address] Dr. Caitlin Sales MCH (RBC) [Entitic mass] 31.8 pg Normal 25.9-34.0 [facility] Comment on above: Performed By: #### C MP, BNP, CMADM #### [facility] [address] [place] [address] Dr. Caitlin Sales MCHC (RBC) [Mass/Vol] 34.3 g/dL Normal 29.9-35.2 [facility] Comment on above: Performed By: #### C MP, BNP, CMADM #### [facility] [address] [place] [address] Dr. Caitlin Sales MCV (RBC) [Entitic vol] 92.8 fL Normal 80.0-94.0 [facility] Comment on above: Performed By: #### C MP, BNP, CMADM #### [facility] [address] [place] [address] Dr. Caitlin Sales MONO # 0.2 103/ul Critically low 0.3-0.8 [facility] Comment on above: Performed By: #### C MP, BNP, CMADM #### [facility] [address] [place] [address] Dr. Caitlin Sales Monocytes/100 WBC (Bld) 3.1 % Normal 1.7-12.0 [facility] Comment on above: Performed By: #### C MP, BNP, CMADM #### [facility] [address] [address] [address] Caitlin Sales NEUT # 6.9 103/ul Critically high 1.4-6.5 [facility] Comment on above: Performed By: #### C MP, BNP, CMADM #### [facility] [address] [address] [address] Caitlin Sales Neutrophils/100 WBC (Bld) 87.9 % Critically high 43.0-75.0 [facility] Comment on above: Performed By: #### C MP, BNP, CMADM #### [facility] [address] [address] [address] Caitlin Sales Platelet mean volume (Bld) [Entitic vol] 9.7 fL Normal 9.5-13.5 [facility] Comment on above: Performed By: #### C MP, BNP, CMADM #### [facility] [address] [address] [address] Caitlin Sales PLT 288 103/ul Normal 150-450 [facility] Comment on above: Performed By: #### C MP, BNP, CMADM #### [facility] [address] [address] [address] Caitlin Sales RBC 4.56 106/ul Critically low 4.70-6.10 [facility] Comment on above: Performed By: #### C MP, BNP, CMADM #### [facility] [address] [address] [address] Caitlin Sales WBC 7.8 103/ul Normal 4.0-11.0 [facility] Comment on above: Performed By: #### C MP, BNP, CMADM #### [facility] [address] [address] [address] Caitlin Sales PROF CHEM 8 (BAS METB)on Anion gap [Moles/Vol] 12.8 mmol/L Normal Th [facility] Comment on above: Performed By: #### L ACT #### [facility] [address] [address] [address] Caitlin Sales Calcium [Mass/Vol] 8.9 mg/dL Normal 8.5-10.1 [facility] Comment on above: Performed By: #### L ACT #### [facility] [address] [place] [address] Dr. Caitlin Sales Chloride [Moles/Vol] 102 mmol/L Normal 98-107 [facility] Comment on above: Performed By: #### L ACT #### [facility] [address] [address] [address] Caitlin Sales CO2 [Moles/Vol] 28.2 mmol/L Normal 21.0-32.0 [facility] Comment on above: Performed By: #### L ACT #### [facility] [address] [place] [address] Dr. Caitlin Sales Creatinine [Mass/Vol] 0.65 mg/dL Critically low 0.70-1.30 [facility] Comment on above: Performed By: #### L ACT #### [facility] [address] [place] [address] Dr. Caitlin Sales EGFR-AF UKRAINIAN >60 Normal >=60 [facility] Comment on above: Performed By: #### L ACT #### [facility] [address] [place] [address] Dr. Caitlin Sales EGFR-NON AF UKRAINIAN >60 Normal >=60 [facility] Comment on above: Performed By: #### L ACT #### [facility] [address] [place] [address] Dr. Caitlin Sales Glucose [Mass/Vol] 165 mg/dL Critically high 74-106 [facility] Comment on above: Performed By: #### L ACT #### [facility] [address] [place] [address] Dr. Caitlin Sales Potassium [Moles/Vol] 4.0 mmol/L Normal 3.5-5.1 [facility] Comment on above: Performed By: #### L ACT #### [facility] [address] [address] [address] Caitlin Sales Sodium [Moles/Vol] 139 mmol/L Normal 136-145 [facility] Comment on above: Performed By: #### L ACT #### [facility] [address] [place] [address] Dr. Caitlin Sales Urea nitrogen [Mass/Vol] 11.0 mg/dL Normal 7.0-18.0 [facility] Comment on above: Performed By: #### L ACT #### [facility] [address] [place] [address] Dr. Caitlin Sales Urea nitrogen/Creatinine [Mass ratio] 16.9 mg/mg Normal [facility] Comment on above: Performed By: #### L ACT #### [facility] [address] [place] [address] Dr. Caitlin Sales BNPon 06-05-2022 Natriuretic peptide B (Bld) [Mass/Vol] 639.0 pg/mL Normal <=900.0 [facility] Comment on above: Performed By: #### C MP, BNP, CMADM #### [facility] [address] [place] [address] Dr. Caitlin Sales CBC AUTO DIFFon 06-05-2022 BASO # 0.0 103/ul Normal 0.0-0.1 [facility] Comment on above: Performed By: #### C BC #### [facility] [address] [place] [address] Dr. Caitlin Sales Basophils/100 WBC (Bld) 0.2 % Normal 0.2-2.0 [facility] Comment on above: Performed By: #### C BC #### [facility] [address] [place] [address] Dr. Caitlin Sales EO # 0.1 103/ul Normal 0.0-0.7 [facility] Comment on above: Performed By: #### C BC #### [facility] [address] [place] [address] Dr. Caitlin Sales Eosinophils/100 WBC (Bld) 0.9 % Normal 0.9-7.0 [facility] Comment on above: Performed By: #### C BC #### [facility] [address] [place] [address] Dr. Caitlin Sales Erythrocyte distribution width (RBC) [Ratio] 12.1 % Normal 11.0-15.0 [facility] Comment on above: Performed By: #### C BC #### [facility] [address] [place] [address] Dr. Caitlin Sales Hematocrit (Bld) [Volume fraction] 41.5 % Critically low 42.0-54.0 [facility] Comment on above: Performed By: #### C BC #### [facility] [address] [place] [address] Dr. Caitlin Sales Hemoglobin (Bld) [Mass/Vol] 14.1 g/dL Normal 14.0-18.0 [facility] Comment on above: Performed By: #### C BC #### [facility] [address] [place] [address] Dr. Caitlin Sales IG # 0.03 10e3/ul Normal 0.00-0.03 [facility] Comment on above: Performed By: #### C BC #### [facility] [address] [place] [address] Dr. Caitlin Sales IG % 0.3 % Normal 0.0-0.5 [facility] Comment on above: Performed By: #### C BC #### [facility] [address] [place] [address] Dr. Caitlin Sales LYMPH # 2.2 103/ul Normal 1.2-3.8 [facility] Comment on above: Performed By: #### C BC #### [facility] [address] [place] [address] Dr. Caitlin Sales Lymphocytes/100 WBC (Bld) 20.6 % Normal 20.5-60.0 [facility] Comment on above: Performed By: #### C BC #### [facility] [address] [place] [address] Dr. Caitlin Sales MANUAL DIFF REQ NO Normal [facility] Comment on above: Performed By: #### C BC #### [facility] [address] [place] [address] Dr. Caitlin Saels MCH (RBC) [Entitic mass] 31.4 pg Normal 25.9-34.0 [facility] Comment on above: Performed By: #### C BC #### [facility] [address] [address] [address] Caitlin Sales MCHC (RBC) [Mass/Vol] 34.0 g/dL Normal 29.9-35.2 [facility] Comment on above: Performed By: #### C BC #### [facility] [address] [place] [address] Dr. Caitlin Sales MCV (RBC) [Entitic vol] 92.4 fL Normal 80.0-94.0 [facility] Comment on above: Performed By: #### C BC #### [facility] [address] [place] [address] Dr. Caitlin Sales MONO # 1.2 103/ul Critically high 0.3-0.8 [facility] Comment on above: Performed By: #### C BC #### [facility] [address] [place] [address] Dr. Caitlin Sales Monocytes/100 WBC (Bld) 11.0 % Normal 1.7-12.0 [facility] Comment on above: Performed By: #### C BC #### [facility] [address] [place] [address] Dr. Caitlin Sales NEUT # 7.3 103/ul Critically high 1.4-6.5 [facility] Comment on above: Performed By: #### C BC #### [facility] [address] [place] [address] Dr. Caitlin Sales Neutrophils/100 WBC (Bld) 67.0 % Normal 43.0-75.0 [facility] Comment on above: Performed By: #### C BC #### [facility] [address] [place] [address] Dr. Caitlin Sales Platelet mean volume (Bld) [Entitic vol] 9.7 fL Normal 9.5-13.5 [facility] Comment on above: Performed By: #### C BC #### [facility] [address] [place] [address] Dr. Caitlin Sales PLT 308 103/ul Normal 150-450 [facility] Comment on above: Performed By: #### C BC #### [facility] [address] [place], [place] [address] Dr. Caitlin Sales RBC 4.49 106/ul Critically low 4.70-6.10 [facility] Comment on above: Performed By: #### C BC #### [facility] [address] [place], [place] [address] Dr. Caitlin Sales WBC 10.9 103/ul Normal 4.0-11.0 [facility] Comment on above: Performed By: #### C BC #### [facility] [address] [place], [place] [address] Dr. Caitlin Sales CTA CHEST WO W CONon 022 CTA CHEST WO W CON EXAMINATION: CTA ASHLEE ST WO W CON HISTORY: Pulmonary embolism COMPARISON: CT from 09/05/2021 TECHNIQUE: CT angiography of the pulmonary arteries following the administration of intravenous contrast. Coronal and sagittal MIP (maximum intensity projection) images were performed. Dose reduction techniques were achieved by using automated exposure control and/or adjustment of mA and/or kV according to patient size and/or use of iterative reconstruction technique. FINDINGS: OVERALL DIAGNOSTIC QUALITY: Full diagnostic quality LOWER NECK: No abnormality. CHEST: PULMONARY ARTERIES: Negative for pulmonary embolus LUNGS / AIRWAYS / PLEURA: Centrilobular emphysema. No suspicious pulmonary nodule or mass. Minimal lower lobe predominant peribronchial thickening. HEART / OTHER VESSELS: Severe coronary artery disease. Moderate atherosclerotic disease of the aortic arch, aortic arch vessel origins, and descending thoracic aorta. Specifically, there is mild atherosclerotic narrowing of the left common carotid artery. MEDIASTINUM / ESOPHAGUS: Normal. LYMPH NODES: None enlarged. CHEST WALL: No significant abnormality. UPPER ABDOMEN: Dilated upper renal calyces bilaterally, only partially visualized but new from the prior exam. MUSCULOSKELETAL: No acute abnormality. Multifocal dental periapical disease. IMPRESSION: 1. No pulmonary embolus. 2. Minimal lower lobe predominant peribronchial thickening, which can be seen with bronchiolitis. 3. Partially visualized dilated upper renal calyces, new from the prior exam. Consider correlation with urinalysis and symptomatology to assess for urinary tract infection/obstruction. This impression was placed in the stat call folder. 4. Severe atherosclerotic disease. Electronically authenticated by: THOMAS WILL Date: 2022-06-05 19:48 Normal [facility] CULTURE BLOODon 06-05-2022 Microscopic examination of blood, culture Culture Observations: NO GROWTH AT [address] [facility] Comment on above: Performed By: #### C MP, BNP, CMADM #### [facility] [address] [address] [address] Caitlin Sales Microscopic examination of blood, culture Culture Observations: NO GROWTH AT [address] [facility] Comment on above: Performed By: #### C MP, BNP, CMADM #### [facility] [address] [address] [address] Caitlin Sales [facility] SARS-CoV-2 (COVID-19) RNA BENSON+probe Ql (Unsp spec) Not detected Normal NOT DETECTED [facility] Comment on above: Result Comment: When diagnostic testing is negative, the possibility of a false negative should be considered in the context of a patient's recent exposures and the presence of clinical signs and symptoms consistent with SARS-CoV-2. This test is not yet approved or cleared by the [place] FDA. When there are no FDA-approved or cleared tests available, and other criteria are met, FDA can make tests available under an emergency access mechanism called an Emergency Use Authorization (EUA). The EUA for this test is supported by the Judge of Health and Human Service's declaration that circumstances exist to justify the emergency use of in vitro diagnostics for the detection and/or diagnosis of the virus that causes COVID-19. This EUA will remain in effect for the duration of the COVID-19 declaration justifying emergency of IVDs, unless it is terminated or revoked by the FDA (after which the test may no longer be used). Performed By: #### P T, PTT #### [facility] [address] [place] [address] Dr. Caitlin Sales D-DIMERon 06-05-2022 D-DIMER 0.91 mg/L FEU Critically high <=0.59 [facility] Comment on above: Performed By: #### L ACT #### [facility] [address] [address] [address] Caitlin Sales D-DIMER COMMENTS SEE BELOW Normal [facility] Comment on above: Result Comment: Incr eases in D-Dimer concentration observed with thromboembolic events can be variable due to localization, size, and age of the thrombus. Therefore, a thromboembolic event cannot be diagnosed with certainty on the basis of the reference range. D-Dimers may also be elevated for a variety of disorders including: advanced age, , coronary disease, cancer, liver disease, infection, inflammation, hematoma, DIC, trauma, post-surgery, diabetes, thrombolytic or anticoagulant therapy, stress, and generalized hospitalization. Performed By: #### L ACT #### [facility] [address] [place] [address] Dr. Caitlin Sales LACTATE/LACTIC ACIDon 2021 Lactate [Moles/Vol] 1.7 mmol/L Normal 0.4-1.9 [facility] Comment on above: Performed By: #### P T, PTT #### [facility] [address] [place] [address] Dr. Caitlin Sales PH VENOUS BLOODon 06-05-2022 PCO2 VENOUS 42.0 mmHg Normal 40.0-52.0 [facility] Comment on above: Performed By: #### C MP, BNP, CMADM #### [facility] [address] [place] [address] Dr. Caitlin Sales pH VENOUS 7.451 Critically high 7.330-7.430 [facility] Comment on above: Performed By: #### C MP, BNP, CMADM #### [facility] [address] [place] [address] Dr. Caitlin Sales PROF 14(COMP METB)on 022 Albumin [Mass/Vol] 3.6 g/dL Normal 3.4-5.0 [facility] Comment on above: Performed By: #### C MP, BNP, CMADM #### [facility] [address] [place] [address] Dr. Caitlni Sales Albumin/Globulin [Mass ratio] 1.2 {ratio} Normal [facility] Comment on above: Performed By: #### C MP, BNP, CMADM #### [facility] [address] [place] [address] Dr. Caitlin Sales ALP [Catalytic activity/Vol] 47 U/L Normal 46-116 [facility] Comment on above: Performed By: #### C MP, BNP, CMADM #### [facility] [address] [place] [address] Dr. Caitlin Sales ALT [Catalytic activity/Vol] 25 U/L Normal 16-63 [facility] Comment on above: Performed By: #### C MP, BNP, CMADM #### [facility] [address] [place] [address] Dr. Caitlin Sales Anion gap [Moles/Vol] 13.3 mmol/L Normal [facility] Comment on above: Performed By: #### C MP, BNP, CMADM #### [facility] [address] [place] [address] Dr. Caitlin Sales AST [Catalytic activity/Vol] 21 U/L Normal 15-37 [facility] Comment on above: Performed By: #### C MP, BNP, CMADM #### [facility] [address] [place] [address] Dr. Caitlin Sales Bilirubin [Mass/Vol] 0.2 mg/dL Normal 0.2-1.0 [facility] Comment on above: Performed By: #### C MP, BNP, CMADM #### [facility] [address] [place] [address] Dr. Caitlin Sales Calcium [Mass/Vol] 9.0 mg/dL Normal 8.5-10.1 [facility] Comment on above: Performed By: #### C MP, BNP, CMADM #### [facility] [address] [place] [address] Dr. Caitlin Sales Chloride [Moles/Vol] 104 mmol/L Normal 98-107 [facility] Comment on above: Performed By: #### C MP, BNP, CMADM #### [facility] [address] [place] [address] Dr. Caitlin Sales CO2 [Moles/Vol] 27.2 mmol/L Normal 21.0-32.0 [facility] Comment on above: Performed By: #### C MP, BNP, CMADM #### [facility] [address] [address] [address] Caitlin Sales Creatinine [Mass/Vol] 0.62 mg/dL Critically low 0.70-1.30 [facility] Comment on above: Performed By: #### C MP, BNP, CMADM #### [facility] [address] [address] [address] Caitlin Sales EGFR-AF UKRAINIAN >60 Normal >=60 [facility] Comment on above: Performed By: #### C MP, BNP, CMADM #### [facility] [address] [address] [address] Caitlin Sales EGFR-NON AF UKRAINIAN >60 Normal >=60 [facility] Comment on above: Performed By: #### C MP, BNP, CMADM #### [facility] [address] [address] [address] Caitlin Sales Globulin (S) [Mass/Vol] 3.1 g/dL Normal [facility] Comment on above: Performed By: #### C MP, BNP, CMADM #### [facility] [address] [address] [address] Caitlin Sales Glucose [Mass/Vol] 93 mg/dL Normal 74-106 [facility] Comment on above: Performed By: #### C MP, BNP, CMADM #### [facility] [address] [address] [address] Caitlin Sales Potassium [Moles/Vol] 3.5 mmol/L Normal 3.5-5.1 [facility] Comment on above: Performed By: #### C MP, BNP, CMADM #### [facility] [address] [address] [address] Caitlin Sales Protein [Mass/Vol] 6.7 g/dL Normal 6.4-8.2 [facility] Comment on above: Performed By: #### C MP, BNP, CMADM #### [facility] [address] [address] [address] Caitlin Sales Sodium [Moles/Vol] 141 mmol/L Normal 136-145 [facility] Comment on above: Performed By: #### C MP, BNP, CMADM #### [facility] [address] [place] [address] Dr. Caitlin Sales Urea nitrogen [Mass/Vol] 14.0 mg/dL Normal 7.0-18.0 [facility] Comment on above: Performed By: #### C MP, BNP, CMADM #### [facility] [address] [place] [address] Dr. Caitlin Sales Urea nitrogen/Creatinine [Mass ratio] 22.6 mg/mg Normal [facility] Comment on above: Performed By: #### C MP, BNP, CMADM #### [facility] [address] [place] [address] Dr. Caitlin Sales PROTIMEon 06-05-2022 INR Coag (PPP) [Relative time] 1.01 {INR} Normal [facility] Comment on above: Performed By: #### P T, PTT #### [facility] [address] [place] [address] Dr. Caitlin Sales INR GUIDELINES SEE BELOW Normal [facility] Comment on above: Result Comment: SERENITY RED INR: 2.0 - 3.0 CONDITIONS NOT LISTED BELOW 2.5 - 3.5 FOR PROSTHETIC HEART VALVE REPLACEMENT 2.5 - 3.5 RECURRENT THROMBOSIS Performed By: #### P T, PTT #### [facility] [address] [place] [address] Dr. Caitlin Sales PT Coag (PPP) [Time] 10.9 s Normal 9.0-11.6 [facility] Comment on above: Performed By: #### P T, PTT #### [facility] [address] [place] [address] Dr. Caitlin Sales PTTon 06-05-2022 aPTT Coag (Bld) [Time] 27.2 s Normal 22.3-36.2 Th [facility] Comment on above: Performed By: #### P T, PTT #### [facility] [address] [place] [address] Dr. Caitlin Sales TROPONIN, HIGH SENSITIVITYon 06-05-2022 HSTROP 14.9 pg/mL Normal 4.0-76.1 [facility] Comment on above: Result Comment: CUT- OFF POINTS HAVE BEEN ESTABLISHED BASED ON THE FOURTH UNIVERSAL DEFINITIONS OF MYOCARDIAL INFARCTION. THE UPPER REFERENCE LIMIT (URL) OF TROPONIN, DEFINED THE 99TH PERCENTILE OF cTnI DISTRIBUTION IN A REFERENCE POPULATION, HAS BEEN CONFIRMED THE DECISION THRESHOLD FOR CO DIAGNOSIS. Performed By: #### C MP, BNP, CMADM #### [facility] [address] [place] [address] Dr. Caitlin Sales TSHon 06-05-2022 TSH 4.578 uIU/mL Critically high 0.358-3.740 [facility] Comment on above: Performed By: #### C MP, BNP, CMADM #### [facility] [address] [place] [address] Dr. Caitlin Sales CBC AUTO DIFFon 06-03-2022 BASO # 0.0 103/ul Normal 0.0-0.1 [facility] Comment on above: Performed By: #### P T, PTT #### [facility] [address] [place] [address] Dr. Caitlin Sales Basophils/100 WBC (Bld) 0.0 % Critically low 0.2-2.0 [facility] Comment on above: Performed By: #### P T, PTT #### [facility] [address] [place] [address] Dr. Caitlin Sales EO # 0.0 103/ul Normal 0.0-0.7 [facility] Comment on above: Performed By: #### P T, PTT #### [facility] [address] [place] [address] Dr. Caitlin Sales Eosinophils/100 WBC (Bld) 0.0 % Critically low 0.9-7.0 [facility] Comment on above: Performed By: #### P T, PTT #### [facility] [address] [place] [address] Dr. Caitlin Sales Erythrocyte distribution width (RBC) [Ratio] 11.9 % Normal 11.0-15.0 [facility] Comment on above: Performed By: #### P T, PTT #### [facility] [address] [place] [address] Dr. Caitlin Sales Hematocrit (Bld) [Volume fraction] 41.9 % Critically low 42.0-54.0 [facility] Comment on above: Performed By: #### P T, PTT #### [facility] [address] [place] [address] Dr. Caitlin Sales Hemoglobin (Bld) [Mass/Vol] 14.2 g/dL Normal 14.0-18.0 [facility] Comment on above: Performed By: #### P T, PTT #### [facility] [address] [place] [address] Dr. Caitlin Sales IG # 0.03 10e3/ul Normal 0.00-0.03 [facility] Comment on above: Performed By: #### P T, PTT #### [facility] [address] [place] [address] Dr. Caitlin Sales IG % 0.4 % Normal 0.0-0.5 [facility] Comment on above: Performed By: #### P T, PTT #### [facility] [address] [place] [address] Dr. Caitlin Sales LYMPH # 0.5 103/ul Critically low 1.2-3.8 [facility] Comment on above: Performed By: #### P T, PTT #### [facility] [address] [place] [address] Dr. Caitlin Sales Lymphocytes/100 WBC (Bld) 6.9 % Critically low 20.5-60.0 [facility] Comment on above: Performed By: #### P T, PTT #### [facility] [address] [place] [address] Dr. Caitlin Sales MANUAL DIFF REQ NO Normal [facility] Comment on above: Performed By: #### P T, PTT #### [facility] [address] [place] [address] Dr. Caitlin Sales MCH (RBC) [Entitic mass] 31.5 pg Normal 25.9-34.0 [facility] Comment on above: Performed By: #### P T, PTT #### [facility] [address] [place] [address] Dr. Caitlin Sales MCHC (RBC) [Mass/Vol] 33.9 g/dL Normal 29.9-35.2 [facility] Comment on above: Performed By: #### P T, PTT #### [facility] [address] [place] [address] Dr. Caitlin Sales MCV (RBC) [Entitic vol] 92.9 fL Normal 80.0-94.0 [facility] Comment on above: Performed By: #### P T, PTT #### [facility] [address] [place] [address] Dr. Caitlin Sales MONO # 0.1 103/ul Critically low 0.3-0.8 [facility] Comment on above: Performed By: #### P T, PTT #### [facility] [address] [place] [address] Dr. Caitlin Sales Monocytes/100 WBC (Bld) 1.8 % Normal 1.7-12.0 [facility] Comment on above: Performed By: #### P T, PTT #### [facility] [address] [place] [address] Dr. Caitlin Sales NEUT # 6.2 103/ul Normal 1.4-6.5 [facility] Comment on above: Performed By: #### P T, PTT #### [facility] [address] [place] [address] Dr. Caitlin Sales Neutrophils/100 WBC (Bld) 90.9 % Critically high 43.0-75.0 [facility] Comment on above: Performed By: #### P T, PTT #### [facility] [address] [place] [address] Dr. Caitlin Sales Platelet mean volume (Bld) [Entitic vol] 9.4 fL Critically low 9.5-13.5 [facility] Comment on above: Performed By: #### P T, PTT #### [facility] [address] [place] [address] Dr. Caitlin Sales PLT 300 103/ul Normal 150-450 [facility] Comment on above: Performed By: #### P T, PTT #### [facility] [address] [place] [address] Dr. Caitlin Sales RBC 4.51 106/ul Critically low 4.70-6.10 [facility] Comment on above: Performed By: #### P T, PTT #### [facility] [address] [place] [address] Dr. Caitlin Sales WBC 6.8 103/ul Normal 4.0-11.0 [facility] Comment on above: Performed By: #### P T, PTT #### [facility] [address] [place] [address] Dr. Caitlin Sales PROF CHEM 8 (BAS METB)on Anion gap [Moles/Vol] 15.3 mmol/L Normal Th [facility] Comment on above: Performed By: #### P T, PTT #### [facility] [address] [place] [address] Dr. Caitlin Sales Calcium [Mass/Vol] 8.7 mg/dL Normal 8.5-10.1 [facility] Comment on above: Performed By: #### P T, PTT #### [facility] [address] [place] [address] Dr. Caitlin Sales Chloride [Moles/Vol] 104 mmol/L Normal 98-107 [facility] Comment on above: Performed By: #### P T, PTT #### [facility] [address] [place] [address] Dr. Caitlin Sales CO2 [Moles/Vol] 24.3 mmol/L Normal 21.0-32.0 [facility] Comment on above: Performed By: #### P T, PTT #### [facility] [address] [place] [address] Dr. Caitlin Sales Creatinine [Mass/Vol] 0.88 mg/dL Normal 0.70-1.30 [facility] Comment on above: Performed By: #### P T, PTT #### [facility] [address] [place] [address] Dr. Caitlin Sales EGFR-AF UKRAINIAN >60 Normal >=60 [facility] Comment on above: Performed By: #### P T, PTT #### [facility] [address] [address] [address] Caitlin Sales EGFR-NON AF UKRAINIAN >60 Normal >=60 [facility] Comment on above: Performed By: #### P T, PTT #### [facility] [address] [address] [address] Caitlin Sales Glucose [Mass/Vol] 166 mg/dL Critically high 74-106 [facility] Comment on above: Performed By: #### P T, PTT #### [facility] [address] [address] [address] Caitlin Sales Potassium [Moles/Vol] 3.6 mmol/L Normal 3.5-5.1 [facility] Comment on above: Performed By: #### P T, PTT #### [facility] [address] [address] [address] Caitlin Sales Sodium [Moles/Vol] 140 mmol/L Normal 136-145 [facility] Comment on above: Performed By: #### P T, PTT #### [facility] [address] [address] [address] Caitlin Sales Urea nitrogen [Mass/Vol] 9.0 mg/dL Normal 7.0-18.0 [facility] Comment on above: Performed By: #### P T, PTT #### [facility] [address] [place] [address] Dr. Caitlin Sales Urea nitrogen/Creatinine [Mass ratio] 10.2 mg/mg Normal [facility] Comment on above: Performed By: #### P T, PTT #### [facility] [address] [address] [address] Caitlin Sales BLOOD GASES BTYon 06-02-2022 02 MODE ROOM AIR Normal [facility] Comment on above: Result Comment: Prev iously reported as: NASAL CANNULA On 06/02/2022 17:30 By LM4 Performed By: #### C MP, BNP, CMADM #### [facility] [address] [place] [address] Dr. Caitlin Sales ALLENS TEST Positive Normal [facility] Comment on above: Performed By: #### C MP, BNP, CMADM #### [facility] [address] [place] [address] Dr. Caitlin Sales Base excess Calc (Bld) [Moles/Vol] -1.4000 mmol/L Normal -2.0-2.0 [facility] Comment on above: Performed By: #### C MP, BNP, CMADM #### [facility] [address] [place] [address] Dr. Caitlin Sales BIPAP PRESSURE [facility] Comment on above: Performed By: #### C MP, BNP, CMADM #### [facility] [address] [place] [address] Dr. Caitlin Sales CPAP [facility] Comment on above: Performed By: #### C MP, BNP, CMADM #### [facility] [address] [place] [address] Dr. Caitlin Sales FIO2 [facility] Comment on above: Performed By: #### C MP, BNP, CMADM #### [facility] [address] [place] [address] Dr. Caitlin Sales HCO3 (Bld) [Moles/Vol] 22.9 mmol/L Normal 22.0-26.0 [facility] Comment on above: Performed By: #### C MP, BNP, CMADM #### [facility] [address] [place] [address] Dr. Caitlin Sales LPM [facility] Comment on above: Performed By: #### C MP, BNP, CMADM #### [facility] [address] [place] [address] Dr. Caitlin Sales MINUTE VOLUME [facility] Comment on above: Performed By: #### C MP, BNP, CMADM #### [facility] [address] [place] [address] Dr. Caitlin Sales Oxygen (Bld) [Partial pressure] 83.0 mm[Hg] Normal 80.0-100.0 [facility] Comment on above: Performed By: #### C MP, BNP, CMADM #### [facility] [address] [address] [address] Caitlin Sales Oxygen saturation in Blood 97.3 % Normal 95.0-100.0 [facility] Comment on above: Performed By: #### C MP, BNP, CMADM #### [facility] [address] [place] [address] Dr. Caitlin Sales PCO2 34.9 mmHg Critically low 35.0-45.0 [facility] Comment on above: Performed By: #### C MP, BNP, CMADM #### [facility] [address] [place] [address] Dr. Caitlin Sales [facility] Comment on above: Performed By: #### C MP, BNP, CMADM #### [facility] [address] [place] [address] Dr. Caitlin Sales pH (Bld) 7.426 [pH] Normal 7.350-7.450 [facility] Comment on above: Performed By: #### C MP, BNP, CMADM #### [facility] [address] [place] [address] Dr. Caitlin Sales [facility] Comment on above: Performed By: #### C MP, BNP, CMADM #### [facility] [address] [place] [address] Dr. Caitlin Sales [facility] Comment on above: Performed By: #### C MP, BNP, CMADM #### [facility] [address] [place] [address] Dr. Caitlin Sales PUNCTURE SITE RR [facility] Comment on above: Performed By: #### C MP, BNP, CMADM #### [facility] [address] [place] [address] Dr. Caitlin Sales RATE [facility] Comment on above: Performed By: #### C MP, BNP, CMADM #### [facility] [address] [place] [address] Dr. Caitlin Sales VENT [facility] Comment on above: Performed By: #### C MP, BNP, CMADM #### [facility] [address] [place] [address] Dr. Caitlin Sales [place] Normal [facility] Comment on above: Performed By: #### C MP, BNP, CMADM #### [facility] [address] [place] [address] Dr. Caitlin Sales BNPon 06-02-2022 Natriuretic peptide B (Bld) [Mass/Vol] 236.0 pg/mL Normal <=900.0 [facility] Comment on above: Performed By: #### C MP, BNP, CMADM #### [facility] [address] [place] [address] Dr. Caitlin Sales CARDIAC ABBY ADMITon 022 CK [Catalytic activity/Vol] 109 U/L Normal 39-308 [facility] Comment on above: Performed By: #### C MP, BNP, CMADM #### [facility] [address] [place] [address] Dr. Caitlin Sales CK.MB [Mass/Vol] 3.67 ng/mL Critically high <=3.60 [facility] Comment on above: Performed By: #### C MP, BNP, CMADM #### [facility] [address] [place] [address] Dr. Caitlin Sales HSTROP 10.2 pg/mL Normal 4.0-76.1 [facility] Comment on above: Result Comment: CUT- OFF POINTS HAVE BEEN ESTABLISHED BASED ON THE FOURTH UNIVERSAL DEFINITIONS OF MYOCARDIAL INFARCTION. THE UPPER REFERENCE LIMIT (URL) OF TROPONIN, DEFINED THE 99TH PERCENTILE OF cTnI DISTRIBUTION IN A REFERENCE POPULATION, HAS BEEN CONFIRMED THE DECISION THRESHOLD FOR CO DIAGNOSIS. Performed By: #### C MP, BNP, CMADM #### [facility] [address] [place] [address] Dr. Caitlin Sales REJI 61 ng/mL Normal 16-96 [facility] Comment on above: Performed By: #### C MP, BNP, CMADM #### [facility] [address] [place] [address] Dr. Caitlin Sales CBC AUTO DIFFon 06-02-2022 BASO # 0.0 103/ul Normal 0.0-0.1 [facility] Comment on above: Performed By: #### L ACT #### [facility] [address] [place] [address] Dr. Caitlin Sales Basophils/100 WBC (Bld) 0.4 % Normal 0.2-2.0 [facility] Comment on above: Performed By: #### L ACT #### [facility] [address] [place] [address] Dr. Caitlin Sales EO # 0.4 103/ul Normal 0.0-0.7 [facility] Comment on above: Performed By: #### L ACT #### [facility] [address] [place] [address] Dr. Caitlin Sales Eosinophils/100 WBC (Bld) 4.3 % Normal 0.9-7.0 [facility] Comment on above: Performed By: #### L ACT #### [facility] [address] [place] [address] Dr. Caitlin Sales Erythrocyte distribution width (RBC) [Ratio] 11.9 % Normal 11.0-15.0 [facility] Comment on above: Performed By: #### L ACT #### [facility] [address] [place] [address] Dr. Caitlin Sales Hematocrit (Bld) [Volume fraction] 43.5 % Normal 42.0-54.0 [facility] Comment on above: Performed By: #### L ACT #### [facility] [address] [place] [address] Dr. Caitlin Sales Hemoglobin (Bld) [Mass/Vol] 14.8 g/dL Normal 14.0-18.0 [facility] Comment on above: Performed By: #### L ACT #### [facility] [address] [place] [address] Dr. Caitlin Sales IG # 0.03 10e3/ul Normal 0.00-0.03 [facility] Comment on above: Performed By: #### L ACT #### [facility] [address] [place] [address] Dr. Caitlin Sales IG % 0.3 % Normal 0.0-0.5 [facility] Comment on above: Performed By: #### L ACT #### [facility] [address] [address] [address] Caitlin Sales LYMPH # 2.9 103/ul Normal 1.2-3.8 [facility] Comment on above: Performed By: #### L ACT #### [facility] [address] [place] [address] Dr. Caitlin Sales Lymphocytes/100 WBC (Bld) 28.9 % Normal 20.5-60.0 [facility] Comment on above: Performed By: #### L ACT #### [facility] [address] [place] [address] Dr. Caitlin Sales MANUAL DIFF REQ NO Normal [facility] Comment on above: Performed By: #### L ACT #### [facility] [address] [place] [address] Dr. Caitlin Sales MCH (RBC) [Entitic mass] 31.3 pg Normal 25.9-34.0 [facility] Comment on above: Performed By: #### L ACT #### [facility] [address] [place] [address] Dr. Caitlin Sales MCHC (RBC) [Mass/Vol] 34.0 g/dL Normal 29.9-35.2 [facility] Comment on above: Performed By: #### L ACT #### [facility] [address] [place] [address] Dr. Caitlin Sales MCV (RBC) [Entitic vol] 92.0 fL Normal 80.0-94.0 [facility] Comment on above: Performed By: #### L ACT #### [facility] [address] [place] [address] Dr. Caitlin Sales MONO # 0.9 103/ul Critically high 0.3-0.8 [facility] Comment on above: Performed By: #### L ACT #### [facility] [address] [place] [address] Dr. Caitlin Sales Monocytes/100 WBC (Bld) 9.2 % Normal 1.7-12.0 [facility] Comment on above: Performed By: #### L ACT #### [facility] [address] [place] [address] Dr. Caitlin Sales NEUT # 5.7 103/ul Normal 1.4-6.5 [facility] Comment on above: Performed By: #### L ACT #### [facility] [address] [place] [address] Dr. Caitlin Sales Neutrophils/100 WBC (Bld) 56.9 % Normal 43.0-75.0 [facility] Comment on above: Performed By: #### L ACT #### [facility] [address] [place] [address] Dr. Caitlin Sales Platelet mean volume (Bld) [Entitic vol] 9.5 fL Normal 9.5-13.5 [facility] Comment on above: Performed By: #### L ACT #### [facility] [address] [place] [address] Dr. Caitlin Sales PLT 337 103/ul Normal 150-450 [facility] Comment on above: Performed By: #### L ACT #### [facility] [address] [place] [address] Dr. Caitlin Sales RBC 4.73 106/ul Normal 4.70-6.10 [facility] Comment on above: Performed By: #### L ACT #### [facility] [address] [place] [address] Dr. Caitlin Sales WBC 9.9 103/ul Normal 4.0-11.0 [facility] Comment on above: Performed By: #### L ACT #### [facility] [address] [place] [address] Dr. Caitlin Sales Covid-19 PCR ([facility])on SARS-CoV-2 (COVID-19) RNA BENSON+probe Ql (Unsp spec) Not detected Normal NOT DETECTED [facility] Comment on above: Result Comment: When diagnostic testing is negative, the possibility of a false negative should be considered in the context of a patient's recent exposures and the presence of clinical signs and symptoms consistent with SARS-CoV-2. This test is not yet approved or cleared by the [place] FDA. When there are no FDA-approved or cleared tests available, and other criteria are met, FDA can make tests available under an emergency access mechanism called an Emergency Use Authorization (EUA). The EUA for this test is supported by the Judge of Health and Human Service's declaration that circumstances exist to justify the emergency use of in vitro diagnostics for the detection and/or diagnosis of the virus that causes COVID-19. This EUA will remain in effect for the duration of the COVID-19 declaration justifying emergency of IVDs, unless it is terminated or revoked by the FDA (after which the test may no longer be used). Performed By: #### L ACT #### [facility] [address] [place] [address] Dr. Caitlin Sales INFLUENZA A AND B AGon 06-02 [facility] SEE BELOW Normal [facility] Comment on above: Result Comment: Nega tive for Flu A protein angiten. Infection due to Flu A cannot be ruled out. Flu A angiten in the sample may be below the detection limit of the test. Performed By: #### C MP, BNP, CMADM #### [facility] [address] [place] [address] Dr. Caitlin Sales INFLUBNEGH SEE BELOW Normal [facility] Comment on above: Result Comment: Nega tive for Flu B protein antigen. Infection due to Flu B cannot be ruled out. Flu B antigen in the sample may be below the detection limit of the test. Performed By: #### C MP, BNP, CMADM #### [facility] [address] [place] [address] Dr. Caitlin Sales INFLUENZA A AG Negative Normal NEGATIVE SEE COMMENT [facility] Comment on above: Performed By: #### C MP, BNP, CMADM #### [facility] [address] [place], [place] [address] Dr. Caitlin Sales INFLUENZA B AG Negative Normal NEGATIVE SEE COMMENT [facility] Comment on above: Performed By: #### C MP, BNP, CMADM #### [facility] [address] [place] [address] Dr. Caitlin Sales INTERNAL CONTROLS Within Normal Limits Normal Wi thin Normal Limits [facility] Comment on above: Performed By: #### C MP, BNP, CMADM #### [facility] [address] [place] [address] Dr. Caitlin Sales LACTATE/LACTIC ACIDon 2021 Lactate [Moles/Vol] 0.8 mmol/L Normal 0.4-1.9 [facility] Comment on above: Performed By: #### L ACT #### [facility] [address] [place] [address] Dr. Caitlin Sales Lactate [Moles/Vol] 2.5 mmol/L Critically high 0.4-1.9 [facility] Comment on above: Performed By: #### L ACT #### [facility] [address] [place] [address] Dr. Caitlin Sales PROF 14(COMP METB)on 022 Albumin [Mass/Vol] 4.0 g/dL Normal 3.4-5.0 [facility] Comment on above: Performed By: #### C MP, BNP, CMADM #### [facility] [address] [place] [address] Dr. Caitlin Sales Albumin/Globulin [Mass ratio] 1.2 {ratio} Normal [facility] Comment on above: Performed By: #### C MP, BNP, CMADM #### [facility] [address] [place] [address] Dr. Caitlin Sales ALP [Catalytic activity/Vol] 65 U/L Normal 46-116 [facility] Comment on above: Performed By: #### C MP, BNP, CMADM #### [facility] [address] [place] [address] Dr. Caitlin Sales ALT [Catalytic activity/Vol] 17 U/L Normal 16-63 [facility] Comment on above: Performed By: #### C MP, BNP, CMADM #### [facility] [address] [place] [address] Dr. Caitlin Sales Anion gap [Moles/Vol] 11.6 mmol/L Normal [facility] Comment on above: Performed By: #### C MP, BNP, CMADM #### [facility] [address] [place] [address] Dr. Caitlin Sales AST [Catalytic activity/Vol] 17 U/L Normal 15-37 [facility] Comment on above: Performed By: #### C MP, BNP, CMADM #### [facility] [address] [place] [address] Dr. Caitlin Sales Bilirubin [Mass/Vol] 0.3 mg/dL Normal 0.2-1.0 [facility] Comment on above: Performed By: #### C MP, BNP, CMADM #### [facility] [address] [place] [address] Dr. Caitlin Sales Calcium [Mass/Vol] 9.0 mg/dL Normal 8.5-10.1 [facility] Comment on above: Performed By: #### C MP, BNP, CMADM #### [facility] [address] [place] [address] Dr. Caitlin Sales Chloride [Moles/Vol] 102 mmol/L Normal 98-107 [facility] Comment on above: Performed By: #### C MP, BNP, CMADM #### [facility] [address] [place] [address] Dr. Caitlin Sales CO2 [Moles/Vol] 27.9 mmol/L Normal 21.0-32.0 [facility] Comment on above: Performed By: #### C MP, BNP, CMADM #### [facility] [address] [place] [address] Dr. Caitlin Sales Creatinine [Mass/Vol] 0.90 mg/dL Normal 0.70-1.30 [facility] Comment on above: Performed By: #### C MP, BNP, CMADM #### [facility] [address] [place] [address] Dr. Caitlin Sales EGFR-AF UKRAINIAN >60 Normal >=60 [facility] Comment on above: Performed By: #### C MP, BNP, CMADM #### [facility] [address] [place] [address] Dr. Caitlin Sales EGFR-NON AF UKRAINIAN >60 Normal >=60 [facility] Comment on above: Performed By: #### C MP, BNP, CMADM #### [facility] [address] [place], [place] [id number] Dr. Caitlin Sales Globulin (S) [Mass/Vol] 3.4 g/dL Normal [facility] Comment on above: Performed By: #### C MP, BNP, CMADM #### [facility] [address] [place] [address] Dr. Caitlin Sales Glucose [Mass/Vol] 89 mg/dL Normal 74-106 [facility] Comment on above: Performed By: #### C MP, BNP, CMADM #### [facility] [address] [place] [address] Dr. Caitlin Sales Potassium [Moles/Vol] 3.5 mmol/L Normal 3.5-5.1 [facility] Comment on above: Performed By: #### C MP, BNP, CMADM #### [facility] [address] [place] [address] Dr. Caitlin Sales Protein [Mass/Vol] 7.4 g/dL Normal 6.4-8.2 [facility] Comment on above: Performed By: #### C MP, BNP, CMADM #### [facility] [address] [place] [address] Dr. Caitlin Sales Sodium [Moles/Vol] 138 mmol/L Normal 136-145 [facility] Comment on above: Performed By: #### C MP, BNP, CMADM #### [facility] [address] [place] [address] Dr. Caitlin Sales Urea nitrogen [Mass/Vol] 10.0 mg/dL Normal 7.0-18.0 [facility] Comment on above: Performed By: #### C MP, BNP, CMADM #### [facility] [address] [place] [address] Dr. Caitlin Sales Urea nitrogen/Creatinine [Mass ratio] 11.1 mg/mg Normal [facility] Comment on above: Performed By: #### C MP, BNP, CMADM #### [facility] [address] [place] [address] Dr. Caitlin Sales XR CHEST 1 Von 06-02-2022 XR CHEST 1 V EXAM: XR CHEST 1 V 06/02/2022 4:49 PM EST CLINICAL STATEMENT: Shortness of breath and cough. COPD COMPARISON: 11/09/2020 TECHNIQUE: PA and lateral radiograph of the chest are submitted.Single AP radiograph of the chest is submitted. FINDINGS: There is mild left basilar atelectasis, which was seen on prior. No new focal process. The lungs appear hyperinflated. The cardiac silhouette is normal. The costophrenic recesses are sharp. No pneumothorax. No acute bony abnormality IMPRESSION: No acute cardiopulmonary findings or significant change. Electronically authenticated by: IQRA MYERS Date: 2022-06-02 17:[address] [facility] Vital Signs Date Time Vital Sign Value Performing Clinician Facility 06-22-2023 00:30-0500 Diastolic blood pressure 75 mm[Hg] MD Melody Huertas Work Phone: [facility] 06-22-2023 00:30-0500 Heart rate 103 /min MD Melody Huertas Work Phone: [facility] 06-22-2023 00:30-0500 SaO2% (BldA) [Mass fraction] 95 % MD Melody Huertas Work Phone: [facility] 06-22-2023 00:30-0500 Systolic blood pressure 137 mm[Hg] MD Melody Huertas Work Phone: [facility] 06-21-2023 23:24-0500 Respiratory rate 20 /min MD Melody Huertas Work Phone: [facility] 06-21-2023 14:49-0500 Body height 162.56 cm MD Melody Huertas Work Phone: [facility] 06-21-2023 14:49-0500 Body temperature 98 [degF] MD Melody Huertas Work Phone: [facility] 06-21-2023 14:49-0500 Body weight 59.42 kg MD Melody Huertas Work Phone: [facility] 01-08-2023 15:25-0400 Diastolic blood pressure 76 mm[Hg] Yo PONCE [facility] 01-08-2023 15:25-0400 Heart rate 68 /min Ram SALAM [facility] 01-08-2023 15:25-0400 Respiratory rate 23 /min Ram SALAM [facility] 01-08-2023 15:25-0400 SaO2% (BldA) [Mass fraction] 99 % Ram SALAM [facility] 01-08-2023 15:25-0400 Systolic blood pressure 144 mm[Hg] Ram SALAM [facility] 01-08-2023 15:10-0400 Diastolic blood pressure 65 mm[Hg] Ram SALAM [facility] 01-08-2023 15:10-0400 Heart rate 76 /min Ram SALAM [facility] 01-08-2023 15:10-0400 Respiratory rate 18 /min Ram SALAM [facility] 01-08-2023 15:10-0400 SaO2% (BldA) [Mass fraction] 92 % Ram SALAM [facility] 01-08-2023 15:10-0400 Systolic blood pressure 148 mm[Hg] Ram SALAM [facility] 01-08-2023 15:05-0400 Diastolic blood pressure 72 mm[Hg] Ram SALAM [facility] 01-08-2023 15:05-0400 Heart rate 76 /min Ram SALAM [facility] 01-08-2023 15:05-0400 Respiratory rate 24 /min Ram SALAM [facility] 07-17-2023 15:05-0400 SaO2% (BldA) [Mass fraction] 97 % Ram SALAM [facility] 01-08-2023 15:05-0400 Systolic blood pressure 147 mm[Hg] Ram SALAM [facility] 01-08-2023 14:56-0400 Body temperature 96.8 [degF] Ram SALAM [facility] 01-08-2023 14:49-0400 Respiratory rate 12 /min Ram SALAM [facility] 01-08-2023 14:45-0400 Respiratory rate 12 /min Ram SALAM [facility] 01-08-2023 14:40-0400 Respiratory rate 12 /min Ram SALAM [facility] 01-08-2023 12:57-0400 Blood Pressure Location Ram SALAM [facility] 01-08-2023 12:57-0400 [facility] temperature 97.16 [facility]degF[facility] Encounters Encounter Date Encounter Type Care Provider Facility Start: 11-05-2023 ambulatory MD Papo Castro Facil ity:[facility] Start: 11-01-2023 ambulatory MD Papo Castro Facil ity:[facility] Start: 06-21-2023 End: 06-22-2023 ambulatory Brie Negrete Facility:[facility] Start: 06-21-2023 Evaluation and management of inpatient MD Melody Huertas Work Phone: [facility] Work Phone: Start: 05-07-2023 End: 05-08-2023 ambulatory MD Papo Castro Facility:[facility] Start: 05-03-2023 End: 05-04-2023 ambulatory MD Papo Castro Facility:[facility] Start: 01-08-2023 End: 01-09-2023 [facility] Start: 01-08-2023 End: 01-08-2023 Patient encounter procedure Ram ROSARIO [facility] Start: 11-07-2022 End: 11-08-2022 ambulatory Lolis Jenkins Facility:[facility] Start: 10-31-2022 [facility] Start: 10-11-2022 End: 10-13-2022 ambulatory PAPO CASTRO Facility: Start: 10-11-2022 End: 10-12-2022 ambulatory MD [facility] Start: 10-09-2022 End: 11-13-2022 ambulatory MD Papo Castro Facility:[id number] Start: 10-06-2022 ambulatory MD Papo Castro [facility] Start: 10-05-2022 End: 10-06-[address] DOCTOR DANIEL Facility:[facility] Start: 06-05-2022 End: 06-08-[address] DOCTOR DANIEL Facility:[facility] Start: 06-02-2022 End: 06-03-[address] DOCTOR DANIEL Facility:[facility] Start: 10-12-2021 ambulatory [facility] Ambulatory Procedures Date Procedure Procedure Detail Performing Clinician Start: 06-21-2023 CT angiography of thorax MD Melody Huertas Work Phone: Start: 06-21-2023 Plain chest X-ray MD Heather Huertas Work Phone: Start: 06-21-2023 SARS-CoV-2, Influenz a & RSV (PCR) MD Melody Huertas Work Phone: Start: 01-08-2023 Colonoscopy Yo Busch Comment on above: colon polyps x3 one with 2 clips, diverticulosis, Ih Start: 09-10-2018 Colonoscopy Yo Busch Surgery (qualifier value) Pam PONCE Comment on above: left wrist Plan of Treatment Date Care Activity Detail Author Start: 06-21-2023 Microbial culture of sputum [facility] Start: 06-21-2023 Hospital admission [facility] Start: 06-21-2023 [facility] Start: 06-21-2023 Bacteria identified in Blood by Culture [facility] Start: 06-21-2023 Bacteria identified in Urine by Culture [facility] Immunizations Immunization Date Immunization Notes Care Provider Fa cility 06-02-2022 influenza virus vaccine, unspecified formulation Ram [facility] 06-02-2022 pneumococcal conjuga te vaccine, 13 valent [facility] NEGATED: Highlighted row has not occurred!10-11-2022 SARS-CoV-2 mRNA (tozinameran 5y-11y) vaccine Ram [facility] Payers Date Payer Category Payer Self-pay 2022 Unknown [id number] 2022 Private Health Insurance [id number] 2019 Unknown [id number] 1958 Medicare [id number] 1950 Unknown [id number] 1950 Unknown [id number] .593 1950 Unknown [id number] .593 1950 Unknown [id number] .593 1950 Unknown [id number] .727 1950 Unknown [id number] [id number] .727 1950 Unknown [id number] [id number] .727 1950 Unknown [id number] [id number] .727 1950 Unknown [id number] [id number] .72 1950 Unknown [id number] [id number] .72 1950 Unknown [id number] [id number] .727 Unknown [facility] [id number] Unknown [id number] .531 Social History Date Type Detail Facility Start: 11-07-2022 End: 06-21-2023 Tobacco smoking status Ex-smoker (finding) [facility] Tobacco smoking status Never [facility] Sex Assigned At Male [facility] Start: 1950 Sex Assigned At Male [facility] Medical Equipment Procedure Code Equipment Code Equipment Origin al Text Equipment Identifier Dates Unknown Unknown 01/08/23 Non Biological Unknown FDA Start: 01-08-2023 FDA Start: 01-08-2023 Functional Status Date Assessment Result Facility 01-08-2023 Functional Status N/A [facility] History and physical note 01-10-2023 Note Date & Type Note Facility 01-10-2023 Note [id number] #[id number] [facility] Discharge instructions 01-08-2023 Note Date & Type Note Facility 01-08-2023 Hospital Discharg e instructions Patient Education 01/08/2023 15:04:31 Colonoscopy, Care After Surgery Salam (CUSTOM) Colonoscopy Care After Surgery Please read the instructions outlined below and refer to this sheet in the next few weeks. These discharge instructions provide you with general information on caring for yourself after you leave the hospital. Your doctor may also give you specific instructions. While your treatment has been planned according to the most current medical practices available, unavoidable complications occasionally occur. If you have any problems or questions after discharge, please call your doctor. ACTIVITY You may resume your regular activity, but move at a slower pace for the next 24 hours. Take frequent rest periods for the next 24 hours. Walking will help get rid of the air and reduce the bloated feeling in your abdomen (belly). No driving for 24 hours (because of the anesthesia (medicine) used during the test). You may shower. Do not sign any important legal documents or operate any machinery for 24 hours (because of the anesthesia used during the test). NUTRITION Drink plenty of fluids. You may resume your normal diet as instructed by your doctor. Begin with a light meal and progress to your normal diet. Heavy or fried foods are harder to digest and may make you feel nauseated (sick to your stomach). Avoid alcoholic beverages for 24 hours or as instructed. MEDICATIONS You may resume your normal medications unless your doctor tells you otherwise. WHAT YOU CAN EXPECT TODAY Some feelings of bloating in the abdomen. Passage of more gas than usual. Spotting of blood in your stool or on the toilet paper. FOLLOW-UP Your doctor will discuss the results of your test with you. SEEK IMMEDIATE MEDICAL ATTENTION IF: There is more than a spotting of blood in your stool. There is abdominal distention (your abdomen is swollen). There is vomiting. You have a temperature over 101.5 F. There is abdominal pain or discomfort that is severe or gets worse throughout the day. 01/08/2023 15:04:31 Colon Polyps Colon Polyps Colon polyps are tissue growths inside the colon, which is part of the large intestine. They are one of the types of polyps that can grow in the body. A polyp may be a round bump or a mushroom-shaped growth. You could have one polyp or more than one. Most colon polyps are noncancerous (benign). However, some colon polyps can become cancerous over time. Finding and removing the polyps early can help prevent this. What are the causes? The exact cause of colon polyps is not known. What increases the risk? The following factors may make you more likely to develop this condition: Having a family history of colorectal cancer or colon polyps. Being older than 45 years of age. Being younger than 45 years of age and having a significant family history of colorectal cancer or colon polyps or a genetic condition that puts you at higher risk of getting colon polyps. Having inflammatory bowel disease, such as ulcerative colitis or Crohn's disease. Having certain conditions passed from parent to child (hereditary conditions), such as: ?Familial adenomatous polyposis (FAP). ?Villa syndrome. ?Turcot syndrome. ?Peutz Jeghers syndrome. ?MUTYH-associated polyposis (MAP). Being overweight. Certain lifestyle factors. These include smoking cigarettes, drinking too much alcohol, not getting enough exercise, and eating a diet that is high in fat and red meat and low in fiber. Having had childhood cancer that was treated with radiation of the abdomen. What are the signs or symptoms? Many times, there are no symptoms. If you have symptoms, they may include: Blood coming from the rectum during a bowel movement. Blood in the stool (feces). The blood may be bright red or very dark in color. Pain in the abdomen. A change in bowel habits, such as constipation or diarrhea. How is this diagnosed? This condition is diagnosed with a colonoscopy. This is a procedure in which a lighted, flexible scope is inserted into the opening between the buttocks (anus) and then passed into the colon to examine the area. Polyps are sometimes found when a colonoscopy is done as part of routine cancer screening tests. How is this treated? This condition is treated by removing any polyps that are found. Most polyps can be removed during a colonoscopy. Those polyps will then be tested for cancer. Additional treatment may be needed depending on the results of testing. Follow these instructions at home: Eating and drinking Eat foods that are high in fiber, such as fruits, vegetables, and whole grains. Eat foods that are high in calcium and vitamin D, such as milk, cheese, yogurt, eggs, liver, fish, and broccoli. Limit foods that are high in fat, such as fried foods and desserts. Limit the amount of red meat, precooked or cured meat, or other processed meat that you eat, such as hot dogs, sausages, neri, or meat loaves. Limit sugary drinks. Lifestyle Maintain a healthy weight, or lose weight if recommended by your health care provider. Exercise every day or as told by your health care provider. Do not use any products that contain nicotine or tobacco, such as cigarettes, e-cigarettes, and chewing tobacco. If you need help quitting, ask your health care provider. Do not drink alcohol if: ?Your health care provider tells you not to drink. ?You are , may be , or are planning to become . If you drink alcohol: ?Limit how much you use to: ?0 1 drink a day for women. ?0 2 drinks a day for men. ?Know how much alcohol is in your drink. In the [place] one drink equals one 12 oz bottle of beer (355 mL), one 5 oz glass of wine (148 mL), or one 1 oz glass of hard liquor (44 mL). General instructions Take [id number] and prescription medicines only as told by your health care provider. Keep all follow-up visits. This is important. This includes having regularly scheduled colonoscopies. Talk to your health care provider about when you need a colonoscopy. Contact a health care provider if: You have new or worsening bleeding during a bowel movement. You have new or increased blood in your stool. You have a change in bowel habits. You lose weight for no known reason. Summary Colon polyps are tissue growths inside the colon, which is part of the large intestine. They are one type of polyp that can grow in the body. Most colon polyps are noncancerous (benign), but some can become cancerous over time. This condition is diagnosed with a colonoscopy. This condition is treated by removing any polyps that are found. Most polyps can be removed during a colonoscopy. This information is not intended to replace advice given to you by your health care provider. Make sure you discuss any questions you have with your health care provider. Document Revised: 09/29/2020 Document Reviewed: 09/29/2020 [employer] Patient Education 2022 [employer]. 01/08/2023 15:04:31 Diverticulosis MAGR (CUSTOM) Diverticulosis Many people have small pouches in their colon called diverticulum. The diverticulum bulge outward through weak spots in the colon. You could have one or more of these pouches in the colon. The condition of having these pouches in the colon is called diverticulosis or diverticular disease. Diverticulosis is usually diagnosed by tests to evaluate something else. For example, you may have had a colonoscopy to screen for colon cancer when the diverticulosis was found. Most people with diverticulosis do not have any discomfort or problems. If symptoms develop, they may include mild cramps, bloating, and constipation. A complication of this condition is called diverticulitis. This is when the diverticulum become inflamed and infected. How to treat diverticulosis: Increasing the amount of fiber in the diet may reduce symptoms of diverticulosis and prevent complications such as diverticulitis (infected diverticuli). Fiber keeps stool soft and lowers pressure inside the colon so that bowel contents can move through easily. You should eat 20 to 35 grams of fiber each day. The table below shows the amount of fiber in some foods that you can easily add to your diet. Adding fiber slowly may decrease the bloating and fullness sometimes felt with an immediate high fiber diet. The doctor may also recommend taking a fiber product such as Citrucel or Metamucil once a day. In the past people with diverticulosis were to avoid nuts, corn, and seeds. This has not been found to be true. If you find that certain foods create cramping or bloating, avoid that food. Foods high in fiber include: Fresh fruits, fresh vegetables, legumes (beans), whole wheat bread, bran muffins or cereal, and nuts. See the table below for examples of high fiber foods. Remember, your goal is 20-35 grams per day. Amount of fiber in different foods Food Serving Grams of fiber Fruits Apple (with skin) 1 medium apple 4.4 Banana 1 medium banana 3.1 Oranges 1 orange 3.1 Prunes 1 cup, pitted 12.4 Juices Apple, unsweetened, w/added ascorbic acid 1 cup 0.5 Grapefruit, white, canned, sweetened 1 cup 0.2 Grape, unsweetened, w/added ascorbic acid 1 cup 0.5 [place] 1 cup 0.7 Vegetables Cooked Green beans 1 cup 4.0 Carrots 1/2 cup sliced 2.3 Peas 1 cup 8.8 Potato (baked, with skin) 1 medium potato 3.8 Raw [place] (with peel) 1 cucumber 1.5 Lettuce 1 cup shredded 0.5 Tomato 1 medium tomato 1.5 Spinach 1 cup 0.7 Legumes Baked beans, canned, no salt added 1 cup 13.9 Kidney beans, canned 1 cup 13.6 [place] beans, canned 1 cup 11.6 Lentils, boiled 1 cup 15.6 Breads, pastas, flours Bran muffins 1 medium muffin 5.2 Oatmeal, cooked 1 cup 4.0 White bread 1 slice 0.6 Whole-wheat bread 1 slice 1.9 Pasta and rice, cooked Macaroni 1 cup 2.5 Rice, brown 1 cup 3.5 Rice, white 1 cup 0.6 Spaghetti (regular) 1 cup 2.5 Nuts Almonds 1/2 cup 8.7 Peanuts 1/2 cup 7.9 Chart from [facility] 2013. SEEK IMMEDIATE MEDICAL CARE IF: You develop abdominal (belly) pain. An oral temperature above _ 101 F__develops. Repeated vomiting occurs. Blood is being passed in stools (bright red or black tarry stools). You develop any bowel problems or changes which you have not had before. Extra Information: To learn how much fiber and other nutrients are in different foods, visit the [place] Department of Agriculture (USDA) National Nutrient Database at: http://www.nal.usda.gov/fnic/fo odcomp/search/ Created using data from the USDA National Nutrient Database for Standard Reference. Available at http://www.nal.usda.gov/fnic/fo odcomp/search/. Information adapted from: [facility] Patient Information 2009 [place]. [facility] 2012 http://www.Optify/content s/xkzgdyfnuhjh-dthjkbp-hmvgzg-t he-basics Follow Up Care 11/07/2022 15:31:21 With:Yo PONCE Address: [address] [place] [address]. [address] [place] [id number] Business (1) When: Unknown Comments:office will call for follow up [facility] Evaluation + Plan note 01-08-2023 Note Date & Type Note Facility 01-08-2023 Evaluation + Plan note Extrac patricio from: Title:CSB post op Author:Clem PLATA, Minor Lara Date:01/08/23 Plan Transfer/Discharge: Transfer/Discharge Discharge when meets criteria ( To home ). Extracted from: Title:[facility] Preop Author:Clem PLATA, Minor Lara Date:01/08/23 Plan [place] [employer]esthesiologists (ASA) physical status classification: Class III. Anesthetic Preoperative Plan: Anesthesia General. [facility] Clinical Note 11-07-2022 Note Date & Type Note Facility 11-07-2022 Note Radiology Colonoscopy, Adult A colonoscopy is a procedure to look at the entire large intestine. This procedure is done using a long, thin, flexible tube that has a camera on the end. You may have a colonoscopy: ? As a part of normal colorectal screening. ? If you have certain symptoms, such as: ? A low number of red blood cells in your blood (anemia). ? Diarrhea that does not go away. ? Pain in your abdomen. ? Blood in your stool. A colonoscopy can help screen for and diagnose medical problems, including: ? An abnormal growth of cells or tissue (tumor). ? Abnormal growths within the lining of your intestine (polyps). ? Inflammation. ? Areas of bleeding. Tell your health care provider about: ? Any allergies you have. ? All medicines you are taking, including vitamins, herbs, eye drops, creams, and ijgd-rai-wyzrzmq medicines. ? Any problems you or family members have had with anesthetic medicines. ? Any bleeding problems you have. ? Any surgeries you have had. ? Any medical conditions you have. ? Any problems you have had with having bowel movements. ? Whether you are or may be . What are the risks? Generally, this is a safe procedure. However, problems may occur, including: ? Bleeding. ? Damage to your intestine. ? Allergic reactions to medicines given during the procedure. ? Infection. This is rare. What happens before the procedure? Eating and drinking restrictions Follow instructions from your health care provider about eating or drinking restrictions, which may include: ? A few days before the procedure: ? Follow a low-fiber diet. ? Avoid nuts, seeds, dried fruit, raw fruits, and vegetables. ? 1?3 days before the procedure: ? Eat only gelatin dessert or ice pops. ? Drink only clear liquids, such as water, clear juice, clear broth or bouillon, black coffee or tea, or clear soft drinks or sports drinks. ? Avoid liquids that contain red or purple dye. ? The day of the procedure: ? Do not eat solid foods. You may continue to drink clear liquids until up to 2 hours before the procedure. ? Do not eat or drink anything starting 2 hours before the procedure, or within the time period that your health care provider recommends. Bowel prep If you were prescribed a bowel prep to take by mouth (orally) to clean out your colon: ? Take it as told by your health care provider. Starting the day before your procedure, you will need to drink a large amount of liquid medicine. The liquid will cause you to have many bowel movements of loose stool until your stool becomes almost clear or light green. ? If your skin or the opening between the buttocks (anus) gets irritated from diarrhea, you may relieve the irritation using: ? Wipes with medicine in them, such as adult wet wipes with aloe and vitamin E. ? A product to soothe skin, such as petroleum jelly. ? If you vomit while drinking the bowel prep: ? Take a break for up to 60 minutes. ? Begin the bowel prep again. ? Call your health care provider if you keep vomiting or you cannot take the bowel prep without vomiting. ? To clean out your colon, you may also be given: ? Laxative medicines. These help you have a bowel movement. ? Instructions for enema use. An enema is liquid medicine injected into your rectum. Medicines Ask your health care provider about: ? Changing or stopping your regular medicines or supplements. This is especially important if you are taking iron supplements, diabetes medicines, or blood thinners. ? Taking medicines such as aspirin and ibuprofen. These medicines can thin your blood. Do not take these medicines unless your health care provider tells you to take them. ? Taking kcio-hsz-jkiomeo medicines, vitamins, herbs, and supplements. General instructions ? Ask your health care provider what steps will be taken to help prevent infection. These may include washing skin with a germ-killing soap. ? If you will be going home right after the procedure, plan to have a responsible adult: ? Take you home from the hospital or clinic. You will not be allowed to drive. ? Care for you for the time you are told. What happens during the procedure? ? An IV will be inserted into one of your veins. ? You will be given a medicine to make you fall asleep (general anesthetic). ? You will lie on your side with your knees bent. ? A lubricant will be put on the tube. Then the tube will be: ? Inserted into your anus. ? Gently eased through all parts of your large intestine. ? Air will be sent into your colon to keep it open. This may cause some pressure or cramping. ? Images will be taken with the camera and will appear on a screen. ? A small tissue sample may be removed to be looked at under a microscope (biopsy). The tissue may be sent to a lab for testing if any signs of problems are found. ? If small polyps are found, they may be removed and checked for cancer cells. (more content not included)... [facility] Evaluation note Note Date & Type Note Facility Evaluation note Diagnosis Onset Date Acute UTI acute Chest pain acute COPD exacerbation [facility] Work Phone: Hospital course Narrative Note Date & Type Note Facility Hospital course Narrative No data available for this section [facility] Progress note Note Date & Type Note Facility Progress note No data available for this section [facility] Summary Purpose Family History No Family History Records FoundNo Family History Records FoundNo Family History Records FoundNo Family History Records Found Advance Directives No Advanced Directives Records Found Advance Directive Response Recorded Date/ Time Advance Directives No May 7:17pm Chief Complaint and Reason for Visit Chief Complaint trouble breathing Reason for Visit Acute UTI Chest pain COPD exacerbation Additional Source Comments (unrecognized sect ion and content) No Status Records FoundNo Status Records FoundNo Status Records FoundNo Status Records Found INFORMATION SOURCE (unrecogn ized section and content) DATE CREATED AUTHOR 10/14/2021 [facility] DATE CREATED AUTHOR AUTHOR'S ORGANIZ ATION 10/19/2022 [facility] DATE CREATED AUTHOR AUTHOR'S ORGANIZ ATION 05/27/2023 [facility] DATE CREATED AUTHOR AUTHOR'S ORGANIZ ATION 07/04/2023 [facility] Patient Care team informatio n (unrecognized section and content) Team Status: Active Member Role Status Dates Brie Negrete DO Primary Care Provider Active Team Status: Active Member Role Status Dates Melody Huertas MD Emergency Provider Active Brie Negrete DO Primary Care Provider Active Marwan Wassouf , MD Admit Provider, Attending Provider Active Goals (unrecognized section and content) Goals may be documented in a n alternate section FOR RECORDS PERTAINING TO PATIENTS WHO ARE OR HAVE BEEN ENROLLED IN A CHEMICAL DEPENDENCY/SUBSTANCEABUSE PROGRAM, SOME INFORMATION MAY BE OMITTED. This clinical summary was aggregated from multiple sources. Caution should be exercised in using it in the provision of clinical care. This summary normalizes information from multiple sources, and as a consequence, information in this document may materially change the coding, format and clinical context of patient data. In addition, data may be omitted in some cases. CLINICAL DECISIONS SHOULD BE BASED ON THE PRIMARY CLINICAL RECORDS. [employer] [facility]. provides no warranty or guarantee of the accuracy or completeness of information in this document.
--- NOTE | 2023-07-19 19:30 | XR_ITS ---
The [address] [address] Patient Name: KELSEY HERNANDEZ MRN: [id number] date: 1950 Sex: M Assigned Patient Location: ER Current Patient Location: ER Accession/Order Number: [id number] Exam Date: 07/19/2023 20:20 Report Date: 07/19/2023 21:17 At the request of: ROSA ZAIDI Procedure: XR chest 2V CXR HISTORY: Shortness of breath. COMPARISON: None. TECHNIQUE: 2 views submitted for review. FINDINGS: The lungs are adequately expanded.. There is prominence of interstitial and bronchial markings. The cardiac silhouette measures within normal. Pulmonary vascularity is prominent. Osseous structures are within normal limits for age. XR/XR chest 2V IMPRESSION: There is prominence of interstitial and bronchial markings. Please correlate for viral etiologies vs pulmonary edema. Electronically authenticated by: MARY ALICE HENAO Date: 07/19/2023 21:17
--- NOTE | 2023-07-19 19:30 | ECG_ITS ---
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
--- NOTE | 2023-07-19 19:31 | ED_ITS ---
HPI - SOB/Dyspnea General Chief Complaint: Shortness of Breath/Dyspnea Stated Complaint: Shortness of breath Time Seen by Provider: 07/19/23 19:26 Source: patient Mode of arrival: Wheelchair History of Present Illness HPI Narrative: 72-year-old male to the emergency department with chief complaint of shortness of breath. Patient reports a history of chronic obstructive pulmonary disease. Has not been seen for several months for this reports he has been doing well. He uses breathing treatments at home. He reports a nonproductive cough, shortness of breath it's been increasing over the last several days. Denies any chest pain, leg swelling. No history of deep vein thrombosis or PE. No history of congestive heart failure. Reports this is similar to past chronic obstructive pulmonary disease exacerbations. He is not on any home oxygen. Related Data Home Medications Medication Instructions Recorded Confirmed albuterol sulfate 90 mcg/actuation 2 inh inhalation 04/26/23 aerosol inhaler montelukast 10 mg tablet 10 mg 04/26/23 tamsulosin 0.4 mg capsule (Flomax) 0.4 mg PO DAILY 07/19/23 07/19/23 Previous Rx's Medication Instructions Recorded prednisone 10 mg tablet See Rx Instructions .Route 05/02/23 .COMPLEX #30 tabs Allergies Allergy/AdvReac Type Severity Reaction Status Date / Time Penicillins Allergy Unknown Verified 07/19/23 19:25 Review of Systems ROS Status of ROS 10 or more systems reviewed and unremark able except as noted in history and below [facility] Social History Smoking status: Former smoker Exam Narrative Exam Narrative: VITALS: I have reviewed the triage vital signs. GENERAL: Well developed, well appearing adult in no acute distress. NEURO: Alert and oriented. Moves all extremities. Face is symmetric and expressive. EYES: PERRL. No scleral icterus or conjunctival injection. No discharge. HENT: Normocephalic, atraumatic. Hearing is grossly intact. Nares grossly patent and without discharge. Mucous membranes moist. NECK: No JVD. Patient moves neck without restriction. CARDIO: Rhythm regular. Normal rate. No murmur, rub, or gallop. Pulses equal bilaterally in the upper and lower extremity. No lower extremity edema. PULM: Lungs clear to auscultation in all lobo. No wheezes, rales, or rhonchi. Mild conversational dyspnea. Mild increased work of breathing. GI/: Abdomen is soft and non-tender. Normoactive bowel sounds. EXTREMITIES: Symmetric muscle bulk. No joint swelling. No clubbing, cyanosis, or deformity. SKIN: Warm and dry. Normal turgor. No rash or lesions appreciated. PSYCH: Mood, affect, and interaction is appropriate to the setting. Constitutional Vital Signs, click to edit/add: Last Vital Signs Temp 98.4 F 07/19/23 19:25 Pulse 96 H 07/19/23 22:00 Resp 15 07/19/23 22:00 BP 148/75 H 07/20/23 00:40 Pulse Ox 96 07/20/23 00:40 O2 Del Method Room Air 07/19/23 21:42 O2 Flow Rate 2 07/19/23 19:46 Course Vital Signs Vital signs: Vital Signs Temperature 98.4 F 07/19/23 19:25 Pulse Rate 92 H 07/19/23 19:25 Respiratory Rate 20 07/19/23 19:25 Blood Pressure 138/98 H 07/19/23 19:25 Pulse Oximetry 95 07/19/23 19:25 Oxygen Delivery Method Room Air 07/19/23 19:25 Temperature 98.4 F 07/19/23 19:25 Pulse Rate 96 H 07/19/23 22:00 Respiratory Rate 15 07/19/23 22:00 Blood Pressure 148/75 H 07/20/23 00:40 Pulse Oximetry 96 07/20/23 00:40 Oxygen Delivery Method Room Air 07/19/23 21:42 Oxygen Delivery Flow Rate 2 07/19/23 19:46 MDM - SOB/Dyspnea MDM Narrative Medical decision making narrative: 72-year-old male with history of chronic obstructive pulmonary disease to the emergency department to complain of shortness of breath. Clinical picture is that of chronic obstructive pulmonary disease exacerbation. We'll send basic labs, troponin, EKG, chest x-ray to evaluate for other potential causes. Breathing treatment and steroids ordered for the patient based on the most likely clinical diagnosis. Patient agrees with this plan. Laboratory data noted. Troponin negative. Chest x-ray with questionable vascular congestion versus interstitial markings. EKG normal sinus rhythm, no ischemia, normal QTC. Patient responded modestly to therapy. We got him up and ambulated him and he felt significantly short of breath with ambulation. That he lives alone I believe he is best served by admission for continued breathing treatments and steroids kick in. He required 2 L of oxygen. Case discussed with the hospitalist who agreed with this patient to her service. Lab Data Labs: Lab Results 07/19/23 07/19/23 Range/Units 19:30 19:35 WBC 8.8 (4.0-11.0) 10^3/uL RBC 4.20 L (4.70-6.10) 10^6/uL Hgb 12.9 L (14.0-18.0) g/dL Hct 39.4 L (42.0-54.0) % MCV 93.8 (80.0-94.0) fL MCH 30.7 (25.9-34.0) pg MCHC 32.7 (29.9-35.2) g/dL RDW 12.2 (11.0-15.0) % Plt Count 330 (150-450) 10^3/uL MPV 9.2 L (9.5-13.5) fL Neut % (Auto) 58.4 (43.0-75.0) % Lymph % (Auto) 24.0 (20.5-60.0) % [place] % (Auto) 9.4 (1.7-12.0) % Eos % (Auto) 7.4 H (0.9-7.0) % Baso % (Auto) 0.7 (0.2-2.0) % Neut # (Auto) 5.2 (1.4-6.5) 10^3/uL Lymph # (Auto) 2.1 (1.2-3.8) 10^3/uL [place] # (Auto) 0.8 (0.3-0.8) 10^3/uL Eos # (Auto) 0.7 (0.0-0.7) 10^3/uL Baso # (Auto) 0.1 (0.0-0.1) 10^3/uL Abs Immat Gran (auto) 0.01 (0.00-0.03) 10^3/uL Imm/Tot Granulo (auto) 0.1 (0.0-0.5) % Sodium 132 L (136-145) mmol/L Potassium 3.3 L (3.5-5.1) mmol/L Chloride 102 (98-107) mmol/L Carbon Dioxide 26.0 (21.0-32.0) mmol/L Anion Gap 7.3 BUN 11.0 (7.0-18.0) mg/dL Creatinine 0.66 L (0.70-1.30) mg/dL Est GFR ( Amer) >60 (>=60) Est GFR (Non-Af Amer) >60 (>=60) BUN/Creatinine Ratio 16.7 Glucose 96 (74-106) mg/dL Calcium 9.0 (8.5-10.1) mg/dL Troponin I High Sens 11.2 (4.0-76.1) pg/mL NT-Pro-B Natriuret Pep 273.0 (<=900.0) pg/mL Adenovirus (PCR) Not detected (NOT DETECTE) C. pneumoniae DNA (PCR) Not detected (NOT DETECTE) Coronavirus Type OC43 Not detected (NOT DETECTE) Coronavirus Type HKU1 Not detected (NOT DETECTE) Coronavirus Type 229E Not detected (NOT DETECTE) Coronavirus Type NL63 Not detected (NOT DETECTE) Human Metapneumovir PCR Not detected (NOT DETECTE) M. pneumoniae (PCR) Not detected (NOT DETECTE) Parainfluenza PCR Not detected (NOT DETECTE) Parainfluenza 2 (PCR) Not detected (NOT DETECTE) Parainfluenza 3 (PCR) Not detected (NOT DETECTE) Parainfluenza 4 (PCR) Not detected (NOT DETECTE) RSV (RT-PCR) Not detected (NOT DETECTE) Entero/Rhino (PCR) Not detected (NOT DETECTE) SARS-CoV-2 (PCR) Not detected (NOT DETECTE) Bordetella pertussis (PCR) Not detected (NOT DETECTE) B parapertussis DNA PCR Not detected (NOT DETECTE) Influenza Type A (PCR) Not detected (NOT DETECTE) Influenza Type B (PCR) Not detected (NOT DETECTE) Discharge Plan Discharge Chief Complaint: Shortness of Breath/Dyspnea Clinical Impression: COPD exacerbation Patient Disposition: Admitted as Observation Time of Disposition Decision: 01:08 Condition: Fair Prescriptions / Home Meds: No Action prednisone 10 mg tablet See Rx Instructions .ROUTE .COMPLEX Qty: 30 0RF Rx Instructions: 4 by mouth daily for three days then 3 by mouth daily for three days then 2 by mouth daily for three days then 1 by mouth daily for three days montelukast 10 mg tablet 10 mg albuterol sulfate 90 mcg/actuation HFA aerosol inhaler 2 inh INHALATION tamsulosin [Flomax] 0.4 mg capsule 0.4 mg PO DAILY Referrals: PAPO CASTRO [Primary Care Provider] - 1 week
[2023-07-19 19:40] LABS: Adenovirus NOT DETECTED (NOT DETECTE); Bordetella parapertussis NOT DETECTED (NOT DETECTE); Coronavirus 229E NOT DETECTED (NOT DETECTE); Coronavirus HKU1 NOT DETECTED (NOT DETECTE); Coronavirus NL63 NOT DETECTED (NOT DETECTE); Coronavirus OC43 NOT DETECTED (NOT DETECTE); Human Metapneumovirus NOT DETECTED (NOT DETECTE); Human Rhinovirus/Enterovirus NOT DETECTED (NOT DETECTE); Influenza A NOT DETECTED (NOT DETECTE); Influenza B NOT DETECTED (NOT DETECTE); Mycoplasma pneumoniae NOT DETECTED (NOT DETECTE); Parainfluenza Virus 1 NOT DETECTED (NOT DETECTE); Parainfluenza Virus 2 NOT DETECTED (NOT DETECTE); Parainfluenza Virus 3 NOT DETECTED (NOT DETECTE); Parainfluenza Virus 4 NOT DETECTED (NOT DETECTE); Respiratory Syncytial Virus NOT DETECTED (NOT DETECTE); SARS-CoV-2 NOT DETECTED (NOT DETECTE)
[2023-07-19 19:42] LABS: Basophils Absolute Auto 0.1 10^3/uL (0.0-0.1); Basophils Percent Auto 0.7 % (0.2-2.0); Eosinophils Absolute Auto 0.7 10^3/uL (0.0-0.7); Eosinophils Percent Auto 7.4 % (0.9-7.0); Hematocrit 39.4 % (42.0-54.0); Hemoglobin 12.9 g/dL (14.0-18.0); Immature Granulocytes Abs Auto 0.01 10^3/uL (0.00-0.03); Immature Granulocytes Pct Auto 0.1 % (0.0-0.5); Lymphocytes Absolute Auto 2.1 10^3/uL (1.2-3.8); Mean Corpuscular HGB Conc 32.7 g/dL (29.9-35.2); Mean Corpuscular Hemoglobin 30.7 pg (25.9-34.0); Mean Corpuscular Volume 93.8 fL (80.0-94.0); Mean Platelet Volume 9.2 fL (9.5-13.5); Monocytes Absolute Auto 0.8 10^3/uL (0.3-0.8); Monocytes Percent Auto 9.4 % (1.7-12.0); Neutrophils Absolute Auto 5.2 10^3/uL (1.4-6.5); Neutrophils Percent Auto 58.4 % (43.0-75.0); Platelet Count 330 10^3/uL (150-450); Red Cell Distribution Width 12.2 % (11.0-15.0); White Blood Count 8.8 10^3/uL (4.0-11.0)
[2023-07-19] MEDS: IPRATROPIUM/ALBUTEROL SULFATE 3 ML AMPUL.NEB IH (19:45)
--- NOTE | 2023-07-19 19:50 | PC.NURSE ---
Placed on 2 liters N/C for comfort
[2023-07-19] MEDS: METHYLPREDNISOLONE SOD SUCC PF 125 MG/2 ML VIAL IVP (19:59)
[2023-07-19 20:06] LABS: Anion Gap 7.3; BUN Creatinine Ratio 16.7; Chloride 102 mmol/L (98-107); Estimated GFR (African America >60 (>=60); Estimated GFR (Non-African Ame >60 (>=60); Glucose 96 mg/dL (74-106); Potassium 3.3 mmol/L (3.5-5.1); Sodium 132 mmol/L (136-145); Troponin I High Sensitivity 11.2 pg/mL (4.0-76.1)
--- NOTE | 2023-07-19 22:07 | PC.NURSE ---
Patient ambulated in avelar. Increased SOB noted. Saturation went from 94 to 92 HR 110. Had to sit at bedside to recover
[2023-07-20] VITALS (16 sets, daily range): BP systolic 131–148; BP diastolic 75–81; PULSE 92–122; RESP 16–18; TEMP 36.4–36.7; O2SAT 92–96; BMI 21.5
--- OUTSIDE RECORDS SUMMARY | 2023-07-20 01:54 | XMS_ITS | CCD ---
Author Name Unknown Address [address] [place] [address] Organization [facility] Care Team Providers [employer] Rep Name Role Phone NEGRITA LANDERS Attending Unavail able PAPO CASTRO Primary Care Unavailable CABRERA ., DR ANDREI Cloud Admitting Unavailable CABRERA ., DR ANDREI Cloud Attending Unavailable CABRERA ., DR ANDREI Cloud Consulting Unavailable PAY ., DR GANDARA Consulting Unavailable GRECHNY ., JOSIAH ACEVEDO Consulting Unavaildina e SAMSA ., SUSHANT Consulting Unavailable KENNY FERRIS Consulting [...] JUAN Consulting Unavailable IQRA MYERS Consulting Unavailable Ppao Castro Primary Care Physician MD Papo Castro Attending Unavailable Yo PONCE Admitting Unavailable Yo PONCE Attending Unavailable Yo PONCE Referring Unavailable MD Papo Castro Admitting Unavailable Lolis Jenkins Attending Unavailable MD Papo Castro Attending Unavailable MD Papo Castro Attending Unavailable MD Papo Castro Attending Unavailable MD Papo Castro Attending Unavailable MD Melody Huertas Emergency Provider [phone] DO Brie Negrete Primary Care Provider MD Christianne Bautista Admit Provider MD Christianne Bautista Attending Provider [phone] Brie Negrete Primary Care Unavailable Christianne Bautista Admitting Unavailable Amrit Ardon Attending Unavailable Allergies Allergy Classification Reported Allergen(s) Allergy Type Date of Onset Reaction(s) Facility (1 source) Penicillins Drug allergy (disorder) 5 [facility] Repository (2 sources) Penicillin; Translations: [penicillin] Drug Allergy Unknown (qualifier [facility] Penicillins Drug allergy (disorder) 3 [facility] Repository Medications Current Medications Medication Drug [...] symptoms Start Date: 11/07/22 Status: Ordered nystatin [id number] unt/ml oral suspension (1 source) Polyene Antifungal [...] disease (1 source) 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 [facility] Comment on above: Performed By: #### C EPHEID NEG, COVID19 FLU RSV #### [address] Blood Cultureon 06-22-2023 Bacteria identified Cx Nom (Bld) NO GROWTH 5 DAYS PERFORMED BY: [place] [address] PATHOLOGIST DOLPHIN RESEARCHER ADELINA BRUCE M.D. [facility] Comment on above: Performed By: #### C UBLD, LACTIC #### [facility] [address] Gram Stainon 06-22-2023 Microscopic observation Gram stain Nom (Unsp spec) Gram Stain Result 1+ Epithelial Cells 3+ White Blood Cells 1+ Gram Positive Cocci Rare Gram Positive Bacilli PERFORMED BY: [place] [address] PATHOLOGIST DOLPHIN RESEARCHER ADELINA BRUCE M.D. [facility] Comment on above: Performed By: #### C EPHEID NEG, COVID19 FLU RSV #### [address] Lactic Acidon 06-22-2023 Lactate [Moles/Vol] 0.7 mmol/L Normal 0.5-2.2 [facility] Comment on above: Result Comment: PERF ORMED BY: [place] [address] PATHOLOGIST DOLPHIN RESEARCHER ADELINA BRUCE M.D. Performed By: #### C UBLD, LACTIC #### [address] Troponin I High Sensitivityo n 06-22-2023 Troponin I High Sensitivity 9.8 pg/mL Normal 0.0-20.0 [facility] Comment on above: Result Comment: PERF ORMED BY: [place] [address] PATHOLOGIST DOLPHIN RESEARCHER ADELINA BRUCE M.D. Performed By: #### C EPHEID NEG, COVID19 FLU RSV #### [address] Activated partial thrombopla stin time (aPTT) in platelet poor plasma by coagulation aOrdered By: Glendy Mai on 06-21-2023 aPTT Coag (PPP) [Time] 32.9 s 25.1-36.5 [facility] Comment on above: A hematocrit value g reater than 55% may lead to inaccurate results in coagulation testing. Patients having hematocrit values >55% require a special collection tube for coagulation studies. Please contact the laboratory at [phone] for redraw instructions. Automated erythrocytes count in urine sediment (number/area)Ordered By: Melody Huertas on 06-21-2023 RBC Auto (Urine sed) [#/Area] 3-4 [HPF] 0-4 [facility] Automated leukocytes count i n urine sediment (number/area)Ordered By: Melody Huertas on 06-21-2023 WBC Auto (Urine sed) [#/Area] Innumerable [HPF] 0-4 [facility] B-Type Natriuretic Peptideon 06-21-2023 Natriuretic peptide B (Bld) [Mass/Vol] 75.0 pg/mL Normal 5-100 [facility] Comment on above: Result Comment: PERF ORMED BY: [place] [address] PATHOLOGIST DOLPHIN RESEARCHER ADELINA BRUCE M.D. Performed By: #### C EPHEID NEG, COVID19 FLU RSV #### [address] Basic Metabolic Panelon 12-2 Anion gap [Moles/Vol] 12.8 mmol/L Normal 6.0-15.0 [facility] Comment on above: Performed By: #### C EPHEID NEG, COVID19 FLU RSV #### [place] [address] [place] Calcium [Mass/Vol] 9.3 mg/dL Normal 8.6-10.3 [facility] Comment on above: Performed By: #### C EPHEID NEG, COVID19 FLU RSV #### [place] [address] [place] Chloride [Moles/Vol] 104 mmol/L Normal 98-107 [facility] Comment on above: Performed By: #### C EPHEID NEG, COVID19 FLU RSV #### [place] [id number] [place] CO2 [Moles/Vol] 24.1 mmol/L Normal 21.0-31.0 [facility] Comment on above: Performed By: #### C EPHEID NEG, COVID19 FLU RSV #### [facility] [address] [place] [address] [place] Creatinine [Mass/Vol] 0.70 mg/dL Normal 0.70-1.30 [facility] Comment on above: Performed By: #### C EPHEID NEG, COVID19 FLU RSV #### [facility] [address] [place] [address] [place] Creatinine Clr Calc Pharmacy 70.92 [facility] Comment on above: Result Comment: PERF ORMED BY: [place] [address] PATHOLOGIST DOLPHIN RESEARCHER ADELINA BRUCE M.D. Performed By: #### C EPHEID NEG, COVID19 FLU RSV #### [place] [address] [place] GFR/1.73 sq M.predicted MDRD (S/P/Bld) [Vol rate/Area] mL/min/{1.73_m2} [facility] Comment on above: Performed By: #### C EPHEID NEG, COVID19 FLU RSV #### [place] [address] [place] Glucose [Mass/Vol] 100 mg/dL Normal 70-100 [facility] Comment on above: Result Comment: [employer] Glucose Reference Range is dependent on time and content of last meal. Glucose of more than 200 mg/dL in a nonstressed, ambulatory subject supports the diagnosis of Diabetes Mellitus. ADA recommended reference range Performed By: #### C EPHEID NEG, COVID19 FLU RSV #### [facility] [address] [place] [address] [place] Potassium [Moles/Vol] 3.9 mmol/L Normal 3.5-5.1 [facility] Comment on above: Performed By: #### C EPHEID NEG, COVID19 FLU RSV #### [facility] [address] [place] [address] [place] Sodium [Moles/Vol] 137 mmol/L Normal 136-145 [facility] Comment on above: Performed By: #### C EPHEID NEG, COVID19 FLU RSV #### [facility] [address] [place] [address] [place] Urea nitrogen [Mass/Vol] 10 mg/dL Normal 7- [facility] Comment on above: Performed By: #### C EPHEID NEG, COVID19 FLU RSV #### [facility] [address] Basophils Auto (Bld) [#/Vol] Ordered By: Glendy Mai on 06-21-2023 Basophils (Bld) [#/Vol] 0.1 10*3/uL 0.0-0.2 [facility] Basophils/100 WBC Auto (Bld) Ordered By: Glendy Mai on 06-21-2023 Basophils/100 WBC (Bld) 0.5 % . [facility] Bilirubin Test strip Ql (U)O rdered By: Melody Huertas on 06-21-2023 Bilirubin Ql (U) Negative Negative [facility] Blood Cultureon 06-21-2023 Bacteria identified Cx Nom (Bld) NO GROWTH 5 DAYS PERFORMED BY: [place] [address] PATHOLOGIST DOLPHIN RESEARCHER ADELINA BRUCE M.D. Normal [facility] Comment on above: Performed By: #### C UBLD, LACTIC #### [facility] [address] [place] [address] COVID CepheidOrdered By: Adrian Mai on 06-21-2023 SARS-CoV-2 (COVID-19) Ab IA Ql Negative Negative [facility] Comment on above: This is a duplicate Cepheid Xpert Xpress CoV-2/Flu/RSV Plus RNA by RT-PCR result to be used for statistical tracking purpose only. SARS-CoV-2 (COVID-19) RNA BENSON+probe Ql (Unsp spec) [facility] COVID-19 / Flu A/B / RSV [...] or Cepheid Disclaimer revoked sooner. PERFORMED BY: [facility] [address] [place] [address] PATHOLOGIST DOLPHIN RESEARCHER ADELINA BRUCE M.D. Normal [facility] Comment on above: Performed By: #### C EPHEID NEG, COVID19 FLU RSV #### [facility] [address] [place] [id number] [facility] CT angio chest PE protocolon 06-21-2023 CT angio chest PE protocol [facility] [place] [address] [place] [address] CT Scan Report Signed Patient: Kelsey Hernandez MR#: [id number] 803 : 1950 Acct:[id number] Age/Sex: 72 / M ADM Date: 06/21/23 Loc: ER Room: Type: [facility] ER Attending Dr: Copies to: Melody Huertas [...] Beal Jr., D.O.06/21/2023 9:06 PM Dictation Location: [place] [address] Transcribed By: [facility] 06/21/232105 Dictated By: Ernesto Beal Jr, DO 06/21/232057 Signed By: 06/21/232105 Normal [facility] Calcium [Mass/volume] in Ser um or PlasmaOrdered By: Glendy Mai on 06-21-2023 Calcium [Mass/Vol] 9.3 mg/dL 8.6-10.3 [facility] Carbon dioxide, total [Moles /volume] in Serum or PlasmaOrdered By: Glendy Mai on 06-21-2023 CO2 [Moles/Vol] 24.1 mmol/L 21.0-31.0 [facility] Cepheid COVID PCR Negativeon 06-21-2023 SARS-CoV-2 (COVID-19) RNA BENSON+probe Ql (Unsp spec) Negative Normal Negative [facility] Comment on above: Result Comment: This is a duplicate Cepheid Xpert Xpress CoV-2/Flu/RSV Plus RNA by RT-PCR result to be used for statistical tracking purpose only. PERFORMED BY: [place] [id number] PATHOLOGIST DOLPHIN RESEARCHER ADELINA BRUCE M.D. Performed By: #### C EPHEID NEG, COVID19 FLU RSV #### [facility] [address] [place] [address] [place] Chloride [Moles/volume] in S eron or PlasmaOrdered By: Glendy Mai on 06-21-2023 Chloride [Moles/Vol] 104 mmol/L 98-107 [facility] Color Auto (U)Ordered By: Heather Huertas on 06-21-2023 Color (U) Yellow Yellow [facility] Complete Blood Count Auto Di ffon 06-21-2023 Basophils (Bld) [#/Vol] 0.1 10*3/uL Normal 0.0-0.2 [facility] Comment on above: Result Comment: PERF ORMED BY: [facility] [address] [place] [id number] PATHOLOGIST DOLPHIN RESEARCHER ADELINA BRUCE M.D. Performed By: #### C EPHEID NEG, COVID19 FLU RSV #### [facility] [address] [place] [address] [place] Basophils/100 WBC (Bld) 0.5 % Normal . [facility] Comment on above: Performed By: #### C EPHEID NEG, COVID19 FLU RSV #### [address] Eosinophils (Bld) [#/Vol] 0.8 10*3/uL High 0.0-0.45 [facility] Comment on above: Performed By: #### C EPHEID NEG, COVID19 FLU RSV #### [address] Eosinophils/100 WBC (Bld) 6.6 % Normal . [facility] Comment on above: Performed By: #### C EPHEID NEG, COVID19 FLU RSV #### [address] Erythrocyte distribution width (RBC) [Ratio] 13.4 % Normal 12.0-14.8 [facility] Comment on above: Performed By: #### C EPHEID NEG, COVID19 FLU RSV #### [address] Hematocrit (Bld) [Volume fraction] 43.0 % Normal 38.8-50.0 [facility] Comment on above: Performed By: #### C EPHEID NEG, COVID19 FLU RSV #### [address] Hemoglobin (Bld) [Mass/Vol] 14.4 g/dL Normal 13.0-17.0 [facility] Comment on above: Performed By: #### C EPHEID NEG, COVID19 FLU RSV #### [address] Lymphocytes (Bld) [#/Vol] 1.8 10*3/uL Normal 1.00-4.8 [facility] Comment on above: Performed By: #### C EPHEID NEG, COVID19 FLU RSV #### [address] Lymphocytes/100 WBC (Bld) 16.0 % Normal . [facility] Comment on above: Performed By: #### C EPHEID NEG, COVID19 FLU RSV #### [address] MCH (RBC) [Entitic mass] 30.9 pg Normal 27.5-35.2 [facility] Comment on above: Performed By: #### C EPHEID NEG, COVID19 FLU RSV #### [address] MCV (RBC) [Entitic vol] 92.6 fL Normal 83.5-101 [facility] Comment on above: Performed By: #### C EPHEID NEG, COVID19 FLU RSV #### [address] Mean Corpuscular HGB Conc 33.4 g/dL Normal 32.5-35.6 [facility] Comment on above: Performed By: #### C EPHEID NEG, COVID19 FLU RSV #### [address] Monocytes (Bld) [#/Vol] 1.0 10*3/uL High 0.0-0.8 [facility] Comment on above: Performed By: #### C EPHEID NEG, COVID19 FLU RSV #### [address] Monocytes/100 WBC (Bld) 19.71 % Normal 0.00-20.00 [facility] Comment on above: Performed By: #### C EPHEID NEG, COVID19 FLU RSV #### [place] [address] [place] Monocytes/100 WBC (Bld) 9.0 % Normal . [facility] Comment on above: Performed By: #### C EPHEID NEG, COVID19 FLU RSV #### [place] [address] [place] Neutrophils (Bld) [#/Vol] 7.8 10*3/uL High 1.8-7.7 [facility] Comment on above: Performed By: #### C EPHEID NEG, COVID19 FLU RSV #### [address] Neutrophils/100 WBC (Bld) 67.9 % Normal . [facility] Comment on above: Performed By: #### C EPHEID NEG, COVID19 FLU RSV #### [facility] [address] NRBC% 0.1 /100{WBC} Normal 0-0.5 [facility] Comment on above: Performed By: #### C EPHEID NEG, COVID19 FLU RSV #### [facility] [address] Platelet mean volume (Bld) [Entitic vol] 6.8 fL Normal 6.6-10.1 [facility] Comment on above: Performed By: #### C EPHEID NEG, COVID19 FLU RSV #### [address] Platelets (Bld) [#/Vol] 372 10*3/uL Normal 150-450 [facility] Comment on above: Performed By: #### C EPHEID NEG, COVID19 FLU RSV #### [address] RBC (Bld) [#/Vol] 4.65 10*6/uL Normal 3.90-5.60 [facility] Comment on above: Performed By: #### C EPHEID NEG, COVID19 FLU RSV #### [address] WBC (Bld) [#/Vol] 11.5 10*3/uL High 4.1-10.5 [facility] Comment on above: Performed By: #### C EPHEID NEG, COVID19 FLU RSV #### [facility] [address] [place] [address] Creatinine [Mass/volume] in Serum or PlasmaOrdered By: Glendy Mai on 06-21-2023 Creatinine [Mass/Vol] 0.70 mg/dL 0.70-1.30 [facility] D-Dimer High Sensitivityon 1 08-22-2022 D-Dimer High Sensitivity 312 ng/mL High 0-243 [facility] Comment on above: Result Comment: The [...] coagulation studies. Please contact the laboratory at [phone] for redraw instructions. PERFORMED BY: [place] [address] PATHOLOGIST DOLPHIN RESEARCHER ADELINA BRUCE M.D. Performed By: #### C EPHEID NEG, COVID19 FLU RSV #### [facility] [address] [place] [address] [place] Dipstick and Microscopicon 1 08-22-2022 Appearance (U) Turbid Critically abnormal Clear [facility] Comment on above: Order Comment: Name Collection Type:: Clean-Voided Midstream Performed By: #### A DDONUAPLUS, CUU #### [place] [address] [place] Bacteria,Urine 4+ High None Seen [facility] Comment on above: Order Comment: Name Collection Type:: Clean-Voided Midstream Performed By: #### A DDONUAPLUS, CUU #### [place] [id number] [place] Bilirubin,Urine Negative Normal Negative [facility] Comment on above: Order Comment: Name Collection Type:: Clean-Voided Midstream Performed By: #### A DDONUAPLUS, CUU #### [place] [id number] [place] Color (U) Yellow Normal Yellow [facility] Comment on above: Order Comment: Name Collection Type:: Clean-Voided Midstream Performed By: #### A DDONUAPLUS, CUU #### [address] Glucose Ql (U) Normal Normal Normal [facility] Comment on above: Order Comment: Name Collection Type:: Clean-Voided Midstream Performed By: #### A DDONUAPLUS, CUU #### [place] [address] [place] Hyaline Casts,Urine None Seen Normal 0-8 [facility] Comment on above: Order Comment: Name Collection Type:: Clean-Voided Midstream Performed By: #### A DDONUAPLUS, CUU #### [address] Ketones Ql (U) 2+ High Negative [facility] Comment on above: Order Comment: Name Collection Type:: Clean-Voided Midstream Performed By: #### A DDONUAPLUS, CUU #### [address] Leukocyte esterase Test strip Ql (U) 3+ High Negative [facility] Comment on above: Order Comment: Name Collection Type:: Clean-Voided Midstream Performed By: #### A DDONUAPLUS, CUU #### [place] [address] [place] Nitrite,Urine Negative Normal Negative [facility] Comment on above: Order Comment: Name Collection Type:: Clean-Voided Midstream Performed By: #### A DDONUAPLUS, CUU #### [place] [address] [place] Occult Blood,Urine Trace High Negative [facility] Comment on above: Order Comment: Name Collection Type:: Clean-Voided Midstream Result Comment: PERF ORMED BY: [place] [address] PATHOLOGIST DOLPHIN RESEARCHER ADELINA BRUCE M.D. Performed By: #### A DDONUAPLUS, CUU #### [place] [address] [place] pH (U) 5.5 [pH] Normal 5.0-9.0 [facility] Comment on above: Order Comment: Name Collection Type:: Clean-Voided Midstream Performed By: #### A DDONUAPLUS, CUU #### [address] Protein,Urine Trace High Negative [facility] Comment on above: Order Comment: Name Collection Type:: Clean-Voided Midstream Performed By: #### A DDONUAPLUS, CUU #### [address] RBC,Urine 3-4 Normal 0-4 [facility] Comment on above: Order Comment: Name Collection Type:: Clean-Voided Midstream Performed By: #### A DDONUAPLUS, CUU #### [address] Specificy [place],Urine 1.022 Normal 1.001-1.030 [facility] Comment on above: Order Comment: Name Collection Type:: Clean-Voided Midstream Performed By: #### A DDONUAPLUS, CUU #### [address] Squamous Epithelial Cell,Urine None Seen Normal 0-2 [facility] Comment on above: Order Comment: Name Collection Type:: Clean-Voided Midstream Performed By: #### A DDONUAPLUS, CUU #### [address] Urobilinogen,Urine Normal Normal Normal [facility] Comment on above: Order Comment: Name Collection Type:: Clean-Voided Midstream Performed By: #### A DDONUAPLUS, CUU #### [facility] [address] [place] [address] [place] WBC,Urine Innumerable High 0-4 [facility] Comment on above: Order Comment: Name Collection Type:: Clean-Voided Midstream Performed By: #### A DDONUAPLUS, CUU #### [address] Yeast,Urine None Seen Normal None Seen [facility] Comment on above: Order Comment: Name Collection Type:: Clean-Voided Midstream Result Comment: PERF ORMED BY: [place] [address] PATHOLOGIST DOLPHIN RESEARCHER ADELINA BRUCE M.D. Performed By: #### A FABIO CUU #### [address] ECG 12 lead ECGon 06-21-2023 ECG 12 lead ECG [facility] [place] [address] [place] [address] Electrocardiograph Report Signed Patient: Kelsey Hernandez MR#: [id number] 803 : 1950 Acct:[id number] Age/Sex: 72 / M ADM Date: 06/21/23 Loc: Room: [address] [place] [address] Type: ADM IN Attending Dr: Christianne Bautista [...] ECGs available Confirmed by RUPERTO LIU MD ([id number]) on 06/22/2023 6:19:35 AM Referred By: Electronically Signed By:RUPERTO LIU MD Transcribed By: MUS Signed By Ruperto Liu Jr, MD [id number] Normal [facility] Eosinophils Auto (Bld) [#/Vo l]Ordered By: Glendy Mai on 06-21-2023 Eosinophils (Bld) [#/Vol] 0.8 10*3/uL 0.0-0.45 [facility] Eosinophils/100 WBC Auto (Bl d)Ordered By: Glendy Mai on 06-21-2023 Eosinophils/100 WBC (Bld) 6.6 % . [facility] Erythrocyte distribution wid th Auto (RBC) [Ratio]Ordered By: Glendy Mai on 06-21-2023 Erythrocyte distribution width (RBC) [Ratio] 13.4 % 12.0-14.8 [facility] Fibrin D-dimer [Presence] in Platelet poor plasma by Latex agglutinationOrdered By: Glendy Mai on 06-21-2023 Fibrin D-dimer LA Ql (PPP) 312 ng/mL 0-243 [facility] Comment on above: The reference range [...] coagulation studies. Please contact the laboratory at [phone] for redraw instructions. Glucose [Mass/volume] in Ser um or PlasmaOrdered By: Glendy Mai on 06-21-2023 Glucose [Mass/Vol] 100 mg/dL 70-100 [facility] Comment on above: ADA recommended refe rence rangeRandom Glucose Reference Range is dependent on time and content of last meal. Glucose of more than 200 mg/dL in a nonstressed, ambulatory subject supports the diagnosis of Diabetes Mellitus. Hematocrit Auto (Bld) [Volum e fraction]Ordered By: Glendy Mai on 06-21-2023 Hematocrit (Bld) [Volume fraction] 43.0 % 38.8-50.0 [facility] Hemoglobin [Mass/volume] in BloodOrdered By: Glendy Mai on 06-21-2023 Hemoglobin (Bld) [Mass/Vol] 14.4 g/dL 13.0-17.0 [facility] INR in Platelet poor plasma by Coagulation assayOrdered By: Glendy Mai on 06-21-2023 INR Coag (PPP) [Relative time] 1.1 {INR} [facility] Comment on above: INR Therapeutic Rang [...] on 06-21-2023 Ketones (U) [Mass/Vol] 2+ Negative [facility] Laboratory - UrinalysisOrder ed By: Melody Huertas on 06-21-2023 Hyaline casts LM Ql (Urine sed) None seen [LPF] 0-8 [facility] Lactate [Moles/volume] in Se rum or PlasmaOrdered By: Melody Huertas on 06-21-2023 Lactate [Moles/Vol] 0.7 mmol/L 0.5-2.2 [facility] Leukocytes [#/volume] correc patricio for nucleated erythrocytes in Blood by Automated counOrdered By: Glendy Mai on 06-21-2023 WBC corrected for nucl RBC Auto (Bld) [#/Vol] 11.5 10*3/uL 4.1-10.5 [facility] Lymphocytes Auto (Bld) [#/Vo l]Ordered By: Glendy Mai on 06-21-2023 Lymphocytes (Bld) [#/Vol] 1.8 10*3/uL 1.00-4.8 [facility] Lymphocytes/100 WBC Auto (Bl d)Ordered By: Glendy Mai on 06-21-2023 Lymphocytes/100 WBC (Bld) 16.0 % . [facility] MCH Auto (RBC) [Entitic mass ]Ordered By: Glendy Mai on 06-21-2023 MCH (RBC) [Entitic mass] 30.9 pg 27.5-35.2 [facility] MCHC Auto (RBC) [Mass/Vol]Or dered By: Glendy Mai on 06-21-2023 MCHC (RBC) [Mass/Vol] 33.4 g/dL 32.5-35.6 [facility] MCV Auto (RBC) [Entitic vol] Ordered By: Glendy Mai on 06-21-2023 MCV (RBC) [Entitic vol] 92.6 fL 83.5-101 [facility] Monocyte distribution width [Entitic volume] in Blood by AutomatedOrdered By: Glendy Mai on 06-21-2023 Monocyte distribution width Auto (Bld) [Entitic vol] 19.71 % 0.00-20.00 [facility] Monocytes Auto (Bld) [#/Vol] Ordered By: Glendy Mai on 06-21-2023 Monocytes (Bld) [#/Vol] 1.0 10*3/uL 0.0-0.8 [facility] Monocytes/100 WBC Auto (Bld) Ordered By: Glendy Mai on 06-21-2023 Monocytes/100 WBC (Bld) 9.0 % . [facility] Natriuretic peptide B [Mass/ Vol]Ordered By: Glendy Mai on 06-21-2023 Natriuretic peptide B (Bld) [Mass/Vol] 75.0 pg/mL 5-100 [facility] Neutrophils Auto (Bld) [#/Vo l]Ordered By: Glendy Mai on 06-21-2023 Neutrophils (Bld) [#/Vol] 7.8 10*3/uL 1.8-7.7 [facility] Neutrophils/100 WBC Auto (Bl d)Ordered By: Glendy Mai on 06-21-2023 Neutrophils/100 WBC (Bld) 67.9 % . [facility] Nitrite Test strip Ql (U)Ord ered By: Melody Huertas on 06-21-2023 Nitrite Ql (U) Negative Negative [facility] No Panel InformationOrdered By: Glendy Mai on 06-21-2023 Estimated GFR (CKD-EPI) > 60.0 mL/Min [facility] Creatinine Clearance (Chem 70.92 [facility] Nucleated erythrocytes [Pres ence] in Blood by Automated countOrdered By: Glendy Mai on 06-21-2023 Nucleated RBC Auto Ql (Bld) 0.1 /100{WBC} 0-0.5 [facility] Partial Thromboplastin Timeo n 06-21-2023 aPTT Coag (Bld) [Time] 32.9 s Normal 25.1-36.5 [facility] Comment on above: Result Comment: A he matocrit value greater than 55% may lead to inaccurate results in coagulation testing. Patients having hematocrit values >55% require a special collection tube for coagulation studies. Please contact the laboratory at [phone] for redraw instructions. Performed By: #### C EPHEID NEG, COVID19 FLU RSV #### [facility] [address] Platelet mean volume Auto (B ld) [Entitic vol]Ordered By: Glendy Mai on 06-21-2023 Platelet mean volume (Bld) [Entitic vol] 6.8 fL 6.6-10.1 [facility] Platelets Auto (Bld) [#/Vol] Ordered By: Glendy Mai on 06-21-2023 Platelets (Bld) [#/Vol] 372 10*3/uL 150-450 [facility] Potassium [Moles/volume] in Serum or PlasmaOrdered By: Glendy Mai on 06-21-2023 Potassium [Moles/Vol] 3.9 mmol/L 3.5-5.1 [facility] Protein Auto test strip (U) [Mass/Vol]Ordered By: Melody Huertas on 06-21-2023 Protein (U) [Mass/Vol] Trace mg/dL Negative [facility] Prothrombin Time INRon 06-21 INR Coag (PPP) [Relative time] 1.1 {INR} Normal [facility] Comment on above: Result Comment: INR [...] C EPHEID NEG, COVID19 FLU RSV #### [facility] [address] [place] [address] [place] PT Coag (PPP) [Time] 12.0 s Normal 9.0-12.9 [facility] Comment on above: Result Comment: A he matocrit value greater than 55% may lead to inaccurate results in coagulation testing. Patients having hematocrit values >55% require a special collection tube for coagulation studies. Please contact the laboratory at [phone] for redraw instructions. Performed By: #### C EPHEID NEG, COVID19 FLU RSV #### [facility] [address] [place] [address] [facility] Prothrombin time (PT)Ordered By: Glendy Mai on 06-21-2023 PT Coag (PPP) [Time] 12.0 s 9.0-12.9 [facility] Comment on above: A hematocrit value g reater than 55% may lead to inaccurate results in coagulation testing. Patients having hematocrit values >55% require a special collection tube for coagulation studies. Please contact the laboratory at [phone] for redraw instructions. RBC Auto (Bld) [#/Vol]Ordere d By: Glendy Mai on 06-21-2023 RBC (Bld) [#/Vol] 4.65 10*6/uL 3.90-5.60 [facility] Serum or plasma anion gap de terminationOrdered By: Glendy Mai on 06-21-2023 Anion gap [Moles/Vol] 12.8 mmol/L 6.0-15.0 [facility] Sodium [Moles/volume] in Ser um or PlasmaOrdered By: Glendy Mai on 06-21-2023 Sodium [Moles/Vol] 137 mmol/L 136-145 [facility] Specific gravity Auto test s trip (U) [Rel density]Ordered By: Melody Huertas on 06-21-2023 Specific gravity (U) [Rel density] 1.022 1.001-1.030 [facility] Squamous epithelial cells de tection in urine sediment by light microscopyOrdered By: Melody Huertas on 06-21-2023 Epithelial cells.squamous LM Ql (Urine sed) None seen [HPF] 0-2 [facility] Troponin I High Sensitivityo n 06-21-2023 Troponin I High Sensitivity 8.1 pg/mL Normal 0.0-20.0 [facility] Comment on above: Result Comment: PERF ORMED BY: [place] [address] PATHOLOGIST DOLPHIN RESEARCHER ADELINA BRUCE M.D. Performed By: #### C EPHEID NEG, COVID19 FLU RSV #### [facility] [address] [place] [address] Troponin I.cardiac [Mass/vol ume] in Serum or Plasma by Detection limit <= 0.01 ng/Ordered By: Melody Huertas on 06-21-2023 Troponin I.cardiac DL <= 0.01 ng/mL [Mass/Vol] 9.8 pg/mL 0.0-20.0 [facility] Urea nitrogen [Mass/volume] in Serum or PlasmaOrdered By: Glendy Mai on 06-21-2023 Urea nitrogen [Mass/Vol] 10 mg/dL - [facility] Urine Cultureon 06-21-2023 Bacteria identified Cx Nom (U) ORGANISM: Streptococcus mitis/oralis grp (O:STRMITORGR) [place] Count >100,000 Organism Comments Organism not Routinely Tested for Susceptibilities PERFORMED BY: [place] [address] PATHOLOGIST DOLPHIN RESEARCHER ADELINA BRUCE M.D. Normal [facility] Comment on above: Performed By: #### A DDONUAPLUS, CUU #### [facility] [address] [place] [address] [place] Urine bacteria detection by automated methodOrdered By: Melody Huertas on 06-21-2023 Bacteria Auto Ql (U) 4+ None Seen [facility] Urine clarity by refractomet ry automatedOrdered By: Melody Huertas on 06-21-2023 Clarity Refractometry automated (U) Turbid Clear [facility] Urine glucose measurement by automated test strip (mass/volume)Ordered By: Melody Huertas on 06-21-2023 Glucose Auto test strip (U) [Mass/Vol] Normal mg/dL Normal [facility] Urine hemoglobin detection b y automated test stripOrdered By: Melody Huertas on 06-21-2023 Hemoglobin Auto test strip Ql (U) Trace Negative [facility] Urine leukocyte esterase det ection by automated test stripOrdered By: Melody Huertas on 06-21-2023 Leukocyte esterase Auto test strip Ql (U) 3+ Negative [facility] Urobilinogen Auto test strip (U) [Mass/Vol]Ordered By: Melody Huertas on 06-21-2023 Urobilinogen (U) [Mass/Vol] Normal mg/dL Normal [facility] WBC Auto (Bld) [#/Vol]Ordere d By: Glendy Mai on 06-21-2023 WBC (Bld) [#/Vol] 11.5 10*3/uL 4.1-10.5 [facility] XR chest 2V*on 06-21-2023 XR chest 2V* [facility] [place] [address] XRay Report Signed Patient: Kelsey Hernandez MR#: [id number] : 1950 Acct:[id number] Age/Sex: 72 / M ADM Date: 06/21/23 [...] Beal Jr., D.O.06/21/2023 3:42 PM Dictation Location: [place] [address] Transcribed By: [facility] 06/21/23 1542 Dictated By: Ernesto Beal Jr, DO 06/21/23 1541 Signed By: 06/21/23 154 [facility] Yeast detection in urine sed iment by light microscopyOrdered By: Melody Huertas on 06-21-2023 Yeast LM Ql (Urine sed) None seen [HPF] None Seen [facility] pH Auto test strip (U)Ordere d By: Melody Huertas on 06-21-2023 pH (U) 5.5 [pH] 5.0-9.0 [facility] Formson 05-25-2023 Forms [id number]#1.00TIFF Normal [facility] ECG 12-Leadon 05-10-2023 ECG 12-Lead [id number]#1.00TIFF Normal [facility] Lab Reportson 05-10-2023 Lab Reports [id number]#1.00TIFF Normal [facility] RAD - MISCon 05-08-2023 RAD - MISC [id number]#1.00TIFF Normal [facility] Ambulatory Visit Summaryon 1 07-07-2022 Ambulatory Visit [...] EDT With: Chester PLATA, Papo Pryor Where: [facility] Normal [address] [id number]- \.br \ Medications\ .br\ What How Much [...] us for your care.\.br\ \.br \ [facility] Family Medicine Office/Clini c Noteon 05-07-2023 Family Medicine Office/Clinic Note HPI Staff Pt is here for a recheck on his lungs, last visit 05/03/[address] Castro Onset: 05/02/23 - [facility] visit. Location: chest Duration: once in awhile, [...] virus vaccine, inactivated 06/02/2022 Recorded Normal [facility] Comment on above: Result Comment: Elec tronically [...] PM EST With: Papo Castro MD Where: [place] [id number]- \.br \ Medications\ .br\ What How Much [...] choosing us for your care.\.br\ \.br \ [facility] ED Note-Physicianon 05-03-20 ED Note-Physician [id number]#1.00TIFF Normal [facility] Family Medicine Office/Clini c Noteon 05-03-2023 Family Medicine Office/Clinic Note HPI Staff Kelsey is a 72 year old male presenting for hospital follow up copd Hospital: [place] not an admission in the ER Admission [...] pulmonary disease, unspecified) - 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 - Will try and get him in [...] influenza virus vaccine, inactivated 06/02/2022 Recorded Normal [facility] Comment on above: Result Comment: Elec tronically Signed By: Chester PLATA, Papo Avila.br\Date and Time Signed: 05/03/23 16:10 EST RAD - MISCon 05-03-2023 RAD - MISC [id number]#1.00TIFF Normal [facility] RAD - MISCon 05-01-2023 RAD - MISC [id number]#1.00TIFF [facility] Provider Letteron 01-29-2023 Provider Letter (Inserted Image. Soila ble to display) January 29, 2023 [place] [address] : 1950 Dear Kelsey, We have been trying to reach you with no success. It is important that you return our call regarding your follow up from your procedure on January [address] Ponce upon receiving this letter. Also, at the time of your call, please provide us with your current information. Thank you for your prompt attention to this matter. Sincerely, [facility] Postoperative Documentson Postoperative Documents [id number]#1.00CD:12 7 [facility] IntraOperative Documentson 0 01-11-2023 IntraOperative Documents [id number]#1.00CD:127 [facility] Consenton 01-10-2023 Consent [id number]#1.00CD:127 [facility] Discharge Instructionson Discharge Instructions [id number]#1.00CD:127 [facility] Main OR Intraoperative Recor don 01-09-2023 Main OR Intraoperative Record IntraOp Document Type FT Summary Primary Physician: Yo PONCE MD Finalized Date/Time: 01/09/23 07:20:56 Pt. Name: KELSEY HERNANDEZ/Sex: 1950 Male Med Rec #: [id number] Physician: Yo PONCE MD Financial #: [id number] Pt. Type: O Room/Bed: [facility] 10/23 Admit/Disch: 01/08/23 12:40:27 - 01/08/23 23:59:59 [...] 2 Entry 3 Case Attendee Joanne DNP, B AND B GANG WORKER, Queen Rere VILLEGAS, German Baldwin, Ciera Gan Role Performed B AND B GANG WORKER Insulating Machine Operator - Primary Staff - Other Time In [...] Queen Alix Gan, German Jernigan RN, Selena EMPLOYMENT PROGRAMS ANALYST, ROSARIO Lake MD, Maher Time Out Complete [...] and t (more content not included)... Normal [facility] Consent for Treatmenton 12-23 Consent for Treatment [id number]#1.00CD:127 Normal [facility] Discharge Instructionson Discharge Instructions KELSEY HERNANDEZ :1950 [...] hours Discharge Diet(s) Regular Pharmacy Information Other: [place] pharmacy Discharge Instructions Discharge Instructions New Follow Up Appointments after Discharge Follow Up with Yo PONCE When: Comments: office will call for follow up Where: [address] [place] [address] Business (1) Medications What How [...] day. Colon (more content not included)... Normal [facility] Comment on above: Result Comment: Elec tronically [...] Return to activities:: After 24 hours. Normal [facility] Comment on above: Result Comment: Elec tronically Signed By: ROSARIO PLATA, Yo\.br\Date and Time Signed: 01/08/23 14:54 EDT Other Comment: Ladi ramirez Attachment - attachment storage system not supported [id number] Can be viewed in source systemMissing Attachment - attachment storage system not supported [id number] Can be viewed in source system Inpatient Patient Summaryon 01-08-2023 Inpatient Patient Summary [address] [address] [facility] Clinical Discharge Instructions PERSON INFORMATION Name: KELSEY HERNANDEZ PHYSICIANS Admitting Physician: Yo PONCE MD Attending Physician: Yo PONCE MD PCP: Papo Castro MD Discharge Diagnosis: Colon polyp Comment: PATIENT EDUCATION INFORMATION Instructions: Colonoscopy, Care After Surgery Rosario (CUSTOM); Colon Polyps; Diverticulosis MAGR (CUSTOM) Medication Leaflets: Follow up: With: Address: When: Yo PONCE [address] [place] [address] [address] [place], [place] [id number] [employer] (1) Comments: office will call for follow [...] Capsules By Mouth every day. Comment: Normal [facility] Main OR PACU I Recordon 12-23 Main OR PACU I Record PACU Phase I Docum ent Type FT Summary Primary Physician: Yo PONCE MD Finalized Date/Time: 01/08/23 16:01:54 Pt. Name: KELSEY HERNANDEZ Marlen/Sex: 1950 Male Med Rec #: [id number] Physician: Yo PONCE MD Financial #: [id number] Pt. Type: O Room/Bed: [facility] 10/23 Admit/Disch: 01/08/23 12:40:27 - Institution: Case [...] By: Sharon Rodriguez RN 01/08/23 16:01 Normal [facility] Main OR Preoperative Recordo n 01-08-2023 Main OR Preoperative Record Holding Area Document Type FT Summary Primary Physician: Yo PONCE MD Finalized Date/Time: 01/08/23 12:49:38 Pt. Name: KELSEY HERNANDEZ/Sex: 1950 Male Med Rec #: [id number] Physician: Yo PONCE MD Financial #: [id number] Pt. Type: O Room/Bed: [facility] 10/23 Admit/Disch: 01/08/23 12:40:27 - Institution: Case [...] By: Tomasa Arthur RN 01/08/23 12:49 Normal [facility] Outpatient Surgery Discharge Instructionon 01-08-2023 Outpatient Surgery Discharge Instruction [address] [address] Patient Discharge Instructions PERSON INFORMATION Name: KELSEY [...] Follow up: With: Address: When: Yo PONCE [address] [place] [address] [place] [phone] [facility] (1) Comments: office will call for follow up Pharmacy Information: Other: [place] pharmacy You may receive a survey from Yvonne Ulloa asking you to rate your care experience. Your feedback is important and will help us understand what we do well and how we can improve the quality of care we provide to you, your loved ones and our community. It?s an honor to serve you. Thank you for choosing [facility] HERE ARE THE MEDICATION CHANGES THAT OCCURRED [...] grow in (more content not included)... Normal [facility] Patient Education - Texton 0 01-08-2023 Patient [...] unsweetened, w/added ascorbic acid 1 cup 0.5 [place] 1 cup 0.7 Vegetables Cooked Green beans 1 cup 4.0 Carrots 1/2 cup sliced 2.3 Peas 1 cup 8.8 Potato (baked, with skin) 1 medium potato 3.8 Raw [place] (with peel) 1 cucumber 1.5 Lettuce 1 [...] IMMEDIATE MEDIC (more content not included)... Normal [facility] Progress Note-Physicianon Progress Note-Physician Patient: KELSEY HERNANDEZ Age: 72 years Sex: Male : 1950 Associated Diagnoses: None Author: Minor Nj MD Postoperative Information Postoperative disposition: Postoperative disposition: To PACU. Optimetrix number: Optimetrix number [id number]. Anesthetic utilized: General. Physical Examination Vital Signs [...] when meets criteria ( To home ). [facility] Comment on above: Result Comment: Elec tronically [...] AAA (abdominal aortic aneurysm) / SNOMED CT 946759559 / Confirmed Adult failure to thrive / SNOMED CT 995090945 / Confirmed Aortic atherosclerosis / SNOMED CT 892893926 / Confirmed BPH (benign prostatic hyperplasia) / SNOMED CT 764188437 / Confirmed BRBPR (bright red blood per rectum) / SNOMED CT 739856596 / Confirmed COPD (chronic obstructive pulmonary disease) / SNOMED CT 50606711 / Confirmed History of colon polyps / SNOMED CT 3256576125 / Confirmed Hypercholesterolemia / SNOMED CT 38973072 / Confirmed, Active Problems (8) AAA (abdominal [...] in all extremities. Gastrointestinal: Soft, Non-tender. Plan Stateless Society of Anesthesiologists (ASA) physical status classification: Class III. Anesthetic Preoperative Plan: Anesthesia General. [facility] Comment on above: Result Comment: Elec tronically Signed By: Clem PLATA, Minor Lara\.br\Date and Time Signed: 01/08/23 13:37 EDT RAD - Ultrasound Reporton RAD - Ultrasound Report [id number]#1.00CD:127 [facility] Pre-Certification Formon Pre-Certification Form [id number]#1.00CD:127 [facility] Consent for Procedure/Surger yon 11-08-2022 Consent for Procedure/Surgery [id number]#1.00CD:127 [facility] Ambulatory Visit Summaryon 0 11-07-2022 Ambulatory Visit Summary KELSEY HERNANDEZ :1950 Visit Date:11/07/2022 Ambulatory Visit Instructions Your Diagnosis History of colon polyps BRBPR (bright red blood per rectum) Your Care Team Attending Physician - Lolis Jenikns CNP Primary Care Physician - Papo Castro [...] including vitamins, herbs, eye drops, creams, and oqfe-qhy-icmdoxf medicines. ? Any problems you or family [...] provider rec (more content not included)... Normal [facility] Gastroenterology Office/Clin ic Noteon 11-07-2022 Gastroenterology Office/Clinic Note Chief Complaint Colonoscopy recheck. HPI Staff This is a 72 year old male who presents today to schedule a colonoscopy. Patient was referred by [place] for a diagnostic colonoscopy. Per referral patient answered yes to [facility] and last colonoscopy was 09/10/2018 History of Present Illness Patient is a 72-year-old male who presents for colonoscopy. Patient had previous colonoscopy 08/2018 at [place] that revealed 3 polyps removed from ascending [...] of colonic polyps) Previous colonoscopy 08/2018 at [place] revealed 3 polyps removed from ascending colon, [...] 2 weeks ago. Previous colonoscopy 08/2018 at [place] revealed 3 polyps removed from ascending colon, polyp removed from transverse colon, descending colon polyp removed from rectum, diverticulosis, hemorrhoids?patient was recommended to have repeat colonoscopy in 3 years- 08/2021- not done. No pathology results available to review during today's encounter. Ordered Colonoscopy. Denies anticoagulation therapy. Ordered: Colonoscopy (Hospital Procedure) Has prep from [place] for colonoscopy. Follow-up With When Contact Information [...] influenza virus vaccine, inactivated 06/02/2022 Recorded Normal [facility] Comment on above: Result Comment: Elec tronically Signed By: Lolis Jenkins CNP\.br\Date and Time Signed: 11/07/22 14:52 EDT Physician Referralon 023 Physician Referral [id number]#1.00CD:127 Normal [facility] ED Note-Physicianon 10-20-19 23 ED Note-Physician [id number]#1.00CD:127 Normal [facility] CBC W MANUAL DIFFon 10-14-19 23 ATYPICAL LYMPH # Normal [facility] Comment on above: Performed By: #### C BCMAN #### [facility] [address] [place] [address] Dr. Caitlin Saels ATYPICAL LYMPH % Normal [facility] Comment on above: Performed By: #### C BCMAN #### [facility] [address] [address] [address] Caitlin Sales BAND # 0.0 103/ul Normal 0.0-0.3 [facility] Comment on above: Performed By: #### C BCMAN #### [facility] [address] [address] [address] Caitlin Sales BAND % 0 % Normal 0-5 [facility] Comment on above: Performed By: #### C BCMAN #### [facility] [address] [address] [address] Caitlin Sales BASOM # 0.00 103/ul Normal 0.00-0.10 [facility] Comment on above: Performed By: #### C BCMAN #### [facility] [address] [place] [address] Dr. Caitlin Sales BASOM % 0.0 % Critically low 0.2-2.0 [facility] Comment on above: Performed By: #### C BCMAN #### [facility] [address] [place] [address] Dr. Caitlin Sales BLAST # Normal [facility] Comment on above: Performed By: #### C BCKINGSLEY #### [facility] [address] [place] [address] Dr. Caitlin Sales BLAST % Normal [facility] Comment on above: Performed By: #### C LUBNA #### [facility] [address] [place] [address] Dr. Caitlin Sales CORRECTED WBC Normal 4.0-11.0 [facility] Comment on above: Performed By: #### C LUBNA #### [facility] [address] [place] [address] Dr. Caitlin Sales EOS # 0.00 103/ul Normal 0.00-0.70 [facility] Comment on above: Performed By: #### C LUBNA #### [facility] [address] [place] [address] Dr. Caitlin Sales EOS% 0.0 % Critically low 0.9-7.0 [facility] Comment on above: Performed By: #### C BCKINGSLEY #### [facility] [address] [place] [address] Dr. Caitlin Sales HCT 39.8 % Critically low 42.0-54.0 [facility] Comment on above: Performed By: #### C BCKINGSLEY #### [facility] [address] [place] [address] Dr. Caitlin Sales HGB 13.1 g/dl Critically low 14.0-18.0 [facility] Comment on above: Performed By: #### C LUBNA #### [facility] [address] [address] [address] Caitlin Sales LYMPHM # 0.46 103/ul Critically low 1.20-3.80 [facility] Comment on above: Performed By: #### C LUBNA #### [facility] [address] [address] [address] Caitlin Sales LYMPHM% 2.0 % Critically low 20.5-60.0 [facility] Comment on above: Performed By: #### C LUBNA #### [facility] [address] [place] [address] Dr. Caitlin Sales MCH 31.3 pg Normal 25.9-34.0 [facility] Comment on above: Performed By: #### C LUBNA #### [facility] [address] [place] [address] Dr. Caitlin Sales MCHC 32.9 g/dl Normal 29.9-35.2 [facility] Comment on above: Performed By: #### C LUBNA #### [facility] [address] [place] [address] Dr. Caitlin Sales MCV 95.0 fL Critically high 80.0-94.0 [facility] Comment on above: Performed By: #### C LUBNA #### [facility] [address] [place] [address] Dr. Caitlin Sales METAMYELOCYTE # Normal [facility] Comment on above: Performed By: #### Emmy CALVO #### [facility] [address] [place] [address] Dr. Caitlin Sales METAMYELOCYTE % Normal [facility] Comment on above: Performed By: #### Emmy CALVO #### [facility] [address] [place] [address] Dr. Caitlin Sales MONOM# 0.69 103/ul Normal 0.30-0.80 [facility] Comment on above: Performed By: #### C LUBNA #### [facility] [address] [place] [address] Dr. Caitlin Sales MONOM% 3.0 % Normal 1.7-12.0 [facility] Comment on above: Performed By: #### C LUBNA #### [facility] [address] [address] [address] Caitlin Sales MPV 9.9 fL Normal 9.5-13.5 [facility] Comment on above: Performed By: #### C LUBNA #### [facility] [address] [address] [address] Caitlin Sales MYELOCYTE # Normal [facility] Comment on above: Performed By: #### C LUBNA #### [facility] [address] [address] [address] Caitlin Sales MYELOCYTE % Normal [facility] Comment on above: Performed By: #### C LUBNA #### [facility] [address] [place] [address] Dr. Caitlin Sales NRBC Normal [facility] Comment on above: Performed By: #### C LUBNA #### [facility] [address] [place] [address] Dr. Caitlin Sales PLT 327 103/ul Normal 150-450 [facility] Comment on above: Performed By: #### C LUBNA #### [facility] [address] [place] [address] Dr. Caitlin Sales RBC 4.19 106/ul Critically low 4.70-6.10 [facility] Comment on above: Performed By: #### C LUBNA #### [facility] [address] [place] [address] Dr. Caitlin Sales RDW 12.1 % Normal 11.0-15.0 [facility] Comment on above: Performed By: #### C LUBNA #### [facility] [address] [place] [address] Dr. Caitlin Sales SEG # 21.75 103/ul Critically high 1.40-6.50 [facility] Comment on above: Performed By: #### C LUBNA #### [facility] [address] [place] [address] Dr. Caitlin Sales SEG % 95.0 % Critically high 43.0-75.0 [facility] Comment on above: Performed By: #### C LUBNA #### [facility] [address] [address] [address] Caitlin Sales WBC 22.9 103/ul Critically high 4.0-11.0 [facility] Comment on above: Performed By: #### C LUBNA #### [facility] [address] [place] [address] Dr. Caitlin Sales PROF 14(COMP METB)on 023 Albumin [Mass/Vol] 3.1 g/dL Critically low 3.4-5.0 [facility] Comment on above: Performed By: #### L ACT #### [facility] [address] [place] [address] Dr. Caitlin Sales Albumin/Globulin [Mass ratio] 1.2 {ratio} Normal [facility] Comment on above: Performed By: #### L ACT #### [facility] [address] [place] [address] Dr. Caitlin Sales ALP [Catalytic activity/Vol] 45 U/L Critically low 46-116 [facility] Comment on above: Performed By: #### L ACT #### [facility] [address] [place] [address] Dr. Caitlin Sales ALT [Catalytic activity/Vol] 26 U/L Normal 16-63 [facility] Comment on above: Performed By: #### L ACT #### [facility] [address] [place] [address] Dr. Caitlin Sales Anion gap [Moles/Vol] 11.7 mmol/L Normal [facility] Comment on above: Performed By: #### L ACT #### [facility] [address] [place] [address] Dr. Caitlin Sales AST [Catalytic activity/Vol] 11 U/L Critically low 15-37 [facility] Comment on above: Performed By: #### L ACT #### [facility] [address] [place] [address] Dr. Caitlin Sales Bilirubin [Mass/Vol] 0.2 mg/dL Normal 0.2-1.0 [facility] Comment on above: Performed By: #### L ACT #### [facility] [address] [address] [address] Caitlin Sales Calcium [Mass/Vol] 8.7 mg/dL Normal 8.5-10.1 [facility] Comment on above: Performed By: #### L ACT #### [facility] [address] [address] [address] Caitlin Sales Chloride [Moles/Vol] 104 mmol/L Normal 98-107 [facility] Comment on above: Performed By: #### L ACT #### [facility] [address] [address] [address] Caitlin Sales CO2 [Moles/Vol] 29.3 mmol/L Normal 21.0-32.0 [facility] Comment on above: Performed By: #### L ACT #### [facility] [address] [place] [address] Dr. Caitlin Sales Creatinine [Mass/Vol] 0.73 mg/dL Normal 0.70-1.30 [facility] Comment on above: Performed By: #### L ACT #### [facility] [address] [place] [address] Dr. Caitlin Sales EGFR-AF SIERRA LEONEAN >60 Normal >=60 [facility] Comment on above: Performed By: #### L ACT #### [facility] [address] [place] [address] Dr. Caitlin Sales EGFR-NON AF SIERRA LEONEAN >60 Normal >=60 [facility] Comment on above: Performed By: #### L ACT #### [facility] [address] [place] [address] Dr. Caitlin Sales Globulin (S) [Mass/Vol] 2.6 g/dL Normal [facility] Comment on above: Performed By: #### L ACT #### [facility] [address] [place] [address] Dr. Caitlin Sales Glucose [Mass/Vol] 125 mg/dL Critically high 74-106 T [facility] Comment on above: Performed By: #### L ACT #### [facility] [address] [place] [address] Dr. Caitlin Sales Potassium [Moles/Vol] 4.0 mmol/L Normal 3.5-5.1 [facility] Comment on above: Performed By: #### L ACT #### [facility] [address] [place] [address] Dr. Caitlin Sales Protein [Mass/Vol] 5.7 g/dL Critically low 6.4-8.2 [facility] Comment on above: Performed By: #### L ACT #### [facility] [address] [address] [address] Caitlin Sales Sodium [Moles/Vol] 141 mmol/L Normal 136-145 [facility] Comment on above: Performed By: #### L ACT #### [facility] [address] [place] [address] Dr. Caitlin Sales Urea nitrogen [Mass/Vol] 20.0 mg/dL Critically high 7.0-18.0 [facility] Comment on above: Performed By: #### L ACT #### [facility] [address] [place] [address] Dr. Caitlin Sales Urea nitrogen/Creatinine [Mass ratio] 27.4 mg/mg Normal [facility] Comment on above: Performed By: #### L ACT #### [facility] [address] [place] [address] Dr. Caitlin Sales CBC AUTO DIFFon 10-12-2022 BASO # 0.0 103/ul Normal 0.0-0.1 [facility] Comment on above: Performed By: #### L ACT #### [facility] [address] [place] [address] Dr. Caitlin Sales Basophils/100 WBC (Bld) 0.1 % Critically low 0.2-2.0 [facility] Comment on above: Performed By: #### L ACT #### [facility] [address] [place] [address] Dr. Caitlin Sales EO # 0.0 103/ul Normal 0.0-0.7 [facility] Comment on above: Performed By: #### L ACT #### [facility] [address] [place] [address] Dr. Caitlin Sales Eosinophils/100 WBC (Bld) 0.0 % Critically low 0.9-7.0 [facility] Comment on above: Performed By: #### L ACT #### [facility] [address] [place] [address] Dr. Caitlin Sales Erythrocyte distribution width (RBC) [Ratio] 12.2 % Normal 11.0-15.0 [facility] Comment on above: Performed By: #### L ACT #### [facility] [address] [place] [address] Dr. Caitlin Sales Hematocrit (Bld) [Volume fraction] 38.5 % Critically low 42.0-54.0 [facility] Comment on above: Performed By: #### L ACT #### [facility] [address] [place] [address] Dr. Caitlin Sales Hemoglobin (Bld) [Mass/Vol] 12.8 g/dL Critically low 14.0-18.0 [facility] Comment on above: Performed By: #### L ACT #### [facility] [address] [place] [address] Dr. Caitlin Sales IG # 0.04 10e3/ul Critically high 0.00-0.03 [facility] Comment on above: Performed By: #### L ACT #### [facility] [address] [place] [address] Dr. Caitlin Sales IG % 0.5 % Normal 0.0-0.5 [facility] Comment on above: Performed By: #### L ACT #### [facility] [address] [place] [address] Dr. Caitlin Sales LYMPH # 0.5 103/ul Critically low 1.2-3.8 [facility] Comment on above: Performed By: #### L ACT #### [facility] [address] [place] [address] Dr. Caitlin Sales Lymphocytes/100 WBC (Bld) 6.1 % Critically low 20.5-60.0 [facility] Comment on above: Performed By: #### L ACT #### [facility] [address] [place] [address] Dr. Caitlin Sales MANUAL DIFF REQ NO Normal [facility] Comment on above: Performed By: #### L ACT #### [facility] [address] [place] [address] Dr. Caitlin aSles MCH (RBC) [Entitic mass] 31.3 pg Normal 25.9-34.0 [facility] Comment on above: Performed By: #### L ACT #### [facility] [address] [place] [address] Dr. Caitlin Sales MCHC (RBC) [Mass/Vol] 33.2 g/dL Normal 29.9-35.2 [facility] Comment on above: Performed By: #### L ACT #### [facility] [address] [place] [address] Dr. Caitlin Sales MCV (RBC) [Entitic vol] 94.1 fL Critically high 80.0-94.0 [facility] Comment on above: Performed By: #### L ACT #### [facility] [address] [place] [address] Dr. Caitlin Sales MONO # 0.2 103/ul Critically low 0.3-0.8 [facility] Comment on above: Performed By: #### L ACT #### [facility] [address] [place] [address] Dr. Caitlin Sales Monocytes/100 WBC (Bld) 2.2 % Normal 1.7-12.0 [facility] Comment on above: Performed By: #### L ACT #### [facility] [address] [place] [address] Dr. Caitlin Sales NEUT # 7.8 103/ul Critically high 1.4-6.5 [facility] Comment on above: Performed By: #### L ACT #### [facility] [address] [place] [address] Dr. Caitlin Sales Neutrophils/100 WBC (Bld) 91.1 % Critically high 43.0-75.0 [facility] Comment on above: Performed By: #### L ACT #### [facility] [address] [place] [address] Dr. Caitlin Sales Platelet mean volume (Bld) [Entitic vol] 9.7 fL Normal 9.5-13.5 [facility] Comment on above: Performed By: #### L ACT #### [facility] [address] [address] [address] Caitlin Sales PLT 287 103/ul Normal 150-450 [facility] Comment on above: Performed By: #### L ACT #### [facility] [address] [address] [address] Caitlin Sales RBC 4.09 106/ul Critically low 4.70-6.10 [facility] Comment on above: Performed By: #### L ACT #### [facility] [address] [address] [address] Caitlin Sales WBC 8.6 103/ul Normal 4.0-11.0 [facility] Comment on above: Performed By: #### L ACT #### [facility] [address] [address] [address] Caitlin Sales Family Medicine Office/Clini c [...] discharge follow-up. The patient was admitted to [facility] on 10/05/2022 with dyspnea. He was [...] patient or guardian consented to allow [employer] to record this visit. JUAN PABLO lead sustainability specialist and provider reviewed before signing. JUAN [...] Mother. Immun (more content not included)... Normal [facility] Comment on above: Result Comment: Elec tronically Signed By: Papo Castro MD\.br\Date and Time Signed: 10/12/22 07:31 EDT\.br\Electronically Co-Signed By: Va Musa.br\Date and Time Co-Signed: 10/11/22 14:51 EDT PROF 14(COMP METB)on 023 Albumin [Mass/Vol] 3.1 g/dL Critically low 3.4-5.0 [facility] Comment on above: Performed By: #### L ACT #### [facility] [address] [place] [address] Dr. Caitlin Sales Albumin/Globulin [Mass ratio] 1.1 {ratio} Normal [facility] Comment on above: Performed By: #### L ACT #### [facility] [address] [place] [address] Dr. Caitlin Sales ALP [Catalytic activity/Vol] 47 U/L Normal 46-116 [facility] Comment on above: Performed By: #### L ACT #### [facility] [address] [address] [address] Caitlin Sales ALT [Catalytic activity/Vol] 25 U/L Normal 16-63 [facility] Comment on above: Performed By: #### L ACT #### [facility] [address] [address] [address] Caitlin Sales Anion gap [Moles/Vol] 12.1 mmol/L Normal [facility] Comment on above: Performed By: #### L ACT #### [facility] [address] [place] [address] Dr. Caitlin Sales AST [Catalytic activity/Vol] 12 U/L Critically low 15-37 [facility] Comment on above: Performed By: #### L ACT #### [facility] [address] [address] [address] Caitlin Sales Bilirubin [Mass/Vol] 0.3 mg/dL Normal 0.2-1.0 [facility] Comment on above: Performed By: #### L ACT #### [facility] [address] [address] [address] Caitlin Sales Calcium [Mass/Vol] 8.6 mg/dL Normal 8.5-10.1 [facility] Comment on above: Performed By: #### L ACT #### [facility] [address] [address] [address] Caitlin Sales Chloride [Moles/Vol] 107 mmol/L Normal 98-107 [facility] Comment on above: Performed By: #### L ACT #### [facility] [address] [address] [address] Caitlin Sales CO2 [Moles/Vol] 27.8 mmol/L Normal 21.0-32.0 [facility] Comment on above: Performed By: #### L ACT #### [facility] [address] [address] [address] Caitlin Sales Creatinine [Mass/Vol] 0.68 mg/dL Critically low 0.70-1.30 [facility] Comment on above: Performed By: #### L ACT #### [facility] [address] [address] [address] Caitlin Sales EGFR-AF SIERRA LEONEAN >60 Normal >=60 [facility] Comment on above: Performed By: #### L ACT #### [facility] [address] [address] [address] Caitlin Sales EGFR-NON AF SIERRA LEONEAN >60 Normal >=60 [facility] Comment on above: Performed By: #### L ACT #### [facility] [address] [place] [address] Dr. Caitlin Sales Globulin (S) [Mass/Vol] 2.8 g/dL Normal [facility] Comment on above: Performed By: #### L ACT #### [facility] [address] [place] [address] Dr. Caitlin Sales Glucose [Mass/Vol] 132 mg/dL Critically high 74-106 [facility] Comment on above: Performed By: #### L ACT #### [facility] [address] [place] [address] Dr. Caitlin Sales Potassium [Moles/Vol] 3.9 mmol/L Normal 3.5-5.1 [facility] Comment on above: Performed By: #### L ACT #### [facility] [address] [place] [address] Dr. Caitlin Sales Protein [Mass/Vol] 5.9 g/dL Critically low 6.4-8.2 Th [facility] Comment on above: Performed By: #### L ACT #### [facility] [address] [place] [address] Dr. Caitlin Sales Sodium [Moles/Vol] 143 mmol/L Normal 136-145 [facility] Comment on above: Performed By: #### L ACT #### [facility] [address] [address] [address] Caitlin Sales Urea nitrogen [Mass/Vol] 17.0 mg/dL Normal 7.0-18.0 [facility] Comment on above: Performed By: #### L ACT #### [facility] [address] [address] [address] Caitlin Sales Urea nitrogen/Creatinine [Mass ratio] 25.0 mg/mg Normal [facility] Comment on above: Performed By: #### L ACT #### [facility] [address] [address] [address] Caitlin Sales Ambulatory Visit Summaryon 0 [...] numbers. This can be done either in Micronesian ([place] or metric measurements. Note that charts and online BMI calculators are available to help you find your BMI quickly and easily without having to do these calculations yourself. To calculate your BMI in Micronesian ([place] measurements: 1. Measure your weight in [...] more in (more content not included)... Normal [facility] BNPon 10-11-2022 Natriuretic peptide B (Bld) [Mass/Vol] 640.0 pg/mL Normal <=900.0 [facility] Comment on above: Performed By: #### L ACT #### [facility] [address] [address] [address] Caitlin Sales CBC AUTO DIFFon 10-11-2022 BASO # 0.0 103/ul Normal 0.0-0.1 [facility] Comment on above: Performed By: #### L ACT #### [facility] [address] [address] [address] Caitlin Sales Basophils/100 WBC (Bld) 0.1 % Critically low 0.2-2.0 [facility] Comment on above: Performed By: #### L ACT #### [facility] [address] [place], [place] [address] Dr. Caitlin Sales EO # 0.0 103/ul Normal 0.0-0.7 [facility] Comment on above: Performed By: #### L ACT #### [facility] [address] [place] [address] Dr. Caitlin Sales Eosinophils/100 WBC (Bld) 0.1 % Critically low 0.9-7.0 [facility] Comment on above: Performed By: #### L ACT #### [facility] [address] [place] [address] Dr. Caitlin Sales Erythrocyte distribution width (RBC) [Ratio] 12.2 % Normal 11.0-15.0 [facility] Comment on above: Performed By: #### L ACT #### [facility] [address] [place] [address] Dr. Caitlin Sales Hematocrit (Bld) [Volume fraction] 42.4 % Normal 42.0-54.0 [facility] Comment on above: Performed By: #### L ACT #### [facility] [address] [place] [address] Dr. Caitlin Sales Hemoglobin (Bld) [Mass/Vol] 14.4 g/dL Normal 14.0-18.0 [facility] Comment on above: Performed By: #### L ACT #### [facility] [address] [place] [address] Dr. Caitlin Sales IG # 0.08 10e3/ul Critically high 0.00-0.03 [facility] Comment on above: Performed By: #### L ACT #### [facility] [address] [place] [address] Dr. Caitlin Sales IG % 0.6 % Critically high 0.0-0.5 [facility] Comment on above: Performed By: #### L ACT #### [facility] [address] [place] [address] Dr. Caitiln Sales LYMPH # 1.2 103/ul Normal 1.2-3.8 [facility] Comment on above: Performed By: #### L ACT #### [facility] [address] [place] [address] Dr. Caitlin Sales Lymphocytes/100 WBC (Bld) 9.1 % Critically low 20.5-60.0 [facility] Comment on above: Performed By: #### L ACT #### [facility] [address] [place] [address] Dr. Caitlin Sales MANUAL DIFF REQ NO Normal [facility] Comment on above: Performed By: #### L ACT #### [facility] [address] [place] [address] Dr. Caitlin Sales MCH (RBC) [Entitic mass] 31.6 pg Normal 25.9-34.0 [facility] Comment on above: Performed By: #### L ACT #### [facility] [address] [place] [address] Dr. Caitlin Sales MCHC (RBC) [Mass/Vol] 34.0 g/dL Normal 29.9-35.2 [facility] Comment on above: Performed By: #### L ACT #### [facility] [address] [place] [address] Dr. Caitlin Sales MCV (RBC) [Entitic vol] 93.2 fL Normal 80.0-94.0 [facility] Comment on above: Performed By: #### L ACT #### [facility] [address] [place] [address] Dr. Caitlin Sales MONO # 1.0 103/ul Critically high 0.3-0.8 [facility] Comment on above: Performed By: #### L ACT #### [facility] [address] [place] [address] Dr. Caitlin Sales Monocytes/100 WBC (Bld) 7.0 % Normal 1.7-12.0 [facility] Comment on above: Performed By: #### L ACT #### [facility] [address] [place] [address] Dr. Caitlin Sales NEUT # 11.3 103/ul Critically high 1.4-6.5 [facility] Comment on above: Performed By: #### L ACT #### [facility] [address] [place] [address] Dr. Caitlin Sales Neutrophils/100 WBC (Bld) 83.1 % Critically high 43.0-75.0 [facility] Comment on above: Performed By: #### L ACT #### [facility] [address] [address] [address] Caitlin Sales Platelet mean volume (Bld) [Entitic vol] 8.9 fL Critically low 9.5-13.5 [facility] Comment on above: Performed By: #### L ACT #### [facility] [address] [address] [address] Caitlin Sales PLT 337 103/ul Normal 150-450 [facility] Comment on above: Performed By: #### L ACT #### [facility] [address] [address] [address] Caitlin Sales RBC 4.55 106/ul Critically low 4.70-6.10 [facility] Comment on above: Performed By: #### L ACT #### [facility] [address] [place] [address] Dr. Caitlin Sales WBC 13.6 103/ul Critically high 4.0-11.0 [facility] Comment on above: Performed By: #### L ACT #### [facility] [address] [address] [address] Caitlin Sales Covid-19 PCR ([facility]on 09-23 SARS-CoV-2 (COVID-19) RNA BENSON+probe Ql (Unsp spec) Not detected Normal NOT DETECTED [facility] Comment on above: Result Comment: When [...] for this test is supported by the Systems [employer] Specialist of Health and Human Service's declaration that [...] used). Performed By: #### L ACT #### [facility] [address] [place] [address] Dr. Caitlin Sales PH VENOUS BLOODon 10-11-2022 PCO2 VENOUS 37.3 mmHg Critically low 40.0-52.0 [facility] Comment on above: Performed By: #### L ACT #### [facility] [address] [place], [place] [id number] Dr. Caitlin Sales pH VENOUS 7.456 Critically high 7.330-7.430 [facility] Comment on above: Performed By: #### L ACT #### [facility] [address] [place] [address] Dr. Caitlin Sales PROF 14(COMP METB)on 023 Albumin [Mass/Vol] 3.8 g/dL Normal 3.4-5.0 [facility] Comment on above: Performed By: #### L ACT #### [facility] [address] [place] [address] Dr. Caitlin Sales Albumin/Globulin [Mass ratio] 1.2 {ratio} Normal [facility] Comment on above: Performed By: #### L ACT #### [facility] [address] [place] [address] Dr. Caitlin Sales ALP [Catalytic activity/Vol] 55 U/L Normal 46-116 [facility] Comment on above: Performed By: #### L ACT #### [facility] [address] [place] [address] Dr. Caitlin Sales ALT [Catalytic activity/Vol] 32 U/L Normal 16-63 [facility] [place] [facility] Comment on above: Performed By: #### L ACT #### [facility] [address] [place], [place] [address] Dr. Caitlin Sales Anion gap [Moles/Vol] 11.8 mmol/L Normal [facility] Comment on above: Performed By: #### L ACT #### [facility] [address] [place], [place] [address] Dr. Caitlin Sales AST [Catalytic activity/Vol] 17 U/L Normal 15-37 [facility] Comment on above: Performed By: #### L ACT #### [facility] [address] [address] [address] Caitlin Sales Bilirubin [Mass/Vol] 0.5 mg/dL Normal 0.2-1.0 [facility] Comment on above: Performed By: #### L ACT #### [facility] [address] [address] [address] Caitlin Sales Calcium [Mass/Vol] 8.8 mg/dL Normal 8.5-10.1 [facility] Comment on above: Performed By: #### L ACT #### [facility] [address] [address] [address] Caitlin Sales Chloride [Moles/Vol] 103 mmol/L Normal 98-107 [facility] Comment on above: Performed By: #### L ACT #### [facility] [address] [place] [address] Dr. Caitlin Sales CO2 [Moles/Vol] 26.9 mmol/L Normal 21.0-32.0 [facility] Comment on above: Performed By: #### L ACT #### [facility] [address] [place] [address] Dr. Caitlin Sales Creatinine [Mass/Vol] 0.75 mg/dL Normal 0.70-1.30 [facility] Comment on above: Performed By: #### L ACT #### [facility] [address] [place] [address] Dr. Caitlin Sales EGFR-AF SIERRA LEONEAN >60 Normal >=60 [facility] [place] [facility] Comment on above: Performed By: #### L ACT #### [facility] [address] [address] [address] Caitlin Sales EGFR-NON AF SIERRA LEONEAN >60 Normal >=60 [facility] Comment on above: Performed By: #### L ACT #### [facility] [address] [place] [address] Dr. Caitlin Sales Globulin (S) [Mass/Vol] 3.1 g/dL Normal [facility] Comment on above: Performed By: #### L ACT #### [facility] [address] [address] [address] Caitlin Sales Glucose [Mass/Vol] 114 mg/dL Critically high 74-106 [facility] Comment on above: Performed By: #### L ACT #### [facility] [address] [address] [address] Caitlin Sales Potassium [Moles/Vol] 3.7 mmol/L Normal 3.5-5.1 [facility] Comment on above: Performed By: #### L ACT #### [facility] [address] [address] [address] Caitlin Sales Protein [Mass/Vol] 6.9 g/dL Normal 6.4-8.2 [facility] Comment on above: Performed By: #### L ACT #### [facility] [address] [address] [address] Caitlin Sales Sodium [Moles/Vol] 138 mmol/L Normal 136-145 [facility] Comment on above: Performed By: #### L ACT #### [facility] [address] [address] [address] Caitlin Sales Urea nitrogen [Mass/Vol] 12.0 mg/dL Normal 7.0-18.0 [facility] Comment on above: Performed By: #### L ACT #### [facility] [address] [address] [address] Caitlin Sales Urea nitrogen/Creatinine [Mass ratio] 16.0 mg/mg Normal [facility] Comment on above: Performed By: #### L ACT #### [facility] [address] [address] [address] Caitlin Sales PROTIMEon 10-11-2022 INR Coag (PPP) [Relative time] 0.99 {INR} Normal [facility] Comment on above: Performed By: #### C MP, BNP, CMADM #### [facility] [address] [address] [address] Caitlin Sales INR GUIDELINES SEE BELOW Normal [facility] Comment on above: Result Comment: SERENITY RED INR: 2.0 - 3.0 CONDITIONS NOT LISTED BELOW 2.5 - 3.5 FOR PROSTHETIC HEART VALVE REPLACEMENT 2.5 - 3.5 RECURRENT THROMBOSIS Performed By: #### C MP, BNP, CMADM #### [facility] [address] [place], [place] [address] Dr. Caitlin Sales PT Coag (PPP) [Time] 10.5 s Normal 9.0-11.6 [facility] Comment on above: Performed By: #### C MP, BNP, CMADM #### [facility] [address] [place], [place] [address] Dr. Caitlin Sales PTTon 10-11-2022 aPTT Coag (Bld) [Time] 25.6 s Normal 22.3-36.2 [facility] Comment on above: Performed By: #### C MP, BNP, CMADM #### [facility] [address] [place], [place] [address] Dr. Caitlin Sales Patient Educationon 10-12-19 Patient [...] numbers. This can be done either in Micronesian ([place] or metric measurements. Note that charts and online BMI calculators are available to help you find your BMI quickly and easily without having to do these calculations yourself. To calculate your BMI in Micronesian ([place] measurements: 1. Measure your weight in [...] for Disease Control and Prevention: www.cdc.gov ? [employer]: www.heart.org ? National Heart, Lung, and Blood [place]: www.nhlbi.nih.gov Summary ? Body mass index (BMI) is a number that is calculated from a person's weight and height. ? BMI may help estimate how much of a person's weight is composed of fat. BMI can help identify those who may be at higher risk for certain medical problems. ? BMI can be measured using Micronesian measurements or metric measurements. ? BMI charts are used to identify whether you are underweight, normal weight, overweight, or obese. This information is not intended to replace advice given to you by your health care provider. Make sure you discuss any questions you have with your health care provider. Document Revised: 03/03/2020 Document Reviewed: 01/09/2020 [employer] Patient Education ? 2022 [employer] Normal [facility] TROPONIN, HIGH SENSITIVITYon 10-11-2022 HSTROP 13.6 pg/mL Normal 4.0-76.1 [facility] Comment on above: Result Comment: CUT- OFF POINTS HAVE BEEN ESTABLISHED BASED ON THE FOURTH UNIVERSAL DEFINITIONS OF MYOCARDIAL INFARCTION. THE UPPER REFERENCE LIMIT (URL) OF TROPONIN, DEFINED THE 99TH PERCENTILE OF cTnI DISTRIBUTION IN A REFERENCE POPULATION, HAS BEEN CONFIRMED THE DECISION THRESHOLD FOR AK DIAGNOSIS. Performed By: #### L ACT #### [facility] [address] [address] [address] Caitlin Sales VITAMIN D 25 OHon 10-11-2022 VIT D 25-OH 70.9 ng/mL Normal [facility] Comment on above: Performed By: #### C MP, BNP, CMADM #### [facility] [address] [address] [address] Caitlin Sales VIT D RANGES SEE BELOW Normal [facility] Comment on above: Result Comment: <20 ng/mL Vit D deficient 20 - <30 ng/mL Vit D insufficient 30 - 100 ng/mL Vit D sufficient >100 ng/mL Potential Toxicity Performed By: #### C MP, BNP, CMADM #### [facility] [address] [place] [address] Dr. Caitlin Sales XR CHEST 1 Von [...] KENNY FERRIS Date: 2022-10-11 15:44 Normal [facility] Outside [facility] Correspo ndenceon 10-09-2022 Outside [facility] Correspondence [id number]:127 Normal [facility] Outside [facility] Correspondence [id number]:127 Normal [facility] CBC W MANUAL DIFFon 10-07-19 23 ATYPICAL LYMPH # Normal [facility] Comment on above: Performed By: #### P T, PTT #### [facility] [address] [place] [address] Dr. Caitlin Sales ATYPICAL LYMPH % Normal [facility] Comment on above: Performed By: #### P T, PTT #### [facility] [address] [place] [address] Dr. Caitlin Sales BAND # 0.0 103/ul Normal 0.0-0.3 [facility] [place] [facility] Comment on above: Performed By: #### P T, PTT #### [facility] [address] [place] [address] Dr. Caitlin Sales BAND % 0 % Normal 0-5 [facility] Comment on above: Performed By: #### P T, PTT #### [facility] [address] [place] [address] Dr. Caitlin Sales BASOM # 0.00 103/ul Normal 0.00-0.10 [facility] Comment on above: Performed By: #### P T, PTT #### [facility] [address] [place] [address] Dr. Caitlin Sales BASOM % 0.0 % Critically low 0.2-2.0 [facility] Comment on above: Performed By: #### P T, PTT #### [facility] [address] [place] [address] Dr. Caitlin Sales BLAST # Normal [facility] Comment on above: Performed By: #### P T, PTT #### [facility] [address] [place] [address] Dr. Caitlin Sales BLAST % Normal [facility] Comment on above: Performed By: #### P T, PTT #### [facility] [address] [place] [address] Dr. Caitlin Sales CORRECTED WBC Normal 4.0-11.0 [facility] Comment on above: Performed By: #### P T, PTT #### [facility] [address] [place] [address] Dr. Caitlin Sales EOS # 0.00 103/ul Normal 0.00-0.70 [facility] Comment on above: Performed By: #### P T, PTT #### [facility] [address] [place] [address] Dr. Caitlin Sales EOS% 0.0 % Critically low 0.9-7.0 [facility] Comment on above: Performed By: #### P T, PTT #### [facility] [address] [place] [address] Dr. Caitlin Sales HCT 39.8 % Critically low 42.0-54.0 [facility] Comment on above: Performed By: #### P T, PTT #### [facility] [address] [place] [address] Dr. Caitlin Sales HGB 13.4 g/dl Critically low 14.0-18.0 [facility] Comment on above: Performed By: #### P T, PTT #### [facility] [address] [place] [address] Dr. Caitlin Sales LYMPHM # 0.26 103/ul Critically low 1.20-3.80 [facility] Comment on above: Performed By: #### P T, PTT #### [facility] [address] [place] [address] Dr. Caitlin Sales LYMPHM% 3.0 % Critically low 20.5-60.0 [facility] Comment on above: Performed By: #### P T, PTT #### [facility] [address] [place] [address] Dr. Caitlin Sales MCH 31.3 pg Normal 25.9-34.0 [facility] Comment on above: Performed By: #### P T, PTT #### [facility] [address] [place] [address] Dr. Caitlin Sales MCHC 33.7 g/dl Normal 29.9-35.2 [facility] Comment on above: Performed By: #### P T, PTT #### [facility] [address] [place] [address] Dr. Caitlin Sales MCV 93.0 fL Normal 80.0-94.0 [facility] Comment on above: Performed By: #### P T, PTT #### [facility] [address] [place] [address] Dr. Caitlin Sales METAMYELOCYTE # Normal [facility] Comment on above: Performed By: #### P T, PTT #### [facility] [address] [place] [address] Dr. Caitlin Sales METAMYELOCYTE % Normal [facility] Comment on above: Performed By: #### P T, PTT #### [facility] [address] [place] [address] Dr. Caitlin Sales MONOM# 0.00 103/ul Critically low 0.30-0.80 [facility] Comment on above: Performed By: #### P T, PTT #### [facility] [address] [place] [address] Dr. Caitlin Sales MONOM% 0.0 % Critically low 1.7-12.0 [facility] Comment on above: Performed By: #### P T, PTT #### [facility] [address] [place] [address] Dr. Caitlin Sales MPV 8.9 fL Critically low 9.5-13.5 [facility] Comment on above: Performed By: #### P T, PTT #### [facility] [address] [place] [address] Dr. Caitlin Sales MYELOCYTE # Normal [facility] Comment on above: Performed By: #### P T, PTT #### [facility] [address] [place] [address] Dr. Caitlni Sales MYELOCYTE % Normal [facility] Comment on above: Performed By: #### P T, PTT #### [facility] [address] [place] [address] Dr. Caitlin Sales NRBC Normal [facility] Comment on above: Performed By: #### P T, PTT #### [facility] [address] [place] [address] Dr. Caitlin Sales PLT 280 103/ul Normal 150-450 [facility] Comment on above: Performed By: #### P T, PTT #### [facility] [address] [place] [address] Dr. Caitlin Sales RBC 4.28 106/ul Critically low 4.70-6.10 [facility] Comment on above: Performed By: #### P T, PTT #### [facility] [address] [place] [address] Dr. Caitlin Sales RDW 12.0 % Normal 11.0-15.0 [facility] Comment on above: Performed By: #### P T, PTT #### [facility] [address] [place] [address] Dr. Caitlin Sales SEG # 8.54 103/ul Critically high 1.40-6.50 [facility] Comment on above: Performed By: #### P T, PTT #### [facility] [address] [place] [address] Dr. Caitlin Sales SEG % 97.0 % Critically high 43.0-75.0 [facility] Comment on above: Performed By: #### P T, PTT #### [facility] [address] [place] [address] Dr. Caitlin Sales WBC 8.8 103/ul Normal 4.0-11.0 [facility] Comment on above: Performed By: #### P T, PTT #### [facility] [address] [address] [address] Caitlin Sales PROF CHEM 8 (BAS METB)on Anion gap [Moles/Vol] 14.0 mmol/L Normal [facility] Comment on above: Performed By: #### C MP, BNP, CMADM #### [facility] [address] [address] [address] Caitlin Sales Calcium [Mass/Vol] 8.7 mg/dL Normal 8.5-10.1 [facility] Comment on above: Performed By: #### C MP, BNP, CMADM #### [facility] [address] [place] [address] Dr. Caitlin Sales Chloride [Moles/Vol] 105 mmol/L Normal 98-107 [facility] Comment on above: Performed By: #### C MP, BNP, CMADM #### [facility] [address] [place] [address] Dr. Caitlin Sales CO2 [Moles/Vol] 25.0 mmol/L Normal 21.0-32.0 [facility] Comment on above: Performed By: #### C MP, BNP, CMADM #### [facility] [address] [place] [address] Dr. Caitlin Sales Creatinine [Mass/Vol] 0.85 mg/dL Normal 0.70-1.30 [facility] Comment on above: Performed By: #### C MP, BNP, CMADM #### [facility] [address] [place] [address] Dr. Caitlin Sales EGFR-AF SIERRA LEONEAN >60 Normal >=60 [facility] Comment on above: Performed By: #### C MP, BNP, CMADM #### [facility] [address] [place] [address] Dr. Caitlin Sales EGFR-NON AF SIERRA LEONEAN >60 Normal >=60 [facility] Comment on above: Performed By: #### C MP, BNP, CMADM #### [facility] [address] [address] [address] Caitlin Sales Glucose [Mass/Vol] 179 mg/dL Critically high 74-106 [facility] Comment on above: Performed By: #### C MP, BNP, CMADM #### [facility] [address] [place] [address] Dr. Caitlin Sales Potassium [Moles/Vol] 4.0 mmol/L Normal 3.5-5.1 [facility] Comment on above: Performed By: #### C MP, BNP, CMADM #### [facility] [address] [place] [address] Dr. Caitlin Sales Sodium [Moles/Vol] 140 mmol/L Normal 136-145 [facility] Comment on above: Performed By: #### C MP, BNP, CMADM #### [facility] [address] [place] [address] Dr. Caitlin Sales Urea nitrogen [Mass/Vol] 12.0 mg/dL Normal 7.0-18.0 [facility] Comment on above: Performed By: #### C MP, BNP, CMADM #### [facility] [address] [place] [address] Dr. Caitlin Sales Urea nitrogen/Creatinine [Mass ratio] 14.1 mg/mg Normal [facility] Comment on above: Performed By: #### C MP, BNP, CMADM #### [facility] [address] [place] [address] Dr. Caitlin Sales ACETONE SERUMon 10-05-2022 ACETONE Negative Normal NEGATIVE [facility] Comment on above: Performed By: #### L ACT #### [facility] [address] [place] [address] Dr. Caitlin Sales BNPon 10-05-2022 Natriuretic peptide B (Bld) [Mass/Vol] 161.0 pg/mL Normal <=900.0 [facility] Comment on above: Performed By: #### L ACT #### [facility] [address] [place] [address] Dr. Caitlin Sales CBC AUTO DIFFon 10-05-2022 BASO # 0.1 103/ul Normal 0.0-0.1 [facility] Comment on above: Performed By: #### P T, PTT #### [facility] [address] [place] [address] Dr. Caitlin Sales Basophils/100 WBC (Bld) 0.5 % Normal 0.2-2.0 [facility] Comment on above: Performed By: #### P T, PTT #### [facility] [address] [place] [address] Dr. Caitlin Sales EO # 0.4 103/ul Normal 0.0-0.7 [facility] Comment on above: Performed By: #### P T, PTT #### [facility] [address] [place] [address] Dr. Caitlin Sales Eosinophils/100 WBC (Bld) 4.0 % Normal 0.9-7.0 [facility] Comment on above: Performed By: #### P T, PTT #### [facility] [address] [place] [address] Dr. Caitlin Sales Erythrocyte distribution width (RBC) [Ratio] 12.1 % Normal 11.0-15.0 [facility] Comment on above: Performed By: #### P T, PTT #### [facility] [address] [place] [address] Dr. Caitlin Sales Hematocrit (Bld) [Volume fraction] 45.3 % Normal 42.0-54.0 [facility] Comment on above: Performed By: #### P T, PTT #### [facility] [address] [place] [address] Dr. Caitlin Sales Hemoglobin (Bld) [Mass/Vol] 15.6 g/dL Normal 14.0-18.0 [facility] Comment on above: Performed By: #### P T, PTT #### [facility] [address] [place] [address] Dr. Caitlin Sales IG # 0.05 10e3/ul Critically high 0.00-0.03 [facility] Comment on above: Performed By: #### P T, PTT #### [facility] [address] [place] [address] Dr. Caitlin Sales IG % 0.5 % Normal 0.0-0.5 [facility] Comment on above: Performed By: #### P T, PTT #### [facility] [address] [place] [address] Dr. Caitlin Sales LYMPH # 2.0 103/ul Normal 1.2-3.8 [facility] Comment on above: Performed By: #### P T, PTT #### [facility] [address] [place] [address] Dr. Caitlin Sales Lymphocytes/100 WBC (Bld) 21.0 % Normal 20.5-60.0 [facility] Comment on above: Performed By: #### P T, PTT #### [facility] [address] [place] [address] Dr. Caitlin Sales MANUAL DIFF REQ NO Normal [facility] Comment on above: Performed By: #### P T, PTT #### [facility] [address] [place] [address] Dr. Caitlin Sales MCH (RBC) [Entitic mass] 31.6 pg Normal 25.9-34.0 [facility] Comment on above: Performed By: #### P T, PTT #### [facility] [address] [place] [address] Dr. Caitlin Sales MCHC (RBC) [Mass/Vol] 34.4 g/dL Normal 29.9-35.2 [facility] Comment on above: Performed By: #### P T, PTT #### [facility] [address] [place] [address] Dr. Caitlin Sales MCV (RBC) [Entitic vol] 91.7 fL Normal 80.0-94.0 [facility] Comment on above: Performed By: #### P T, PTT #### [facility] [address] [place] [address] Dr. Caitlin Sales MONO # 0.8 103/ul Normal 0.3-0.8 [facility] Comment on above: Performed By: #### P T, PTT #### [facility] [address] [place] [address] Dr. Caitlin Sales Monocytes/100 WBC (Bld) 8.3 % Normal 1.7-12.0 [facility] Comment on above: Performed By: #### P T, PTT #### [facility] [address] [place] [address] Dr. Caitlin Sales NEUT # 6.3 103/ul Normal 1.4-6.5 [facility] Comment on above: Performed By: #### P T, PTT #### [facility] [address] [place] [address] Dr. Caitlin Sales Neutrophils/100 WBC (Bld) 65.7 % Normal 43.0-75.0 [facility] Comment on above: Performed By: #### P T, PTT #### [facility] [address] [place] [address] Dr. Caitlin Sales Platelet mean volume (Bld) [Entitic vol] 8.7 fL Critically low 9.5-13.5 [facility] Comment on above: Performed By: #### P T, PTT #### [facility] [address] [place] [address] Dr. Caitlin Sales PLT 340 103/ul Normal 150-450 [facility] Comment on above: Performed By: #### P T, PTT #### [facility] [address] [place] [address] Dr. Caitlin Sales RBC 4.94 106/ul Normal 4.70-6.10 [facility] Comment on above: Performed By: #### P T, PTT #### [facility] [address] [place] [address] Dr. Caitlin Sales WBC 9.5 103/ul Normal 4.0-11.0 [facility] Comment on above: Performed By: #### P T, PTT #### [facility] [address] [place] [address] Dr. Caitlin Sales CULTURE BLOODon 10-05-2022 Microscopic examination of blood, culture Culture Observations: NO GROWTH AT 5 DAYS. Normal [facility] Comment on above: Performed By: #### C MP, BNP, CMADM #### [facility] [address] [place] [address] Dr. Caitlin Sales Microscopic examination of blood, culture Culture Observations: NO GROWTH AT 5 DAYS. Normal [facility] Comment on above: Performed By: #### C MP, BNP, CMADM #### [facility] [address] [address] [address] Caitlin Sales [facility]23 SARS-CoV-2 (COVID-19) RNA BENSON+probe Ql (Unsp spec) Not detected Normal NOT DETECTED [facility] Comment on above: Result Comment: When [...] for this test is supported by the Systems Software Specialist of Health and Human Service's declaration that [...] used). Performed By: #### L ACT #### [facility] [address] [place] [address] Dr. Caitlin Sales LACTATE/LACTIC ACIDon 2022 Lactate [Moles/Vol] 1.9 mmol/L Normal 0.4-2.0 [facility] Comment on above: Performed By: #### L ACT #### [facility] [address] [address] [address] Caitlin Sales Lactate [Moles/Vol] 2.0 mmol/L Normal 0.4-2.0 [facility] Comment on above: Performed By: #### L ACT #### [facility] [address] [place] [address] Dr. Caitlin Sales PH VENOUS BLOODon 04-13-2023 PCO2 VENOUS 46.9 mmHg Normal 40.0-52.0 [facility] Comment on above: Performed By: #### L ACT #### [facility] [address] [place] [address] Dr. Caitlin Sales pH VENOUS 7.355 Normal 7.330-7.430 [facility] Comment on above: Performed By: #### L ACT #### [facility] [address] [place] [address] Dr. Caitlin Sales PROF 14(COMP METB)on 023 Albumin [Mass/Vol] 4.4 g/dL Normal 3.4-5.0 [facility] Comment on above: Performed By: #### L ACT #### [facility] [address] [place] [address] Dr. Caitlin Sales Albumin/Globulin [Mass ratio] 1.2 {ratio} Normal [facility] Comment on above: Performed By: #### L ACT #### [facility] [address] [place] [address] Dr. Caitlin Sales ALP [Catalytic activity/Vol] 72 U/L Normal 46-116 [facility] Comment on above: Performed By: #### L ACT #### [facility] [address] [place] [address] Dr. Caitlin Sales ALT [Catalytic activity/Vol] 25 U/L Normal 16-63 [facility] Comment on above: Performed By: #### L ACT #### [facility] [address] [place] [address] Dr. Caitlin Sales Anion gap [Moles/Vol] 12.8 mmol/L Normal [facility] Comment on above: Performed By: #### L ACT #### [facility] [address] [place] [address] Dr. Caitlin Sales AST [Catalytic activity/Vol] 18 U/L Normal 15-37 [facility] Comment on above: Performed By: #### L ACT #### [facility] [address] [place] [address] Dr. Caitlin Sales Bilirubin [Mass/Vol] 0.5 mg/dL Normal 0.2-1.0 [facility] Comment on above: Performed By: #### L ACT #### [facility] [address] [address] [address] Caitlin Sales Calcium [Mass/Vol] 9.5 mg/dL Normal 8.5-10.1 [facility] Comment on above: Performed By: #### L ACT #### [facility] [address] [address] [address] Caitlin Sales Chloride [Moles/Vol] 103 mmol/L Normal 98-107 [facility] Comment on above: Performed By: #### L ACT #### [facility] [address] [address] [address] Caitlin Sales CO2 [Moles/Vol] 27.2 mmol/L Normal 21.0-32.0 [facility] Comment on above: Performed By: #### L ACT #### [facility] [address] [place] [address] Dr. Caitlin Sales Creatinine [Mass/Vol] 0.78 mg/dL Normal 0.70-1.30 [facility] Comment on above: Performed By: #### L ACT #### [facility] [address] [address] [address] Caitlin Sales EGFR-AF SIERRA LEONEAN >60 Normal >=60 [facility] Comment on above: Performed By: #### L ACT #### [facility] [address] [place] [address] Dr. Caitlin Sales EGFR-NON AF SIERRA LEONEAN >60 Normal >=60 [facility] Comment on above: Performed By: #### L ACT #### [facility] [address] [address] [address] Caitlin Sales Globulin (S) [Mass/Vol] 3.8 g/dL Normal [facility] Comment on above: Performed By: #### L ACT #### [facility] [address] [place] [address] Dr. Caitlin Sales Glucose [Mass/Vol] 102 mg/dL Normal 74-106 [facility] Comment on above: Performed By: #### L ACT #### [facility] [address] [address] [address] Caitlin Sales Potassium [Moles/Vol] 4.0 mmol/L Normal 3.5-5.1 [facility] Comment on above: Performed By: #### L ACT #### [facility] [address] [address] [address] Caitlin Sales Protein [Mass/Vol] 8.2 g/dL Normal 6.4-8.2 [facility] Comment on above: Performed By: #### L ACT #### [facility] [address] [address] [address] Caitlin Sales Sodium [Moles/Vol] 139 mmol/L Normal 136-145 [facility] Comment on above: Performed By: #### L ACT #### [facility] [address] [address] [address] Caitlin Sales Urea nitrogen [Mass/Vol] 8.0 mg/dL Normal 7.0-18.0 [facility] Comment on above: Performed By: #### L ACT #### [facility] [address] [place] [address] Dr. Caitlin Sales Urea nitrogen/Creatinine [Mass ratio] 10.3 mg/mg Normal [facility] Comment on above: Performed By: #### L ACT #### [facility] [address] [address] [address] Caitlin Sales PROTIMEon 10-05-2022 INR Coag (PPP) [Relative time] 0.98 {INR} Normal [facility] Comment on above: Performed By: #### C MP, BNP, CMADM #### [facility] [address] [place] [address] Dr. Caitlin Sales INR GUIDELINES SEE BELOW Normal [facility] Comment on above: Result Comment: SERENITY RED INR: 2.0 - 3.0 CONDITIONS NOT LISTED BELOW 2.5 - 3.5 FOR PROSTHETIC HEART VALVE REPLACEMENT 2.5 - 3.5 RECURRENT THROMBOSIS Performed By: #### C MP, BNP, CMADM #### [facility] [address] [place] [address] Dr. Caitlin Sales PT Coag (PPP) [Time] 10.4 s Normal 9.0-11.6 [facility] Comment on above: Performed By: #### C MP, BNP, CMADM #### [facility] [address] [place] [address] Dr. Caitlin Sales PTTon 10-05-2022 aPTT Coag (Bld) [Time] 31.0 s Normal 22.3-36.2 [facility] Comment on above: Performed By: #### C MP, BNP, CMADM #### [facility] [address] [address] [address] Caitlin Sales TROPONIN, HIGH SENSITIVITYon 10-05-2022 HSTROP 9.6 pg/mL Normal 4.0-76.1 [facility] Comment on above: Result Comment: CUT- OFF POINTS HAVE BEEN ESTABLISHED BASED ON THE FOURTH UNIVERSAL DEFINITIONS OF MYOCARDIAL INFARCTION. THE UPPER REFERENCE LIMIT (URL) OF TROPONIN, DEFINED THE 99TH PERCENTILE OF cTnI DISTRIBUTION IN A REFERENCE POPULATION, HAS BEEN CONFIRMED THE DECISION THRESHOLD FOR AK DIAGNOSIS. Performed By: #### L ACT #### [facility] [address] [place] [address] Dr. Caitlin Sales XR CHEST 1 Von [...] BRIE PHAN Date: 2022-10-05 14:34 Normal [facility] CBC AUTO DIFFon 06-08-2022 BASO # 0.0 103/ul Normal 0.0-0.1 [facility] Comment on above: Performed By: #### P T, PTT #### [facility] [address] [place] [address] Dr. Caitlin Sales Basophils/100 WBC (Bld) 0.1 % Critically low 0.2-2.0 [facility] Comment on above: Performed By: #### P T, PTT #### [facility] [address] [place] [address] Dr. Caitlin Sales EO # 0.0 103/ul Normal 0.0-0.7 [facility] Comment on above: Performed By: #### P T, PTT #### [facility] [address] [place] [address] Dr. Caitlin Sales Eosinophils/100 WBC (Bld) 0.3 % Critically low 0.9-7.0 [facility] Comment on above: Performed By: #### P T, PTT #### [facility] [address] [place] [address] Dr. Caitlin Sales Erythrocyte distribution width (RBC) [Ratio] 11.9 % Normal 11.0-15.0 [facility] Comment on above: Performed By: #### P T, PTT #### [facility] [address] [place] [address] Dr. Caitlin Sales Hematocrit (Bld) [Volume fraction] 39.7 % Critically low 42.0-54.0 [facility] Comment on above: Performed By: #### P T, PTT #### [facility] [address] [place] [address] Dr. Caitlin Sales Hemoglobin (Bld) [Mass/Vol] 13.4 g/dL Critically low 14.0-18.0 [facility] Comment on above: Performed By: #### P T, PTT #### [facility] [address] [place] [address] Dr. Caitlin Sales IG # 0.07 10e3/ul Critically high 0.00-0.03 [facility] Comment on above: Performed By: #### P T, PTT #### [facility] [address] [place] [address] Dr. Caitlin Sales IG % 0.8 % Critically high 0.0-0.5 [facility] Comment on above: Performed By: #### P T, PTT #### [facility] [address] [place] [address] Dr. Caitlin Sales LYMPH # 1.7 103/ul Normal 1.2-3.8 [facility] Comment on above: Performed By: #### P T, PTT #### [facility] [address] [place] [address] Dr. Caitlin Sales Lymphocytes/100 WBC (Bld) 18.2 % Critically low 20.5-60.0 [facility] Comment on above: Performed By: #### P T, PTT #### [facility] [address] [place] [address] Dr. Caitlin Sales MANUAL DIFF REQ NO Normal [facility] Comment on above: Performed By: #### P T, PTT #### [facility] [address] [place] [address] Dr. Caitlin Sales MCH (RBC) [Entitic mass] 31.4 pg Normal 25.9-34.0 [facility] Comment on above: Performed By: #### P T, PTT #### [facility] [address] [place] [address] Dr. Caitlin Sales MCHC (RBC) [Mass/Vol] 33.8 g/dL Normal 29.9-35.2 [facility] Comment on above: Performed By: #### P T, PTT #### [facility] [address] [place] [address] Dr. Caitlin Sales MCV (RBC) [Entitic vol] 93.0 fL Normal 80.0-94.0 [facility] Comment on above: Performed By: #### P T, PTT #### [facility] [address] [place] [address] Dr. Caitlin Sales MONO # 0.8 103/ul Normal 0.3-0.8 [facility] Comment on above: Performed By: #### P T, PTT #### [facility] [address] [place] [address] Dr. Caitlin Sales Monocytes/100 WBC (Bld) 9.1 % Normal 1.7-12.0 [facility] Comment on above: Performed By: #### P T, PTT #### [facility] [address] [place] [address] Dr. Caitlin Sales NEUT # 6.6 103/ul Critically high 1.4-6.5 [facility] Comment on above: Performed By: #### P T, PTT #### [facility] [address] [address] [address] Caitlin Sales Neutrophils/100 WBC (Bld) 71.5 % Normal 43.0-75.0 [facility] Comment on above: Performed By: #### P T, PTT #### [facility] [address] [place] [address] Dr. Caitlin Sales Platelet mean volume (Bld) [Entitic vol] 9.4 fL Critically low 9.5-13.5 [facility] Comment on above: Performed By: #### P T, PTT #### [facility] [address] [place] [address] Dr. Caitlin Sales PLT 257 103/ul Normal 150-450 [facility] Comment on above: Performed By: #### P T, PTT #### [facility] [address] [place] [address] Dr. Caitlin Sales RBC 4.27 106/ul Critically low 4.70-6.10 [facility] Comment on above: Performed By: #### P T, PTT #### [facility] [address] [place] [address] Dr. Caitlin Sales WBC 9.2 103/ul Normal 4.0-11.0 [facility] Comment on above: Performed By: #### P T, PTT #### [facility] [address] [place] [address] Dr. Caitlin Sales PROF CHEM 8 (BAS METB)on Anion gap [Moles/Vol] 10.5 mmol/L Normal [facility] Comment on above: Performed By: #### P T, PTT #### [facility] [address] [place] [address] Dr. Caitlin Sales Calcium [Mass/Vol] 8.6 mg/dL Normal 8.5-10.1 [facility] Comment on above: Performed By: #### P T, PTT #### [facility] [address] [place] [address] Dr. Caitlin Sales Chloride [Moles/Vol] 105 mmol/L Normal 98-107 [facility] Comment on above: Performed By: #### P T, PTT #### [facility] [address] [place] [address] Dr. Caitlin Sales CO2 [Moles/Vol] 25.6 mmol/L Normal 21.0-32.0 [facility] Comment on above: Performed By: #### P T, PTT #### [facility] [address] [place] [address] Dr. Caitlin Sales Creatinine [Mass/Vol] 0.60 mg/dL Critically low 0.70-1.30 [facility] Comment on above: Performed By: #### P T, PTT #### [facility] [address] [place] [address] Dr. Caitlin Sales EGFR-AF SIERRA LEONEAN >60 Normal >=60 [facility] Comment on above: Performed By: #### P T, PTT #### [facility] [address] [place] [address] Dr. Caitlin Sales EGFR-NON AF SIERRA LEONEAN >60 Normal >=60 [facility] Comment on above: Performed By: #### P T, PTT #### [facility] [address] [place] [address] Dr. Caitlin Sales Glucose [Mass/Vol] 99 mg/dL Normal 74-106 [facility] Comment on above: Performed By: #### P T, PTT #### [facility] [address] [place] [address] Dr. Caitlin Sales Potassium [Moles/Vol] 3.1 mmol/L Critically low 3.5-5.1 [facility] Comment on above: Performed By: #### P T, PTT #### [facility] [address] [address] [address] Caitlin Sales Sodium [Moles/Vol] 138 mmol/L Normal 136-145 [facility] Comment on above: Performed By: #### P T, PTT #### [facility] [address] [place] [address] Dr. Caitlin Sales Urea nitrogen [Mass/Vol] 18.0 mg/dL Normal 7.0-18.0 [facility] Comment on above: Performed By: #### P T, PTT #### [facility] [address] [place] [address] Dr. Caitlin Sales Urea nitrogen/Creatinine [Mass ratio] 30.0 mg/mg Normal [facility] Comment on above: Performed By: #### P T, PTT #### [facility] [address] [place] [address] Dr. Caitlin Sales CBC AUTO DIFFon 06-07-2022 BASO # 0.0 103/ul Normal 0.0-0.1 [facility] Comment on above: Performed By: #### C MP, BNP, CMADM #### [facility] [address] [place] [address] Dr. Caitlin Sales Basophils/100 WBC (Bld) 0.1 % Critically low 0.2-2.0 [facility] Comment on above: Performed By: #### C MP, BNP, CMADM #### [facility] [address] [place] [address] Dr. Caitlin Sales EO # 0.0 103/ul Normal 0.0-0.7 [facility] Comment on above: Performed By: #### C MP, BNP, CMADM #### [facility] [address] [place] [address] Dr. Caitlin Sales Eosinophils/100 WBC (Bld) 0.0 % Critically low 0.9-7.0 [facility] Comment on above: Performed By: #### C MP, BNP, CMADM #### [facility] [address] [place] [address] Dr. Caitlin Sales Erythrocyte distribution width (RBC) [Ratio] 12.1 % Normal 11.0-15.0 [facility] Comment on above: Performed By: #### C MP, BNP, CMADM #### [facility] [address] [place] [address] Dr. Caitlin Sales Hematocrit (Bld) [Volume fraction] 38.8 % Critically low 42.0-54.0 [facility] Comment on above: Performed By: #### C MP, BNP, CMADM #### [facility] [address] [address] [address] Caitlin Sales Hemoglobin (Bld) [Mass/Vol] 13.5 g/dL Critically low 14.0-18.0 [facility] Comment on above: Performed By: #### C MP, BNP, CMADM #### [facility] [address] [place] [address] Dr. Caitlin Sales IG # 0.07 10e3/ul Critically high 0.00-0.03 [facility] Comment on above: Performed By: #### C MP, BNP, CMADM #### [facility] [address] [place] [address] Dr. Caitlin Sales IG % 0.5 % Normal 0.0-0.5 [facility] Comment on above: Performed By: #### C MP, BNP, CMADM #### [facility] [address] [place] [address] Dr. Caitlin Sales LYMPH # 1.2 103/ul Normal 1.2-3.8 [facility] Comment on above: Performed By: #### C MP, BNP, CMADM #### [facility] [address] [place] [address] Dr. Caitlin Sales Lymphocytes/100 WBC (Bld) 9.0 % Critically low 20.5-60.0 [facility] Comment on above: Performed By: #### C MP, BNP, CMADM #### [facility] [address] [address] [address] Caitlin Sales MANUAL DIFF REQ NO Normal [facility] Comment on above: Performed By: #### C MP, BNP, CMADM #### [facility] [address] [address] [address] Caitlin Sales MCH (RBC) [Entitic mass] 31.8 pg Normal 25.9-34.0 [facility] Comment on above: Performed By: #### C MP, BNP, CMADM #### [facility] [address] [place] [address] Dr. Caitlin Sales MCHC (RBC) [Mass/Vol] 34.8 g/dL Normal 29.9-35.2 [facility] Comment on above: Performed By: #### C MP, BNP, CMADM #### [facility] [address] [place] [address] Dr. Caitlin Sales MCV (RBC) [Entitic vol] 91.5 fL Normal 80.0-94.0 [facility] Comment on above: Performed By: #### C MP, BNP, CMADM #### [facility] [address] [place] [address] Dr. Caitlin Sales MONO # 1.1 103/ul Critically high 0.3-0.8 [facility] Comment on above: Performed By: #### C MP, BNP, CMADM #### [facility] [address] [place] [address] Dr. Caitlin Sales Monocytes/100 WBC (Bld) 8.5 % Normal 1.7-12.0 [facility] Comment on above: Performed By: #### C MP, BNP, CMADM #### [facility] [address] [place] [address] Dr. Caitlin Sales NEUT # 10.5 103/ul Critically high 1.4-6.5 [facility] Comment on above: Performed By: #### C MP, BNP, CMADM #### [facility] [address] [place] [address] Dr. Caitlin Sales Neutrophils/100 WBC (Bld) 81.9 % Critically high 43.0-75.0 [facility] Comment on above: Performed By: #### C MP, BNP, CMADM #### [facility] [address] [place] [address] Dr. Caitlin Sales Platelet mean volume (Bld) [Entitic vol] 9.9 fL Normal 9.5-13.5 [facility] Comment on above: Performed By: #### C MP, BNP, CMADM #### [facility] [address] [place] [address] Dr. Caitlin Sales PLT 268 103/ul Normal 150-450 [facility] Comment on above: Performed By: #### C MP, BNP, CMADM #### [facility] [address] [place], [place] [address] Dr. Caitlin Sales RBC 4.24 106/ul Critically low 4.70-6.10 [facility] Comment on above: Performed By: #### C MP, BNP, CMADM #### [facility] [address] [place], [place] [address] Dr. Caitlin Sales WBC 12.9 103/ul Critically high 4.0-11.0 [facility] Comment on above: Performed By: #### C MP, BNP, CMADM #### [facility] [address] [place], [place] [address] Dr. Caitlin Sales ECHOCARDIO M/2D COMPLETEon 1 08-08-2021 ECHOCARDIO M/2D COMPLETE Patient: KELSEY HERNANDEZ Exam Date: 06/07/2022 : 1950 Gender:M Ordering : DR ANDREI CABRERA . Admission #: [id number] Family : Order #: [id number] CLICK HERE TO VIEW EXAM ECHOCARDIOGRAM REPORT [...] M.D. on 06/08/2022 at 11:23 Normal [facility] PROF CHEM 8 (BAS METB)on Anion gap [Moles/Vol] 10.8 mmol/L Normal e [facility] Comment on above: Performed By: #### P T, PTT #### [facility] [address] [place] [address] Dr. Caitlin Sales Calcium [Mass/Vol] 8.8 mg/dL Normal 8.5-10.1 [facility] Comment on above: Performed By: #### P T, PTT #### [facility] [address] [place] [address] Dr. Caitlin Sales Chloride [Moles/Vol] 104 mmol/L Normal 98-107 [facility] Comment on above: Performed By: #### P T, PTT #### [facility] [address] [place] [address] Dr. Caitlin Sales CO2 [Moles/Vol] 26.3 mmol/L Normal 21.0-32.0 [facility] Comment on above: Performed By: #### P T, PTT #### [facility] [address] [place] [address] Dr. Caitlin Sales Creatinine [Mass/Vol] 0.64 mg/dL Critically low 0.70-1.30 [facility] Comment on above: Performed By: #### P T, PTT #### [facility] [address] [place] [address] Dr. Caitlin Sales EGFR-AF SIERRA LEONEAN >60 Normal >=60 [facility] Comment on above: Performed By: #### P T, PTT #### [facility] [address] [place] [address] Dr. Caitlin Sales EGFR-NON AF SIERRA LEONEAN >60 Normal >=60 [facility] Comment on above: Performed By: #### P T, PTT #### [facility] [address] [place] [address] Dr. Caitlin Sales Glucose [Mass/Vol] 112 mg/dL Critically high 74-106 [facility] Comment on above: Performed By: #### P T, PTT #### [facility] [address] [place] [address] Dr. Caitlin Sales Potassium [Moles/Vol] 3.1 mmol/L Critically low 3.5-5.1 [facility] Comment on above: Performed By: #### P T, PTT #### [facility] [address] [place] [address] Dr. Caitlin Sales Sodium [Moles/Vol] 138 mmol/L Normal 136-145 [facility] Comment on above: Performed By: #### P T, PTT #### [facility] [address] [place] [address] Dr. Caitlin Sales Urea nitrogen [Mass/Vol] 22.0 mg/dL Critically high 7.0-18.0 [facility] Comment on above: Performed By: #### P T, PTT #### [facility] [address] [place] [address] Dr. Caitlin Sales Urea nitrogen/Creatinine [Mass ratio] 34.4 mg/mg Normal [facility] Comment on above: Performed By: #### P T, PTT #### [facility] [address] [place] [address] Dr. Caitlin Sales CBC AUTO DIFFon 06-06-2022 BASO # 0.0 103/ul Normal 0.0-0.1 [facility] Comment on above: Performed By: #### C MP, BNP, CMADM #### [facility] [address] [place] [address] Dr. Caitlin Sales Basophils/100 WBC (Bld) 0.0 % Critically low 0.2-2.0 [facility] Comment on above: Performed By: #### C MP, BNP, CMADM #### [facility] [address] [place] [address] Dr. Caitlin Sales EO # 0.0 103/ul Normal 0.0-0.7 [facility] [place] [facility] Comment on above: Performed By: #### C MP, BNP, CMADM #### [facility] [address] [place] [address] Dr. Caitlin Sales Eosinophils/100 WBC (Bld) 0.0 % Critically low 0.9-7.0 [facility] Comment on above: Performed By: #### C MP, BNP, CMADM #### [facility] [address] [place] [address] Dr. Caitlin Sales Erythrocyte distribution width (RBC) [Ratio] 12.0 % Normal 11.0-15.0 [facility] Comment on above: Performed By: #### C MP, BNP, CMADM #### [facility] [address] [place] [address] Dr. Caitlin Sales Hematocrit (Bld) [Volume fraction] 42.3 % Normal 42.0-54.0 [facility] Comment on above: Performed By: #### C MP, BNP, CMADM #### [facility] [address] [place] [address] Dr. Caitlin Sales Hemoglobin (Bld) [Mass/Vol] 14.5 g/dL Normal 14.0-18.0 [facility] Comment on above: Performed By: #### C MP, BNP, CMADM #### [facility] [address] [place] [address] Dr. Caitlin Sales IG # 0.03 10e3/ul Normal 0.00-0.03 [facility] Comment on above: Performed By: #### C MP, BNP, CMADM #### [facility] [address] [place] [address] Dr. Caitlin Sales IG % 0.4 % Normal 0.0-0.5 [facility] Comment on above: Performed By: #### C MP, BNP, CMADM #### [facility] [address] [place] [address] Dr. Caitlin Sales LYMPH # 0.7 103/ul Critically low 1.2-3.8 [facility] [place] [facility] Comment on above: Performed By: #### C MP, BNP, CMADM #### [facility] [address] [place] [address] Dr. Caitlin Sales Lymphocytes/100 WBC (Bld) 8.6 % Critically low 20.5-60.0 [facility] Comment on above: Performed By: #### C MP, BNP, CMADM #### [facility] [address] [place] [address] Dr. Caitlin Sales MANUAL DIFF REQ NO Normal [facility] Comment on above: Performed By: #### C MP, BNP, CMADM #### [facility] [address] [place] [address] Dr. Caitlin Sales MCH (RBC) [Entitic mass] 31.8 pg Normal 25.9-34.0 [facility] Comment on above: Performed By: #### C MP, BNP, CMADM #### [facility] [address] [place] [address] Dr. Caitlin Sales MCHC (RBC) [Mass/Vol] 34.3 g/dL Normal 29.9-35.2 [facility] [place] [facility] Comment on above: Performed By: #### C MP, BNP, CMADM #### [facility] [address] [place] [address] Dr. Caitlin Sales MCV (RBC) [Entitic vol] 92.8 fL Normal 80.0-94.0 [facility] Comment on above: Performed By: #### C MP, BNP, CMADM #### [facility] [address] [place] [address] Dr. Caitlin Sales MONO # 0.2 103/ul Critically low 0.3-0.8 [facility] Comment on above: Performed By: #### C MP, BNP, CMADM #### [facility] [address] [place] [address] Dr. Caitlin Sales Monocytes/100 WBC (Bld) 3.1 % Normal 1.7-12.0 [facility] Comment on above: Performed By: #### C MP, BNP, CMADM #### [facility] [address] [address] [address] Caitlin Sales NEUT # 6.9 103/ul Critically high 1.4-6.5 [facility] Comment on above: Performed By: #### C MP, BNP, CMADM #### [facility] [address] [address] [address] Caitlin Sales Neutrophils/100 WBC (Bld) 87.9 % Critically high 43.0-75.0 [facility] Comment on above: Performed By: #### C MP, BNP, CMADM #### [facility] [address] [address] [address] Caitlin Sales Platelet mean volume (Bld) [Entitic vol] 9.7 fL Normal 9.5-13.5 [facility] Comment on above: Performed By: #### C MP, BNP, CMADM #### [facility] [address] [address] [address] Caitlin Sales PLT 288 103/ul Normal 150-450 [facility] Comment on above: Performed By: #### C MP, BNP, CMADM #### [facility] [address] [address] [address] Caitlin Sales RBC 4.56 106/ul Critically low 4.70-6.10 [facility] [place] [facility] Comment on above: Performed By: #### C MP, BNP, CMADM #### [facility] [address] [address] [address] Caitlin Sales WBC 7.8 103/ul Normal 4.0-11.0 [facility] [place] [facility] Comment on above: Performed By: #### C MP, BNP, CMADM #### [facility] [address] [address] [address] Caitlin Sales PROF CHEM 8 (BAS METB)on Anion gap [Moles/Vol] 12.8 mmol/L Normal [facility] Comment on above: Performed By: #### L ACT #### [facility] [address] [address] [address] Caitlin Sales Calcium [Mass/Vol] 8.9 mg/dL Normal 8.5-10.1 [facility] Comment on above: Performed By: #### L ACT #### [facility] [address] [place] [address] Dr. Caitlin Sales Chloride [Moles/Vol] 102 mmol/L Normal 98-107 [facility] Comment on above: Performed By: #### L ACT #### [facility] [address] [address] [address] Caitlin Sales CO2 [Moles/Vol] 28.2 mmol/L Normal 21.0-32.0 [facility] Comment on above: Performed By: #### L ACT #### [facility] [address] [place] [address] Dr. Caitlin Sales Creatinine [Mass/Vol] 0.65 mg/dL Critically low 0.70-1.30 [facility] Comment on above: Performed By: #### L ACT #### [facility] [address] [place] [address] Dr. Caitlin Sales EGFR-AF SIERRA LEONEAN >60 Normal >=60 [facility] Comment on above: Performed By: #### L ACT #### [facility] [address] [place] [address] Dr. Caitlin Sales EGFR-NON AF SIERRA LEONEAN >60 Normal >=60 [facility] Comment on above: Performed By: #### L ACT #### [facility] [address] [place] [address] Dr. Caitlin Sales Glucose [Mass/Vol] 165 mg/dL Critically high 74-106 [facility] Comment on above: Performed By: #### L ACT #### [facility] [address] [place] [address] Dr. Caitlin Sales Potassium [Moles/Vol] 4.0 mmol/L Normal 3.5-5.1 [facility] Comment on above: Performed By: #### L ACT #### [facility] [address] [address] [address] Caitlin Sales Sodium [Moles/Vol] 139 mmol/L Normal 136-145 [facility] [place] [facility] Comment on above: Performed By: #### L ACT #### [facility] [address] [place] [address] Dr. Caitlin Sales Urea nitrogen [Mass/Vol] 11.0 mg/dL Normal 7.0-18.0 [facility] Comment on above: Performed By: #### L ACT #### [facility] [address] [place] [address] Dr. Caitlin Sales Urea nitrogen/Creatinine [Mass ratio] 16.9 mg/mg Normal [facility] Comment on above: Performed By: #### L ACT #### [facility] [address] [place] [address] Dr. Caitlin Sales BNPon 06-05-2022 Natriuretic peptide B (Bld) [Mass/Vol] 639.0 pg/mL Normal <=900.0 [facility] Comment on above: Performed By: #### C MP, BNP, CMADM #### [facility] [address] [place] [address] Dr. Caitlin Sales CBC AUTO DIFFon 06-05-2022 BASO # 0.0 103/ul Normal 0.0-0.1 [facility] Comment on above: Performed By: #### C BC #### [facility] [address] [place] [address] Dr. Caitlin Sales Basophils/100 WBC (Bld) 0.2 % Normal 0.2-2.0 [facility] Comment on above: Performed By: #### C BC #### [facility] [address] [place] [address] Dr. Caitlin Sales EO # 0.1 103/ul Normal 0.0-0.7 [facility] Comment on above: Performed By: #### C BC #### [facility] [address] [place] [address] Dr. Caitlin Sales Eosinophils/100 WBC (Bld) 0.9 % Normal 0.9-7.0 [facility] Comment on above: Performed By: #### C BC #### [facility] [address] [place] [address] Dr. Caitlin Sales Erythrocyte distribution width (RBC) [Ratio] 12.1 % Normal 11.0-15.0 [facility] Comment on above: Performed By: #### C BC #### [facility] [address] [place] [address] Dr. Caitlin Sales Hematocrit (Bld) [Volume fraction] 41.5 % Critically low 42.0-54.0 [facility] Comment on above: Performed By: #### C BC #### [facility] [address] [place] [address] Dr. Caitlin Sales Hemoglobin (Bld) [Mass/Vol] 14.1 g/dL Normal 14.0-18.0 [facility] Comment on above: Performed By: #### C BC #### [facility] [address] [place] [address] Dr. Caitlin Sales IG # 0.03 10e3/ul Normal 0.00-0.03 [facility] Comment on above: Performed By: #### C BC #### [facility] [address] [place] [address] Dr. Caitlin Sales IG % 0.3 % Normal 0.0-0.5 [facility] Comment on above: Performed By: #### C BC #### [facility] [address] [place] [address] Dr. Caitlin Sales LYMPH # 2.2 103/ul Normal 1.2-3.8 [facility] Comment on above: Performed By: #### C BC #### [facility] [address] [place] [address] Dr. Caitlin Sales Lymphocytes/100 WBC (Bld) 20.6 % Normal 20.5-60.0 [facility] Comment on above: Performed By: #### C BC #### [facility] [address] [place] [address] Dr. Caitlin Sales MANUAL DIFF REQ NO Normal [facility] Comment on above: Performed By: #### C BC #### [facility] [address] [place] [address] Dr. Caitlin Sales MCH (RBC) [Entitic mass] 31.4 pg Normal 25.9-34.0 [facility] Comment on above: Performed By: #### C BC #### [facility] [address] [address] [address] Caitlin Sales MCHC (RBC) [Mass/Vol] 34.0 g/dL Normal 29.9-35.2 [facility] Comment on above: Performed By: #### C BC #### [facility] [address] [place] [address] Dr. Caitlin Sales MCV (RBC) [Entitic vol] 92.4 fL Normal 80.0-94.0 [facility] Comment on above: Performed By: #### C BC #### [facility] [address] [place] [address] Dr. Caitlin Sales MONO # 1.2 103/ul Critically high 0.3-0.8 [facility] Comment on above: Performed By: #### C BC #### [facility] [address] [place] [address] Dr. Caitlin Sales Monocytes/100 WBC (Bld) 11.0 % Normal 1.7-12.0 [facility] Comment on above: Performed By: #### C BC #### [facility] [address] [place] [address] Dr. Caitlin Sales NEUT # 7.3 103/ul Critically high 1.4-6.5 [facility] Comment on above: Performed By: #### C BC #### [facility] [address] [place] [address] Dr. Caitlin Sales Neutrophils/100 WBC (Bld) 67.0 % Normal 43.0-75.0 [facility] Comment on above: Performed By: #### C BC #### [facility] [address] [place] [address] Dr. Caitlin Sales Platelet mean volume (Bld) [Entitic vol] 9.7 fL Normal 9.5-13.5 [facility] Comment on above: Performed By: #### C BC #### [facility] [address] [place] [address] Dr. Caitlin Sales PLT 308 103/ul Normal 150-450 [facility] Comment on above: Performed By: #### C BC #### [facility] [address] [place], [place] [address] Dr. Caitlin Sales RBC 4.49 106/ul Critically low 4.70-6.10 [facility] [place] [facility] Comment on above: Performed By: #### C BC #### [facility] [address] [place], [place] [address] Dr. Caitlin Sales WBC 10.9 103/ul Normal 4.0-11.0 [facility] Comment on above: Performed By: #### C BC #### [facility] [address] [place], [place] [address] Dr. Caitlin Sales CTA CHEST WO W [...] Observations: NO GROWTH AT 5 DAYS. Normal [facility] Comment on above: Performed By: #### C MP, BNP, CMADM #### [facility] [address] [address] [address] Caitlin Sales Microscopic examination of blood, culture Culture Observations: NO GROWTH AT 5 DAYS. Normal [facility] Comment on above: Performed By: #### C MP, BNP, CMADM #### [facility] [address] [address] [address] Caitlin Sales [facility]25 SARS-CoV-2 (COVID-19) RNA BENSON+probe Ql (Unsp spec) Not detected Normal NOT DETECTED [facility] Comment on above: Result Comment: When [...] for this test is supported by the [employer] Specialist of Health and Human Service's declaration that [...] Performed By: #### P T, PTT #### [facility] [address] [place] [address] Dr. Caitlin Sales D-DIMERon 06-05-2022 D-DIMER 0.91 mg/L FEU Critically high <=0.59 [facility] Comment on above: Performed By: #### L ACT #### [facility] [address] [address] [address] Caitlin Sales D-DIMER COMMENTS SEE BELOW Normal [facility] Comment on above: Result Comment: Incr [...] hospitalization. Performed By: #### L ACT #### [facility] [address] [place] [address] Dr. Caitlin Sales LACTATE/LACTIC ACIDon 2021 Lactate [Moles/Vol] 1.7 mmol/L Normal 0.4-1.9 [facility] Comment on above: Performed By: #### P T, PTT #### [facility] [address] [place] [address] Dr. Caitlin Sales PH VENOUS BLOODon 06-05-2022 PCO2 VENOUS 42.0 mmHg Normal 40.0-52.0 [facility] Comment on above: Performed By: #### C MP, BNP, CMADM #### [facility] [address] [place] [address] Dr. Caitlin Sales pH VENOUS 7.451 Critically high 7.330-7.430 [facility] Comment on above: Performed By: #### C MP, BNP, CMADM #### [facility] [address] [place] [address] Dr. Caitlin Sales PROF 14(COMP METB)on 022 Albumin [Mass/Vol] 3.6 g/dL Normal 3.4-5.0 [facility] Comment on above: Performed By: #### C MP, BNP, CMADM #### [facility] [address] [place] [address] Dr. Caitlin Sales Albumin/Globulin [Mass ratio] 1.2 {ratio} Normal [facility] Comment on above: Performed By: #### C MP, BNP, CMADM #### [facility] [address] [place] [address] Dr. Caitlin Sales ALP [Catalytic activity/Vol] 47 U/L Normal 46-116 [facility] Comment on above: Performed By: #### C MP, BNP, CMADM #### [facility] [address] [place] [address] Dr. Caitlin Sales ALT [Catalytic activity/Vol] 25 U/L Normal 16-63 [facility] Comment on above: Performed By: #### C MP, BNP, CMADM #### [facility] [address] [place] [address] Dr. Caitlin Sales Anion gap [Moles/Vol] 13.3 mmol/L Normal Th [facility] [place] [facility] Comment on above: Performed By: #### C MP, BNP, CMADM #### [facility] [address] [place] [address] Dr. Caitlin Sales AST [Catalytic activity/Vol] 21 U/L Normal 15-37 [facility] Comment on above: Performed By: #### C MP, BNP, CMADM #### [facility] [address] [place] [address] Dr. Caitlin Sales Bilirubin [Mass/Vol] 0.2 mg/dL Normal 0.2-1.0 [facility] Comment on above: Performed By: #### C MP, BNP, CMADM #### [facility] [address] [place] [address] Dr. Caitlin Sales Calcium [Mass/Vol] 9.0 mg/dL Normal 8.5-10.1 [facility] Comment on above: Performed By: #### C MP, BNP, CMADM #### [facility] [address] [place] [address] Dr. Caitlin Sales Chloride [Moles/Vol] 104 mmol/L Normal 98-107 [facility] [place] [facility] Comment on above: Performed By: #### C MP, BNP, CMADM #### [facility] [address] [place] [address] Dr. Caitlin Sales CO2 [Moles/Vol] 27.2 mmol/L Normal 21.0-32.0 [facility] Comment on above: Performed By: #### C MP, BNP, CMADM #### [facility] [address] [address] [address] Cailtin Sales Creatinine [Mass/Vol] 0.62 mg/dL Critically low 0.70-1.30 [facility] [place] [facility] Comment on above: Performed By: #### C MP, BNP, CMADM #### [facility] [address] [address] [address] Caitlin Sales EGFR-AF SIERRA LEONEAN >60 Normal >=60 [facility] [place] [facility] Comment on above: Performed By: #### C MP, BNP, CMADM #### [facility] [address] [address] [address] Caitlin Sales EGFR-NON AF SIERRA LEONEAN >60 Normal >=60 [facility] [place] [facility] Comment on above: Performed By: #### C MP, BNP, CMADM #### [facility] [address] [address] [address] Caitlin Sales Globulin (S) [Mass/Vol] 3.1 g/dL Normal [facility] [place] [facility] Comment on above: Performed By: #### C MP, BNP, CMADM #### [facility] [address] [address] [address] Caitlin Sales Glucose [Mass/Vol] 93 mg/dL Normal 74-106 [facility] [place] [facility] Comment on above: Performed By: #### C MP, BNP, CMADM #### [facility] [address] [address] [address] Caitlin Sales Potassium [Moles/Vol] 3.5 mmol/L Normal 3.5-5.1 [facility] [place] [facility] Comment on above: Performed By: #### C MP, BNP, CMADM #### [facility] [address] [address] [address] Caitlin Sales Protein [Mass/Vol] 6.7 g/dL Normal 6.4-8.2 [facility] [place] [facility] Comment on above: Performed By: #### C MP, BNP, CMADM #### [facility] [address] [address] [address] Caitlin Sales Sodium [Moles/Vol] 141 mmol/L Normal 136-145 [facility] [place] [facility] Comment on above: Performed By: #### C MP, BNP, CMADM #### [facility] [address] [place] [address] Dr. Caitlin Sales Urea nitrogen [Mass/Vol] 14.0 mg/dL Normal 7.0-18.0 [facility] Comment on above: Performed By: #### C MP, BNP, CMADM #### [facility] [address] [place] [address] Dr. Caitlin Sales Urea nitrogen/Creatinine [Mass ratio] 22.6 mg/mg Normal [facility] [place] [facility] Comment on above: Performed By: #### C MP, BNP, CMADM #### [facility] [address] [place] [address] Dr. Caitlin Sales PROTIMEon 06-05-2022 INR Coag (PPP) [Relative time] 1.01 {INR} Normal [facility] Comment on above: Performed By: #### P T, PTT #### [facility] [address] [place] [address] Dr. Caitlin Sales INR GUIDELINES SEE BELOW Normal [facility] [place] [facility] Comment on above: Result Comment: SERENITY RED INR: 2.0 - 3.0 CONDITIONS NOT LISTED BELOW 2.5 - 3.5 FOR PROSTHETIC HEART VALVE REPLACEMENT 2.5 - 3.5 RECURRENT THROMBOSIS Performed By: #### P T, PTT #### [facility] [address] [place] [address] Dr. Caitlin Sales PT Coag (PPP) [Time] 10.9 s Normal 9.0-11.6 [facility] Comment on above: Performed By: #### P T, PTT #### [facility] [address] [place] [address] Dr. Caitlin Sales PTTon 06-05-2022 aPTT Coag (Bld) [Time] 27.2 s Normal 22.3-36.2 Th [facility] Comment on above: Performed By: #### P T, PTT #### [facility] [address] [place] [address] Dr. Caitlin Sales TROPONIN, HIGH SENSITIVITYon 06-05-2022 HSTROP 14.9 pg/mL Normal 4.0-76.1 [facility] Comment on above: Result Comment: CUT- OFF POINTS HAVE BEEN ESTABLISHED BASED ON THE FOURTH UNIVERSAL DEFINITIONS OF MYOCARDIAL INFARCTION. THE UPPER REFERENCE LIMIT (URL) OF TROPONIN, DEFINED THE 99TH PERCENTILE OF cTnI DISTRIBUTION IN A REFERENCE POPULATION, HAS BEEN CONFIRMED THE DECISION THRESHOLD FOR AK DIAGNOSIS. Performed By: #### C MP, BNP, CMADM #### [facility] [address] [place] [address] Dr. Caitlin Sales TSHon 06-05-2022 TSH 4.578 uIU/mL Critically high 0.358-3.740 [facility] Comment on above: Performed By: #### C MP, BNP, CMADM #### [facility] [address] [place] [address] Dr. Caitlin Sales CBC AUTO DIFFon 06-03-2022 BASO # 0.0 103/ul Normal 0.0-0.1 [facility] Comment on above: Performed By: #### P T, PTT #### [facility] [address] [place] [address] Dr. Caitlin Sales Basophils/100 WBC (Bld) 0.0 % Critically low 0.2-2.0 [facility] Comment on above: Performed By: #### P T, PTT #### [facility] [address] [place] [address] Dr. Caitlin Sales EO # 0.0 103/ul Normal 0.0-0.7 [facility] Comment on above: Performed By: #### P T, PTT #### [facility] [address] [place] [address] Dr. Caitlin Sales Eosinophils/100 WBC (Bld) 0.0 % Critically low 0.9-7.0 [facility] Comment on above: Performed By: #### P T, PTT #### [facility] [address] [place] [address] Dr. Caitlin Sales Erythrocyte distribution width (RBC) [Ratio] 11.9 % Normal 11.0-15.0 [facility] [facility] Comment on above: Performed By: #### P T, PTT #### [facility] [address] [place] [address] Dr. Caitlin Sales Hematocrit (Bld) [Volume fraction] 41.9 % Critically low 42.0-54.0 [facility] Comment on above: Performed By: #### P T, PTT #### [facility] [address] [place] [address] Dr. Caitlin Sales Hemoglobin (Bld) [Mass/Vol] 14.2 g/dL Normal 14.0-18.0 [facility] Comment on above: Performed By: #### P T, PTT #### [facility] [address] [place] [address] Dr. Caitlin Sales IG # 0.03 10e3/ul Normal 0.00-0.03 [facility] Comment on above: Performed By: #### P T, PTT #### [facility] [address] [place] [address] Dr. Caitlin Sales IG % 0.4 % Normal 0.0-0.5 [facility] Comment on above: Performed By: #### P T, PTT #### [facility] [address] [place] [address] Dr. Caitlin Saels LYMPH # 0.5 103/ul Critically low 1.2-3.8 [facility] Comment on above: Performed By: #### P T, PTT #### [facility] [address] [place] [address] Dr. Caitlin Sales Lymphocytes/100 WBC (Bld) 6.9 % Critically low 20.5-60.0 [facility] Comment on above: Performed By: #### P T, PTT #### [facility] [address] [place] [address] Dr. Caitlin Sales MANUAL DIFF REQ NO Normal [facility] Comment on above: Performed By: #### P T, PTT #### [facility] [address] [place] [address] Dr. Caitlin Sales MCH (RBC) [Entitic mass] 31.5 pg Normal 25.9-34.0 [facility] Comment on above: Performed By: #### P T, PTT #### [facility] [address] [place] [address] Dr. Caitlin Sales MCHC (RBC) [Mass/Vol] 33.9 g/dL Normal 29.9-35.2 [facility] Comment on above: Performed By: #### P T, PTT #### [facility] [address] [place] [address] Dr. Caitlin Sales MCV (RBC) [Entitic vol] 92.9 fL Normal 80.0-94.0 [facility] Comment on above: Performed By: #### P T, PTT #### [facility] [address] [place] [address] Dr. Caitlin Sales MONO # 0.1 103/ul Critically low 0.3-0.8 [facility] Comment on above: Performed By: #### P T, PTT #### [facility] [address] [place] [address] Dr. Caitlin Sales Monocytes/100 WBC (Bld) 1.8 % Normal 1.7-12.0 [facility] Comment on above: Performed By: #### P T, PTT #### [facility] [address] [place] [address] Dr. Caitlin Sales NEUT # 6.2 103/ul Normal 1.4-6.5 [facility] Comment on above: Performed By: #### P T, PTT #### [facility] [address] [place] [address] Dr. Caitlin Sales Neutrophils/100 WBC (Bld) 90.9 % Critically high 43.0-75.0 [facility] Comment on above: Performed By: #### P T, PTT #### [facility] [address] [place] [address] Dr. Caitlin Sales Platelet mean volume (Bld) [Entitic vol] 9.4 fL Critically low 9.5-13.5 [facility] Comment on above: Performed By: #### P T, PTT #### [facility] [address] [place] [address] Dr. Caitlin Sales PLT 300 103/ul Normal 150-450 [facility] Comment on above: Performed By: #### P T, PTT #### [facility] [address] [place] [address] Dr. Caitlin Sales RBC 4.51 106/ul Critically low 4.70-6.10 [facility] Comment on above: Performed By: #### P T, PTT #### [facility] [address] [place] [address] Dr. Caitlin Sales WBC 6.8 103/ul Normal 4.0-11.0 [facility] Comment on above: Performed By: #### P T, PTT #### [facility] [address] [place] [address] Dr. Caitlin Sales PROF CHEM 8 (BAS METB)on Anion gap [Moles/Vol] 15.3 mmol/L Normal [facility] Comment on above: Performed By: #### P T, PTT #### [facility] [address] [place] [address] Dr. Caitlin Sales Calcium [Mass/Vol] 8.7 mg/dL Normal 8.5-10.1 [facility] Comment on above: Performed By: #### P T, PTT #### [facility] [address] [place] [address] Dr. Caitlin Sales Chloride [Moles/Vol] 104 mmol/L Normal 98-107 [facility] Comment on above: Performed By: #### P T, PTT #### [facility] [address] [place] [address] Dr. Caitlin Sales CO2 [Moles/Vol] 24.3 mmol/L Normal 21.0-32.0 [facility] Comment on above: Performed By: #### P T, PTT #### [facility] [address] [place] [address] Dr. Caitlin Sales Creatinine [Mass/Vol] 0.88 mg/dL Normal 0.70-1.30 [facility] Comment on above: Performed By: #### P T, PTT #### [facility] [address] [place] [address] Dr. Caitlin Sales EGFR-AF SIERRA LEONEAN >60 Normal >=60 [facility] Comment on above: Performed By: #### P T, PTT #### [facility] [address] [address] [address] Caitlin Sales EGFR-NON AF SIERRA LEONEAN >60 Normal >=60 [facility] Comment on above: Performed By: #### P T, PTT #### [facility] [address] [address] [address] Caitlin Sales Glucose [Mass/Vol] 166 mg/dL Critically high 74-106 [facility] Comment on above: Performed By: #### P T, PTT #### [facility] [address] [address] [address] Caitlin Sales Potassium [Moles/Vol] 3.6 mmol/L Normal 3.5-5.1 [facility] Comment on above: Performed By: #### P T, PTT #### [facility] [address] [address] [address] Caitlin Sales Sodium [Moles/Vol] 140 mmol/L Normal 136-145 [facility] Comment on above: Performed By: #### P T, PTT #### [facility] [address] [address] [address] Caitlin Sales Urea nitrogen [Mass/Vol] 9.0 mg/dL Normal 7.0-18.0 [facility] Comment on above: Performed By: #### P T, PTT #### [facility] [address] [place] [address] Dr. Caitlin Sales Urea nitrogen/Creatinine [Mass ratio] 10.2 mg/mg Normal [facility] Comment on above: Performed By: #### P T, PTT #### [facility] [address] [address] [address] Caitlin Sales BLOOD GASES BTYon 06-02-2022 02 MODE ROOM AIR Normal [facility] Comment on above: Result Comment: Prev iously reported as: NASAL CANNULA On 06/02/2022 17:30 By LM4 Performed By: #### C MP, BNP, CMADM #### [facility] [address] [place] [address] Dr. Caitlin Sales ALLENS TEST Positive Normal [facility] Comment on above: Performed By: #### C MP, BNP, CMADM #### [facility] [address] [place] [address] Dr. Caitlin Sales Base excess Calc (Bld) [Moles/Vol] -1.4000 mmol/L Normal -2.0-2.0 [facility] Comment on above: Performed By: #### C MP, BNP, CMADM #### [facility] [address] [place] [address] Dr. Caitlin Sales BIPAP PRESSURE [facility] Comment on above: Performed By: #### C MP, BNP, CMADM #### [facility] [address] [place] [address] Dr. Caitlin Sales CPAP [facility] Comment on above: Performed By: #### C MP, BNP, CMADM #### [facility] [address] [place] [address] Dr. Caitlin Sales FIO2 [facility] Comment on above: Performed By: #### C MP, BNP, CMADM #### [facility] [address] [place] [address] Dr. Caitlin Sales HCO3 (Bld) [Moles/Vol] 22.9 mmol/L Normal 22.0-26.0 [facility] Comment on above: Performed By: #### C MP, BNP, CMADM #### [facility] [address] [place] [address] Dr. Caitlin Sales LPM [facility] Comment on above: Performed By: #### C MP, BNP, CMADM #### [facility] [address] [place] [address] Dr. Caitlin Sales MINUTE VOLUME [facility] Comment on above: Performed By: #### C MP, BNP, CMADM #### [facility] [address] [place] [address] Dr. Caitlin Sales Oxygen (Bld) [Partial pressure] 83.0 mm[Hg] Normal 80.0-100.0 [facility] Comment on above: Performed By: #### C MP, BNP, CMADM #### [facility] [address] [address] [address] Caitlin Sales Oxygen saturation in Blood 97.3 % Normal 95.0-100.0 [facility] Comment on above: Performed By: #### C MP, BNP, CMADM #### [facility] [address] [place] [address] Dr. Caitlin Sales PCO2 34.9 mmHg Critically low 35.0-45.0 [facility] Comment on above: Performed By: #### C MP, BNP, CMADM #### [facility] [address] [place] [address] Dr. Caitlin Sales [facility] Comment on above: Performed By: #### C MP, BNP, CMADM #### [facility] [address] [place] [address] Dr. Caitlin Sales pH (Bld) 7.426 [pH] Normal 7.350-7.450 [facility] Comment on above: Performed By: #### C MP, BNP, CMADM #### [facility] [address] [place] [address] Dr. Caitlin Sales [facility] Comment on above: Performed By: #### C MP, BNP, CMADM #### [facility] [address] [place] [address] Dr. Caitlin Sales [facility] Comment on above: Performed By: #### C MP, BNP, CMADM #### [facility] [address] [place] [address] Dr. Caitlin Sales PUNCTURE SITE RR [facility] Comment on above: Performed By: #### C MP, BNP, CMADM #### [facility] [address] [place] [address] Dr. Caitlin Sales RATE [facility] Comment on above: Performed By: #### C MP, BNP, CMADM #### [facility] [address] [place] [address] Dr. Caitlin Sales VENT [facility] Comment on above: Performed By: #### C MP, BNP, CMADM #### [facility] [address] [place] [address] Dr. Caitlin Sales VT Normal [facility] Comment on above: Performed By: #### C MP, BNP, CMADM #### [facility] [address] [place] [address] Dr. Caitlin Sales BNPon 06-02-2022 Natriuretic peptide B (Bld) [Mass/Vol] 236.0 pg/mL Normal <=900.0 [facility] Comment on above: Performed By: #### C MP, BNP, CMADM #### [facility] [address] [place] [address] Dr. Caitlin Sales CARDIAC ABBY ADMITon 022 CK [Catalytic activity/Vol] 109 U/L Normal 39-308 [facility] Comment on above: Performed By: #### C MP, BNP, CMADM #### [facility] [address] [place] [address] Dr. Caitlin Sales CK.MB [Mass/Vol] 3.67 ng/mL Critically high <=3.60 [facility] Comment on above: Performed By: #### C MP, BNP, CMADM #### [facility] [address] [place] [address] Dr. Caitlin Sales HSTROP 10.2 pg/mL Normal 4.0-76.1 [facility] Comment on above: Result Comment: CUT- OFF POINTS HAVE BEEN ESTABLISHED BASED ON THE FOURTH UNIVERSAL DEFINITIONS OF MYOCARDIAL INFARCTION. THE UPPER REFERENCE LIMIT (URL) OF TROPONIN, DEFINED THE 99TH PERCENTILE OF cTnI DISTRIBUTION IN A REFERENCE POPULATION, HAS BEEN CONFIRMED THE DECISION THRESHOLD FOR AK DIAGNOSIS. Performed By: #### C MP, BNP, CMADM #### [facility] [address] [place] [address] Dr. Caitlin Sales REJI 61 ng/mL Normal 16-96 [facility] Comment on above: Performed By: #### C MP, BNP, CMADM #### [facility] [address] [place] [address] Dr. Caitlin Sales CBC AUTO DIFFon 06-02-2022 BASO # 0.0 103/ul Normal 0.0-0.1 [facility] Comment on above: Performed By: #### L ACT #### [facility] [address] [place] [address] Dr. Caitlin Sales Basophils/100 WBC (Bld) 0.4 % Normal 0.2-2.0 [facility] Comment on above: Performed By: #### L ACT #### [facility] [address] [place] [address] Dr. Caitlin Salse EO # 0.4 103/ul Normal 0.0-0.7 [facility] Comment on above: Performed By: #### L ACT #### [facility] [address] [place] [address] Dr. Caitlin Sales Eosinophils/100 WBC (Bld) 4.3 % Normal 0.9-7.0 [facility] Comment on above: Performed By: #### L ACT #### [facility] [address] [place] [address] Dr. Caitlin Sales Erythrocyte distribution width (RBC) [Ratio] 11.9 % Normal 11.0-15.0 [facility] Comment on above: Performed By: #### L ACT #### [facility] [address] [place] [address] Dr. Caitlin Sales Hematocrit (Bld) [Volume fraction] 43.5 % Normal 42.0-54.0 [facility] Comment on above: Performed By: #### L ACT #### [facility] [address] [place] [address] Dr. Caitlin Sales Hemoglobin (Bld) [Mass/Vol] 14.8 g/dL Normal 14.0-18.0 [facility] Comment on above: Performed By: #### L ACT #### [facility] [address] [place] [address] Dr. Caitlin Sales IG # 0.03 10e3/ul Normal 0.00-0.03 [facility] Comment on above: Performed By: #### L ACT #### [facility] [address] [place] [address] Dr. Caitlin Sales IG % 0.3 % Normal 0.0-0.5 [facility] Comment on above: Performed By: #### L ACT #### [facility] [address] [address] [address] Caitlin Sales LYMPH # 2.9 103/ul Normal 1.2-3.8 [facility] Comment on above: Performed By: #### L ACT #### [facility] [address] [place] [address] Dr. Caitlin Sales Lymphocytes/100 WBC (Bld) 28.9 % Normal 20.5-60.0 [facility] Comment on above: Performed By: #### L ACT #### [facility] [address] [place] [address] Dr. Caitlin Sales MANUAL DIFF REQ NO Normal [facility] Comment on above: Performed By: #### L ACT #### [facility] [address] [place] [address] Dr. Caitiln Sales MCH (RBC) [Entitic mass] 31.3 pg Normal 25.9-34.0 [facility] Comment on above: Performed By: #### L ACT #### [facility] [address] [place] [address] Dr. Caitlin Sales MCHC (RBC) [Mass/Vol] 34.0 g/dL Normal 29.9-35.2 [facility] Comment on above: Performed By: #### L ACT #### [facility] [address] [place] [address] Dr. Caitlin Sales MCV (RBC) [Entitic vol] 92.0 fL Normal 80.0-94.0 [facility] Comment on above: Performed By: #### L ACT #### [facility] [address] [place] [address] Dr. Caitlin Sales MONO # 0.9 103/ul Critically high 0.3-0.8 [facility] Comment on above: Performed By: #### L ACT #### [facility] [address] [place] [address] Dr. Caitlin Sales Monocytes/100 WBC (Bld) 9.2 % Normal 1.7-12.0 [facility] Comment on above: Performed By: #### L ACT #### [facility] [address] [place] [address] Dr. Caitlin Sales NEUT # 5.7 103/ul Normal 1.4-6.5 [facility] Comment on above: Performed By: #### L ACT #### [facility] [address] [place] [address] Dr. Caitlin Sales Neutrophils/100 WBC (Bld) 56.9 % Normal 43.0-75.0 [facility] Comment on above: Performed By: #### L ACT #### [facility] [address] [place] [address] Dr. Caitlin Sales Platelet mean volume (Bld) [Entitic vol] 9.5 fL Normal 9.5-13.5 [facility] Comment on above: Performed By: #### L ACT #### [facility] [address] [place] [address] Dr. Caitlin Sales PLT 337 103/ul Normal 150-450 [facility] Comment on above: Performed By: #### L ACT #### [facility] [address] [place] [address] Dr. Caitlin Sales RBC 4.73 106/ul Normal 4.70-6.10 [facility] Comment on above: Performed By: #### L ACT #### [facility] [address] [place] [address] Dr. Caitlin Sales WBC 9.9 103/ul Normal 4.0-11.0 [facility] Comment on above: Performed By: #### L ACT #### [facility] [address] [place] [address] Dr. Caitlin Sales Covid-19 PCR ([facility])on SARS-CoV-2 (COVID-19) RNA BENSON+probe Ql (Unsp spec) Not detected Normal NOT DETECTED [facility] Comment on above: Result Comment: When [...] for this test is supported by the Systems Software Specialist of Health and Human Service's declaration that [...] used). Performed By: #### L ACT #### [facility] [address] [place] [address] Dr. Caitlin Sales INFLUENZA A AND B AGon 06-02 [facility] SEE BELOW Normal [facility] Comment on above: Result Comment: Nega tive for Flu A protein angiten. Infection due to Flu A cannot be ruled out. Flu A angiten in the sample may be below the detection limit of the test. Performed By: #### C MP, BNP, CMADM #### [facility] [address] [place] [address] Dr. Caitlin Sales INFLUBNEGH SEE BELOW Normal [facility] Comment on above: Result Comment: Nega tive for Flu B protein antigen. Infection due to Flu B cannot be ruled out. Flu B antigen in the sample may be below the detection limit of the test. Performed By: #### C MP, BNP, CMADM #### [facility] [address] [place] [address] Dr. Caitlin Sales INFLUENZA A AG Negative Normal NEGATIVE SEE COMMENT [facility] Comment on above: Performed By: #### C MP, BNP, CMADM #### [facility] [address] [place] [address] Dr. Caitlin Sales INFLUENZA B AG Negative Normal NEGATIVE SEE COMMENT [facility] Comment on above: Performed By: #### C MP, BNP, CMADM #### [facility] [address] [place] [address] Dr. Caitlin Sales INTERNAL CONTROLS Within Normal Limits Normal Wi thin Normal Limits [facility] Comment on above: Performed By: #### C MP, BNP, CMADM #### [facility] [address] [place] [address] Dr. Caitlin Sales LACTATE/LACTIC ACIDon 2021 Lactate [Moles/Vol] 0.8 mmol/L Normal 0.4-1.9 [facility] Comment on above: Performed By: #### L ACT #### [facility] [address] [place] [address] Dr. Caitlin Sales Lactate [Moles/Vol] 2.5 mmol/L Critically high 0.4-1.9 [facility] Comment on above: Performed By: #### L ACT #### [facility] [address] [place] [address] Dr. Caitlin Sales PROF 14(COMP METB)on 022 Albumin [Mass/Vol] 4.0 g/dL Normal 3.4-5.0 [facility] Comment on above: Performed By: #### C MP, BNP, CMADM #### [facility] [address] [place] [address] Dr. Caitlin Sales Albumin/Globulin [Mass ratio] 1.2 {ratio} Normal [facility] Comment on above: Performed By: #### C MP, BNP, CMADM #### [facility] [address] [place] [address] Dr. Caitlin Sales ALP [Catalytic activity/Vol] 65 U/L Normal 46-116 [facility] Comment on above: Performed By: #### C MP, BNP, CMADM #### [facility] [address] [place] [address] Dr. Caitlin Sales ALT [Catalytic activity/Vol] 17 U/L Normal 16-63 [facility] Comment on above: Performed By: #### C MP, BNP, CMADM #### [facility] [address] [place] [address] Dr. Caitlin Sales Anion gap [Moles/Vol] 11.6 mmol/L Normal [facility] Comment on above: Performed By: #### C MP, BNP, CMADM #### [facility] [address] [place] [address] Dr. Caitlin Sales AST [Catalytic activity/Vol] 17 U/L Normal 15-37 [facility] Comment on above: Performed By: #### C MP, BNP, CMADM #### [facility] [address] [place] [address] Dr. Caitlin Sales Bilirubin [Mass/Vol] 0.3 mg/dL Normal 0.2-1.0 [facility] Comment on above: Performed By: #### C MP, BNP, CMADM #### [facility] [address] [place] [address] Dr. Caitlin Sales Calcium [Mass/Vol] 9.0 mg/dL Normal 8.5-10.1 [facility] Comment on above: Performed By: #### C MP, BNP, CMADM #### [facility] [address] [place] [address] Dr. Caitlin Sales Chloride [Moles/Vol] 102 mmol/L Normal 98-107 [facility] Comment on above: Performed By: #### C MP, BNP, CMADM #### [facility] [address] [place] [address] Dr. Caitlin aSles CO2 [Moles/Vol] 27.9 mmol/L Normal 21.0-32.0 [facility] Comment on above: Performed By: #### C MP, BNP, CMADM #### [facility] [address] [place] [address] Dr. Caitlin Sales Creatinine [Mass/Vol] 0.90 mg/dL Normal 0.70-1.30 [facility] Comment on above: Performed By: #### C MP, BNP, CMADM #### [facility] [address] [place] [address] Dr. Caitlin Sales EGFR-AF SIERRA LEONEAN >60 Normal >=60 [facility] Comment on above: Performed By: #### C MP, BNP, CMADM #### [facility] [address] [place] [address] Dr. Caitlin Sales EGFR-NON AF SIERRA LEONEAN >60 Normal >=60 [facility] Comment on above: Performed By: #### C MP, BNP, CMADM #### [facility] [address] [place], [place] [id number] Dr. Caitlin Sales Globulin (S) [Mass/Vol] 3.4 g/dL Normal [facility] Comment on above: Performed By: #### C MP, BNP, CMADM #### [facility] [address] [place] [address] Dr. Caitlin Sales Glucose [Mass/Vol] 89 mg/dL Normal 74-106 [facility] Comment on above: Performed By: #### C MP, BNP, CMADM #### [facility] [address] [place] [address] Dr. Caitlin Sales Potassium [Moles/Vol] 3.5 mmol/L Normal 3.5-5.1 [facility] Comment on above: Performed By: #### C MP, BNP, CMADM #### [facility] [address] [place] [address] Dr. Caitlin Sales Protein [Mass/Vol] 7.4 g/dL Normal 6.4-8.2 [facility] [facility] Comment on above: Performed By: #### C MP, BNP, CMADM #### [facility] [address] [place] [address] Dr. Caitlin Sales Sodium [Moles/Vol] 138 mmol/L Normal 136-145 [facility] Comment on above: Performed By: #### C MP, BNP, CMADM #### [facility] [address] [place] [address] Dr. Caitlin Sales Urea nitrogen [Mass/Vol] 10.0 mg/dL Normal 7.0-18.0 [facility] Comment on above: Performed By: #### C MP, BNP, CMADM #### [facility] [address] [place] [address] Dr. Caitlin Sales Urea nitrogen/Creatinine [Mass ratio] 11.1 mg/mg Normal [facility] Comment on above: Performed By: #### C MP, BNP, CMADM #### [facility] [address] [place] [address] Dr. Caitlin Sales XR CHEST 1 Von [...] by: IQRA MYERS Date: 2022-06-02 17:52 Normal [facility] Vital Signs Date Time Vital Sign Value Performing Clinician Facility 06-22-2023 00:30-0500 Diastolic blood pressure 75 mm[Hg] MD Melody Huertas Work Phone: [facility] 06-22-2023 00:30-0500 Heart rate 103 /min MD Melody Huertas Work Phone: [facility] 06-22-2023 00:30-0500 SaO2% (BldA) [Mass fraction] 95 % MD Melody Huertas Work Phone: [facility] 06-22-2023 00:30-0500 Systolic blood pressure 137 mm[Hg] MD Melody Huertas Work Phone: [facility] 06-21-2023 23:24-0500 Respiratory rate 20 /min MD Melody Huertas Work Phone: [facility] 06-21-2023 14:49-0500 Body height 162.56 cm MD Melody Huertas Work Phone: [facility] 06-21-2023 14:49-0500 Body temperature 98 [degF] MD Melody Huertas Work Phone: [facility] 06-21-2023 14:49-0500 Body weight 59.42 kg MD Melody Huertas Work Phone: [facility] 01-08-2023 15:25-0400 Diastolic blood pressure 76 mm[Hg] Yo PONCE [facility] 01-08-2023 15:25-0400 Heart rate 68 /min Ram SALAM [facility] 01-08-2023 15:25-0400 Respiratory rate 23 /min Ram SALAM [facility] 01-08-2023 15:25-0400 SaO2% (BldA) [Mass fraction] 99 % Ram SALAM [facility] 01-08-2023 15:25-0400 Systolic blood pressure 144 mm[Hg] Ram SALAM [facility] 01-08-2023 15:10-0400 Diastolic blood pressure 65 mm[Hg] Ram SALAM [facility] 01-08-2023 15:10-0400 Heart rate 76 /min Ram SALAM [facility] 01-08-2023 15:10-0400 Respiratory rate 18 /min Ram SALAM [facility] 01-08-2023 15:10-0400 SaO2% (BldA) [Mass fraction] 92 % Ram SALAM [facility] 01-08-2023 15:10-0400 Systolic blood pressure 148 mm[Hg] Ram SALAM [facility] 01-08-2023 15:05-0400 Diastolic blood pressure 72 mm[Hg] Ram SALAM [facility] 01-08-2023 15:05-0400 Heart rate 76 /min Ram SALAM [facility] 01-08-2023 15:05-0400 Respiratory rate 24 /min Ram SALAM [facility] 07-17-2023 15:05-0400 SaO2% (BldA) [Mass fraction] 97 % Ram SALAM [facility] 01-08-2023 15:05-0400 Systolic blood pressure 147 mm[Hg] Ram SALAM [facility] 01-08-2023 14:56-0400 Body temperature 96.8 [degF] Ram SALAM [facility] 01-08-2023 14:49-0400 Respiratory rate 12 /min Ram SALAM [facility] 01-08-2023 14:45-0400 Respiratory rate 12 /min Ram SALAM [facility] 01-08-2023 14:40-0400 Respiratory rate 12 /min Ram SALAM [facility] 01-08-2023 12:57-0400 Blood Pressure Location Ram SALAM [facility] 01-08-2023 12:57-0400 [facility] 97.16 [facility]degF[facility] Encounters Encounter Date Encounter Type Care Provider Facility Start: 11-05-2023 ambulatory MD Papo Castro Facil ity:[facility] Start: 11-01-2023 ambulatory MD Papo Castro Facil ity:[facility] Start: 06-21-2023 End: 06-22-2023 ambulatory Brie Negrete Facility:[facility] Start: 06-21-2023 Evaluation and management of inpatient MD Melody Huertas Work Phone: [facility] [place] [facility] Work Phone: Start: 05-07-2023 End: 05-08-2023 ambulatory MD Papo Castro Facility:[facility] Start: 05-03-2023 End: 05-04-2023 ambulatory MD Papo Castro Facility:[facility] Start: 01-08-2023 End: 01-09-2023 ambulatory [facility] Start: 01-08-2023 End: 01-08-2023 Patient encounter procedure Ram ROSARIO [facility] Start: 11-07-2022 End: 11-08-2022 ambulatory Lolis Jenkins Facility:[facility] Start: 10-31-2022 [facility]ulatory [facility] Start: 10-11-2022 End: 10-13-2022 ambulatory PAPO CASTRO Facility: Start: 10-11-2022 End: 10-12-2022 ambulatory MD Papo Castro Facility:[facility] Start: 10-09-2022 End: 11-13-2022 ambulatory MD Papo Castro Facility:[id number] Start: 10-06-2022 ambulatory MD Papo Castro Facility :[facility] Start: 10-05-2022 End: 10-06-[address] DOCTOR DANIEL Facility:[facility] Start: 06-05-2022 End: 06-08-[address] DOCTOR DANIEL Facility:[facility] Start: 06-02-2022 End: 06-03-[address] DOCTOR DANIEL Facility:[facility] Start: 10-12-2021 ambulatory [facility] Ambulatory Procedures Date Procedure Procedure Detail Performing [...] Author Start: 06-21-2023 Microbial culture of sputum [facility] Start: 06-21-2023 Hospital admission [facility] Start: 06-21-2023 [facility] Start: 06-21-2023 Bacteria identified in Blood by Culture [facility] Start: 06-21-2023 Bacteria identified in Urine by Culture [facility] Immunizations Immunization Date Immunization Notes Care Provider Fa cility 06-02-2022 influenza virus vaccine, unspecified formulation [facility] [employer] [facility] 06-02-2022 pneumococcal conjuga te vaccine, 13 valent [employer] [facility] NEGATED: Highlighted row has not occurred!10-11-2022 SARS-CoV-2 mRNA (tozinameran 5y-11y) vaccine [employer] [facility] Payers Date Payer Category Payer Self-pay 2022 Unknown [id number] 2022 Private Health Insurance [id number] 2019 Unknown [id number] 1958 Medicare [id number] 1950 Unknown [id number] 1950 Unknown [id number] .593 1951 Unknown [id number] [id number] .593 1950 Unknown [id number] [id number] .593 1950 Unknown [id number] 2.16.840.1.470684.3.579.2 .727 1950 Unknown [id number] 2.16.840.1.607713.3.579.2 .727 1950 Unknown [id number] 2.16.840.1.236540.3.579.2 .727 1950 Unknown [id number] 2.16.840.1.738309.3.579.2 .727 1950 Unknown [id number] 2.16.840.1.197433.3.579.2 .72 1950 Unknown [id number] 2.16.840.1.463219.3.579.2 .72 1950 Unknown [id number] 2.16.840.1.347038.3.579.2 .727 Unknown [facility] 1024 [id number] Unknown [id number] [id number] .531 Social History Date Type Detail Facility Start: 11-07-2022 End: 06-21-2023 Tobacco smoking status Ex-smoker (finding) [facility] Tobacco smoking status Never [facility] Sex Assigned At Male [facility] Start: 1950 Sex Assigned At Male F [facility] Medical Equipment Procedure Code Equipment Code Equipment Origin al Text Equipment Identifier Dates Unknown Unknown 01/08/23 Non Biological Unknown FDA Start: 01-08-2023 FDA Start: 01-08-2023 Functional Status Date Assessment Result Facility 01-08-2023 Functional Status N/A [facility] History and physical note 01-10-2023 Note Date & Type Note Facility 01-10-2023 Note [id number] #[id number]:[id number] [facility] Hospital Discharge instructions 01-08-2023 Note Date & [...] hard liquor (44 mL). General instructions Take xavx-izu-fdgrbrm and prescription medicines only as told by [...] provider. Document Revised: 09/29/2020 Document Reviewed: 09/29/2020 [employer] Patient Education 2022 [employer]. 01/08/2023 15:04:31 Diverticulosis MAGR (CUSTOM) Diverticulosis Many [...] unsweetened, w/added ascorbic acid 1 cup 0.5 [place] 1 cup 0.7 Vegetables Cooked Green beans 1 cup 4.0 Carrots 1/2 cup sliced 2.3 Peas 1 cup 8.8 Potato (baked, with skin) 1 medium potato 3.8 Raw [place] (with peel) 1 cucumber 1.5 Lettuce 1 [...] 8.7 Peanuts 1/2 cup 7.9 Chart from [facility] 2013. SEEK IMMEDIATE MEDICAL CARE IF: You [...] Available at http://www.nal.usda.gov/fnic/fo odcomp/search/. Information adapted from: [facility] Patient Information 2009 [employer]. [facility] 2012 [email or web address] he-[email or web address] Follow Up Care 11/07/2022 15:31:21 With:Yo PONCE Address: [address] [place] [address]. [address] [place] [phone] Business (1) When: Unknown Comments:office will call for follow up [facility] Evaluation + Plan note 01-08-2023 Note Date & Type Note Facility 01-08-2023 Evaluation + Plan note Extrac patricio from: Title:CSB post op Author:Clem PLATA, Minor Lara Date:01/08/23 Plan Transfer/Discharge: Transfer/Discharge Discharge when meets criteria ( To home ). Extracted from: Title:CSB Preop Author:Clem PLATA, Minor Lara Date:01/08/23 Plan [employer] Anesthesiologists (ASA) physical status classification: Class III. Anesthetic Preoperative Plan: Anesthesia General. [facility] Clinical Note 11-07-2022 Note Date & Type [...] including vitamins, herbs, eye drops, creams, and akfg-ltl-nnxzzay medicines. ? Any problems you or family [...] tells you to take them. ? Taking qlxm-ori-skqryvc medicines, vitamins, herbs, and supplements. General instructions [...] for cancer cells. (more content not included)... [facility] Evaluation note Note Date & Type Note Facility Evaluation note Diagnosis Onset Date Acute UTI acute Chest pain acute COPD exacerbation [facility] Work Phone: Hospital course Narrative Note Date & Type Note Facility Hospital course Narrative No data available for this section [facility] Progress note Note Date & Type Note Facility Progress note No data available for this section [facility] Summary Purpose Family History No Family History [...] section and content) DATE CREATED AUTHOR 10/14/2021 [facility] DATE CREATED AUTHOR AUTHOR'S ORGANIZ ATION 10/19/2022 [facility] DATE CREATED AUTHOR AUTHOR'S ORGANIZ ATION 05/27/2023 [facility] DATE CREATED AUTHOR AUTHOR'S ORGANIZ ATION 07/04/2023 [facility] Patient Care team informatio n (unrecognized section [...] BE BASED ON THE PRIMARY CLINICAL RECORDS. [employer] [facility]. provides no warranty or guarantee of the accuracy or completeness of information in this document.
[2023-07-20] MEDS: POTASSIUM CHLORIDE 10 MEQ ER TABLET 40 MEQ PO (02:27)
[2023-07-20] MEDS: IPRATROPIUM/ALBUTEROL SULFATE 3 ML AMPUL.NEB IH ×2 (04:35→10:55)
[2023-07-20 05:18] LABS: Basophils Percent Auto 0.3 % (0.2-2.0); Eosinophils Percent Auto 0.3 % (0.9-7.0); Hematocrit 40.9 % (42.0-54.0); Hemoglobin 13.5 g/dL (14.0-18.0); Immature Granulocytes Abs Auto 0.01 10^3/uL (0.00-0.03); Immature Granulocytes Pct Auto 0.3 % (0.0-0.5); Lymphocytes Absolute Auto 0.5 10^3/uL (1.2-3.8); Lymphocytes Percent Auto 16.6 % (20.5-60.0); Mean Corpuscular Hemoglobin 31.3 pg (25.9-34.0); Mean Corpuscular Volume 94.9 fL (80.0-94.0); Mean Platelet Volume 9.3 fL (9.5-13.5); Monocytes Absolute Auto 0.1 10^3/uL (0.3-0.8); Monocytes Percent Auto 2.2 % (1.7-12.0); Neutrophils Absolute Auto 2.5 10^3/uL (1.4-6.5); Neutrophils Percent Auto 80.3 % (43.0-75.0); Platelet Count 317 10^3/uL (150-450); Red Blood Count 4.31 10^6/uL (4.70-6.10); Red Cell Distribution Width 12.2 % (11.0-15.0); White Blood Count 3.1 10^3/uL (4.0-11.0)
[2023-07-20 05:19] LABS: PCO2 VBG 37.4 mmHg (40.0-52.0); pH VBG 7.422 (7.330-7.430)
[2023-07-20 06:02] LABS: Alanine Aminotransferase 21 U/L (16-63); Albumin Globulin Ratio 1.1; Albumin Level 3.5 g/dL (3.4-5.0); Alkaline Phosphatase 64 U/L (46-116); Anion Gap 6.5; Aspartate Amino Transferase 15 U/L (15-37); BUN Creatinine Ratio 15.9; Bilirubin Total 0.3 mg/dL (0.2-1.0); Calcium 9.2 mg/dL (8.5-10.1); Carbon Dioxide 23.4 mmol/L (21.0-32.0); Chloride 101 mmol/L (98-107); Estimated GFR (African America >60 (>=60); Estimated GFR (Non-African Ame >60 (>=60); Globulin 3.3 g/dL; Glucose 152 mg/dL (74-106); Potassium 3.9 mmol/L (3.5-5.1); Sodium 127 mmol/L (136-145); Total Protein 6.8 g/dL (6.4-8.2)
[2023-07-20] MEDS: METHYLPREDNISOLONE SOD SUCC PF 40 MG/ML VIAL IVP (06:16)
--- NOTE | 2023-07-20 09:11 | SWNOTE1 ---
SW met with pt to discuss dc needs. Pt lives at home alone, he is independent. Pt drives to store and does own grocery shopping, picks up medication, drives to doctor's appointments, etc. Pt came in for being short of breath, but voices he is feeling better. Pt does not wear home oxygen and he is not on oxygen currently at hospital. Pt's friend, Tej, came in the room while SW completing assessment. Pt's friend and his do check on pt frequently. Pt voices no needs at discharge at this time.
--- NOTE | 2023-07-20 11:44 | CM.NOTE ---
Rounds made with Dr. Connell, discussed with pt about discharge to home and using nebulizer for breathing tx Q4 hours and inhaler for break through needs. Pt voices he has outpatient appointment scheduled with Dr. Rodríguez next month. Talked with pt about importance of f/u appointment for preventive care d/t chronic illness.
--- NOTE | 2023-07-20 14:07 | PM.HP ---
H&P: HPI History of Present Illness Chief complaint: Shortness of breath Narrative: 72 y/o male to ER with SOB. History of COPD and c/o symptoms for several days. Severe SOB with exertion and nonproductive cough. Chest tight and hard to take deep breath. To store and severe SOB walking back to car then drove to ER. Decreased BS in ER and given steroids and breathing treatments. WBC normal and respiratory panel negative. Attempted to ambulate and severe SOB necessitating admission. Started steroids and breathing treatments. Did well overnight. SOB much improved and mild cough. Ambulating around room without difficulty. Normal SpO2 on room air. Review of Systems ROS Constitutional Denies: fever, chills or fatigue Cardiovascular Denies: chest pain, palpitations or edema Respiratory Reports: shortness of breath, cough and wheezing Gastrointestinal Denies: abdominal pain, nausea, vomiting or diarrhea Genitourinary Denies: painful urination [facility] Medical History (Updated 07/20/23 @ 02:10 by Danielle Otero RN) Enlarged prostate ?N40.0 - Benign prostatic hyperplasia without lower urinary tract symptoms (ICD-10) COPD (chronic obstructive pulmonary disease) ?J44.9 - Chronic obstructive pulmonary disease, unspecified (ICD-10) Surgical History (Updated 07/20/23 @ 02:10 by Danielle Otero RN) H/O wrist surgery ?Z98.890 - Other specified postprocedural states (ICD-10) Family History (Updated 07/20/23 @ 02:11 by Danielle Otero RN) Other Family history of COPD (chronic obstructive pulmonary disease) Family history of cancer Family history of diabetes mellitus Family history of stroke Social History (Updated 07/20/23 @ 02:14 by Danielle Otero RN) Within the past year, how often did you have a drink containing alcohol: 4 or more times a week Within the past year, how many standard drinks containing alcohol did you have on a typical day: 3 or 4 Within the past year, how often did you have six or more drinks on one occasion: less than monthly Total score: 3 Score interpretation: A score of 4 or more indicates drinking is likely to affect patient's safety. Smoking status: Former smoker Non-prescribed substance use: denies use Highest level of school completed/degree received: some college, no degree In a typical week, how many times do you talk on the telephone with family, friends, or neighbors: 3 or more times per week How often do you get together with friends or relatives: 3 or more times per week Do you think of yourself as: straight/heterosexual Gender Identity: male Meds Home Medications and Allergies Home Medications Medication Instructions Recorded Confirmed Type albuterol sulfate 90 mcg/actuation 2 inh inhalation Q8H 04/26/23 07/20/23 History aerosol inhaler montelukast 10 mg tablet 10 mg PO DAILY 04/26/23 07/20/23 History tamsulosin 0.4 mg capsule (Flomax) 0.4 mg PO DAILY 07/19/23 07/19/23 History prednisone 10 mg tablets in a dose 10 mg PO DAILY #39 ea 07/20/23 Rx pack Allergies Allergy/AdvReac Type Severity Reaction Status Date / Time Penicillins Allergy Unknown Verified 07/19/23 19:25 Exam Constitutional Vital Signs, click to edit/add: Last Vital Signs Temp 98.1 F 07/20/23 06:00 Pulse 122 H 07/20/23 12:22 Resp 16 07/20/23 08:00 BP 131/75 07/20/23 06:00 Pulse Ox 96 07/20/23 11:03 O2 Del Method Room Air 07/20/23 11:03 O2 Flow Rate 2 07/19/23 19:46 Documenting provider has reviewed patient's vital signs: yes Common normals: no apparent distress, oriented x3 and alert HENMT Common normals: normocephalic Eye Common normals: PERRL and EOMs intact bilaterally Respiratory Common normals: normal respiratory effort and clear to auscultation bilaterally Cardio Common normals: regular rate, regular rhythm, no gallops, no murmurs and no rub GI Common normals: Normal to inspection, nondistended, normoactive bowel sounds present and non-tender Extremity Common normals: no pedal edema Results Labs Labs: Short CBC 07/19/23 07/20/23 Range/Units 19:35 05:05 WBC 8.8 3.1 L (4.0-11.0) 10^3/uL Hgb 12.9 L 13.5 L (14.0-18.0) g/dL Hct 39.4 L 40.9 L (42.0-54.0) % Plt Count 330 317 (150-450) 10^3/uL BMP 07/19/23 07/20/23 19:35 05:05 Sodium 132 L 127 L Potassium 3.3 L 3.9 Chloride 102 101 Carbon Dioxide 26.0 23.4 BUN 11.0 10.0 Creatinine 0.66 L 0.63 L Glucose 96 152 H Calcium 9.0 9.2 Liver Function 07/20/23 Range/Units 05:05 Total Bilirubin 0.3 (0.2-1.0) mg/dL AST 15 (15-37) U/L ALT 21 (16-63) U/L Alkaline Phosphatase 64 (46-116) U/L Albumin 3.5 (3.4-5.0) g/dL ABG ABG results: 07/20/23 05:05 VBG pH 7.422 VBG pCO2 37.4 L Pulse Oximetry Attestation: I have reviewed the pertinent pulse oximetry results. Imaging Chest x-ray: Attestation: I have reviewed the pertinent imaging results. Assessment and Plan Assessment and Plan (1) COPD exacerbation: Plan Admitted with COPD exacerbation and significantly improved overnight with steroids and breathing treatments. Normal SpO2 on room air. Discharge home. Will take prednisone tapered over 12 days. Use albuterol every 4 hours for next 48 hours then PRN. Follow up with pulmonology as scheduled.
--- NOTE | 2023-07-23 15:34 | CM.DCFOLLOWU ---
Person spoke with: Cesar How are you feeling? Getting better slowly How is your pain? No pain Did you understand your discharge instructions? Yes Do you have any questions about your discharge instructions? No Were you given any prescriptions at discharge? Yes Were you able to get your prescriptions filled? Yes Do you understand how to take your medications as ordered? Yes Do you have any questions about your follow up appointment and do you plan to keep your follow up appointment? No appointment is scheduled but I also need to schedule a PFT for Dr. Rodríguez, transferred pt to centralized scheduling. Is there anything else that you would like to discuss? No Questions/Comments/Concerns/Other:
== END 2023-07-20 12:43 | disposition home or self-care (01) ==
LOC: ER 07-20 01:08 → MS 07-20 01:51
PROVIDERS: Registered Nurse; Admitting Provider Family Medicine; Emergency Provider Student in an Organized Health Care Education/Training Program; PCP Family Medicine; Visit Provider Family Medicine
DX: J44.1 Chronic obstructive pulmonary disease with (acute) exacerbation (principal); N40.0 Benign prostatic hyperplasia without lower urinary tract symptoms; Z79.899 Other long term (current) drug therapy; Z87.891 Personal history of nicotine dependence; Z20.822 Contact with and (suspected) exposure to COVID-19; Z98.890 Other specified postprocedural states
CPT/HCPCS: 0202U; 36415; 71046; 80048; 80053; 82800; 83880; 84484; 85025; 93005; 94640; 94761; 96374; 96376; 99285; G0378; J2920; J2930

== ENCOUNTER 2023-08-17 12:44 | Outpatient (OUT) | payer OTHER, SELFPAY | END 2023-08-17 12:45 | disposition home or self-care (01) | LOC: CARD 12:44 | PROVIDERS: PCP Family Medicine; Visit Provider Internal Medicine | DX: J43.2 Centrilobular emphysema (principal) ==